=== PATIENT | female | born 1975 | race Caucasian/White ===

== ENCOUNTER → 2017-03-30 | Emergency (ER) | payer OTHER, SELFPAY | PROVIDERS: Emergency Provider Emergency Medicine; Visit Provider Emergency Medicine | DX: R51 Headache (principal); F17.210 Nicotine dependence, cigarettes, uncomplicated; I10 Essential (primary) hypertension; Z88.2 Allergy status to sulfonamides; Z88.8 Allergy status to other drugs, medicaments and biological substances; Z88.5 Allergy status to narcotic agent; Z79.84 Long term (current) use of oral hypoglycemic drugs; Z79.899 Other long term (current) drug therapy | CPT/HCPCS: 96365; 96367; 96375; 96376; 99284; J2405 ==

== ENCOUNTER 2017-05-30 21:03 | Emergency (ER) | payer OTHER, SELFPAY ==
[2017-05-30 21:07] VITALS: BP 163/116; PULSE 106; RESP 16; O2SAT 100; BMI 27.4
--- NOTE | 2017-05-30 21:54 | PC.NURSE ---
PT SITTING ON BED HOLDING HER HEAD, STATES THE PAIN MEDS WORKED FOR ABOUT 3 MINS AND IS NOW BACK AT A 9/10 ON A PAIN SCALE. NOTIFIED
--- NOTE | 2017-05-30 22:20 | HMH.EDGENADL ---
ED Disposition Clinical Impression: Hypertensive urgency Headache Qualifiers: Headache type: unspecified Headache chronicity pattern: acute headache Intractability: intractable Qualified Code(s): R51 - Headache Disposition: Home, Self-Care Condition on Discharge: Good Instructions: DI for Headache Additional Instructions: recheck if needed Referrals: Dipak Del Rosario MD [Primary Care Provider] - - Critical Care Critical Care Time: No Attestation: On 05/30/17, the high probability of a clinically significant, sudden or life threatening deterioration of the following system(s) required my full and direct attention, intervention and personal management. The time I documented below is in addition to time spent performing reported procedures but includes the following listed in this critical care notation. Medical Decision Making - Medical Records Medical records reviewed: Yes: I reviewed the patient's medical records. Vital Signs: 05/30/17 21:07 Pulse Rate [Right] 106 H Respiratory Rate 16 Blood Pressure [Right Arm] 163/116 Blood Pressure Mean [Right Arm] 131 02 Sat by Pulse Oximetry 100 Oxygen Delivery Method Room Air - Lab Data Lab results reviewed: Yes: I reviewed the patient's lab results. Orders (Tests/Meds): ED MEDICATIONS Discontinued Medications Generic Name Dose Route Start Last Admin Trade Name Freq PRN Reason Stop Dose Admin Butorphanol Tartrate 1 mg 05/30/17 21:56 05/30/17 22:04 Stadol 1mg/1ml Vial IV 05/30/17 21:57 1 mg ONCE ONE Administration Butorphanol Tartrate 1 mg 05/30/17 22:17 Stadol 1mg/1ml Vial IV 05/30/17 22:18 ONCE ONE Fentanyl Citrate 50 mcg 05/30/17 21:26 05/30/17 21:28 Fentanyl 250mcg/5ml Vial IV 05/30/17 21:27 50 mcg ONCE ONE Administration Promethazine HCl 25 mg 05/30/17 21:26 05/30/17 21:28 Phenergan 25mg/Ml 1ml Vial IV 05/30/17 21:27 25 mg ONCE ONE Administration Sodium Chloride 25 ml 05/30/17 21:26 05/30/17 21:28 Sod Chlor 0.9% 25ml Bag IV 05/30/17 21:27 25 ml ONCE ONE Administration - Javon Inquiry Pt receiving controlled substance: No General Adult HPI - General Chief complaint: PAIN Stated complaint: mcmahon, with vomiting Time Seen by Provider: 05/30/17 22:20 Mode of Arrival: Ambulatory Source of Information: Patient, Medical Record Limitations: No Limitations Description of Symptoms (Recalled from ER Triage Doc. by RN): MIGRAINE, PTS STATES HER CHILDREN HAS BEEN + FOR FLU, SHE WAS TESTED TODAY WELL BUT WAS - - History of Present Illness HPI narrative: pt with acute mcmahon with hx of mcmahon but no rash or fever and no trauma Onset (ago): hour(s) Location: head Severity: moderate, similar to prior episodes Associated symptoms: nausea/vomiting - Related Data Home Medications Medication Instructions Recorded Confirmed Amlodipine Besylate [Norvasc 5mg 5 mg PO DAILY 05/30/17 05/30/17 tablet] hydroCHLOROthiazide 12.5 mg PO DAILY 05/30/17 05/30/17 [Hydrochlorothiazide 12.5mg Tab] Allergies Allergy/AdvReac Type Severity Reaction Status Date / Time meperidine [From DEMEROL] Allergy Unknown Verified 05/30/17 21:18 metoclopramide [From REGLAN] Allergy Unknown Verified 05/30/17 21:18 morphine [MORPHINE] Allergy Unknown Verified 05/30/17 21:18 Sulfa (Sulfonamide Allergy Unknown Verified 05/30/17 21:18 Antibiotics) [SULFA (SULFONAMIDE ANTIBIOTICS)] [facility] History I have reviewed the patient's past medical history: Yes - *Social History Alcohol Intake: never - Psychiatric History Expresses thoughts of harming self/others: None Suicide Plan Description: No Plan ROS Obtained: Yes All systems reviewed & no additional complaints - Constitutional Constitutional: Denies fever(s) - Eyes Eyes: Denies change in vision - ENT Ears, Nose, Mouth, and Throat: Denies sore throat - Cardiovascular Cardiovascular: Denies chest pain, Denies chest
--- NOTE | 2017-05-30 22:23 | ED_ITS ---
ED Disposition Clinical Impression: Hypertensive urgency Headache Qualifiers: Headache type: unspecified Headache chronicity pattern: acute headache Intractability: intractable Qualified Code(s): R51 - Headache Disposition: Home, Self-Care Condition on Discharge: Good Instructions: DI for Headache Additional Instructions: recheck if needed Referrals: Dipak Del Rosario MD [Primary Care Provider] - - Critical Care Critical Care Time: No Attestation: On 05/30/17, the high probability of a clinically significant, sudden or life threatening deterioration of the following system(s) required my full and direct attention, intervention and personal management. The time I documented below is in addition to time spent performing reported procedures but includes the following listed in this critical care notation. Medical Decision Making - Medical Records Medical records reviewed: Yes: I reviewed the patient's medical records. Vital Signs: 05/30/17 21:07 Pulse Rate [Right] 106 H Respiratory Rate 16 Blood Pressure [Right Arm] 163/116 Blood Pressure Mean [Right Arm] 131 02 Sat by Pulse Oximetry 100 Oxygen Delivery Method Room Air - Lab Data Lab results reviewed: Yes: I reviewed the patient's lab results. Orders (Tests/Meds): ED MEDICATIONS Discontinued Medications Generic Name Dose Route Start Last Admin Trade Name Freq PRN Reason Stop Dose Admin Butorphanol Tartrate 1 mg 05/30/17 21:56 05/30/17 22:04 Stadol 1mg/1ml Vial IV 05/30/17 21:57 1 mg ONCE ONE Administration Butorphanol Tartrate 1 mg 05/30/17 22:17 Stadol 1mg/1ml Vial IV 05/30/17 22:18 ONCE ONE Fentanyl Citrate 50 mcg 05/30/17 21:26 05/30/17 21:28 Fentanyl 250mcg/5ml Vial IV 05/30/17 21:27 50 mcg ONCE ONE Administration Promethazine HCl 25 mg 05/30/17 21:26 05/30/17 21:28 Phenergan 25mg/Ml 1ml Vial IV 05/30/17 21:27 25 mg ONCE ONE Administration Sodium Chloride 25 ml 05/30/17 21:26 05/30/17 21:28 Sod Chlor 0.9% 25ml Bag IV 05/30/17 21:27 25 ml ONCE ONE Administration - Javon Inquiry Pt receiving controlled substance: No General Adult HPI - General Chief complaint: PAIN Stated complaint: mcmahon, with vomiting Time Seen by Provider: 05/30/17 22:20 Mode of Arrival: Ambulatory Source of Information: Patient, Medical Record Limitations: No Limitations Description of Symptoms (Recalled from ER Triage Doc. by RN): MIGRAINE, PTS STATES HER CHILDREN HAS BEEN + FOR FLU, SHE WAS TESTED TODAY WELL BUT WAS - - History of Present Illness HPI narrative: pt with acute mcmahon with hx of mcmahon but no rash or fever and no trauma Onset (ago): hour(s) Location: head Severity: moderate, similar to prior episodes Associated symptoms: nausea/vomiting - Related Data Home Medications Medication Instructions Recorded Confirmed Amlodipine Besylate [Norvasc 5mg 5 mg PO DAILY 05/30/17 05/30/17 tablet] hydroCHLOROthiazide 12.5 mg PO DAILY 05/30/17 05/30/17 [Hydrochlorothiazide 12.5mg Tab] Allergies Allergy/AdvReac Type Severity Reaction Status Date / Time meperidine [From DEMEROL] Allergy Unknown Verified 05/30/17 21:18 metoclopramide [From REGLAN] Allergy Unknown
[2017-05-30 22:30] VITALS: BP 170/101; PULSE 77; RESP 16; TEMP 36.8; O2SAT 98
== END 2017-05-30 22:32 | disposition home or self-care (01) ==
PROVIDERS: Emergency Provider Emergency Medicine; Family Provider Emergency Medicine; PCP Emergency Medicine
DX: R51 Headache (principal); I10 Essential (primary) hypertension; Z88.6 Allergy status to analgesic agent; Z88.2 Allergy status to sulfonamides
CPT/HCPCS: 96374; 96375; 99281; J0595

== ENCOUNTER → 2017-08-15 09:21 | Outpatient (CLI) | payer OTHER, SELFPAY ==
[2017-08-15 13:29] LABS: HCG,Quantitative 0 mIU/mL
== END ==
PROVIDERS: Visit Provider Emergency Medicine
DX: N91.2 Amenorrhea, unspecified (principal)
CPT/HCPCS: 36415; 84702

== ENCOUNTER → 2017-11-18 16:16 | Outpatient (CLI) | payer OTHER, SELFPAY ==
--- NOTE | 2017-11-18 16:18 | MR_ITS ---
MR cervical spine wo con, MR 3-d myelogram/MRCP HISTORY: Neck pain and numbness. When flexing neck numbness down neck to tail bone. Symptoms [id number]. Neck pain. No trauma ITS.REASON: numbness ORDERING PHYSICIAN: Stephenie Khoury PATIENT AGE: 42 years Comparison: X-RAY 02-20-2007 TECHNIQUE: Standard multiplanar multiecho sequences are performed without contrast. 3-D MIP and myelographic images are also rendered and reviewed FINDINGS: There is normal alignment. There is slight reversal of the cervical lordosis which may be due to patient positioning or muscle spasm. The craniocervical junction has an unremarkable appearance. C2-C3, C3-C4, and C4-C5 have an unremarkable appearance. C5-C6: Mild degenerative disc disease with minimal asymmetric bulging disc centrally and toward the left resulting in mild left foraminal narrowing. There is mild uncovertebral hypertrophy bilaterally. C6-C7: Small asymmetric bulging disc slightly eccentric towards the left. C7-T1: Unremarkable. No extruded herniated disc or canal stenosis. IMPRESSION: 1. C5-C6: Mild degenerative disc disease with minimal asymmetric bulging disc centrally and toward the left resulting in mild left foraminal narrowing. There is mild uncovertebral hypertrophy bilaterally. 2. C6-C7: Small asymmetric bulging disc slightly eccentric towards the left 3. No disc herniation or canal stenosis
== END ==
PROVIDERS: Family Provider Emergency Medicine; PCP Emergency Medicine; Visit Provider Nurse Practitioner Family
DX: R20.0 Anesthesia of skin (principal); R20.2 Paresthesia of skin
CPT/HCPCS: 72141; 76376

== ENCOUNTER 2017-11-23 12:56 | Outpatient (CLI) | payer OTHER, SELFPAY ==
--- NOTE | 2017-11-23 13:06 | MR_ITS ---
MR lumbar spine wo con, MR 3-d myelogram/MRCP HISTORY: Low back pain with left-sided leg numbness ITS.REASON: LOW BACK PAIN, LT LEG NUMBNESS TINGLING, HEADACHES ORDERING PHYSICIAN: Dipak Del Rosario MD PATIENT AGE: 42 years Comparison: 07/10/2015 TECHNIQUE: Standard multiplanar multiecho sequences are performed without contrast. 3-D MIP and myelographic images are also rendered and reviewed FINDINGS: There is normal alignment. The spinal cord ends at the T12-L1 level. T11-T12, T12-L1, L1-L2, L2-L3, and L3-L4 have an unremarkable appearance. There is minimal bulging disc at L4-L5 with mild facet and ligamentum flavum hypertrophy with minimal bilateral foraminal narrowing. L5-S1: Mild facet and ligamentum hypertrophy. Unremarkable disc space.. IMPRESSION: 1. Overall no change from 07/10/2015. No disc herniation or canal stenosis. 2. Minimal bulging disc at L4-L5 with mild facet and ligamentum hypertrophy and mild bilateral foraminal narrowing
--- NOTE | 2017-11-23 13:08 | MR_ITS ---
MR head/brain wo con HISTORY: Headaches with numbness and tingling of the left side, ITS.REASON: LOW BACK PAIN, LEFT LEG NUMBNESS AND TINGLING, HEADACHES ORDERING PHYSICIAN: Dipak Del Rosario MD PATIENT AGE: 42 years Comparison: None TECHNIQUE: Standard multiplanar multiecho sequences are performed without contrast. FINDINGS: There is no evidence of acute infarction. No midline shift or mass effect. No intracranial hemorrhage or hydrocephalus. There are multiple periventricular and subcortical T2 white matter hyperintensities. These are more pronounced of what one would expect for microangiopathic changes in patient of this age. Multiple sclerosis is a consideration. None of these lesions show restricted diffusion. No corpus callosal lesions. A small T2 white matter hyperintensity is present in the deep white matter adjacent to the occipital horn of the left lateral ventricle in the proximal occipital tract. Fredo G I right are unremarkable and the temporal horns are somewhat neck region. The cerebellopontine angles, and cerebellum are unremarkable. There is some increased T2 signal in the central aspect of the george. No mastoid effusion or sinus air-fluid level there is mild leftward nasal septal deviation There is a cystic lesion involving the central aspect of the pituitary gland measuring 6 x 5 mm. This does not extend out of the pituitary fossa. The corpus callosum has an unremarkable appearance. No cerebellar ectopia. IMPRESSION: IMPRESSION: 1. Multiple periventricular and subcortical T2 white matter hyperintensities. These are more extensive than what one would expect for patient of this age. Multiple sclerosis is considered. Migraine headaches could also cause these findings. Ischemic gliotic change from small vessel disease is also a consideration which may be seen in younger patients that have chronic hypertension, positive smoking history, or diabetic? 2. 6 x 5 mm cystic lesion of the pituitary. Dedicated MRI of the pituitary with thin sections without and with contrast may be of further value to better characterize this lesion.
[2017-11-23 14:42] LABS: Basophils # 0.1 K/mm3 (0-0.2); Basophils % 0.4 % (0.1-2.0); Eosinophils # 0.3 K/mm3 (0.0-0.4); Eosinophils % 3.2 % (0.1-12.0); Hematocrit 42.8 % (37.0-47.0); Hemoglobin 14.7 g/dL (12.2-16.2); Lymphocytes # 2.9 K/mm3 (0.7-4.5); Lymphocytes % 27.1 K/mm3 (10-50); Mean Corpuscular HGB Conc 34.2 g/dL (31.8-35.4); Mean Corpuscular Hemoglobin 31.6 pg (27.0-31.2); Mean Corpuscular Volume 92.3 fl (81-99); Mean Platelet Volume 6.8 fl (7.4-10.4); Monocytes # 0.6 K/mm3 (0.1-1.0); Monocytes % 5.3 % (1.7-9.3); Neutrophils # 6.9 K/mm3 (1.8-7.8); Platelet Count 298 K/mm3 (142-424); Red Blood Count 4.64 M/mm3 (4.20-5.40); Red Cell Distribution Width 12.7 % (11.5-17.5); White Blood Count 10.7 K/mm3 (4.8-10.8)
[2017-11-23 15:53] LABS: Alanine Aminotransferase 23 U/L (12-78); Albumin Level 3.8 gm/dL (3.4-5.0); Albumin/Globulin Ratio 1.1 (1.1-1.8); Alkaline Phosphatase 82 U/L (46-116); Anion Gap 9.7 mEq/L (5-15); Aspartate Amino Transferase 11 U/L (15-37); Bilirubin,Total 0.5 mg/dL (0.2-1.0); Blood Urea Nitrogen 9 mg/dL (7-18); Calcium 8.8 mg/dL (8.5-10.1); Carbon Dioxide 30 mmol/L (21.0-32.0); Chloride 101 mmol/L (98-107); Creatinine,Serum 0.81 mg/dL (0.55-1.02); Estimated Glomerular Filt Rate 78 ml/min (>60); Free T4 (Free Thyroxine) 1.15 ng/dl (0.76-1.46); GFR (African American) 95 ML/MIN (>60); Globulin 3.4 gm/dl (1.3-3.2); Glucose 95 mg/dL (74-106); HCG,Quantitative 0 mIU/mL; Magnesium 1.8 mg/dL (1.4-2.2); Potassium 3.7 mmoL/L (3.5-5.1); Sodium 137 mmol/L (136-145); Thyroid Stimulating Hormone 3.47 uIU/ml (0.358-3.740); Total Protein,Serum 7.2 gm/dL (6.4-8.2)
[2017-11-23 15:59] LABS: C-Reactive Protein < 0.2 mg/L (0.0-0.9)
[2017-11-23 16:15] VITALS: BP 156/100; PULSE 100; RESP 20; TEMP 36.6; O2SAT 98
[2017-11-23 16:20] VITALS: RESP 20
[2017-11-23 16:50] VITALS: BP 157/87; PULSE 100; RESP 18; TEMP 36.6; O2SAT 100
[2017-11-23 17:37] LABS: Erythrocyte Sedimentation Rate 31 mm/hr (0-20)
[2017-11-26 18:15] LABS: Arsenic, Blood 5 ug/L (2-23); Lead, Blood None Detected ug/dL (0-4); Mercury, Blood None Detected ug/L (0.0-14.9)
[2017-11-28 05:31] LABS: Triiodothyronine (T3) Free 3.8 pg/mL (2.0-4.4)
== END 2017-11-23 17:15 | disposition home or self-care (01) ==
LOC: RAD 13:04 → INF 16:11
PROVIDERS: Family Provider Emergency Medicine; PCP Emergency Medicine; Visit Provider Emergency Medicine
DX: R20.0 Anesthesia of skin (principal); R20.2 Paresthesia of skin; R51 Headache; M54.5 Low back pain
CPT/HCPCS: 36415; 70551; 72148; 76376; 80053; 82175; 83655; 83735; 83825; 84439; 84443; 84481; 84702; 85025; 85651; 86140; 96360; 96375

== ENCOUNTER → 2017-11-24 16:04 | Outpatient (CLI) | payer OTHER, SELFPAY ==
--- NOTE | 2017-11-24 16:09 | MR_ITS ---
MR head/brain wo/w con HISTORY: Headaches with numbness and tingling of the left side of the face, left leg numbness and tingling. Follow-up abnormal MRI of 11/23/2017, possible pituitary lesion ITS.REASON: ABNORMAL MRI ORDERING PHYSICIAN: Dipak Del Rosario MD PATIENT AGE: 42 years Comparison: None TECHNIQUE: Thin section pre and post enhanced and dynamic imaging performed of the pituitary without and with gadolinium enhancement. FINDINGS: There is an oval area of CSF signal intensity along the superior aspect of the pituitary gland measuring 6 mm in width. This is anterior to the pituitary stalk. This does not demonstrate any contrast enhancement and may actually represent a concave contour deformity of the pituitary gland as opposed to a real pituitary lesion. A pituitary cyst with very thin wall could have a similar appearance. There is no evidence of deviation of the patella traced all. No enhancing or nonenhancing lesions evident of the gland. Post enhanced images are obtained of the entire brain showing no abnormal enhancement. Specifically, the multiple small T2 hyperintensities do not demonstrate contrast enhancement. IMPRESSION: 1. 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 Consider 6-12 month follow up for confirmation 2. No enhancing intracranial lesions.
== END ==
PROVIDERS: Family Provider Emergency Medicine; PCP Emergency Medicine; Visit Provider Emergency Medicine
DX: R93.8 Abnormal findings on diagnostic imaging of other specified body structures (principal); R20.0 Anesthesia of skin; R20.2 Paresthesia of skin; R51 Headache; M54.9 Dorsalgia, unspecified
CPT/HCPCS: 36415; 70553; 82533; A9576

== ENCOUNTER → 2017-12-09 13:57 | Outpatient (CLI) | payer OTHER, SELFPAY ==
--- NOTE | 2017-12-09 13:58 | US_ITS ---
US transvaginal HISTORY: Dysfunctional uterine bleeding, amenorrhea ITS.REASON: dub ORDERING PHYSICIAN: Carlos Sesay MD PATIENT AGE: 42 years Comparison: None FINDINGS: The uterus is 8 x 4 x 5.3 cm with a combined endometrial thickness of 9 mm. The uterus is somewhat bulky appearance but no obvious masses or fibroids. The left ovary measures 5 x 3.4 cm and contains either a septated cyst at 4.5 x 2.5 cm. The right ovary is 4 x 3.5 cm containing a 3.6 x 2.6 cm cyst. There is blood flow within both ovaries. No cul-de-sac fluid evident. IMPRESSION: 1. 4.5 cm septated left ovarian cyst. 2. 3.6 cm simple appearing cyst of the right ovary 3. Slightly bulky uterus with unremarkable appearing endometrium
== END ==
PROVIDERS: Family Provider Emergency Medicine; PCP Emergency Medicine; Visit Provider Obstetrics & Gynecology
DX: N93.8 Other specified abnormal uterine and vaginal bleeding (principal)
CPT/HCPCS: 76830

== ENCOUNTER → 2017-12-16 15:42 | Outpatient (CLI) | payer OTHER, SELFPAY ==
[2017-12-16 17:37] LABS: Free Thyroxine Index 3.2 ug/dL (5.93-13.13); T4 (Thyroxine) 9.3 ug/dl (4.7-13.3); Thyroid Stimulating Hormone 2.92 uIU/ml (0.358-3.740); Triiodothryronine (T3) Uptake 34 % (31-39)
[2017-12-18 19:09] LABS: Thyroid Peroxidase Antibodies 335 IU/mL (0-34)
[2017-12-21 10:20] LABS: Thyroid Stimulating Immunoglob <0.10 IU/L (0.00-0.55)
== END ==
PROVIDERS: PCP Otolaryngology; Visit Provider Otolaryngology
DX: E06.9 Thyroiditis, unspecified (principal)
CPT/HCPCS: 36415; 84436; 84443; 84445; 84479; 86376

== ENCOUNTER → 2017-12-20 13:53 | Outpatient (CLI) | payer OTHER, SELFPAY ==
[2017-12-22 20:02] LABS: Cancer Antigen (CA) 125 24.3 U/mL (0.0-38.1)
== END ==
PROVIDERS: Family Provider Emergency Medicine; PCP Otolaryngology; Visit Provider Obstetrics & Gynecology
DX: N94.9 Unspecified condition associated with female genital organs and menstrual cycle (principal)
CPT/HCPCS: 36415; 86316

== ENCOUNTER → 2018-01-10 14:46 | Outpatient (CLI) | payer OTHER, SELFPAY ==
--- NOTE | 2018-01-10 14:49 | US_ITS ---
US transvaginal HISTORY: ITS.REASON: pelvic pain ORDERING PHYSICIAN: Carlos Sesay MD PATIENT AGE: 42 years Comparison: None FINDINGS: The uterus is 8 x 4 x 6 cm with a combined endometrial thickness of 9 mm. The uterus maintains a bulky appearance with a scar anteriorly. The left ovary is 4.3 x 3 x 3.7 cm and contains a 3.4 x 2.8 cm cyst. Adjacent/infiltrate to the left ovary is a dilated tubular structure which may represent a hydrosalpinx. The right ovary is 2 x 1.9 cm and contains a small 7 mm cyst. No cul-de-sac fluid. IMPRESSION: 3.4 cm left ovarian cyst with suspected hydrosalpinx on the left MRI may confirm if clinically warranted
== END ==
PROVIDERS: PCP Emergency Medicine; Visit Provider Obstetrics & Gynecology
DX: R10.2 Pelvic and perineal pain (principal)
CPT/HCPCS: 76830

== ENCOUNTER → 2018-01-31 10:16 | Outpatient (CLI) | payer OTHER, SELFPAY ==
--- NOTE | 2018-01-31 10:19 | MM_ITS ---
MM Dig screening mamm BI w/CAD ORDERING PHYSICIAN : Carlos Sesay MD PATIENT AGE: 42 years GENDER: Female COMPARISON: January 2015, 2016, January 2014 INDICATION: ITS.REASON: screening. No hormones. No new complaints. Noncontributory family history. TECHNIQUE: Standard CC and MLO images were obtained. R2 CAD reviewed. FINDINGS: Fairly dense inhomogeneous breast pattern bilaterally. Mammography of decreased sensitivity in breast of this character but we see no suspicious dominant mass nor suspicious calcifications. CAD computer review highlights no focal areas of concern either Breast . Bilateral follow-up in one year adequate ---------IMPRESSION:. Stable bilateral mammogram. No new areas of significant concern Fairly dense heterogeneous breast pattern bilaterally, does somewhat decrease sensitivity mammography but no new areas of concern Bilateral follow-up one year recommended. BI-RADS Category: 2 Benign Finding(s) RECOMMENDED FOLLOW-UP: 1YR 1 YEAR FOLLOW-UP (A letter has been sent to the patient regarding results of the study.)
== END ==
PROVIDERS: Family Provider Emergency Medicine; PCP Emergency Medicine; Visit Provider Obstetrics & Gynecology
DX: Z12.31 Encounter for screening mammogram for malignant neoplasm of breast (principal)
CPT/HCPCS: 77067

== ENCOUNTER → 2018-03-28 15:38 | Outpatient (CLI) | payer OTHER, SELFPAY ==
--- NOTE | 2018-03-28 15:39 | US_ITS ---
US transvaginal HISTORY: Irregular bleeding, left adnexal mass ITS.REASON: LEFT ADNEXAL MASS ORDERING PHYSICIAN: Carlos Sesay MD PATIENT AGE: 42 years Comparison: 01/10/2018 FINDINGS: The uterus measures 7.8 3.8 x 4.7 cm. Combined endometrial thickness is 5 mm. There is an area of heterogeneous echogenicity in the fundus of the uterus anteriorly measuring 2 x 2 cm consistent with fibroid. The right ovary measures 3.8 x 2.6 x 4 cm and contains a 2.8 by 2 x 2 x 2.9 cm cyst. The left ovary is 2.6 x 1.9 cm containing small follicles. Tubular area of fluid echogenicity noted in the left adnexa as before consistent with hydrosalpinx. No cul-de-sac fluid apparent. IMPRESSION: 1. Previously described left ovarian cyst is no longer apparent. There is a left-sided hydrosalpinx as before. 2. There is a new right ovarian cyst at 2.8 x 2.9 cm. 3. Small uterine fibroid
== END ==
PROVIDERS: PCP Emergency Medicine; Visit Provider Obstetrics & Gynecology
DX: R10.2 Pelvic and perineal pain (principal)
CPT/HCPCS: 76830

== ENCOUNTER 2018-03-31 21:46 | Inpatient (IN) ==
[2018-03-31 22:13] LABS: Microscopic, Urine URINE MICROSCOPIC (MICROSCOPIC)
[2018-03-31 22:16] LABS: Appearance,Urine CLEAR (Clear); Bilirubin,Urine Negative (Negative); Blood, Urine 3+ (Negative); Color,Urine YELLOW (Yellow); Glucose,Urine (UA) TRACE (Negative); Ketones,Urine TRACE (Negative); Leukocyte Esterase,Urine Negative (Negative); Protein,Urine Negative (Negative); Specific Gravity, Urine 1.025 (1.005-1.030); Urobilinogen,Urine 0.2 EU/dl (0.2)
[2018-03-31 22:20] LABS: Eosinophils % 0.2 % (0.1-12.0); Hematocrit 38.1 % (37.0-47.0); Lymphocytes # 0.9 K/mm3 (0.7-4.5); Mean Corpuscular HGB Conc 32.2 g/dL (31.8-35.4); Mean Corpuscular Hemoglobin 30.9 pg (27.0-31.2); Mean Corpuscular Volume 96.2 fl (81-99); Mean Platelet Volume 7.5 fl (7.4-10.4); Monocytes # 0.4 K/mm3 (0.1-1.0); Monocytes % 2.6 % (1.7-9.3); Neutrophils # 14.5 K/mm3 (1.8-7.8); Neutrophils % 91.3 % (37.0-80.0); Platelet Count 299 K/mm3 (142-424); Red Blood Count 3.96 M/mm3 (4.20-5.40); Red Cell Distribution Width 12.7 % (11.5-17.5); White Blood Count 15.8 K/mm3 (4.8-10.8)
[2018-03-31 22:22] LABS: Bacteria,Urine Trace /lpf
[2018-03-31 22:25] LABS: Albumin Level 3.3 gm/dL (3.4-5.0); Anion Gap 16.2 mEq/L (5-15); Bilirubin,Total 0.4 mg/dL (0.2-1.0); Calcium 8.1 mg/dL (8.5-10.1); Globulin 3.3 gm/dl (1.3-3.2); Potassium 4.2 mmoL/L (3.5-5.1); Total Protein,Serum 6.6 gm/dL (6.4-8.2)
[2018-03-31 22:29] LABS: Hemoglobin 12.3 g/dL (12.2-16.2)
[2018-03-31 22:38] LABS: Lymphocytes % 4 % (10-50); Monocytes % 1 % (2-9); Neutrophils % 88 % (42-76); RBC Morphology Normal; Total Cells Counted 100
--- NOTE | 2018-03-31 22:59 | Emergency Department Note ---
ED Disposition Clinical Impression: Post-operative haemorrhage Qualifiers: Surgical complication system/body Area: genitourinary Procedure type: genitourinary Qualified Code(s): N99.820 - Postprocedural hemorrhage of a genitourinary system organ or structure following a genitourinary system procedure Disposition: Admitted as Observation Condition on Discharge: Serious Instructions: DI for Acute Abdomen Referrals: Dipak Del Rosario MD [Primary Care Provider] - - Critical Care Critical Care Time: No Attestation: On 03/31/18, the high probability of a clinically significant, sudden or life threatening deterioration of the following system(s) required my full and direct attention, intervention and personal management. The time I documented below is in addition to time spent performing reported procedures but includes the following listed in this critical care notation. Medical Decision Making - Medical Records Medical records reviewed: Yes: I reviewed the patient's medical records. - Javon Inquiry Pt receiving controlled substance: No Vital Signs: 03/31/18 21:51 04/01/18 00:46 Temperature 98.8 F 98.2 F Temperature Source Oral Temporal Artery Scan Pulse Rate [Right Brachial] 118 H 88 Respiratory Rate 20 16 Blood Pressure [Right Arm] 147/88 H Blood Pressure Mean [Right Arm] 107 Blood Pressure Source [Right Arm] Automatic Cuff Blood Pressure Position [Right Arm] Sitting 02 Sat by Pulse Oximetry 98 99 Oxygen Delivery Method Room Air Room Air - Lab Data Lab results reviewed: Yes: I reviewed the patient's lab results. Lab Results 03/31/18 22:00: Urine Color Yellow, Urine Appearance Clear, Urine pH 6.0, Ur Specific [place] 1.025, Urine Protein Negative, Urine Glucose (UA) Trace, Urine Ketones Trace, Urine Blood 3+, Urine Nitrate Negative, Urine Bilirubin Negative, Urine Urobilinogen 0.2, Ur Leukocyte Esterase Negative, Urine RBC 3-5, Urine WBC 3-5, Ur Squamous Epith Cells 5-10, Urine Bacteria Trace 03/31/18 22:00: Sodium 140, Potassium 4.2, Chloride 103, Carbon Dioxide 25, Anion Gap 16.2 H, BUN 9, Creatinine 0.94, Estimated Creat Clear 74, Estimated GFR 66, Est GFR ( Amer) 80, Glucose 156 H D, Calcium 8.1 L, Total Bilirubin 0.4, AST 104 H D, ALT 142 H D, Alkaline Phosphatase 88, Total Protein 6.6, Albumin 3.3 L, Globulin 3.3 H, Albumin/Globulin Ratio 1.0 L 03/31/18 22:16: WBC 15.8 H D, RBC 3.96 L, Hgb 12.3 D, Hct 38.1, MCV 96.2, MCH 30.9, MCHC 32.2, RDW 12.7, Plt Count 299, MPV 7.5, Neut % (Auto) 91.3 H, Lymph % (Auto) 6.0 L, [place] % (Auto) 2.6, Eos % (Auto) 0.2, Baso % (Auto) 0.0 L, Neut # (Auto) 14.5 H, Lymph # (Auto) 0.9, [place] # (Auto) 0.4, Eos # (Auto) 0.0, Baso # (Auto) 0.0, Total Counted 100, Neutrophils % (Manual) 88 H, Band Neutrophils % 7.0, Lymphocytes % (Manual) 4 L, Monocytes % (Manual) 1 L, Platelet Estimate Normal, RBC Morphology Normal Result diagrams: 03/31/18 22:16 03/31/18 22:00 Orders (Tests/Meds): ED MEDICATIONS Generic Name Dose Route Start Last Admin Trade Name Freq PRN Reason Stop Dose Admin Sodium Chloride 1,000 mls @ 999 mls/hr 03/31/18 22:00 03/31/18 22:20 Sod Chlor 0.9% 1000ml Bag IV 03/31/18 23:00 999 mls/hr .Q1H1M JEANNE Administration Sodium Chloride 250 mls @ 25 mls/hr 04/01/18 01:00 Sod Chlor 0.9% 250ml Bag IV 04/02/18 00:59 .Q10H JEANNE Discontinued Medications Generic Name Dose Route Start Last Admin Trade Name Freq PRN Reason Stop Dose Admin Hydromorphone HCl 1 mg 03/31/18 22:18 03/31/18 22:20 Dilaudid 2mg/Ml Syringe IV 03/31/18 22:19 1 mg ONCE ONE Administration Hydromorphone HCl 1 mg 03/31/18 23:21 03/31/18 23:23 Dilaudid 2mg/Ml Syringe IV 03/31/18 23:22 1 mg ONCE ONE Administration Iopamidol 75 ml 03/31/18 23:16 03/31/18 23:18 [id number]; 75ml Vial IV 03/31/18 23:17 75 ml ONCE ONE Administration Protocol Promethazine HCl 12.5 mg 03/31/18 22:19 03/31/18 22:20 Phenergan 25mg/Ml 1ml Vial IV 03/31/18 22:20 12.5 mg ONCE ONE Administration Sodium Chloride 25 ml 03/31/18 22:19 03/31/18 22:20 Sod Chlor 0.9% 25ml Bag IV 03/31/18 22:20 25 ml ONCE ONE Administration Sodium Chloride 10 ml 03/31/18 23:16 03/31/18 23:18 Rad-Saline Flush 10ml Syringe IV 03/31/18 23:17 10 ml ONCE ONE Administration ORDERS Category Date Time Status PRBC [Red Blood Cells] Stat BBK 04/01/18 00:56 Ordered Type and Screen Stat BBK 04/01/18 00:56 Ordered Urinalysis and Microscopic Stat Lab 03/31/18 22:00 Ordered - CT Data CT Scan: Abdomen, Pelvis Time Received: 01:[address] Reviewed: Yes: I have viewed the radiologist's interpretation Preliminary Findings: Abnormal (see report) - Physician Consults Physician Consulted: omayra Reason -: Admission Nausea/Vomiting/Diarrhea HPI - General Chief complaint: Abdominal Pain Stated complaint: Surg Time Seen by Provider: 03/31/18 22:00 Mode of Arrival: Ambulatory Source of Information: Patient, Parent(s), Medical Record Limitations: No Limitations Description of Symptoms (Recalled from ER Triage Doc. by RN): Pt advises she surgery today and had her left tube and ovary removed. Right tube flushed, D&C, and endometrosis removed. Around 1999 she started having sharp, stabbing pains in the middle of her abd and into her back. 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 and has dev increasing pelvic pain over the last few hrs - nausea - no syncope MD complaint: nausea, abdominal pain Onset (ago): hour(s) Associated Abdominal Pain: Yes Location of pain: diffuse Severity: severe Quality: sharp Associated symptoms: denies other symptoms - Related Data Home Medications Medication Instructions Recorded Confirmed metoprolol tartrate 25 mg tablet 25 mg PO BID 11/28/17 03/31/18 Previous Rx's Medication Instructions Recorded amlodipine 5 mg tablet 5 mg PO DAILY #30 tab 02/22/18 hydrochlorothiazide 12.5 mg tablet 12.5 mg PO DAILY 90 Days #90 tab 02/22/18 promethazine 25 mg tablet 25 mg PO Q6H PRN 14 Days #20 tab 03/31/18 Allergies Allergy/AdvReac Type Severity Reaction Status Date / Time meperidine [From Demerol] Allergy Unknown Verified 03/31/18 09:18 metoclopramide [From REGLAN] Allergy Unknown Verified 03/31/18 09:18 Sulfa (Sulfonamide Allergy Unknown Verified 03/31/18 09:18 Antibiotics) [SULFA (SULFONAMIDE ANTIBIOTICS)] [facility] History - Hepatitis A Screen Drug use history?: No High risk sexual behaviors?: No History of sexually transmitted infection?: No Currently employed?: No Childcare worker?: No Do you have indoor plumbing?: Yes Do you have electricity?: Yes Attestation statement:: This patient has been screened for Hepatitis A risk factors. I have reviewed the patient's past medical history: Yes Medical History: Reports:: Hypertension, Kidney Stones, Migraine Denies:: Cancer, Diabetes Mellitus Type 1, Diabetes Mellitus Type 2, Internal Pacemaker, MRSA, Seizures Other Medical History: Denies: Blood Transfusion Reaction Comment: ENDOMETRIOSIS. MIGRAINE. HYPERTENSION. HYPOTHYROIDISM. KIDNEY STONES. NEXPLANON--LEFT ARM Other Surgeries: Yes: , Diagnostic Lap, Other. No: Pacemaker Amputation: No Fractures: No Comment: DX. LSC--1996. C/S--1998. Exploratory Laparotomy--1999. Lap Choly--2004. D&E--2006. Hemorrhoidectomy--2006. D&E--2007. HSG--2008. Repeat C/Section--2009. Repeat , JOCELYN, extensive Lysis of adhesions--2010. Hemorrhoidectomy--2010. Fx D&C, Dx. LSC, JOCELYN, Extensive adhesiolysis--2012 - Social History Smoking Status: Current every day smoker Tobacco Type: cigarettes # Packs/Day (cigarettes): 1 Alcohol Intake: never Alcohol Intake Frequency:: holidays/special occasions only Substance Use Type: denies use Occupational Status: employed Housing: house Household Members: family - Psychiatric History Expresses thoughts of harming self/others: None Suicide Plan Description: No Plan Family Hx:: Cancer, Heart Attack, Hypertension, Coronary Artery Disease, Stroke Comment: 1998, male, Primary C/S, No complications--34 weeks. 2006, spontaneous , D&E. 2007 , Spontaneous , D&E. 2009, Repeat C/S, TWINS, Female, Male, Breast, premature delivery--32 weeks. 10/16/10 Repeat C/S, male, No complications,Breast ROS Obtained: Yes All systems reviewed & no additional complaints - Constitutional Constitutional: Denies fever(s) - Eyes Eyes: Denies change in vision - ENT Ears, Nose, Mouth, and Throat: Denies sore throat - Cardiovascular Cardiovascular: Denies chest pain - Respiratory Respiratory: No cough - Gastrointestinal Gastrointestingal: Reports: as per HPI, abdominal pain, nausea, vomiting - Genitourinary Female Genitourinary: Denies abnormal vaginal bleeding - Musculoskeletal Musculoskeletal: Denies joint pain - Integumentary/Breasts Skin/Breast: Denies rash - Neurologic Neurologic: Denies seizure-like activity Physical Exam - General General appearance: alert - Head Head exam: normocephalic - Eye Eye exam: Present: PERRL, EOMI - ENT ENT exam: Present: mucous membranes dry - Neck Neck exam: Present: trachea midline - Respiratory Respiratory exam: Absent: respiratory distress - Cardiovascular Cardiovascular exam: Present: regular rate - Abdominal Exam Abdominal exam: Present: soft, tenderness Abdominal tenderness: Present: suprapubic, moderate - Extremities Exam Extremities exam: Present: full ROM - Neurological Exam Neurological exam: Present: alert, oriented X3, CN II-XII intact - Psychiatric Psychiatric exam: Present: normal affect - Skin Skin exam: Absent: rash
[2018-04-01 02:35] LABS: Hemoglobin 9.8 g/dL (12.2-16.2)
[2018-04-01 02:36] LABS: Hematocrit 29.4 % (37.0-47.0)
--- NOTE | 2018-04-01 03:09 | Operative Note ---
Date of procedure: 04/01/18 Pre-op Diagnosis:: Postop hemorrhage Post-op Diagnosis:: Postop hemorrhage with hemoperitoneum and left broad ligament tear Procedure performed:: Exploratory laparotomy, evacuation of hemoperitoneum, oversewing of left broad ligament tear Surgeon:: Carlos Sesay MD Project Estimator(s):: Dr. Bethany Loomis HAND CANDY CUTTER:: Gonsalo Mejia Anesthesia: GETA Estimated blood loss (mL): 700 Operative findings:: Hemoperitoneum with clots. Left broad ligament tear. Operative note:: After the patient was prepped and draped in usual fashion and general anesthesia was the 3 laparoscopic incisions were inspected and felt to be intact. A lower abdominal midline incision was made and taken down through fat and fascia in the usual fashion. The peritoneum was entered bluntly, and a large amount of blood and clots was evacuated both manually and by suction. A self-retaining Isabela retractor with bladder blade was placed. The bowel was packed away, and the pelvis was inspected. The uterus was of normal size and configuration. The right adnexa appeared normal, without bleeding. On the left side, the staple line from the pelviscopic left salpingo-oophorectomy that had been performed yesterday morning was intact. However, there was a rent in the left broad ligament, which was oozing. No distinct pumping vessels were identified, but the rent was oversewn with a running unlocked suture of 2-0 Vicryl. Extensive irrigation was carried out, and there was no evidence of other bleeding. (Since the patient's arrival emergency room at approximately 2200 on 03/31/18, her hemoglobin had dropped from 12.3 g to 9.8 g, and the decision was made to begin transfusion of 2 units of packed cells, which was begun toward the end of surgery.) The peritoneum was grasped using Sangeeta clamps, and closed with a running semi-locked suture of 0 Vicryl. The muscle and fascia were closed with a running semi-locked suture of #1 Vicryl. The subcutaneous fat and Kilo's fascia were closed with a running unlocked suture of 2-0 Vicryl. The skin was closed with a subcuticular suture of 3-0 Vicryl, and appropriately dressed. The sponge and needle count was correct. The estimated blood loss without irrigation was 700 cc. The urine was clear in the Esposito catheter. The patient tolerated the procedure well, and was taken to PACU in excellent condition. She will be admitted postoperatively. Condition: stable Disposition: PACU Specimens:: None Complications:: None--transfusion started in OR.
--- NOTE | 2018-04-01 03:14 | Progress Note ---
[facility] Anesthesia Record Part I Intake, IV Amount: 1,700 Estimated blood loss (mL): 700 Urine output (mL): 200 Blood Pressure: 161/93 SaO2: 96 Pulse Rate: 73 Respiratory Rate: 12 Temperature: 97.7 F Patient is:: Awake, Stable Stable to PACU at:: 03:10
--- NOTE | 2018-04-01 03:14 | Progress Note ---
[facility] Anesthesia Record Part II Discharge Time: 15:40 Destination: floor PACU nurse assessment reviewed?: Yes Patient Condition:: Good Anesthesia Complications:: None
[2018-04-01 04:21] LABS: Hematocrit 36.6 % (37.0-47.0)
[2018-04-01 04:23] LABS: Hemoglobin 12.1 g/dL (12.2-16.2)
[2018-04-01 09:19] LABS: Anion Gap 10.2 mEq/L (5-15); Calcium 7.5 mg/dL (8.5-10.1); Potassium 4.2 mmoL/L (3.5-5.1)
[2018-04-01 09:27] LABS: Basophils % 0.2 % (0.1-2.0); Eosinophils % 0.1 % (0.1-12.0); Hematocrit 36.9 % (37.0-47.0); Hemoglobin 11.7 g/dL (12.2-16.2); Lymphocytes # 2.9 K/mm3 (0.7-4.5); Lymphocytes % 13.3 % (10-50); Mean Corpuscular HGB Conc 31.7 g/dL (31.8-35.4); Mean Corpuscular Hemoglobin 30.1 pg (27.0-31.2); Mean Corpuscular Volume 94.9 fl (81-99); Mean Platelet Volume 7.5 fl (7.4-10.4); Monocytes # 1.1 K/mm3 (0.1-1.0); Neutrophils # 17.4 K/mm3 (1.8-7.8); Neutrophils % 81.3 % (37.0-80.0); Platelet Count 260 K/mm3 (142-424); Red Blood Count 3.89 M/mm3 (4.20-5.40); Red Cell Distribution Width 14.3 % (11.5-17.5); White Blood Count 21.4 K/mm3 (4.8-10.8)
[2018-04-01 09:43] LABS: Lymphocytes % 10 % (10-50); Monocytes % 2 % (2-9); Neutrophils % 85 % (42-76); RBC Morphology Normal; Total Cells Counted 100
--- NOTE | 2018-04-01 11:57 | Progress Note ---
Internal Medicine - PN: Subj *Date: 04/01/18 *Time: 11:53 Interval history: This is day of surgery (approximately 9 hours postop). After transfusion, the patient's hemoglobin is 11.7 grams. Her abdomen is soft, albeit somewhat distended. Bowel sounds are minimal. The patient is afebrile. Vital signs are stable (blood pressure in the 120s over 70s). Urine output after a single dose of Lasix is good. PO2 is 95+. Lungs are clear, but with a few rales at both bases. A portable chest x-ray has been done (results pending). I have explained surgery to the patient, and specifically to expect some diaphragmatic irritation from irrigation fluid. We will continue to follow her H/H. Imp ression: Improving. Exam Vital signs and Labs for Last 24 Hours: Temp Pulse Resp BP Pulse Ox 98.0 F 74 18 124/80 95 04/01/18 10:00 04/01/18 11:26 04/01/18 11:26 04/01/18 11:26 04/01/18 11:26 Laboratory Results - last 24 hr 03/31/18 22:00: Urine Color Yellow, Urine Appearance Clear, Urine pH 6.0, Ur Specific [place] 1.025, Urine Protein Negative, Urine Glucose (UA) Trace, Urine Ketones Trace, Urine Blood 3+, Urine Nitrate Negative, Urine Bilirubin Negative, Urine Urobilinogen 0.2, Ur Leukocyte Esterase Negative, Urine RBC 3-5, Urine WBC 3-5, Ur Squamous Epith Cells 5-10, Urine Bacteria Trace 03/31/18 22:00: Sodium 140, Potassium 4.2, Chloride 103, Carbon Dioxide 25, Anion Gap 16.2 H, BUN 9, Creatinine 0.94, Estimated Creat Clear 74, Estimated GFR 66, Est GFR ( Amer) 80, Glucose 156 H D, Calcium 8.1 L, Total Bilirubin 0.4, AST 104 H D, ALT 142 H D, Alkaline Phosphatase 88, Total Protein 6.6, Albumin 3.3 L, Globulin 3.3 H, Albumin/Globulin Ratio 1.0 L 03/31/18 22:16: WBC 15.8 H D, RBC 3.96 L, Hgb 12.3 D, Hct 38.1, MCV 96.2, MCH 30.9, MCHC 32.2, RDW 12.7, Plt Count 299, MPV 7.5, Neut % (Auto) 91.3 H, Lymph % (Auto) 6.0 L, [place] % (Auto) 2.6, Eos % (Auto) 0.2, Baso % (Auto) 0.0 L, Neut # (Auto) 14.5 H, Lymph # (Auto) 0.9, [place] # (Auto) 0.4, Eos # (Auto) 0.0, Baso # (Auto) 0.0, Total Counted 100, Neutrophils % (Manual) 88 H, Band Neutrophils % 7.0, Lymphocytes % (Manual) 4 L, Monocytes % (Manual) 1 L, Platelet Estimate Normal, RBC Morphology Normal 04/01/18 01:10: Blood Type A Positive, Antibody Screen Negative, Crossmatch (AHG) See Detail 04/01/18 01:54: Urine Color Yellow, Urine Appearance Clear, Urine pH 6.0, Ur Specific [place] 1.020, Urine Protein Negative, Urine Glucose (UA) Negative, Urine Ketones Trace, Urine Blood Trace-i, Urine Nitrate Negative, Urine Bilirubin Negative, Urine Urobilinogen 0.2, Ur Leukocyte Esterase Negative, Urine RBC 3-5, Ur Transition Epith Cell 10-20, Ur Renal Epithelial Cell Occasional 04/01/18 02:30: Hgb 9.8 L D, Hct 29.4 L 04/01/18 04:05: Hgb 12.1 L D, Hct 36.6 L 04/01/18 09:05: WBC 21.4 H* D, RBC 3.89 L, Hgb 11.7 L, Hct 36.9 L, MCV 94.9, MCH 30.1, MCHC 31.7 L, RDW 14.3, Plt Count 260, MPV 7.5, Neut % (Auto) 81.3 H, Lymph % (Auto) 13.3, [place] % (Auto) 5.0, Eos % (Auto) 0.1, Baso % (Auto) 0.2, Neut # (Auto) 17.4 H, Lymph # (Auto) 2.9, [place] # (Auto) 1.1 H, Eos # (Auto) 0.0, Baso # (Auto) 0.0, Total Counted 100, Neutrophils % (Manual) 85 H, Lymphocytes % (Manual) 10, Atypical Lymphs % 3.0, Monocytes % (Manual) 2, Platelet Estimate Normal, RBC Morphology Normal 04/01/18 09:05: Sodium 139, Potassium 4.2, Chloride 107, Carbon Dioxide 26, Anion Gap 10.2, BUN 10, Creatinine 0.90, Estimated Creat Clear 107, Estimated GFR 69, Est GFR ( Amer) 84, Glucose 112 H D, Calcium 7.5 L I & O for Last 24 hours: Intake & Output 03/29/18 03/30/18 03/31/18 04/01/18 11:59 11:59 11:59 11:59 Intake Total 3085 / 3085 Output Total 425 / 425 Balance 2660 / 2660 Weight 180 lb
--- NOTE | 2018-04-01 11:57 | Pharmacy Consult Notes ---
[facility] Pharmacy VTE Monitoring - Patient Demographics Admission date: 03/31/18 Report Date: 04/01/18 Time: 11:57 Allergies/Adverse Reactions: Patient Allergies meperidine [From Demerol] Allergy (Unknown, Verified 03/31/18 09:18) metoclopramide [From REGLAN] Allergy (Unknown, Verified 03/31/18 09:18) Sulfa (Sulfonamide Antibiotics) [SULFA (SULFONAMIDE ANTIBIOTICS)] Allergy (Unknown, Verified 03/31/18 09:18) Height: 1.68 m Weight: 81.647 kg Patient Problems: Current Active Problems Post-operative haemorrhage (Acute) - VTE Risk Labs: VTE Related Lab Results Hgb 11.7 g/dL (12.2-16.2) L 04/01/18 09:05 Hct 36.9 % (37.0-47.0) L 04/01/18 09:05 Plt Count 260 K/mm3 (142-424) 04/01/18 09:05 BUN 10 mg/dL (7-18) 04/01/18 09:05 Creatinine 0.90 mg/dL (0.55-1.02) 04/01/18 09:05 Estimated Creat Clear 107 mL/min (50-200) 04/01/18 09:05 Was VTE Risk Assessment Performed: Yes VTE Score: 2 - Prophylaxis VTE Prophylaxis Ordered?: Yes Types of VTE Prophylaxis: IPCS Thigh High Location of Applied Device: Bilateral Lower Extremeties
[2018-04-01 16:21] LABS: Hemoglobin 10.8 g/dL (12.2-16.2)
--- NOTE | 2018-04-01 21:18 | Consult Report ---
*Admission Date: 03/31/18 *Chief complaint: sob *History of present illness: this wf had recent fisher terrapin surg and went home and dev lower abd pain and was seen in the ed and noted to have prob post- op bleeding -t advises she surgery today and had her left tube and ovary removed. Right tube flushed, D&C, and endometrosis removed. Around 1999 she started having sharp, stabbing pains in the middle of her abd and into her back. pt was taken to surg - Postop hemorrhage Post-op Diagnosis:: Postop hemorrhage with hemoperitoneum and left broad ligament tear Procedure performed:: Exploratory laparotomy, evacuation of hemoperitoneum, oversewing of left broad ligament tear Surgeon:: Carlos Sesay MD Extrusion Bender(s):: Dr. Bethany Loomis COLD STORAGE SUPERVISOR:: Gonsalo Mejia Anesthesia: GETA Estimated blood loss (mL): 700 Operative findings:: Hemoperitoneum with clots. Left broad ligament tear. pt has been doing ok but this pm about 1500 - had an episode of sob and no chest pain but epigastric pain and now has no sob and no leg pain and no hx of pe or dvt -pt has elevated wells score 4.5 [facility] History I have reviewed the patient's past medical history: Yes Medical History: Reports:: Hypertension, Kidney Stones, Migraine Denies:: Cancer, Diabetes Mellitus Type 1, Diabetes Mellitus Type 2, Internal Pacemaker, MRSA, Seizures Other Medical History: Denies: Blood Transfusion Reaction Other Surgeries: Yes: , Diagnostic Lap, Other. No: Pacemaker Amputation: No Fractures: No - *Social History Smoking Status: Current every day smoker Tobacco Type: cigarettes # Packs/Day (cigarettes): 1 Alcohol Intake: never Alcohol Intake Frequency:: holidays/special occasions only Substance Use Type: denies use Occupational Status: employed Housing: house Household Members: family - Psychiatric History Expresses thoughts of harming self/others: None Suicide Plan Description: No Plan *Family Hx:: Cancer, Heart Attack, Hypertension, Coronary Artery Disease, Stroke Review of Systems - Review of Systems Review of systems:: pertinent systems reviewed and negative unless documented below - Constitutional Denies fever(s) - Eyes Denies change in vision - ENT Denies sore throat - *Cardiovascular Denies chest pain, Reports shortness of breath - *Respiratory Reports cough, Reports shortness of breath, Denies coughing up blood - *Gastrointestinal Reports abdominal pain, Reports nausea - *Genitourinary Denies blood in urine - *Musculoskeletal Denies joint pain - Integumentary/Breasts Denies rash - *Neurologic Denies seizure-like activity - Psychiatric Reports anxiety Meds Home Medications Medication Instructions Recorded Confirmed Type metoprolol tartrate 25 mg tablet 25 mg PO BID 11/28/17 04/01/18 History Allergies Allergy/AdvReac Type Severity Reaction Status Date / Time meperidine [From Demerol] Allergy Unknown Verified 03/31/18 09:18 metoclopramide [From REGLAN] Allergy Unknown Verified 03/31/18 09:18 Sulfa (Sulfonamide Allergy Unknown Verified 03/31/18 09:18 Antibiotics) [SULFA (SULFONAMIDE ANTIBIOTICS)] Exam Vital signs and Labs for Last 24 Hours: Temp Pulse Resp BP Pulse Ox 98.3 F 78 16 142/68 H 93 L 04/01/18 16:30 04/01/18 18:20 04/01/18 18:20 04/01/18 16:30 04/01/18 18:20 Laboratory Results - last 24 hr 03/31/18 22:00: Urine Color Yellow, Urine Appearance Clear, Urine pH 6.0, Ur Specific Dow 1.025, Urine Protein Negative, Urine Glucose (UA) Trace, Urine Ketones Trace, Urine Blood 3+, Urine Nitrate Negative, Urine Bilirubin Negative, Urine Urobilinogen 0.2, Ur Leukocyte Esterase Negative, Urine RBC 3-5, Urine WBC 3-5, Ur Squamous Epith Cells 5-10, Urine Bacteria Trace 03/31/18 22:00: Sodium 140, Potassium 4.2, Chloride 103, Carbon Dioxide 25, Anion Gap 16.2 H, BUN 9, Creatinine 0.94, Estimated Creat Clear 74, Estimated GFR 66, Est GFR ( Amer) 80, Glucose 156 H D, Calcium 8.1 L, Total Bilirubin 0.4, AST 104 H D, ALT 142 H D, Alkaline Phosphatase 88, Total Protein 6.6, Albumin 3.3 L, Globulin 3.3 H, Albumin/Globulin Ratio 1.0 L 03/31/18 22:16: WBC 15.8 H D, RBC 3.96 L, Hgb 12.3 D, Hct 38.1, MCV 96.2, MCH 30.9, MCHC 32.2, RDW 12.7, Plt Count 299, MPV 7.5, Neut % (Auto) 91.3 H, Lymph % (Auto) 6.0 L, [place] % (Auto) 2.6, Eos % (Auto) 0.2, Baso % (Auto) 0.0 L, Neut # (Auto) 14.5 H, Lymph # (Auto) 0.9, [place] # (Auto) 0.4, Eos # (Auto) 0.0, Baso # (Auto) 0.0, Total Counted 100, Neutrophils % (Manual) 88 H, Band Neutrophils % 7.0, Lymphocytes % (Manual) 4 L, Monocytes % (Manual) 1 L, Platelet Estimate Normal, RBC Morphology Normal 04/01/18 01:10: Blood Type A Positive, Antibody Screen Negative, Crossmatch (AHG) See Detail 04/01/18 01:54: Urine Color Yellow, Urine Appearance Clear, Urine pH 6.0, Ur Specific Dow 1.020, Urine Protein Negative, Urine Glucose (UA) Negative, Urine Ketones Trace, Urine Blood Trace-i, Urine Nitrate Negative, Urine Bilirubin Negative, Urine Urobilinogen 0.2, Ur Leukocyte Esterase Negative, U rine RBC 3-5, Ur Transition Epith Cell 10-20, Ur Renal Epithelial Cell Occasional 04/01/18 02:30: Hgb 9.8 L D, Hct 29.4 L 04/01/18 04:05: Hgb 12.1 L D, Hct 36.6 L 04/01/18 09:05: WBC 21.4 H* D, RBC 3.89 L, Hgb 11.7 L, Hct 36.9 L, MCV 94.9, MCH 30.1, MCHC 31.7 L, RDW 14.3, Plt Count 260, MPV 7.5, Neut % (Auto) 81.3 H, Lymph % (Auto) 13.3, [place] % (Auto) 5.0, Eos % (Auto) 0.1, Baso % (Auto) 0.2, Neut # (Auto) 17.4 H, Lymph # (Auto) 2.9, [place] # (Auto) 1.1 H, Eos # (Auto) 0.0, Baso # (Auto) 0.0, Total Counted 100, Neutrophils % (Manual) 85 H, Lymphocytes % (Manual) 10, Atypical Lymphs % 3.0, Monocytes % (Manual) 2, Platelet Estimate Normal, RBC Morphology Normal 04/01/18 09:05: Sodium 139, Potassium 4.2, Chloride 107, Carbon Dioxide 26, Anion Gap 10.2, BUN 10, Creatinine 0.90, Estimated Creat Clear 107, Estimated GFR 69, Est GFR ( Amer) 84, Glucose 112 H D, Calcium 7.5 L 04/01/18 15:58: Hgb 10.8 L, Hct 34.0 L I & O for Last 24 hours: Intake & Output 03/30/18 03/31/18 04/01/18 04/02/18 11:59 11:59 11:59 11:59 Intake Total 3685 / 3685 600 / 600 Output Total 425 / 425 400 / 400 Balance 3260 / 3260 200 / 200 Weight 180 lb - Constitutional no acute distress, cooperative - *Routine HEENT Exam Head: Present: normocephalic Eye: Present: EOMI, PERRL ENT: Present: mucous membranes dry - *Routine Neck Exam Absent: JVD - *Routine Respiratory Exam Present: rhonchi, diminished air movement. Absent: respiratory distress - *Routine Cardiovascular Exam Present: RRR, murmur. Absent: gallop, rubs - *Routine Abdominal Exam Present: soft Comments: post surg - *Routine Extremities Exam Absent: calf tenderness, Laure's sign - *Routine Skin Exam Present: intact - *Routine Neurological Exam Present: alert, oriented X3, CN II-XII intact - Routine Psychiatric Exam Present: normal affect Internal Medicine - CN: Reslt - Labs CBC & Chem 7: 04/01/18 15:58 04/01/18 09:05 Labs: Short CBC 03/31/18 04/01/18 04/01/18 Range/Units 22:16 02:30 04:05 WBC 15.8 H D (4.8-10.8) K/mm3 Hgb 12.3 D 9.8 L D 12.1 L D (12.2-16.2) g/dL Hct 38.1 29.4 L 36.6 L (37.0-47.0) % Plt Count 299 (142-424) K/mm3 04/01/18 04/01/18 Range/Units 09:05 15:58 WBC 21.4 H* D (4.8-10.8) K/mm3 Hgb 11.7 L 10.8 L (12.2-16.2) g/dL Hct 36.9 L 34.0 L (37.0-47.0) % Plt Count 260 (142-424) K/mm3 BMP 03/31/18 04/01/18 22:00 09:05 Sodium 140 139 Potassium 4.2 4.2 Chloride 103 107 Carbon Dioxide 25 26 BUN 9 10 Creatinine 0.94 0.90 Glucose 156 H D 112 H D Calcium 8.1 L 7.5 L Liver Function 03/31/18 Range/Units 22:00 Total Bilirubin 0.4 (0.2-1.0) mg/dL AST 104 H D (15-37) U/L ALT 142 H D (12-78) U/L Alkaline Phosphatase 88 (46-116) U/L Albumin 3.3 L (3.4-5.0) gm/dL Urine 03/31/18 04/01/18 Range/Units 22:00 01:54 Urine Color Yellow Yellow (Yellow) Urine Appearance Clear Clear (Clear) Urine pH 6.0 6.0 (5.0-8.5) Ur Specific Dow 1.025 1.020 (1.005-1.030) Urine Protein Negative Negative (Negative) Urine Glucose (UA) Trace Negative (Negative) - Impressions pt with episode of dypsnea and has recent surg with elevated wells score will obtain chest ct for pe - and will use inc pul treatment - ht murmur is old Assessment and Plan (1) Acute dyspnea Current visit: Yes Status: Acute Category: Medical Code(s): R06.00 - Dyspnea, unspecified (2) Post-operative haemorrhage Current visit: Yes Status: Acute Qualifiers: Surgical complication system/body Area: genitourinary Procedure type: genitourinary Qualified Code(s): N99.820 - Postprocedural hemorrhage of a genitourinary system organ or structure following a genitourinary system procedure Category: Medical (3) Anemia Current visit: Yes Status: Acute Qualifiers: Other causes of anemia: acute posthemorrhagic Category: Medical Code(s): D64.9 - Anemia, unspecified
[2018-04-02 06:13] LABS: Basophils % 0.3 % (0.1-2.0); Eosinophils # 0.2 K/mm3 (0.0-0.4); Eosinophils % 2.1 % (0.1-12.0); Hematocrit 32.1 % (37.0-47.0); Hemoglobin 10.5 g/dL (12.2-16.2); Lymphocytes # 2.3 K/mm3 (0.7-4.5); Lymphocytes % 21.7 % (10-50); Mean Corpuscular HGB Conc 32.6 g/dL (31.8-35.4); Mean Corpuscular Hemoglobin 30.6 pg (27.0-31.2); Mean Corpuscular Volume 93.9 fl (81-99); Mean Platelet Volume 7.7 fl (7.4-10.4); Monocytes # 0.5 K/mm3 (0.1-1.0); Monocytes % 4.5 % (1.7-9.3); Neutrophils # 7.7 K/mm3 (1.8-7.8); Neutrophils % 71.4 % (37.0-80.0); Platelet Count 186 K/mm3 (142-424); Red Blood Count 3.42 M/mm3 (4.20-5.40); Red Cell Distribution Width 14.2 % (11.5-17.5); White Blood Count 10.7 K/mm3 (4.8-10.8)
[2018-04-02 06:27] LABS: Albumin Level 2.6 gm/dL (3.4-5.0); Albumin/Globulin Ratio 0.9 (1.1-1.8); Anion Gap 8.6 mEq/L (5-15); Bilirubin,Total 0.6 mg/dL (0.2-1.0); Calcium 7.4 mg/dL (8.5-10.1); Globulin 2.8 gm/dl (1.3-3.2); Potassium 3.6 mmoL/L (3.5-5.1); Total Protein,Serum 5.4 gm/dL (6.4-8.2)
--- NOTE | 2018-04-02 09:33 | Progress Note ---
Internal Medicine - PN: Subj *Date: 04/02/18 *Time: 09:25 Interval history: This is postop days #1 and 2. Patient ran a slight low-grade temp during the night but is now afebrile. Vital signs are stable, although her blood pressure is elevated (she has a history of hypertension and is on medications at home). CT of her chest last night revealed bilateral pneumonic infiltrates (possibly aspiration-related), but no evidence of pulmonary embolus. CT of the abdomen showed essential resolution of her abdominal bleeding. Her hemoglobin is stable at 11 g. Her abdomen is still somewhat distended (likely postop ileus) but she has better bowel sounds now. I am starting her on a diet and having her ambulate. IM also giving her simethicone orally. Her wounds are clean. Her abdomen is soft. Dr. Del Rosario is seeing her this morning and will assess her blood pressure/pulmonary issues. Exam Vital signs and Labs for Last 24 Hours: Temp Pulse Resp BP Pulse Ox 98.0 F 92 H 20 165/87 H 92 L 04/02/18 08:00 04/02/18 08:00 04/02/18 08:00 04/02/18 08:00 04/02/18 08:00 Laboratory Results - last 24 hr 04/01/18 09:05: WBC 21.4 H* D, RBC 3.89 L, Hgb 11.7 L, Hct 36.9 L, MCV 94.9, MCH 30.1, MCHC 31.7 L, RDW 14.3, Plt Count 260, MPV 7.5, Neut % (Auto) 81.3 H, Lymph % (Auto) 13.3, [place] % (Auto) 5.0, Eos % (Auto) 0.1, Baso % (Auto) 0.2, Neut # (Auto) 17.4 H, Lymph # (Auto) 2.9, [place] # (Auto) 1.1 H, Eos # (Auto) 0.0, Baso # (Auto) 0.0, Total Counted 100, Neutrophils % (Manual) 85 H, Lymphocytes % (Manual) 10, Atypical Lymphs % 3.0, Monocytes % (Manual) 2, Platelet Estimate Normal, RBC Morphology Normal 04/01/18 15:58: Hgb 10.8 L, Hct 34.0 L 04/02/18 05:40: Sodium 138, Potassium 3.6, Chloride 105, Carbon Dioxide 28, Anion Gap 8.6, BUN 6 L D, Creatinine 0.67 D, Estimated Creat Clear 144, Estimated GFR 97, Est GFR ( Amer) 118 D, Glucose 95, Calcium 7.4 L, Total Bilirubin 0.6, AST 43 H D, ALT 103 H D, Alkaline Phosphatase 76, Total Protein 5.4 L, Albumin 2.6 L D, Globulin 2.8, Albumin/Globulin Ratio 0.9 L 04/02/18 05:40: WBC 10.7 D, RBC 3.42 L, Hgb 10.5 L, Hct 32.1 L, MCV 93.9, MCH 30.6, MCHC 32.6, RDW 14.2, Plt Count 186 D, MPV 7.7, Neut % (Auto) 71.4, Lymph % (Auto) 21.7, [place] % (Auto) 4.5, Eos % (Auto) 2.1, Baso % (Auto) 0.3, Neut # (Auto) 7.7, Lymph # (Auto) 2.3, [place] # (Auto) 0.5, Eos # (Auto) 0.2, Baso # (Auto) 0.0 I & O for Last 24 hours: Intake & Output 03/30/18 03/31/18 04/01/18 04/02/18 11:59 11:59 11:59 11:59 Intake Total 3685 / 3685 600 / 600 Output Total 425 / 425 850 / 850 Balance 3260 / 3260 -250 / -250 Weight 180 lb Assessment and Plan (1) Acute dyspnea Current visit: Yes Status: Acute Category: Medical Code(s): R06.00 - Dyspnea, unspecified (2) Post-operative haemorrhage Current visit: Yes Status: Acute Qualifiers: Surgical complication system/body Area: genitourinary Procedure type: genitourinary Qualified Code(s): N99.820 - Postprocedural hemorrhage of a genitourinary system organ or structure following a genitourinary system procedure Category: Medical (3) Anemia Current visit: Yes Status: Acute Qualifiers: Other causes of anemia: acute posthemorrhagic Category: Medical Code(s): D64.9 - Anemia, unspecified
--- NOTE | 2018-04-02 09:53 | Progress Note ---
Internal Medicine - PN: Subj *Date: 04/02/18 *Time: 09:50 Interval history: doing better but has resp sx and elevated bp Exam Vital signs and Labs for Last 24 Hours: Temp Pulse Resp BP Pulse Ox 98.0 F 92 H 20 165/87 H 92 L 04/02/18 08:00 04/02/18 08:00 04/02/18 08:00 04/02/18 08:00 04/02/18 08:00 Laboratory Results - last 24 hr 04/01/18 15:58: Hgb 10.8 L, Hct 34.0 L 04/02/18 05:40: Sodium 138, Potassium 3.6, Chloride 105, Carbon Dioxide 28, Anion Gap 8.6, BUN 6 L D, Creatinine 0.67 D, Estimated Creat Clear 144, Estimated GFR 97, Est GFR ( Amer) 118 D, Glucose 95, Calcium 7.4 L, Total Bilirubin 0.6, AST 43 H D, ALT 103 H D, Alkaline Phosphatase 76, Total Protein 5.4 L, Albumin 2.6 L D, Globulin 2.8, Albumin/Globulin Ratio 0.9 L 04/02/18 05:40: WBC 10.7 D, RBC 3.42 L, Hgb 10.5 L, Hct 32.1 L, MCV 93.9, MCH 30.6, MCHC 32.6, RDW 14.2, Plt Count 186 D, MPV 7.7, Neut % (Auto) 71.4, Lymph % (Auto) 21.7, [place] % (Auto) 4.5, Eos % (Auto) 2.1, Baso % (Auto) 0.3, Neut # (Auto) 7.7, Lymph # (Auto) 2.3, [place] # (Auto) 0.5, Eos # (Auto) 0.2, Baso # (Auto) 0.0 I & O for Last 24 hours: Intake & Output 03/30/18 03/31/18 04/01/18 04/02/18 11:59 11:59 11:59 11:59 Intake Total 3685 / 3685 600 / 600 Output Total 425 / 425 850 / 850 Balance 3260 / 3260 -250 / -250 Weight 180 lb - Constitutional no acute distress - *Routine HEENT Exam Head: Present: normocephalic Eye: Present: EOMI, PERRL ENT: Present: mucous membranes dry - *Routine Neck Exam Present: supple - *Routine Respiratory Exam Present: rhonchi Comments: rales on rt - *Routine Cardiovascular Exam Present: RRR, murmur - *Routine Abdominal Exam Present: soft - *Routine Extremities Exam Absent: calf tenderness - *Routine Skin Exam Present: intact - *Routine Neurological Exam Present: alert, oriented X3, CN II-XII intact - Routine Psychiatric Exam Present: normal affect Assessment and Plan (1) Acute dyspnea Current visit: Yes Status: Acute Category: Medical Code(s): R06.00 - Dyspnea, unspecified (2) Post-operative haemorrhage Current visit: Yes Status: Acute Qualifiers: Surgical complication system/body Area: genitourinary Procedure type: genitourinary Qualified Code(s): N99.820 - Postprocedural hemorrhage of a genitourinary system organ or structure following a genitourinary system procedure Category: Medical (3) Anemia Current visit: Yes Status: Acute Qualifiers: Other causes of anemia: acute posthemorrhagic Category: Medical Code(s): D64.9 - Anemia, unspecified (4) HTN (hypertension) Current visit: Yes Status: Acute Qualifiers: Hypertension type: essential hypertension Qualified Code(s): I10 - Essential (primary) hypertension Category: Medical Code(s): I10 - Essential (primary) hypertension (5) Pneumonia Current visit: Yes Status: Acute Qualifiers: Pneumonia type: aspiration pneumonia Aspiration pneumonia type: unspecified Laterality: right Lung location: lower lobe of lung Qualified Code(s): J69.0 - Pneumonitis due to inhalation of food and vomit Category: Medical Code(s): J18.9 - Pneumonia, unspecified organism
--- NOTE | 2018-04-03 06:12 | Progress Note ---
Internal Medicine - PN: Subj *Date: 04/03/18 *Time: 06:09 Interval history: This is postop day #3 and postop day #2. The patient is afebrile. Her vital signs are stable. Her wounds are clean. Abdomen is somewhat tense, but bowel sounds are present. No flatus yet (postop ileus). She continues on IV antibiotics because of pneumonia. Her lungs still reveal crackles at both bases. She is receiving breathing treatments, but is not using her incentive spirometer well. She is ambulating, and has received simethicone, but refuses a Dulcolax suppository. Impression: Improving. Continues on simethicone and pulmonary treatment. Exam Vital signs and Labs for Last 24 Hours: Temp Pulse Resp BP Pulse Ox 98.1 F 70 18 147/80 H 91 L 04/03/18 03:25 04/03/18 03:25 04/03/18 03:25 04/03/18 03:25 04/03/18 03:25 Laboratory Results - last 24 hr 04/02/18 05:40: Sodium 138, Potassium 3.6, Chloride 105, Carbon Dioxide 28, Anion Gap 8.6, BUN 6 L D, Creatinine 0.67 D, Estimated Creat Clear 144, Estimated GFR 97, Est GFR ( Amer) 118 D, Glucose 95, Calcium 7.4 L, Total Bilirubin 0.6, AST 43 H D, ALT 103 H D, Alkaline Phosphatase 76, Total Protein 5.4 L, Albumin 2.6 L D, Globulin 2.8, Albumin/Globulin Ratio 0.9 L 04/02/18 05:40: WBC 10.7 D, RBC 3.42 L, Hgb 10.5 L, Hct 32.1 L, MCV 93.9, MCH 30.6, MCHC 32.6, RDW 14.2, Plt Count 186 D, MPV 7.7, Neut % (Auto) 71.4, Lymph % (Auto) 21.7, [place] % (Auto) 4.5, Eos % (Auto) 2.1, Baso % (Auto) 0.3, Neut # (Auto) 7.7, Lymph # (Auto) 2.3, [place] # (Auto) 0.5, Eos # (Auto) 0.2, Baso # (Auto) 0.0 I & O for Last 24 hours: Intake & Output 03/31/18 04/01/18 04/02/18 04/03/18 11:59 11:59 11:59 11:59 Intake Total 3685 / 3685 600 / 600 2834 / 2834 Output Total 425 / 425 1325 / 1325 1300 / 1300 Balance 3260 / 3260 -725 / -725 1534 / 1534 Weight 180 lb Assessment and Plan (1) Acute dyspnea Current visit: Yes Status: Acute Category: Medical Code(s): R06.00 - Dyspnea, unspecified (2) Post-operative haemorrhage Current visit: Yes Status: Acute Qualifiers: Surgical complication system/body Area: genitourinary Procedure type: genitourinary Qualified Code(s): N99.820 - Postprocedural hemorrhage of a genitourinary system organ or structure following a genitourinary system procedure Category: Medical (3) Anemia Current visit: Yes Status: Acute Qualifiers: Other causes of anemia: acute posthemorrhagic Category: Medical Code(s): D64.9 - Anemia, unspecified (4) HTN (hypertension) Current visit: Yes Status: Acute Qualifiers: Hypertension type: essential hypertension Qualified Code(s): I10 - Essential (primary) hypertension Category: Medical Code(s): I10 - Essential (primary) hypertension (5) Pneumonia Current visit: Yes Status: Acute Qualifiers: Pneumonia type: aspiration pneumonia Aspiration pneumonia type: unspecified Laterality: right Lung location: lower lobe of lung Qualified Code(s): J69.0 - Pneumonitis due to inhalation of food and vomit Category: Medical Code(s): J18.9 - Pneumonia, unspecified organism
--- NOTE | 2018-04-03 12:09 | Progress Note ---
Internal Medicine - PN: Subj Interval history: doing better overall and from resp status - no fever - on room air - no flatus Exam Vital signs and Labs for Last 24 Hours: Temp Pulse Resp BP Pulse Ox 98.1 F 86 18 158/94 H 94 L 04/03/18 11:25 04/03/18 11:25 04/03/18 11:25 04/03/18 11:25 04/03/18 11:25 I & O for Last 24 hours: Intake & Output 04/01/18 04/02/18 04/03/18 04/04/18 11:59 11:59 11:59 11:59 Intake Total 3685 / 3685 600 / 600 3314 / 3314 Output Total 425 / 425 1325 / 1325 1800 / 1800 Balance 3260 / 3260 -725 / -725 1514 / 1514 Weight 180 lb - Constitutional no acute distress - *Routine HEENT Exam Head: Present: normocephalic Eye: Present: EOMI, PERRL ENT: Present: mucous membranes dry - *Routine Neck Exam Absent: JVD - *Routine Respiratory Exam Present: CTA bilaterally - *Routine Cardiovascular Exam Present: RRR, murmur - *Routine Abdominal Exam Present: distended - *Routine Extremities Exam Absent: calf tenderness - *Routine Skin Exam Present: intact - *Routine Neurological Exam Present: alert, CN II-XII intact - Routine Psychiatric Exam Present: normal affect Assessment and Plan (1) Acute dyspnea Current visit: Yes Status: Acute Category: Medical Code(s): R06.00 - Dyspnea, unspecified (2) Post-operative haemorrhage Current visit: Yes Status: Acute Qualifiers: Surgical complication system/body Area: genitourinary Procedure type: genitourinary Qualified Code(s): N99.820 - Postprocedural hemorrhage of a genitourinary system organ or structure following a genitourinary system procedure Category: Medical (3) Anemia Current visit: Yes Status: Acute Qualifiers: Other causes of anemia: acute posthemorrhagic Category: Medical Code(s): D64.9 - Anemia, unspecified (4) HTN (hypertension) Current visit: Yes Status: Acute Qualifiers: Hypertension type: essential hypertension Qualified Code(s): I10 - Essential (primary) hypertension Category: Medical Code(s): I10 - Essential (primary) hypertension (5) Pneumonia Current visit: Yes Status: Acute Qualifiers: Pneumonia type: aspiration pneumonia Aspiration pneumonia type: unspecified Laterality: right Lung location: lower lobe of lung Qualified Code(s): J69.0 - Pneumonitis due to inhalation of food and vomit Category: Medical Code(s): J18.9 - Pneumonia, unspecified organism
--- NOTE | 2018-04-03 16:35 | Progress Note ---
Internal Medicine - PN: Subj *Date: 04/03/18 *Time: 16:33 Interval history: The patient is doing better--Now passing flatus--afebrile--will consider discharge tomorrow, pending pulmonary evaluation.. Exam Vital signs and Labs for Last 24 Hours: Temp Pulse Resp BP Pulse Ox 98.1 F 86 16 158/94 H 94 L 04/03/18 11:25 04/03/18 11:25 04/03/18 12:08 04/03/18 11:25 04/03/18 11:25 I & O for Last 24 hours: Intake & Output 04/01/18 04/02/18 04/03/18 04/04/18 11:59 11:59 11:59 11:59 Intake Total 3685 / 3685 600 / 600 4114 / 4114 Output Total 425 / 425 1325 / 1325 1800 / 1800 1600 / 1600 Balance 3260 / 3260 -725 / -725 2314 / 2314 -1600 / -1600 Weight 180 lb Assessment and Plan (1) Acute dyspnea Current visit: Yes Status: Acute Category: Medical Code(s): R06.00 - Dyspnea, unspecified (2) Post-operative haemorrhage Current visit: Yes Status: Acute Qualifiers: Surgical complication system/body Area: genitourinary Procedure type: genitourinary Qualified Code(s): N99.820 - Postprocedural hemorrhage of a genitourinary system organ or structure following a genitourinary system procedure Category: Medical (3) Anemia Current visit: Yes Status: Acute Qualifiers: Other causes of anemia: acute posthemorrhagic Category: Medical Code(s): D64.9 - Anemia, unspecified (4) HTN (hypertension) Current visit: Yes Status: Acute Qualifiers: Hypertension type: essential hypertension Qualified Code(s): I10 - Essential (primary) hypertension Category: Medical Code(s): I10 - Essential (primary) hypertension (5) Pneumonia Current visit: Yes Status: Acute Qualifiers: Pneumonia type: aspiration pneumonia Aspiration pneumonia type: unspecified Laterality: right Lung location: lower lobe of lung Qualified Code(s): J69.0 - Pneumonitis due to inhalation of food and vomit Category: Medical Code(s): J18.9 - Pneumonia, unspecified organism
--- NOTE | 2018-04-04 06:23 | Progress Note ---
Internal Medicine - PN: Subj *Date: 04/04/18 *Time: 06:20 Interval history: Pt has had a bowel movement this AM--Bowel sounds present--will advance diet--Lung bases still not clear>>will order follow-up CXR--getting breathing treatments, but not deep-breathing well--wound clean/some ecchymosis--will discuss with Dr. Del Rosario today.. Exam Vital signs and Labs for Last 24 Hours: Temp Pulse Resp BP Pulse Ox 98.4 F 77 18 141/80 H 92 L 04/04/18 03:47 04/04/18 00:36 04/04/18 00:36 04/04/18 00:36 04/04/18 00:36 Laboratory Results - last 24 hr 04/01/18 01:10: Crossmatch ([facility]G) See Detail I & O for Last 24 hours: Intake & Output 04/01/18 04/02/18 04/03/18 04/04/18 11:59 11:59 11:59 11:59 Intake Total 3685 / 3685 600 / 600 4114 / 4114 1094 / 1094 Output Total 425 / 425 1325 / 1325 1800 / 1800 3600 / 3600 Balance 3260 / 3260 -725 / -725 2314 / 2314 -2506 / -2506 Weight 180 lb Assessment and Plan (1) Acute dyspnea Current visit: Yes Status: Acute Category: Medical Code(s): R06.00 - Dyspnea, unspecified (2) Post-operative haemorrhage Current visit: Yes Status: Acute Qualifiers: Surgical complication system/body Area: genitourinary Procedure type: genitourinary Qualified Code(s): N99.820 - Postprocedural hemorrhage of a genitourinary system organ or structure following a genitourinary system procedure Category: Medical (3) Anemia Current visit: Yes Status: Acute Qualifiers: Other causes of anemia: acute posthemorrhagic Category: Medical Code(s): D64.9 - Anemia, unspecified (4) HTN (hypertension) Current visit: Yes Status: Acute Qualifiers: Hypertension type: essential hypertension Qualified Code(s): I10 - Essential (primary) hypertension Category: Medical Code(s): I10 - Essential (primary) hypertension (5) Pneumonia Current visit: Yes Status: Acute Qualifiers: Pneumonia type: aspiration pneumonia Aspiration pneumonia type: unspecified Laterality: right Lung location: lower lobe of lung Qualified Code(s): J69.0 - Pneumonitis due to inhalation of food and vomit Category: Medical Code(s): J18.9 - Pneumonia, unspecified organism
--- NOTE | 2018-04-04 09:11 | Progress Note ---
Internal Medicine - PN: Subj *Date: 04/04/18 *Time: 09:08 Interval history: Patient sitting up alert and oriented x3. Patient states she has been up walking around but was told that when she falls asleep her pulse ox drops in the 80s. Patient does report a history of snoring and waking herself up. Patient is a smoker. Possible sleep apnea will evaluate as an outpatient. Today we will get patient out of bed have her up moving around and watch pulse ox. Exam Vital signs and Labs for Last 24 Hours: Temp Pulse Resp BP Pulse Ox 98.3 F 89 18 158/88 H 90 L 04/04/18 05:25 04/04/18 07:06 04/04/18 08:35 04/04/18 05:25 04/04/18 07:06 Laboratory Results - last 24 hr 04/01/18 01:10: Crossmatch (AHG) See Detail I & O for Last 24 hours: Intake & Output 04/01/18 04/02/18 04/03/18 04/04/18 11:59 11:59 11:59 11:59 Intake Total 3685 / 3685 600 / 600 4114 / 4114 1094 / 1094 Output Total 425 / 425 1325 / 1325 1800 / 1800 4100 / 4100 Balance 3260 / 3260 -725 / -725 2314 / 2314 -3006 / -3006 Weight 180 lb - Constitutional no acute distress - *Routine HEENT Exam Head: Present: normocephalic Eye: Present: PERRL ENT: Present: mucous membranes moist - *Routine Neck Exam Present: supple. Absent: lymphadenopathy - *Routine Respiratory Exam Present: wheezes, diminished air movement - *Routine Cardiovascular Exam Present: RRR - *Routine Abdominal Exam Present: soft, normoactive bowel sounds, tenderness Comments: Dressings to lower abdomen clean dry and intact. Bruising noted to the lower abdomen - *Routine Extremities Exam Present: full ROM. Absent: cyanosis, clubbing, edema - *Routine Skin Exam Present: warm. Absent: rash Comments: Dressings to lower abdomen bruising to lower abdomen. Bruising to right forearm. - *Routine Neurological Exam Present: alert, oriented X3 - Routine Psychiatric Exam Present: normal affect Assessment and Plan (1) Acute dyspnea Current visit: Yes Status: Acute Category: Medical Code(s): R06.00 - Dyspnea, unspecified (2) Post-operative haemorrhage Current visit: Yes Status: Acute Qualifiers: Surgical complication system/body Area: genitourinary Procedure type: genitourinary Qualified Code(s): N99.820 - Postprocedural hemorrhage of a genitourinary system organ or structure following a genitourinary system procedure Category: Medical (3) Anemia Current visit: Yes Status: Acute Qualifiers: Other causes of anemia: acute posthemorrhagic Category: Medical Code(s): D64.9 - Anemia, unspecified (4) HTN (hypertension) Current visit: Yes Status: Acute Qualifiers: Hypertension type: essential hypertension Qualified Code(s): I10 - Essential (primary) hypertension Category: Medical Code(s): I10 - Essential (primary) hypertension (5) Pneumonia Current visit: Yes Status: Acute Qualifiers: Pneumonia type: aspiration pneumonia Aspiration pneumonia type: unspecified Laterality: right Lung location: lower lobe of lung Qualified Code(s): J69.0 - Pneumonitis due to inhalation of food and vomit Category: Medical Code(s): J18.9 - Pneumonia, unspecified organism - Assessment and plan all Dx Assessment and Plan for all problems:: Rounded with Dr. Del Rosario all orders per Carin Will bring samples of anoro-for possible COPD will evaluate PFTs and sleep study when patient is well.
--- NOTE | 2018-04-04 12:54 | Progress Note ---
Internal Medicine - PN: Subj *Date: 04/04/18 *Time: 12:51 Interval history: At this point, patient is surgically stable, but pulmonary status still not adequate for discharge..Dr. Del Rosario to assume care until then in my absence. Instructions given to patient for post-op carte at home. Exam Vital signs and Labs for Last 24 Hours: Temp Pulse Resp BP Pulse Ox 97.9 F 83 16 160/87 H 95 04/04/18 12:00 04/04/18 12:00 04/04/18 12:00 04/04/18 12:00 04/04/18 12:00 Laboratory Results - last 24 hr 04/01/18 01:10: Crossmatch ([facility]G) See Detail I & O for Last 24 hours: Intake & Output 04/02/18 04/03/18 04/04/18 04/05/18 11:59 11:59 11:59 11:59 Intake Total 600 / 600 4114 / 4114 1359 / 1359 Output Total 1325 / 1325 1800 / 1800 4100 / 4100 Balance -725 / -725 2314 / 2314 -2741 / -2741 Assessment and Plan (1) Acute dyspnea Current visit: Yes Status: Acute Category: Medical Code(s): R06.00 - Dyspnea, unspecified (2) Post-operative haemorrhage Current visit: Yes Status: Acute Qualifiers: Surgical complication system/body Area: genitourinary Procedure type: genitourinary Qualified Code(s): N99.820 - Postprocedural hemorrhage of a genitourinary system organ or structure following a genitourinary system procedure Category: Medical (3) Anemia Current visit: Yes Status: Acute Qualifiers: Other causes of anemia: acute posthemorrhagic Category: Medical Code(s): D64.9 - Anemia, unspecified (4) HTN (hypertension) Current visit: Yes Status: Acute Qualifiers: Hypertension type: essential hypertension Qualified Code(s): I10 - Essential (primary) hypertension Category: Medical Code(s): I10 - Essential (primary) hypertension (5) Pneumonia Current visit: Yes Status: Acute Qualifiers: Pneumonia type: aspiration pneumonia Aspiration pneumonia type: unspecified Laterality: right Lung location: lower lobe of lung Qualified Code(s): J69.0 - Pneumonitis due to inhalation of food and vomit Category: Medical Code(s): J18.9 - Pneumonia, unspecified organism
[2018-04-05 06:35] LABS: Anion Gap 10.1 mEq/L (5-15); Potassium 3.1 mmoL/L (3.5-5.1)
[2018-04-05 06:48] LABS: Basophils # 0.1 K/mm3 (0-0.2); Basophils % 0.8 % (0.1-2.0); Eosinophils # 0.6 K/mm3 (0.0-0.4); Eosinophils % 8.2 % (0.1-12.0); Hematocrit 32.2 % (37.0-47.0); Hemoglobin 10.4 g/dL (12.2-16.2); Lymphocytes # 1.7 K/mm3 (0.7-4.5); Mean Corpuscular HGB Conc 32.4 g/dL (31.8-35.4); Mean Corpuscular Hemoglobin 30.4 pg (27.0-31.2); Mean Corpuscular Volume 93.7 fl (81-99); Mean Platelet Volume 7.4 fl (7.4-10.4); Monocytes # 0.5 K/mm3 (0.1-1.0); Monocytes % 7.9 % (1.7-9.3); Neutrophils # 3.9 K/mm3 (1.8-7.8); Neutrophils % 58.1 % (37.0-80.0); Platelet Count 312 K/mm3 (142-424); Red Blood Count 3.44 M/mm3 (4.20-5.40); Red Cell Distribution Width 13.7 % (11.5-17.5); White Blood Count 6.8 K/mm3 (4.8-10.8)
[2018-04-05 07:32] LABS: Calcium 8.3 mg/dL (8.5-10.1)
--- NOTE | 2018-04-05 09:22 | Progress Note ---
Internal Medicine - PN: Subj *Date: 04/05/18 *Time: 09:19 Interval history: She is doing a little better this morning. She did have some pain overnight as well as increase in her blood pressure. We have noticed that she has quite labile hypertension especially with pain. I have ordered Dilaudid 1 mg IV every 2 hours for breakthrough. She is also take oral pain medicine. She continues on her antibiotics for her right lower lobe pneumonia. She denies any shortness of breath or chest pain. She did have some chest pain overnight likely related to some gas as well as heartburn. Exam Vital signs and Labs for Last 24 Hours: Temp Pulse Resp BP Pulse Ox 98.0 F 90 16 127/78 93 L 04/05/18 08:12 04/05/18 08:12 04/05/18 08:31 04/05/18 08:12 04/05/18 08:31 Laboratory Results - last 24 hr 04/05/18 05:30: WBC 6.8 D, RBC 3.44 L, Hgb 10.4 L, Hct 32.2 L, MCV 93.7, MCH 30.4, MCHC 32.4, RDW 13.7, Plt Count 312 D, MPV 7.4, Neut % (Auto) 58.1, Lymph % (Auto) 25.0, [place] % (Auto) 7.9, Eos % (Auto) 8.2, Baso % (Auto) 0.8, Neut # (Auto) 3.9, Lymph # (Auto) 1.7, [place] # (Auto) 0.5, Eos # (Auto) 0.6 H, Baso # (Auto) 0.1 04/05/18 05:30: Sodium 141, Potassium 3.1 L, Chloride 103, Carbon Dioxide 31, Anion Gap 10.1, BUN 2 L D, Creatinine 0.66, Estimated Creat Clear 146, Estimated GFR 99, Est GFR ( Amer) 120, Glucose 93, Calcium 8.3 L D I & O for Last 24 hours: Intake & Output 04/02/18 04/03/18 04/04/18 04/05/18 11:59 11:59 11:59 11:59 Intake Total 600 / 600 4114 / 4114 1359 / 1359 4700 / 4700 Output Total 1325 / 1325 1800 / 1800 4100 / 4100 Balance -725 / -725 2314 / 2314 -2741 / -2741 4700 / 4700 - Constitutional no acute distress - *Routine HEENT Exam Head: Present: normocephalic Eye: Present: EOMI, PERRL ENT: Present: mucous membranes moist - *Routine Neck Exam Present: supple, full ROM - *Routine Respiratory Exam Absent: accessory muscle use (good air entry bilaterally), wheezes, crackles Comments: She still has some decreased air entry in the right lower quadrant as well as some crackles. Assessment and Plan (1) Acute dyspnea Current visit: Yes Status: Acute Category: Medical Code(s): R06.00 - Dyspnea, unspecified (2) Post-operative haemorrhage Current visit: Yes Status: Acute Qualifiers: Surgical complication system/body Area: genitourinary Procedure type: genitourinary Qualified Code(s): N99.820 - Postprocedural hemorrhage of a genitourinary system organ or structure following a genitourinary system procedure Category: Medical (3) Anemia Current visit: Yes Status: Acute Qualifiers: Other causes of anemia: acute posthemorrhagic Category: Medical Code(s): D64.9 - Anemia, unspecified (4) HTN (hypertension) Current visit: Yes Status: Acute Qualifiers: Hypertension type: essential hypertension Qualified Code(s): I10 - Essential (primary) hypertension Category: Medical Code(s): I10 - Essential (primary) hypertension (5) Pneumonia Current visit: Yes Status: Acute Qualifiers: Pneumonia type: aspiration pneumonia Aspiration pneumonia type: unspecified Laterality: right Lung location: lower lobe of lung Qualified Code(s): J69.0 - Pneumonitis due to inhalation of food and vomit Category: Medical Code(s): J18.9 - Pneumonia, unspecified organism - Assessment and plan all Dx Assessment and Plan for all problems:: We will continue with her pain medicine as well as her IV antibiotics. We will plan to continue with admission for another day since her pain has not really been well controlled and her blood pressure has been elevated. He was seen by Dr. Del Rosario this morning as well.
--- NOTE | 2018-04-05 10:06 | Progress Note ---
Internal Medicine - PN: Subj *Date: 04/05/18 *Time: 10:06 Exam Vital signs and Labs for Last 24 Hours: Temp Pulse Resp BP Pulse Ox 98.0 F 90 16 127/78 93 L 04/05/18 08:12 04/05/18 08:12 04/05/18 08:31 04/05/18 08:12 04/05/18 08:31 Laboratory Results - last 24 hr 04/05/18 05:30: WBC 6.8 D, RBC 3.44 L, Hgb 10.4 L, Hct 32.2 L, MCV 93.7, MCH 30.4, MCHC 32.4, RDW 13.7, Plt Count 312 D, MPV 7.4, Neut % (Auto) 58.1, Lymph % (Auto) 25.0, [place] % (Auto) 7.9, Eos % (Auto) 8.2, Baso % (Auto) 0.8, Neut # (Auto) 3.9, Lymph # (Auto) 1.7, [place] # (Auto) 0.5, Eos # (Auto) 0.6 H, Baso # (Auto) 0.1 04/05/18 05:30: Sodium 141, Potassium 3.1 L, Chloride 103, Carbon Dioxide 31, Anion Gap 10.1, BUN 2 L D, Creatinine 0.66, Estimated Creat Clear 146, Estimated GFR 99, Est GFR ( Amer) 120, Glucose 93, Calcium 8.3 L D I & O for Last 24 hours: Intake & Output 04/02/18 04/03/18 04/04/18 04/05/18 23:59 23:59 23:59 23:59 Intake Total 2834 / 2834 2374 / 2374 4965 / 4965 Output Total 1425 / 1425 4500 / 4500 900 / 900 Balance 1409 / 1409 -2126 / -2126 4065 / 4065 Assessment and Plan (1) Acute dyspnea Current visit: Yes Status: Acute Category: Medical Code(s): R06.00 - Dyspnea, unspecified (2) Post-operative haemorrhage Current visit: Yes Status: Acute Qualifiers: Surgical complication system/body Area: genitourinary Procedure type: genitourinary Qualified Code(s): N99.820 - Postprocedural hemorrhage of a genitourinary system organ or structure following a genitourinary system procedure Category: Medical (3) Anemia Current visit: Yes Status: Acute Qualifiers: Other causes of anemia: acute posthemorrhagic Category: Medical Code(s): D64.9 - Anemia, unspecified (4) HTN (hypertension) Current visit: Yes Status: Acute Qualifiers: Hypertension type: essential hypertension Qualified Code(s): I10 - Essential (primary) hypertension Category: Medical Code(s): I10 - Essential (primary) hypertension (5) Pneumonia Current visit: Yes Status: Acute Qualifiers: Pneumonia type: aspiration pneumonia Aspiration pneumonia type: unspecified Laterality: right Lung location: lower lobe of lung Qualified Code(s): J69.0 - Pneumonitis due to inhalation of food and vomit Category: Medical Code(s): J18.9 - Pneumonia, unspecified organism The patient's infection will respond to the chosen ABx?: Yes Is the patient receiving the right drug, dose, and route?: Yes Could a more targeted ABx be ordered?: No (WBC DECREASED SIGNIFICANTLY ON ABX)
--- NOTE | 2018-04-05 13:30 | Progress Note ---
Internal Medicine - PN: Subj *Date: 04/05/18 *Time: 08:30 Interval history: doing better this am - reviewed her labs and bp and pain with pt Exam Vital signs and Labs for Last 24 Hours: Temp Pulse Resp BP Pulse Ox 98.0 F 90 16 127/78 93 L 04/05/18 08:12 04/05/18 08:12 04/05/18 10:41 04/05/18 08:12 04/05/18 08:31 Laboratory Results - last 24 hr 04/05/18 05:30: WBC 6.8 D, RBC 3.44 L, Hgb 10.4 L, Hct 32.2 L, MCV 93.7, MCH 30.4, MCHC 32.4, RDW 13.7, Plt Count 312 D, MPV 7.4, Neut % (Auto) 58.1, Lymph % (Auto) 25.0, [place] % (Auto) 7.9, Eos % (Auto) 8.2, Baso % (Auto) 0.8, Neut # (Auto) 3.9, Lymph # (Auto) 1.7, [place] # (Auto) 0.5, Eos # (Auto) 0.6 H, Baso # (Auto) 0.1 04/05/18 05:30: Sodium 141, Potassium 3.1 L, Chloride 103, Carbon Dioxide 31, Anion Gap 10.1, BUN 2 L D, Creatinine 0.66, Estimated Creat Clear 146, Estimated GFR 99, Est GFR ( Amer) 120, Glucose 93, Calcium 8.3 L D I & O for Last 24 hours: Intake & Output 04/03/18 04/04/18 04/05/18 04/06/18 11:59 11:59 11:59 11:59 Intake Total 4114 / 4114 1859 / 1859 4700 / 4700 200 / 200 Output Total 1800 / 1800 5100 / 5100 800 / 800 Balance 2314 / 2314 -3241 / -3241 4700 / 4700 -600 / -600 - Constitutional no acute distress - *Routine HEENT Exam Head: Present: normocephalic Eye: Present: EOMI, PERRL ENT: Present: mucous membranes dry - *Routine Neck Exam Present: supple. Absent: JVD - *Routine Respiratory Exam Present: accessory muscle use, CTA bilaterally, rales, rhonchi Comments: rales rt base - *Routine Cardiovascular Exam Present: RRR, murmur. Absent: rubs - *Routine Abdominal Exam Present: soft - *Routine Extremities Exam Absent: calf tenderness - *Routine Skin Exam Present: intact - *Routine Neurological Exam Present: alert, oriented X3, CN II-XII intact - Routine Psychiatric Exam Present: normal affect Assessment and Plan (1) Acute dyspnea Current visit: Yes Status: Acute Category: Medical Code(s): R06.00 - Dyspnea, unspecified (2) Post-operative haemorrhage Current visit: Yes Status: Acute Qualifiers: Surgical complication system/body Area: genitourinary Procedure type: genitourinary Qualified Code(s): N99.820 - Postprocedural hemorrhage of a genitourinary system organ or structure following a genitourinary system procedure Category: Medical (3) Anemia Current visit: Yes Status: Acute Qualifiers: Other causes of anemia: acute posthemorrhagic Category: Medical Code(s): D64.9 - Anemia, unspecified (4) HTN (hypertension) Current visit: Yes Status: Acute Qualifiers: Hypertension type: essential hypertension Qualified Code(s): I10 - Essential (primary) hypertension Category: Medical Code(s): I10 - Essential (primary) hypertension (5) Pneumonia Current visit: Yes Status: Acute Qualifiers: Pneumonia type: aspiration pneumonia Aspiration pneumonia type: unspecified Laterality: right Lung location: lower lobe of lung Qualified Code(s): J69.0 - Pneumonitis due to inhalation of food and vomit Category: Medical Code(s): J18.9 - Pneumonia, unspecified organism (6) HTN (hypertension) Current visit: Yes Status: Acute Qualifiers: Hypertension type: essential hypertension Qualified Code(s): I10 - Essential (primary) hypertension Category: Medical Code(s): I10 - Essential (primary) hypertension
--- NOTE | 2018-04-06 09:43 | Discharge Summary ---
General - General Admission date:: 04/01/18 Discharge date: 04/06/18 HPI HPI: She is a 42-year-old lady who had a laparoscopic left salpingo-oophorectomy and later that evening started having pain as well as swelling in her abdomen. She came into the ER. Hospital Course Hospital Course: She had a CT scan that showed a likely hemorrhage within the abdominal cavity and as a result of that she was taken for emergency surgery. She underwent a midline laparotomy and it was found that she was having some ooze from the left side of the uterus. This was oversewn and the bleeding controlled. She had about 700 cc of blood within the pelvis upon opening the abdominal cavity. She and will reasonably well postoperatively and has remained afebrile. She did have crackles in her right lower lobe and an x-ray confirmed that she had a right lower lobe pneumonia. She was started on IV antibiotics. She is doing well now. She denies any chest pain, shortness of breath or calf tenderness. She has required significant doses of narcotics for pain relief. She has been taking 4 mg of hydromorphone every 3 hours. She has also been taking Toradol and Tylenol. She did have an elevation in her blood pressure and she was seen by Dr. Del Rosario who has also been following her pneumonia. We suspected that her blood pressure issues were likely related to her pain and as soon as her pain was controlled her blood pressure was normalized. On examination her incision is clean and dry. Her belly is slightly swollen. There is some bruising on her abdominal wall but otherwise the incision looks clean. She is discharged home to follow-up with Dr. Sesay in approximately a week's time. She she will continue with oral antibiotics that have been prescribed by Dr. Del Rosario. She will be given a prescription for Dilaudid 4 mg number 30 tablets to take every 4-6 hours as needed for pain. She will also be given a prescription for Toradol. She was given the usual instructions with respect to limiting her activity, driving and sexual activity. Her condition on discharge is stable and improved Objective Vital signs: Temp Pulse Resp BP Pulse Ox 98.3 F 82 18 170/94 H 94 L 04/06/18 04:30 04/06/18 04:30 04/06/18 04:30 04/06/18 04:30 04/06/18 04:30 no acute distress, obese - *Routine HEENT Exam Head: Present: normocephalic ENT: Present: mucous membranes moist - *Routine Neck Exam Present: supple, full ROM - *Routine Abdominal Exam Present: soft, normoactive bowel sounds DS: Diagnosis - Discharge Diagnosis (1) Acute dyspnea Status: Acute (2) Post-operative haemorrhage Status: Acute (3) Anemia Status: Acute (4) HTN (hypertension) Status: Acute (5) Pneumonia Status: Acute (6) HTN (hypertension) Status: Acute Discharge Plan - Patient Discharge Instructions ACTIVITY: Limited activity DIET: continue same diet Patient Instructions: How to Care for a Surgical Wound, Exploratory Laparotomy - Follow up Plan Follow up with: Carlos Sesay MD [Staff Physician] - 04/14/18 9:30 am Disposition: Home, Self-Nursing Home Medications: Home Medications Medication Instructions Recorded Confirmed Type metoprolol tartrate 25 mg tablet 25 mg PO BID 11/28/17 04/01/18 History amlodipine 5 mg tablet 5 mg PO DAILY #30 tab 02/22/18 04/01/18 Rx hydrochlorothiazide 12.5 mg tablet 12.5 mg PO DAILY 90 Days #90 tab 02/22/18 04/01/18 Rx promethazine 25 mg tablet 25 mg PO Q6H PRN 14 Days #20 tab 03/31/18 04/01/18 Rx Hydromorphone HCl [Hydromorphone 4 mg PO Q4-6H PRN #30 tab 04/06/18 Rx 4mg Tab] Ketorolac Tromethamine [Toradol 10 mg PO Q6H 5 Days #20 tablet 04/06/18 Rx 10mg tablet] Prescriptions/Medication Reconciliation: New Hydromorphone HCl [Hydromorphone 4mg Tab] 4 mg PO Q4-6H PRN #30 tab PRN Reason: Moderate To Severe Pain Ketorolac Tromethamine [Toradol 10mg tablet] 10 mg PO Q6H 5 Days #20 tablet Continue metoprolol tartrate 25 mg tablet 25 mg PO BID hydrochlorothiazide 12.5 mg tablet 12.5 mg PO DAILY 90 Days #90 tab amlodipine 5 mg tablet 5 mg PO DAILY #30 tab promethazine 25 mg tablet 25 mg PO Q6H PRN 14 Days #20 tab PRN Reason: nausea
--- NOTE | 2018-04-06 09:53 | Progress Note ---
Internal Medicine - PN: Subj *Date: 04/06/18 *Time: 08:00 Interval history: Patient states she is feeling better today okay to discharge Exam Vital signs and Labs for Last 24 Hours: Temp Pulse Resp BP Pulse Ox 98.3 F 82 18 170/94 H 94 L 04/06/18 04:30 04/06/18 04:30 04/06/18 04:30 04/06/18 04:30 04/06/18 04:30 I & O for Last 24 hours: Intake & Output 04/03/18 04/04/18 04/05/18 04/06/18 11:59 11:59 11:59 11:59 Intake Total 4114 / 4114 1859 / 1859 4700 / 4700 400 / 400 Output Total 1800 / 1800 5100 / 5100 2300 / 2300 Balance 2314 / 2314 -3241 / -3241 4700 / 4700 -1900 / -1900 - *Routine HEENT Exam Head: Present: normocephalic Eye: Present: PERRL ENT: Present: mucous membranes moist - *Routine Neck Exam Present: supple. Absent: lymphadenopathy - *Routine Respiratory Exam Present: diminished air movement - *Routine Cardiovascular Exam Present: RRR - *Routine Abdominal Exam Present: soft, normoactive bowel sounds, tenderness Comments: Incisions to mid abdomen lower abdomen - *Routine Extremities Exam Absent: cyanosis, clubbing, edema - *Routine Skin Exam Present: warm. Absent: rash Comments: Incisions to mid abdomen lower abdomen bruising noted - *Routine Neurological Exam Present: alert, oriented X3 - Routine Psychiatric Exam Present: normal affect Assessment and Plan (1) Acute dyspnea Current visit: Yes Status: Acute Category: Medical Code(s): R06.00 - Dyspnea, unspecified (2) Post-operative haemorrhage Current visit: Yes Status: Acute Qualifiers: Surgical complication system/body Area: genitourinary Procedure type: genit ourinary Qualified Code(s): N99.820 - Postprocedural hemorrhage of a genitourinary system organ or structure following a genitourinary system procedure Category: Medical (3) Anemia Current visit: Yes Status: Acute Qualifiers: Other causes of anemia: acute posthemorrhagic Category: Medical Code(s): D64.9 - Anemia, unspecified (4) HTN (hypertension) Current visit: Yes Status: Acute Qualifiers: Hypertension type: essential hypertension Qualified Code(s): I10 - E ssential (primary) hypertension Category: Medical Code(s): I10 - Essential (primary) hypertension (5) Pneumonia Current visit: Yes Status: Acute Qualifiers: Pneumonia type: aspiration pneumonia Aspiration pneumonia type: unspecified Laterality: right Lung location: lower lobe of lung Qualified Code(s): J69.0 - Pneumonitis due to inhalation of food and vomit Category: Medical Code(s): J18.9 - Pneumonia, unspecified organism (6) HTN (hypertension) Current visit: Yes Status: Acute Qualifiers: Hypertension type: essential hypertension Qualified Code(s): I10 - Essential (primary) hypertension Category: Medical Code(s): I10 - Essential (primary) hypertension - Assessment and plan all Dx Assessment and Plan for all problems:: Rounded with Dr. Del Rosario all orders per Carin Will discharge home on Omnicef and clindamycin and nicotine patches called to [facility]
== END 2018-04-06 11:45 | disposition home or self-care (01) | DRG 908 ==
LOC: ER 21:46 → OB 21:46 → OBSVTOIN 04-01 01:45 → OB 04-01 01:49
PROVIDERS: ADMIT Obstetrics & Gynecology; ATTEND Obstetrics & Gynecology
CPT/HCPCS: 36415; 71010; 71020; 71045; 71046; 71275; 74177; 80048; 80053; 81001; 85007; 85014; 85018; 85025; 86850; 93005; 93306; 94640; 94761; 96365; 96366; 96375; 96376; 99284; J0456; J2405; J2710; P9016; Q9967

== ENCOUNTER 2018-04-28 10:23 | Outpatient (CLI) | payer OTHER, SELFPAY ==
[2018-04-28 10:50] VITALS: BP 188/106; PULSE 68; RESP 20; TEMP 36.9; O2SAT 95
[2018-04-28 11:50] VITALS: BP 178/104; PULSE 84; RESP 20; TEMP 36.9; O2SAT 95
[2018-04-28 13:00] VITALS: BP 185/98; PULSE 84; RESP 20; TEMP 36.9; O2SAT 95
== END 2018-04-28 13:00 | disposition home or self-care (01) ==
LOC: INF 10:24
PROVIDERS: Visit Provider Emergency Medicine
DX: R51 Headache (principal)
CPT/HCPCS: 96360; 96374; 96375

== ENCOUNTER → 2018-06-13 16:28 | Outpatient (CLI) | payer OTHER, SELFPAY ==
[2018-06-13 14:31] VITALS: BP 185/111; PULSE 94; RESP 18; TEMP 36.7; O2SAT 95
[2018-06-13 15:08] VITALS: BP 172/92
[2018-06-13 17:00] VITALS: BP 138/78; PULSE 76; RESP 18; O2SAT 96
== END ==
PROVIDERS: Visit Provider Physician Assistant
DX: G43.909 Migraine, unspecified, not intractable, without status migrainosus (principal)
CPT/HCPCS: 96365; 96375

== ENCOUNTER → 2018-06-20 17:22 | Outpatient (CLI) | payer OTHER, SELFPAY ==
[2018-06-20 17:49] LABS: Basophils % 0.4 % (0.1-2.0); Eosinophils # 0.2 K/mm3 (0.0-0.4); Eosinophils % 2.6 % (0.1-12.0); Hematocrit 41.2 % (37.0-47.0); Lymphocytes # 2.7 K/mm3 (0.7-4.5); Lymphocytes % 30.5 % (10-50); Mean Corpuscular HGB Conc 33.9 g/dL (31.8-35.4); Mean Corpuscular Hemoglobin 30.5 pg (27.0-31.2); Mean Corpuscular Volume 90.2 fl (81-99); Mean Platelet Volume 6.9 fl (7.4-10.4); Monocytes # 0.4 K/mm3 (0.1-1.0); Monocytes % 4.2 % (1.7-9.3); Neutrophils # 5.5 K/mm3 (1.8-7.8); Neutrophils % 62.4 % (37.0-80.0); Platelet Count 319 K/mm3 (142-424); Red Blood Count 4.57 M/mm3 (4.20-5.40); Red Cell Distribution Width 12.9 % (11.5-17.5); White Blood Count 8.9 K/mm3 (4.8-10.8)
[2018-06-20 18:45] LABS: Anion Gap 11.9 mEq/L (5-15); Blood Urea Nitrogen 16 mg/dL (7-18); Calcium 9.3 mg/dL (8.5-10.1); Carbon Dioxide 29 mmol/L (21.0-32.0); Chloride 104 mmol/L (98-107); Creatinine,Serum 0.85 mg/dL (0.55-1.02); Estimated Glomerular Filt Rate 74 ml/min (>60); GFR (African American) 89 ML/MIN (>60); Glucose 91 mg/dL (74-106); Potassium 3.9 mmoL/L (3.5-5.1); Sodium 141 mmol/L (136-145)
[2018-06-21 12:57] LABS: HCG,Quantitative 0 mIU/mL
== END ==
PROVIDERS: Visit Provider Otolaryngology
DX: R10.9 Unspecified abdominal pain (principal)
CPT/HCPCS: 36415; 80048; 84702; 84703; 85025

== ENCOUNTER → 2018-06-26 17:14 | Outpatient (CLI) | payer OTHER, SELFPAY ==
[2018-06-26 18:36] LABS: Free T4 (Free Thyroxine) 0.94 ng/dl (0.76-1.46); HCG,Quantitative 0 mIU/mL; Thyroid Stimulating Hormone 1.85 uIU/ml (0.358-3.740)
[2018-06-28 15:03] LABS: Thyroid Peroxidase Antibodies 572 IU/mL (0-34)
[2018-06-29 09:22] LABS: Thyroid Stimulating Immunoglob <0.10 IU/L (0.00-0.55)
== END ==
PROVIDERS: Visit Provider Otolaryngology
DX: E03.9 Hypothyroidism, unspecified (principal); I10 Essential (primary) hypertension; R10.9 Unspecified abdominal pain
CPT/HCPCS: 36415; 84439; 84443; 84445; 84702; 86376

== ENCOUNTER → 2018-06-27 09:34 | Outpatient (CLI) | payer OTHER, SELFPAY | PROVIDERS: PCP Emergency Medicine; Visit Provider Physician Assistant | DX: R51 Headache (principal); I10 Essential (primary) hypertension; R10.9 Unspecified abdominal pain ==

== ENCOUNTER → 2018-07-04 08:33 | Outpatient (CLI) | payer OTHER, SELFPAY ==
--- NOTE | 2018-07-04 08:35 | MR_ITS ---
MR angio abdomen wo/w con CLINICAL INDICATION: Hypertension with severely elevated blood pressure and difficulties with vision ITS.REASON: mra abdomen to check renals ORDERING PHYSICIAN: DARON Walker PATIENT AGE: 43 years Comparison: None TECHNIQUE: Routine multiplanar multiecho sequences are performed without and with contrast. 18 mLs ProHance utilized FINDINGS: The abdominal aorta has an unremarkable appearance. There is a single renal artery to each kidney. No evidence of renal artery stenosis. The right renal artery is larger than the left renal artery. The segmental renal arteries are not well delineated. The celiac and superior mesenteric arteries are unremarkable. Inferior mesenteric artery is patent. The iliac arteries have an unremarkable appearance. No renal mass evident. There is some mild scarring along the lower pole the left kidney. The adrenal glands have an unremarkable appearance. The liver, spleen, pancreas: Unremarkable appearance. Prior cholecystectomy with minimal ectasia of the biliary tree which may be seen with postcholecystectomy changes. IMPRESSION: 1. No evidence of renal artery stenosis. 2. Left renal artery is somewhat smaller than the right but uniform in nature with no stenotic lesion apparent. 3. Mild cortical scarring along the lower pole the left kidney. 4. Unremarkable adrenal glands.
== END ==
PROVIDERS: PCP Emergency Medicine; Visit Provider Physician Assistant
DX: I10 Essential (primary) hypertension (principal); R10.9 Unspecified abdominal pain; R51 Headache
CPT/HCPCS: 74182; A9576

== ENCOUNTER → 2018-10-30 12:12 | Outpatient (CLI) | payer OTHER, SELFPAY ==
[2018-10-30 13:06] LABS: Basophils % 0.2 % (0.1-2.0); Hematocrit 43.5 % (37.0-47.0); Hemoglobin 14.3 g/dL (12.2-16.2); Lymphocytes # 1.1 K/mm3 (0.7-4.5); Mean Corpuscular HGB Conc 32.9 g/dL (31.8-35.4); Mean Corpuscular Hemoglobin 29.7 pg (27.0-31.2); Mean Corpuscular Volume 90.1 fl (81-99); Mean Platelet Volume 7.1 fl (7.4-10.4); Monocytes # 0.3 K/mm3 (0.1-1.0); Monocytes % 2.4 % (1.7-9.3); Neutrophils % 88.4 % (37.0-80.0); Platelet Count 373 K/mm3 (142-424); Red Blood Count 4.82 M/mm3 (4.20-5.40); Red Cell Distribution Width 12.9 % (11.5-17.5); White Blood Count 12.4 K/mm3 (4.8-10.8)
[2018-10-30 13:09] LABS: MANUAL DIFFERENTIAL MANUAL DIFFERENTIAL (MANUAL DIFF)
[2018-10-30 13:33] LABS: HCG Qualitative, Serum Negative (Negative)
[2018-10-30 13:52] LABS: Anion Gap 13.3 mEq/L (5-15); Blood Urea Nitrogen 10 mg/dL (7-18); Calcium 9.4 mg/dL (8.5-10.1); Carbon Dioxide 26 mmol/L (21.0-32.0); Chloride 100 mmol/L (98-107); Cholesterol 275 mg/dL (140-200); Creatinine,Serum 0.71 mg/dL (0.55-1.02); Estimated Glomerular Filt Rate 91 ml/min (>60); Free T4 (Free Thyroxine) 1.39 ng/dl (0.76-1.46); GFR (African American) 110 ML/MIN (>60); Glucose 104 mg/dL (74-106); Potassium 4.3 mmoL/L (3.5-5.1); Sodium 135 mmol/L (136-145); Thyroid Stimulating Hormone 0.49 uIU/ml (0.358-3.740)
[2018-10-30 16:51] LABS: Lymphocytes % 7 % (10-50); Monocytes % 2 % (2-9); Neutrophils % 91 % (42-76); Platelet Estimate Normal; RBC Morphology Normal; Total Cells Counted 100
[2018-10-31 12:59] LABS: FSH 6.3 mIU/mL (.); LH 12.8 mIU/mL (.); Thyroid Peroxidase Antibodies >600 IU/mL (0-34)
[2018-11-02 20:00] LABS: Thyroid Stimulating Immunoglob <0.10 IU/L (0.00-0.55)
== END ==
PROVIDERS: Visit Provider Otolaryngology
DX: E03.9 Hypothyroidism, unspecified (principal); R11.0 Nausea
CPT/HCPCS: 36415; 80048; 82465; 83001; 83002; 84439; 84443; 84445; 84703; 85007; 85025; 86376

== ENCOUNTER → 2018-11-28 16:16 | Outpatient (CLI) | payer OTHER, SELFPAY ==
[2018-11-28 18:17] LABS: Free Thyroxine Index 2.5 ug/dL (5.93-13.13); Thyroid Stimulating Hormone 3.42 uIU/ml (0.358-3.740); Triiodothryronine (T3) Uptake 31 % (31-39)
[2018-12-01 18:00] LABS: FSH 5.5 mIU/mL (.); LH 9.1 mIU/mL (.)
== END ==
PROVIDERS: Visit Provider Nurse Practitioner Obstetrics & Gynecology
DX: N92.6 Irregular menstruation, unspecified (principal); R53.82 Chronic fatigue, unspecified
CPT/HCPCS: 36415; 83001; 83002; 84436; 84443; 84479

== ENCOUNTER 2018-12-01 14:35 | Outpatient (CLI) | payer OTHER, SELFPAY ==
[2018-12-01 14:25] VITALS: BP 150/87; PULSE 78; RESP 18; O2SAT 96
[2018-12-01 16:50] VITALS: BP 146/77; PULSE 81; RESP 18; O2SAT 96
== END 2018-12-01 16:50 | disposition home or self-care (01) ==
LOC: INF 14:35
PROVIDERS: Visit Provider Emergency Medicine
DX: G43.909 Migraine, unspecified, not intractable, without status migrainosus (principal)
CPT/HCPCS: 96374; 96375

== ENCOUNTER → 2018-12-04 08:39 | Outpatient (CLI) | payer OTHER, SELFPAY ==
--- NOTE | 2018-12-04 08:42 | MR_ITS ---
PROCEDURE: MR ANGIO HEAD WO CON CLINICAL INDICATION: Migraine Severe headache with stroke-like symptoms, speech difficulty, jumbled speech COMPARISON: CT HEAD/BRAIN WO CON from 12/01/2018 TECHNIQUE: 3D [id number] images performed without contrast FINDINGS: No aneurysm, arteriovenous malformation, or major intracranial occlusive changes evident. Single-shot MRV shows no evidence of sagittal sinus thrombosis. IMPRESSION: Negative MRA of the head Dictated by: Pool Wolf MD 12/05/2018 07:14 Signed by: <Electronically signed by Pool Wolf MD in [place]> 12/05/2018 07:14
== END ==
PROVIDERS: PCP Emergency Medicine; Visit Provider Emergency Medicine
DX: R51 Headache (principal)
CPT/HCPCS: 70544

== ENCOUNTER → 2019-02-06 12:24 | Outpatient (CLI) | payer OTHER, SELFPAY ==
[2019-02-06 13:21] LABS: Basophils % 0.4 % (0.1-2.0); Eosinophils # 0.2 K/mm3 (0.0-0.4); Eosinophils % 1.8 % (0.1-12.0); Hematocrit 41.4 % (37.0-47.0); Hemoglobin 13.4 g/dL (12.2-16.2); Lymphocytes # 2.9 K/mm3 (0.7-4.5); Lymphocytes % 31.5 % (10-50); Mean Corpuscular HGB Conc 32.5 g/dL (31.8-35.4); Mean Corpuscular Hemoglobin 31.7 pg (27.0-31.2); Mean Corpuscular Volume 97.8 fl (81-99); Mean Platelet Volume 8.4 fl (7.4-10.4); Monocytes # 0.4 K/mm3 (0.1-1.0); Monocytes % 3.9 % (1.7-9.3); Neutrophils # 5.7 K/mm3 (1.8-7.8); Neutrophils % 62.4 % (37.0-80.0); Platelet Count 301 K/mm3 (142-424); Red Blood Count 4.24 M/mm3 (4.20-5.40); Red Cell Distribution Width 12.7 % (11.5-17.5); White Blood Count 9.1 K/mm3 (4.8-10.8)
[2019-02-06 14:25] LABS: Alanine Aminotransferase 16 U/L (12-78); Albumin Level 3.9 gm/dL (3.4-5.0); Albumin/Globulin Ratio 1.2 (1.1-1.8); Alkaline Phosphatase 64 U/L (46-116); Aspartate Amino Transferase 10 U/L (15-37); Bilirubin,Total 0.6 mg/dL (0.2-1.0); Blood Urea Nitrogen 9 mg/dL (7-18); Calcium 8.8 mg/dL (8.5-10.1); Carbon Dioxide 25 mmol/L (21.0-32.0); Chloride 104 mmol/L (98-107); Creatinine,Serum 0.73 mg/dL (0.55-1.02); Estimated Glomerular Filt Rate 88 ml/min (>60); Free T4 (Free Thyroxine) 1.03 ng/dl (0.76-1.46); GFR (African American) 106 ML/MIN (>60); Globulin 3.2 gm/dl (1.3-3.2); Glucose 81 mg/dL (74-106); Sodium 139 mmol/L (136-145); Thyroid Stimulating Hormone 4.62 uIU/ml (0.358-3.740); Total Protein,Serum 7.1 gm/dL (6.4-8.2)
[2019-02-08 07:13] LABS: Iron 96 ug/dL (27-159); Iron Saturation 30 % (15-55); Thyroid Peroxidase Antibodies 370 IU/mL (0-34); UIBC 229 ug/dL (131-425)
[2019-02-08 10:59] LABS: FSH 5.4 mIU/mL (.); Triiodothyronine (T3) Free 2.6 pg/mL (2.0-4.4)
[2019-02-08 21:07] LABS: LH 8.5 mIU/mL (.); Thyroid Stimulating Immunoglob <0.10 IU/L (0.00-0.55)
== END ==
PROVIDERS: Visit Provider Otolaryngology
DX: E06.9 Thyroiditis, unspecified (principal); L65.9 Nonscarring hair loss, unspecified
CPT/HCPCS: 36415; 80053; 83001; 83002; 83540; 83550; 84439; 84443; 84445; 84481; 85025; 86376

== ENCOUNTER 2019-02-21 12:40 | Outpatient (CLI) | payer OTHER, SELFPAY ==
[2019-02-21 12:46] VITALS: BP 150/86; PULSE 85; RESP 18
[2019-02-21 15:10] VITALS: BP 145/75; PULSE 79; RESP 18; O2SAT 98
== END 2019-02-21 15:10 | disposition home or self-care (01) ==
LOC: INF 12:40
PROVIDERS: PCP Emergency Medicine; Visit Provider Emergency Medicine
DX: R51 Headache (principal); J32.9 Chronic sinusitis, unspecified
CPT/HCPCS: 96360; 96361; 96375

== ENCOUNTER 2019-05-23 15:26 | Outpatient (CLI) | payer OTHER, SELFPAY ==
--- NOTE | 2019-05-23 15:30 | XR_ITS ---
PROCEDURE: XR CHEST 2V CLINICAL HISTORY: PHILLIP,ACUTE RESP ILLNESS Congestion, chest pressure COMPARISON: CXR CHEST(2 VIEWS-NOT PORTABLE) from 09/07/[address] angio chest from 04/01/2018 CXR1VP XR chest portable from 04/01/2018 CXR2V XR chest 2V from 04/04/2018 FINDINGS: The cardiomediastinal silhouette and pulmonary vascularity are within normal limits. The lungs are clear without infiltrates, suspicious nodules, or pleural effusions. No acute bony abnormalities. IMPRESSION: No acute findings. Dictated by: Pool Wolf MD 05/23/2019 15:48 Electronically signed by Pool Wolf MD in [place] 05/23/2019 15:48
[2019-05-23 15:36] VITALS: BMI 31.3
[2019-05-23 15:57] VITALS: BP 162/89; PULSE 91; RESP 20; TEMP 36.7; O2SAT 99
[2019-05-23 16:11] LABS: Basophils # 0.1 K/mm3 (0-0.2); Basophils % 0.6 % (0.1-2.0); Eosinophils # 0.5 K/mm3 (0.0-0.4); Eosinophils % 4.8 % (0.1-12.0); Hematocrit 41.6 % (37.0-47.0); Hemoglobin 14.3 g/dL (12.2-16.2); Lymphocytes # 2.4 K/mm3 (0.7-4.5); Lymphocytes % 21.6 % (10-50); Mean Corpuscular HGB Conc 34.4 g/dL (31.8-35.4); Mean Corpuscular Hemoglobin 31.9 pg (27.0-31.2); Mean Corpuscular Volume 92.6 fl (81-99); Mean Platelet Volume 8.2 fl (7.4-10.4); Monocytes # 0.4 K/mm3 (0.1-1.0); Monocytes % 3.6 % (1.7-9.3); Neutrophils # 7.6 K/mm3 (1.8-7.8); Neutrophils % 69.4 % (37.0-80.0); Platelet Count 270 K/mm3 (142-424); Red Blood Count 4.49 M/mm3 (4.20-5.40); Red Cell Distribution Width 13.1 % (11.5-17.5); White Blood Count 10.9 K/mm3 (4.8-10.8)
[2019-05-23 16:26] VITALS: BP 177/84; PULSE 76; RESP 20
[2019-05-23 16:55] VITALS: BP 177/89; PULSE 82; RESP 20
[2019-05-23 17:10] VITALS: BP 182/80; PULSE 76; RESP 20
--- NOTE | 2019-05-23 17:23 | PC.NURSE ---
1715 - PT REQUESTED THAT FLUIDS BE STOPPED BEFORE COMPLETE AND STATED THAT SHE HAD TO GO AHEAD AND LEAVE. STATES PAIN HAS DECREASED TO 4/10 AND SHE IS SATISFIED WITH RESULTS OF MEDS GIVEN. MOTHER HERE TO TRANSPORT HOME.
== END 2019-05-23 17:20 | disposition home or self-care (01) ==
LOC: RAD 15:27
PROVIDERS: PCP Emergency Medicine; Visit Provider Emergency Medicine
DX: R51 Headache (principal); J06.9 Acute upper respiratory infection, unspecified
CPT/HCPCS: 71046; 85025; 96360; 96367; 96374; 96375

== ENCOUNTER 2019-05-28 11:25 | Outpatient (CLI) | payer OTHER, SELFPAY ==
[2019-05-28] VITALS (10 sets, daily range): BP systolic 148–208; BP diastolic 87–116; PULSE 58–98; RESP 16–18; TEMP 36.7; O2SAT 97–99
--- NOTE | 2019-05-28 13:34 | MR_ITS ---
PROCEDURE: MR HEAD/BRAIN WO CON CLINICAL INDICATION: headache Severe headache with dizziness COMPARISON: BRAINWO MR head/brain wo con from 11/23/2017 BRAINWW MR head/brain wo/w con from 11/24/2017 CT HEAD/BRAIN WO CON from 12/01/2018 TECHNIQUE: Routine multiplanar multi echo sequences are performed without gadolinium enhancement. FINDINGS: No midline shift, mass effect, intracranial hemorrhage, or hydrocephalus is evident. The cerebellopontine angles, cerebellum, and brainstem have an unremarkable appearance. Increased T2 signals present in the central aspect of the george. There are numerous scattered periventricular and subcortical T2 white matter hyperintensities which is nonspecific and could be related to ischemic gliotic change, migraine headache, or demyelinating process. No evidence of acute infarction. These are not significantly changed from 11/23/2017. The pituitary, optic chiasm, corpus callosum, and craniocervical junction have an unremarkable appearance there is mild mucosal thickening of the left maxillary sinus and there is a small amount fluid in the right mastoid sinus. Previously there was a question of a cystic lesion within the pituitary but on further examination was felt to be due to concave appearance of the superior margin of the pituitary gland. This is once again noted and is not significantly changed. IMPRESSION: 1. Diffuse periventricular and subcortical T2 white matter hyperintensities as well as central T2 hyperintensity in the george. Differential diagnosis includes ischemic gliotic change from microvascular disease, migraine headache, or demyelinating process. Patient is somewhat younger than expected for this degree of diffuse abnormality. Is there history of hypertension, smoking, diabetes? No significant change from 11/23/2017 2. Otherwise negative. No acute infarction Dictated by: Pool Wolf MD 05/28/2019 16:12 Electronically signed by Pool Wolf MD in [place] 05/28/2019 16:12
--- NOTE | 2019-05-28 13:34 | MR_ITS ---
PROCEDURE: MR CERVICAL SPINE WO CON CLINICAL INDICATION: neck pain Left-sided neck pain with headache COMPARISON: SPCERVWO MR cervical spine wo con from 11/18/2017 TECHNIQUE: Standard multiplanar multiecho sequences are performed without contrast. 3-D MIP and myelographic images are also rendered and reviewed FINDINGS: Cranial cervical junction has an unremarkable appearance. There is straightening of the cervical lordosis which may be due to patient positioning or muscle spasm. C2-C3, C3-C4, and C4-C5 have an unremarkable appearance. C5-C6: Degenerate disc disease with bulging disc with narrowing of the canal at 9 mm with mild flattening of the cord anteriorly. There is mild left-sided foraminal narrowing and mild left lateral recess narrowing. C6-C7: Degenerate disc disease with a small broad based central and left paracentral and foraminal disc protrusion causing left lateral recess and foraminal narrowing. This is slightly worse than when compared to previous exam C7-T1: Unremarkable. IMPRESSION: 1. C5-C6: Degenerate disc disease with bulging disc with narrowing of the canal at 9 mm with mild flattening of the cord anteriorly. There is mild left-sided foraminal narrowing and mild left lateral recess narrowing. 2. C6-C7: Degenerate disc disease with a small broad based central and left paracentral and foraminal disc protrusion causing left lateral recess and foraminal narrowing. This is slightly worse than when compared to previous exam 3. No extruded herniated disc. Dictated by: Pool Wolf MD 05/28/2019 16:22 Electronically signed by Pool Wolf MD in [place] 05/28/2019 16:22
== END 2019-05-28 17:30 | disposition home or self-care (01) ==
LOC: INF 11:31
PROVIDERS: PCP Emergency Medicine; Visit Provider Emergency Medicine
DX: M54.2 Cervicalgia (principal); R51 Headache
CPT/HCPCS: 70551; 72141; 76376; 96360; 96374; 96375

== ENCOUNTER → 2019-06-07 13:40 | Outpatient (POV) | payer OTHER, SELFPAY | PROVIDERS: PCP Emergency Medicine; Visit Provider Neurological Surgery | DX: Z00.00 Encounter for general adult medical examination without abnormal findings (principal) ==

== ENCOUNTER → 2019-06-08 11:04 | Outpatient (CLI) | payer OTHER, SELFPAY ==
--- NOTE | 2019-06-08 11:04 | FL_ITS ---
CLINICAL INDICATION: HSG- Abnormal menstruation COMPARISON: No exams were available for comparison TECHNIQUE: Cannulation of the cervix was performed and retrograde injection of contrast was performed under fluoroscopic observation with static images obtained. Fluoro time 24 seconds. 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 History is given of left salpingectomy. There is opacification of the intrauterine cavity without evidence of filling defect. There is opacification of the right fallopian tube with free spillage of contrast. There is contrast opacification of a faint curvilinear structure in the region of the left fallopian tube with apparent intraperitoneal spillage of contrast. Correlation with exact surgical history is recommended. IMPRESSION: No defects are seen within the endometrial canal of the uterus. Intraperitoneal spillage of contrast from right fallopian tube Faint opacification of curvilinear structure in region of left fallopian tube with apparent intraperitoneal spillage. Dictated by: Christian Enriquez 06/08/2019 12:53 Electronically signed by Christian Enriquez in [place] 06/08/2019 12:53
--- NOTE | 2019-06-08 12:11 | HMH.OPNOTE ---
Date of procedure: 06/08/19 Pre-op Diagnosis:: Possible blocked tubes Post-op Diagnosis:: Open right fallopian tube Procedure performed:: Hysterosalpingogram Surgeon:: Nicolás Pino MD Anesthesia: none Estimated blood loss (mL): 0 Clinical Note:: She is a 44-year-old lady who is been trying to get . She has had a previous LSO. As a result of that we elected to perform a hysterosalpingogram. Operative findings:: She had what appeared to be leakage of fluid from the blunt end of the left tubal stump. The right tube filled and spilled into the pelvis. The uterine cavity appeared normal. Operative note:: Procedure was done in the radiology department. She was placed on the table in the lithotomy position and a speculum was placed in the vagina. The cervix was then washed with Hibiclens. The anterior lip of the cervix was grasped with a tenaculum and a small catheter was placed in the cervix. I then injected Isovue dye. The findings were as previously dictated. Photographs were taken. She tolerated procedure well. There was no blood loss. Condition: stable Disposition: same day Specimens:: None Complications:: None
== END ==
PROVIDERS: PCP Emergency Medicine; Visit Provider Nurse Practitioner Obstetrics & Gynecology
DX: N92.6 Irregular menstruation, unspecified (principal)
CPT/HCPCS: 58340; 74740; Q9967

== ENCOUNTER → 2019-09-18 10:37 | Outpatient (CLI) | payer OTHER, SELFPAY ==
[2019-09-18 11:04] LABS: Basophils # 0.1 K/mm3 (0-0.2); Basophils % 0.8 % (0.1-2.0); Eosinophils # 0.2 K/mm3 (0.0-0.4); Eosinophils % 2.4 % (0.1-12.0); Hematocrit 44.2 % (37.0-47.0); Hemoglobin 14.8 g/dL (12.2-16.2); Lymphocytes # 2.7 K/mm3 (0.7-4.5); Lymphocytes % 27.7 % (10-50); Mean Corpuscular HGB Conc 33.4 g/dL (31.8-35.4); Mean Corpuscular Hemoglobin 32.1 pg (27.0-31.2); Mean Platelet Volume 8.4 fl (7.4-10.4); Monocytes # 0.6 K/mm3 (0.1-1.0); Monocytes % 6.1 % (1.7-9.3); Neutrophils # 6.1 K/mm3 (1.8-7.8); Platelet Count 309 K/mm3 (142-424); Red Cell Distribution Width 13.4 % (11.5-17.5); White Blood Count 9.6 K/mm3 (4.8-10.8)
[2019-09-18 12:32] LABS: Free T4 (Free Thyroxine) 0.98 ng/dl (0.78-2.19)
[2019-09-18 12:34] LABS: Free Thyroxine Index 2.8 ug/dL (5.93-13.13); T4 (Thyroxine) 9.1 ug/dl (5.53-11.0); Triiodothryronine (T3) Uptake 31 % (23.5-40.5)
[2019-09-18 12:48] LABS: Thyroid Stimulating Hormone 4.96 uIU/mL (0.465-4.68)
[2019-09-18 13:02] LABS: Coronavirus 19 IgG Antibody Negative (Negative); Coronavirus 19 IgM Antibody Negative (Negative)
[2019-09-18 21:05] LABS: Anion Gap 12.9 mEq/L (5-15); Blood Urea Nitrogen 14 mg/dl (7-17); Calcium 9.5 mg/dl (8.4-10.2); Carbon Dioxide 22 mmol/L (22.0-30.0); Chloride 103 mmol/L (98-107); Chol/HDL Ratio 3.7 (1-3.5); Cholesterol 261 mg/dl (140-200); Estimated Glomerular Filt Rate 79 ml/min (>60); GFR (African American) 95 ML/MIN (>60); Glucose 88 mg/dl (74-100); HDL Cholesterol 70 mg/dl (40-60); Potassium 3.9 mmoL/L (3.5-5.1); Sodium 134 mmol/L (136-145); Triglycerides 106 mg/dl (30-150); VLDL Cholesterol 21 mg/dL (0-40)
[2019-09-18 21:23] LABS: HCG,Quantitative < 2 mIU/ml (0-5.42)
[2019-09-18 21:37] LABS: Thyroid Stimulating Hormone 5.01 uIU/mL (0.465-4.68)
[2019-09-19 14:16] LABS: Thyroid Peroxidase Antibodies 558 IU/mL (0-34)
[2019-09-21 08:42] LABS: Thyroid Stimulating Immunoglob <0.10 IU/L (0.00-0.55)
== END ==
PROVIDERS: Visit Provider Otolaryngology
DX: Z86.39 Personal history of other endocrine, nutritional and metabolic disease (principal); Z01.84 Encounter for antibody response examination; R05 Cough; R09.81 Nasal congestion
CPT/HCPCS: 80048; 80061; 84436; 84439; 84443; 84445; 84479; 84702; 85025; 86328; 86376

== ENCOUNTER 2019-09-25 20:57 | Emergency (ER) | payer OTHER, SELFPAY ==
[2019-09-25 21:08] VITALS: BP 192/104; PULSE 100; RESP 14; TEMP 36.7; O2SAT 98; BMI 30.7
--- NOTE | 2019-09-25 21:35 | HMH.EDHA ---
ED Disposition Clinical Impression: Hypertensive urgency Headache Qualifiers: Headache type: unspecified Headache chronicity pattern: acute headache Intractability: not intractable Qualified Code(s): R51 - Headache Disposition: Home, Self-Care Condition on Discharge: Good Instructions: DI for Headache Additional Instructions: see pcp for yoon marin Referrals: Dipak Del Rosario MD [Primary Care Provider] - - Critical Care Critical Care Time: No Attestation: On 09/25/19, the high probability of a clinically significant, sudden or life threatening deterioration of the following system(s) required my full and direct attention, intervention and personal management. The time I documented below is in addition to time spent performing reported procedures but includes the following listed in this critical care notation. Medical Decision Making - Medical Records Medical records reviewed: Yes: I reviewed the patient's medical records. - Javon Inquiry Pt receiving controlled substance: No Vital Signs: 09/25/19 21:08 09/25/19 22:46 Temperature 98.1 F Temperature Source Oral Pulse Rate [Right Brachial] 100 H 65 Respiratory Rate 14 18 Blood Pressure [Right Arm] 192/104 H 196/104 H Blood Pressure Mean [Right Arm] 133 134 Blood Pressure Source [Right Arm] Automatic Cuff Blood Pressure Position [Right Arm] Sitting 02 Sat by Pulse Oximetry 98 98 Oxygen Delivery Method Room Air Room Air Orders (Tests/Meds): ED MEDICATIONS Generic Name Dose Route Start Last Admin Trade Name Freq PRN Reason Stop Dose Admin Sodium Chloride 1,000 mls @ 999 mls/hr 09/25/19 21:30 09/25/19 21:49 Sod Chlor 0.9% 1000ml Bag IV 09/25/19 22:30 999 mls/hr .Q1H1M JEANNE Administration Discontinued Medications Generic Name Dose Route Start Last Admin Trade Name Freq PRN Reason Stop Dose Admin Hydromorphone HCl 1 mg 09/25/19 21:25 09/25/19 21:32 Dilaudid 2mg/Ml Syringe IV 09/25/19 21:26 1 mg ONCE ONE Administration Hydromorphone HCl 2 mg 09/25/19 22:24 09/25/19 22:25 Dilaudid 2mg/Ml Syringe IV 09/25/19 22:25 2 mg ONCE ONE Administration Promethazine HCl 25 mg 09/25/19 21:25 09/25/19 21:32 Phenergan 25mg/Ml 1ml Vial IV 09/25/19 21:26 25 mg ONCE ONE Administration Promethazine HCl 25 mg 09/25/19 22:24 09/25/19 22:25 Phenergan 25mg/Ml 1ml Vial IV 09/25/19 22:25 25 mg ONCE ONE Administration Sodium Chloride 25 ml 09/25/19 21:25 09/25/19 21:32 Sod Chlor 0.9% 25ml Bag IV 09/25/19 21:26 25 ml ONCE ONE Administration Sodium Chloride 25 ml 09/25/19 22:24 09/25/19 22:25 Sod Chlor 0.9% 25ml Bag IV 09/25/19 22:25 25 ml ONCE ONE Administration - Reevaluation(s) Time: 22:50 Reevaluation #1: improved Headache HPI - General Chief Complaint: Headache Stated Complaint: Migraine Time Seen by Provider: 09/25/19 21:35 Mode of Arrival: Ambulatory Source of Information: Patient, Medical Record Limitations: No Limitations Description of Symptoms (Recalled from ER Triage Doc. by RN): Patient reports severe headache that started a couple hours ago. - History of Present Illness HPI Narrative: acute excerbation of mcmahon - has no fever/rash or trauma - has had mcmahon in past - did not respond to home meds Complaint: headache Onset (ago): hour(s) Onset description: gradual Location: diffuse Severity: similar to previous episodes Quality: similar to previous headaches Context: occurred at rest Associated symptoms: none Treatments prior to arrival: none - Related Data Home Medications Medication Instructions Recorded Confirmed hydroCHLOROthiazide 12.5 mg PO DAILY 11/08/18 09/25/19 [Hydrochlorothiazide 12.5mg Tab] Amlodipine Besylate [Norvasc 5mg 10 mg PO DAILY 05/28/19 09/25/19 tablet] bisoprolol 5 1 tab PO DAILY 05/28/19 09/25/19 mg-hydrochlorothiazide 6.25 mg tablet Ciprofloxacin HCl [Ciprofloxacin 500 mg PO BID 09/25/19 09/25/19 500mg
[2019-09-25 22:46] VITALS: BP 196/104; PULSE 65; RESP 18; O2SAT 98
[2019-09-25 23:16] VITALS: BP 190/102; PULSE 72; RESP 14; TEMP 36.7; O2SAT 98
== END 2019-09-25 23:22 | disposition home or self-care (01) ==
PROVIDERS: Emergency Provider Emergency Medicine; PCP Emergency Medicine
DX: I16.0 Hypertensive urgency (principal); G43.909 Migraine, unspecified, not intractable, without status migrainosus; E03.9 Hypothyroidism, unspecified; F17.210 Nicotine dependence, cigarettes, uncomplicated; Z87.442 Personal history of urinary calculi; Z79.899 Other long term (current) drug therapy; Z88.2 Allergy status to sulfonamides; Z88.5 Allergy status to narcotic agent
CPT/HCPCS: 96365; 96375; 96376; 99282

== ENCOUNTER 2019-10-22 17:36 | Emergency (ER) | payer OTHER, SELFPAY ==
--- NOTE | 2019-10-22 17:51 | XR_ITS ---
PROCEDURE: XR KUB CLINICAL INDICATION: cramping COMPARISON: ABDPELW CT abdomen pelvis w con from 11/08/2018 FINDINGS: Nonspecific nonobstructive bowel gas pattern. Surgical clips right upper quadrant. Rounded calcific density left upper quadrant at 12 mm and may be due to splenic artery aneurysm. Surgical clips are present in the pelvic region. No renal or ureteral calculi. No acute bony anomalies IMPRESSION: Nonspecific nonacute findings Dictated by: Pool Wolf MD 10/23/2019 07:01 Electronically signed by Pool Wolf MD in [place] 10/23/2019 07:01
[2019-10-22 17:52] LABS: UTC Pregnancy Test, Urine Negative (Negative)
[2019-10-22 17:52] LABS: Apearance,Urine Clear (Clear); Bilirubin,Urine 2+ (Negative); Blood, Urine 3+ (Negative); Color,Urine Orange (Yellow); Glucose,Urine (UA) 100 (Negative); Ketones,Urine TRACE (Negative); Protein,Urine 1+ (Negative)
[2019-10-22 17:53] LABS: UTC Leukocyte Esterase,Urine 3+ (Negative); UTC Nitrate,Urine Positive (Negative); Urobilinogen,Urine 4 EU/dl (0.2)
[2019-10-22 18:04] VITALS: BP 161/92; PULSE 97; RESP 19; TEMP 36.9; O2SAT 100; BMI 30.7
--- NOTE | 2019-10-22 18:28 | HMH.EDUTC ---
[facility] [place] Disposition Clinical Impression: UTI (urinary tract infection) Qualifiers: Urinary tract infection type: site unspecified Hematuria presence: with hematuria Qualified Code(s): N39.0 - Urinary tract infection, site not specified; R31.9 - Hematuria, unspecified Disposition: Home, Self-Care Condition on Discharge: Good Instructions: DI for Hematuria, Blood in Urine, Urinary Tract Infection, DI for Urinary Tract Infection (UTI) Additional Instructions: *Increase fluids. Water not Soda or Tea *Continue antibiotic and be sure to take as ordered for the FULL length of time although you should start to see improvement over the next 48 hours *Straight to ER if any worsening of symptoms or difficulty urinating *Be SURE to follow up anytime for new or worsening symptoms with your family doctor. AND in 48 hours for urine culture results with your family doctor, if you do not have a doctor then you may call back to the [facility] for urine culture results and further treatment. We do recommend that you choose and establish care with a Primary Care Physician. AND follow up with them in 10-14 days to repeat UA to ensure infection is resolved and blood no longer present *Be sure to let your PCP know that we sent urine cultures from the [facility] so they can follow up to ensure that you area the on the correct antibiotic Call your doctor office and make appointment for 48 hours (2 days from today) to follow up and get the results of your urine culture and further treatment Referrals: Dipak Del Rosario MD [Primary Care Provider] - As needed Time of Disposition: 18:34 Medical Decision Making - Javon Inquiry Pt receiving controlled substance: No Javon was queried for this patient: No Vital Signs: 10/22/19 18:04 Temperature 98.4 F Temperature Source Oral Pulse Rate [Left Brachial] 97 H Respiratory Rate 19 Blood Pressure [Left Arm] 161/92 H Blood Pressure Mean [Left Arm] 115 Blood Pressure Source [Left Arm] Automatic Cuff Blood Pressure Position [Left Arm] Sitting 02 Sat by Pulse Oximetry 100 Oxygen Delivery Method Room Air - Lab Data Lab results reviewed: Yes: I reviewed the patient's lab results. Lab Results 10/22/19 17:42: Urine Color Garza, Urine Appearance Clear, Urine pH 5.0, Ur Specific [place] 1.030, Urine Protein 1+, Urine Glucose (UA) 100, Urine Ketones Trace, Urine Blood 3+, Urine Nitrate Positive A, Urine Bilirubin 2+ A, Urine Urobilinogen 4, Ur Leukocyte Esterase 3+ A 10/22/19 17:50: Tst Clinic Negative Orders (Tests/Meds): ORDERS Category Date Time Status XR KUB Stat Exams 10/22/19 17:51 Taken Urine Culture Stat Micro 10/22/19 17:53 Ordered - Radiology Data #1 Image(s): KUB Image Reviewed: Yes I reviewed the patient's radiology image w/the ED provider Preliminary Findings: Normal/NAD [facility] [place] HPI - General Stated complaint: KIDNEYS Time Seen by Provider: 10/22/19 18:28 Mode of Arrival: Ambulatory Source of Information: Patient Limitations: No Limitations Description of Symptoms (Recalled from Triage Doc. by RN): PATIENT C/O PAIN IN LOWER LEFT BACK AND HEMATURIA HEENT Symptoms (Recalled from RN notes): No Resp Symptoms (Recalled from RN notes): No Skin Symptoms (Recalled from RN notes): No MS Symptoms (Recalled from RN notes): No Functional Status (Recalled from RN notes): WNL - History of Present Illness Provider Complaint: Patient states that she has been having achy like feeling in her lower back area and having some blood in her urine States that she started taking Cipro today for UTI and has been taking azo but no improvement States that she has a history of Kidney stones but doesnt feel like it did last time she had one but came in to get checked - Related Data Home Medications Medication Instructions Recorded Confirmed Ciprofloxacin HCl [Ciprofloxacin 500 mg PO BID 10/22/19 10/22/19 500mg Tab] Allergies Allergy/AdvReac Type Severity Reaction Status Date / Time joe
[2019-10-22 18:33] VITALS: BP 161/92; PULSE 97; RESP 19; TEMP 36.9; O2SAT 100
== END 2019-10-22 18:36 | disposition home or self-care (01) ==
PROVIDERS: Emergency Provider Nurse Practitioner; PCP Emergency Medicine
DX: N30.01 Acute cystitis with hematuria (principal); I10 Essential (primary) hypertension; Z87.442 Personal history of urinary calculi; E03.9 Hypothyroidism, unspecified; Z88.2 Allergy status to sulfonamides
CPT/HCPCS: 74018; 81003; 81025; 87086; 99201; 99202

== ENCOUNTER → 2019-11-03 09:24 | Outpatient (CLI) | payer OTHER, SELFPAY ==
[2019-11-04 08:31] LABS: Covid-19 Nasal PCR Sendout UK Not Detected
== END ==
PROVIDERS: Visit Provider Otolaryngology
DX: Z03.818 Encounter for observation for suspected exposure to other biological agents ruled out (principal)
CPT/HCPCS: U0003

== ENCOUNTER 2019-12-03 21:10 | Emergency (ER) | payer OTHER, SELFPAY ==
[2019-12-03 21:25] VITALS: BP 218/128; PULSE 110; RESP 16; O2SAT 100; BMI 32.3
[2019-12-03 22:01] LABS: Microscopic, Urine URINE MICROSCOPIC (MICROSCOPIC)
[2019-12-03 22:03] LABS: Basophils # 0.1 K/mm3 (0-0.2); Basophils % 0.6 % (0.1-2.0); Eosinophils # 0.4 K/mm3 (0.0-0.4); Eosinophils % 2.7 % (0.1-12.0); Hematocrit 40.5 % (37.0-47.0); Hemoglobin 14.1 g/dL (12.2-16.2); Lymphocytes # 3.7 K/mm3 (0.7-4.5); Lymphocytes % 27.4 % (10-50); Mean Corpuscular HGB Conc 34.8 g/dL (31.8-35.4); Mean Corpuscular Hemoglobin 32.8 pg (27.0-31.2); Mean Corpuscular Volume 94.5 fl (81-99); Mean Platelet Volume 8.3 fl (7.4-10.4); Monocytes # 0.6 K/mm3 (0.1-1.0); Monocytes % 4.2 % (1.7-9.3); Neutrophils # 8.9 K/mm3 (1.8-7.8); Neutrophils % 65.1 % (37.0-80.0); Platelet Count 283 K/mm3 (142-424); Red Blood Count 4.29 M/mm3 (4.20-5.40); Red Cell Distribution Width 13.1 % (11.5-17.5); White Blood Count 13.6 K/mm3 (4.8-10.8)
[2019-12-03 22:04] LABS: Appearance,Urine CLEAR (Clear); Bilirubin,Urine Negative (Negative); Blood, Urine 1+ (Negative); Color,Urine YELLOW (Yellow); Glucose,Urine (UA) Negative (Negative); Ketones,Urine Negative (Negative); Leukocyte Esterase,Urine Negative (Negative); Nitrate,Urine Negative (Negative); PH,Urine 7.5 (5.0-8.5); Protein,Urine Negative (Negative); Urobilinogen,Urine 0.2 EU/dl (0.2)
[2019-12-03 22:08] LABS: Urine Pregnancy, HCG Qual. Negative (Negative)
[2019-12-03 22:12] LABS: Chloride 105 mmol/L (98-107)
[2019-12-03 22:13] LABS: Potassium 3.4 mmoL/L (3.5-5.1); Sodium 138 mmol/L (136-145)
[2019-12-03 22:15] LABS: Alanine Aminotransferase 19 U/L (12-78); Alkaline Phosphatase 99 U/L (38-126); Aspartate Amino Transferase 25 U/L (14-36); Blood Urea Nitrogen 7 mg/dl (7-17); Creatinine Clearance Estimated 150 mL/min (50-200); Estimated Glomerular Filt Rate 92 ml/min (>60); GFR (African American) 111 ML/MIN (>60)
[2019-12-03 22:16] LABS: Albumin Level 4.3 g/dl (3.5-5.0); Albumin/Globulin Ratio 1.4 (1.1-1.8); Anion Gap 12.4 mEq/L (5-15); Calcium 9.3 mg/dl (8.4-10.2); Carbon Dioxide 24 mmol/L (22.0-30.0); Glucose 98 mg/dl (74-100); Total Protein,Serum 7.3 g/dl (6.3-8.2)
[2019-12-03 22:19] VITALS: BP 169/96; PULSE 102; RESP 16; O2SAT 100
[2019-12-03 22:28] LABS: Bacteria,Urine Trace /lpf; WBC,Urine Occasional #/hpf (0-3)
[2019-12-03 22:35] VITALS: BP 173/87; PULSE 98; RESP 17; O2SAT 99
--- NOTE | 2019-12-03 23:02 | HMH.EDHA ---
ED Disposition Clinical Impression: Hypertensive urgency Headache Qualifiers: Headache type: unspecified Headache chronicity pattern: acute headache Intractability: not intractable Qualified Code(s): R51 - Headache Disposition: Home, Self-Care Condition on Discharge: Good Instructions: DI for Headache Additional Instructions: talk with gris marcelo about bp and recheck as needed Referrals: Dipak Del Rosario MD [Primary Care Provider] - - Critical Care Critical Care Time: No Attestation: On 12/03/19, the high probability of a clinically significant, sudden or life threatening deterioration of the following system(s) required my full and direct attention, intervention and personal management. The time I documented below is in addition to time spent performing reported procedures but includes the following listed in this critical care notation. Medical Decision Making - Medical Records Medical records reviewed: Yes: I reviewed the patient's medical records. - Javon Inquiry Pt receiving controlled substance: No Vital Signs: 12/03/19 21:25 12/03/19 22:19 12/03/19 22:35 Pulse Rate [Right Brachial] 110 H 102 H 98 H Respiratory Rate 16 16 17 Blood Pressure [Right Arm] 218/128 H 169/96 H 173/87 H Blood Pressure Mean [Right Arm] 158 120 115 Blood Pressure Source [Right Arm] Automatic Cuff Automatic Cuff Automatic Cuff Blood Pressure Position [Right Arm] Sitting Sitting Sitting 02 Sat by Pulse Oximetry 100 100 99 Oxygen Delivery Method Room Air Room Air Room Air 12/03/19 23:31 Pulse Rate [Right Brachial] 100 H Respiratory Rate 16 Blood Pressure [Right Arm] 213/122 H Blood Pressure Mean [Right Arm] 152 Blood Pressure Source [Right Arm] Automatic Cuff Blood Pressure Position [Right Arm] Sitting 02 Sat by Pulse Oximetry 99 Oxygen Delivery Method Room Air - Lab Data Lab results reviewed: Yes: I reviewed the patient's lab results. Lab Results 12/03/19 21:53: Urine Color Yellow, Urine Appearance Clear, Urine pH 7.5, Ur Specific [place] 1.020, Urine Protein Negative, Urine Glucose (UA) Negative, Urine Ketones Negative, Urine Blood 1+, Urine Nitrate Negative, Urine Bilirubin Negative, Urine Urobilinogen 0.2, Ur Leukocyte Esterase Negative, Urine WBC Occasional, Ur Squamous Epith Cells 5-10, Urine Bacteria Trace 12/03/19 21:53: WBC 13.6 H, RBC 4.29, Hgb 14.1, Hct 40.5, MCV 94.5, MCH 32.8 H, MCHC 34.8, RDW 13.1, Plt Count 283, MPV 8.3, Neut % (Auto) 65.1, Lymph % (Auto) 27.4, [place] % (Auto) 4.2, Eos % (Auto) 2.7, Baso % (Auto) 0.6, Neut # (Auto) 8.9 H, Lymph # (Auto) 3.7, [place] # (Auto) 0.6, Eos # (Auto) 0.4, Baso # (Auto) 0.1 12/03/19 21:53: Urine HCG, Qual Negative 12/03/19 21:53: Sodium 138, Potassium 3.4 L, Chloride 105, Carbon Dioxide 24, Anion Gap 12.4, BUN 7, Creatinine 0.70, Estimated Creat Clear 150, Estimated GFR 92, Est GFR ( Amer) 111, Glucose 98, Calcium 9.3, Total Bilirubin 1.0, AST 25, ALT 19, Alkaline Phosphatase 99, Total Protein 7.3, Albumin 4.3, Globulin 3.0, Albumin/Globulin Ratio 1.4 Result diagrams: 12/03/19 21:53 12/03/19 21:53 Orders (Tests/Meds): ED MEDICATIONS Generic Name Dose Route Start Last Admin Trade Name Freq PRN Reason Stop Dose Admin Sodium Chloride 1,000 mls @ 999 mls/hr 12/03/19 21:45 12/03/19 22:01 Sod Chlor 0.9% 1000ml Bag IV 12/03/19 22:45 999 mls/hr .Q1H1M JEANNE Administration Discontinued Medications Generic Name Dose Route Start Last Admin Trade Name Freq PRN Reason Stop Dose Admin Hydromorphone HCl 1 mg 12/03/19 22:11 12/03/19 22:16 Dilaudid 2mg/Ml Syringe IV 12/03/19 22:12 1 mg ONCE ONE Administration Hydromorphone HCl 1 mg 12/03/19 22:59 12/03/19 23:05 Dilaudid 2mg/Ml Syringe IV 12/03/19 23:00 1 mg ONCE ONE Administration Promethazine HCl 25 mg 12/03/19 22:11 12/03/19 22:16 Phenergan 25mg/Ml 1ml Vial IV 12/03/19 22:12 25 mg ONCE ONE Administration Promethazine HCl 12.5 mg 12/03/19 22:59 12/03/19 23:05
[2019-12-03 23:31] VITALS: BP 213/122; PULSE 100; RESP 16; O2SAT 99
[2019-12-03 23:53] VITALS: BP 199/128; PULSE 93; RESP 16; TEMP 36.7; O2SAT 99
== END 2019-12-04 00:05 | disposition home or self-care (01) ==
PROVIDERS: Emergency Provider Emergency Medicine; PCP Emergency Medicine
DX: I16.0 Hypertensive urgency (principal); G43.909 Migraine, unspecified, not intractable, without status migrainosus; Z87.442 Personal history of urinary calculi; E03.9 Hypothyroidism, unspecified; F17.210 Nicotine dependence, cigarettes, uncomplicated; Z79.899 Other long term (current) drug therapy; Z88.2 Allergy status to sulfonamides; Z88.5 Allergy status to narcotic agent
CPT/HCPCS: 80053; 81001; 81025; 85025; 96365; 96375; 96376; 99283

== ENCOUNTER → 2019-12-06 10:14 | Outpatient (CLI) | payer OTHER, SELFPAY ==
[2019-12-07 13:51] LABS: Covid-19 Nasal PCR Sendout Lex Not Detected
== END ==
PROVIDERS: PCP Emergency Medicine; Visit Provider Internal Medicine Adolescent Medicine
DX: Z03.818 Encounter for observation for suspected exposure to other biological agents ruled out (principal)
CPT/HCPCS: U0004

== ENCOUNTER → 2019-12-12 08:59 | Outpatient (CLI) | payer OTHER, SELFPAY ==
--- NOTE | 2019-12-12 09:00 | MM_ITS ---
PROCEDURE: MM DIG SCREENING MAMM BI W/CAD Digital Breast Tomosynthesis Included CLINICAL INDICATION: screening xmg There is a history of breast cancer patient's paternal aunt diagnosed before menopause and the patient's paternal grandmother . COMPARISON: MG [facility]MSB DIG MAMM-SCREEN KELLY from 02/10/2015 MG [facility]B DIG MAMM-SCREEN KELLY W/CAD from 01/21/2017 MG SCBI MM Dig screening mamm BI w/CAD from 01/31/2018 TECHNIQUE: Standard CC and MLO images and 3D Tomosynthesis was obtained. R2 CAD reviewed. FINDINGS: There prominent diffuse somewhat heterogenic fibroglandular densities in both breasts and the findings of bilateral and symmetrical. There is no suspicious lesion in either breast and no suspicious microcalcifications. There are small fatty replaced nodes in both axilla. IMPRESSION: Moderate heterogenic breast density with no suspicious lesions seen BI-RAD Category: 1 Negative FOLLOW-UP: 1YR 1 Year Follow-up (A letter has been sent to the patient regarding results of the study.) Dictated by: Dr. Berry Johnson MD 12/14/2019 21:11 Dr. Berry Johnson MD in [place] 12/14/2019 21:11
--- NOTE | 2019-12-12 09:00 | US_ITS ---
PROCEDURE: US THYROID CLINICAL INDICATION: hx hashimotos COMPARISON: No exams were available for comparison FINDINGS: Right lobe: 4.2 x 1.3 x 1.8 cm. There is a spongiform appearance of the right lobe with no discrete nodule or mass evident Left lobe: 4.1 x 1.4 x 1.4 cm. There is a spongiform appearance of the left lobe with no discrete nodule or mass evident. Isthmus: Mildly thickened at 4 mm Additional findings: IMPRESSION: Thyroid gland upper limits of normal with a spongiform appearance with no discrete mass or nodule. Dictated by: Pool Wolf MD 12/12/2019 14:19 Pool Wolf MD in [place] 12/12/2019 14:19
== END ==
PROVIDERS: PCP Emergency Medicine; Visit Provider Nurse Practitioner Obstetrics & Gynecology
DX: Z12.31 Encounter for screening mammogram for malignant neoplasm of breast (principal); Z86.39 Personal history of other endocrine, nutritional and metabolic disease
CPT/HCPCS: 76536; 77063; 77067

== ENCOUNTER 2020-04-01 12:12 | Outpatient (CLI) | payer OTHER, SELFPAY ==
[2020-04-01] VITALS (10 sets, daily range): BP systolic 142–211; BP diastolic 68–97; PULSE 67–85; RESP 16–18; TEMP 36.6; O2SAT 98–99; BMI 28.4
[2020-04-01 12:39] LABS: Basophils # 0.1 K/mm3 (0-0.2); Basophils % 0.8 % (0.1-2.0); Eosinophils # 0.2 K/mm3 (0.0-0.4); Hematocrit 45.3 % (37.0-47.0); Hemoglobin 15.5 g/dL (12.2-16.2); Lymphocytes # 3.5 K/mm3 (0.7-4.5); Lymphocytes % 31.4 % (10-50); Mean Corpuscular HGB Conc 34.3 g/dL (31.8-35.4); Mean Corpuscular Hemoglobin 32.5 pg (27.0-31.2); Mean Corpuscular Volume 94.9 fl (81-99); Mean Platelet Volume 8.4 fl (7.4-10.4); Monocytes # 0.5 K/mm3 (0.1-1.0); Monocytes % 4.9 % (1.7-9.3); Neutrophils # 6.8 K/mm3 (1.8-7.8); Neutrophils % 60.8 % (37.0-80.0); Platelet Count 349 K/mm3 (142-424); Red Blood Count 4.77 M/mm3 (4.20-5.40); Red Cell Distribution Width 13.4 % (11.5-17.5); White Blood Count 11.1 K/mm3 (4.8-10.8)
[2020-04-01 12:41] LABS: Chloride 105 mmol/L (98-107); Potassium 4.6 mmoL/L (3.5-5.1); Sodium 138 mmol/L (136-145)
[2020-04-01 12:44] LABS: Alanine Aminotransferase 19 U/L (12-78); Albumin Level 4.8 g/dl (3.5-5.0); Albumin/Globulin Ratio 1.2 (1.1-1.8); Alkaline Phosphatase 76 U/L (38-126); Anion Gap 11.6 mEq/L (5-15); Aspartate Amino Transferase 47 U/L (14-36); Bilirubin,Total 0.9 mg/dl (0.2-1.3); Blood Urea Nitrogen 9 mg/dl (7-17); Calcium 9.3 mg/dl (8.4-10.2); Carbon Dioxide 26 mmol/L (22.0-30.0); Creatinine Clearance Estimated 132 mL/min (50-200); Estimated Glomerular Filt Rate 92 ml/min (>60); GFR (African American) 111 ML/MIN (>60); Globulin 4.1 g/dL (1.3-3.2); Glucose 90 mg/dl (74-100); Total Protein,Serum 8.9 g/dl (6.3-8.2)
[2020-04-01 15:09] LABS: Microscopic, Urine URINE MICROSCOPIC (MICROSCOPIC)
[2020-04-01 15:11] LABS: Appearance,Urine CLEAR (Clear); Bilirubin,Urine Negative (Negative); Blood, Urine 2+ (Negative); Color,Urine YELLOW (Yellow); Glucose,Urine (UA) Negative (Negative); Ketones,Urine Negative (Negative); Leukocyte Esterase,Urine Negative (Negative); Nitrate,Urine Negative (Negative); Protein,Urine Negative (Negative); Specific Gravity, Urine >= 1.030 (1.005-1.030); Urobilinogen,Urine 0.2 EU/dl (0.2)
== END 2020-04-01 16:15 | disposition home or self-care (01) ==
LOC: INF 12:13
PROVIDERS: PCP Emergency Medicine; Visit Provider Emergency Medicine
DX: N39.0 Urinary tract infection, site not specified (principal)
CPT/HCPCS: 80053; 81001; 85025; 96360; 96361; 96375

== ENCOUNTER 2020-04-14 13:33 | Emergency (ER) | payer OTHER, SELFPAY ==
[2020-04-14] VITALS (7 sets, daily range): BP systolic 148–232; BP diastolic 92–140; PULSE 70–130; RESP 16–20; TEMP 36.6–36.9; O2SAT 98–99; BMI 29.5
--- NOTE | 2020-04-14 13:19 | ECG_ITS ---
APPROVED REPORT Exam: Resting ECG HR:127 bpm ECG Measurements Heart Rate 127 AXES MA 138 P 74 QRSd 72 QRS 62 QT 312 T 18 QTc 453 Conclusion Sinus tachycardia Otherwise normal ECG Electronically signed by : Jose De Jesus Penaloza, 04/15/2020 19:56:55
--- NOTE | 2020-04-14 13:40 | XR_ITS ---
PROCEDURE: XR CHEST 2V CLINICAL HISTORY: heart racing COMPARISON: CT AGCHEST CT angio chest from 04/01/2018 CR CXR1VP XR chest portable from 04/01/2018 DX CXR2V XR chest 2V from 04/04/2018 CR XR CHEST 2V from 05/23/2019 FINDINGS: The cardiomediastinal silhouette and pulmonary vascularity are within normal limits. The lungs are clear without infiltrates, suspicious nodules, or pleural effusions. No acute bony abnormalities. IMPRESSION: No acute findings. Dictated by: Dr. Berry Johnson MD 04/14/2020 14:03 Dr. Berry Johnson MD in [place] 04/14/2020 14:03
--- NOTE | 2020-04-14 13:41 | PC.NURSE ---
at bedside, notified rad of chest x-ray
--- NOTE | 2020-04-14 13:58 | PC.NURSE ---
rad advised pt had near syncopal episode when she went for her chest x-ray
--- NOTE | 2020-04-14 14:18 | PC.NURSE ---
Dr. Owens at bedside
[2020-04-14 14:33] LABS: Chloride 105 mmol/L (98-107); Potassium 3.7 mmoL/L (3.5-5.1); Sodium 138 mmol/L (136-145)
[2020-04-14 14:36] LABS: Anion Gap 11.7 mEq/L (5-15); Blood Urea Nitrogen 14 mg/dl (7-17); Calcium 10.1 mg/dl (8.4-10.2); Carbon Dioxide 25 mmol/L (22.0-30.0); Creatinine Clearance Estimated 107 mL/min (50-200); Estimated Glomerular Filt Rate 69 ml/min (>60); GFR (African American) 83 ML/MIN (>60); Glucose 110 mg/dl (74-100)
[2020-04-14 14:41] LABS: D-Dimer 0.87 ug/mL (0.15-8.0)
[2020-04-14 14:47] LABS: Basophils # 0.1 K/mm3 (0-0.2); Basophils % 0.8 % (0.1-2.0); Eosinophils # 0.1 K/mm3 (0.0-0.4); Eosinophils % 0.8 % (0.1-12.0); Hematocrit 48.2 % (37.0-47.0); Hemoglobin 16.7 g/dL (12.2-16.2); Lymphocytes # 3.2 K/mm3 (0.7-4.5); Lymphocytes % 22.7 % (10-50); Mean Corpuscular HGB Conc 34.6 g/dL (31.8-35.4); Mean Corpuscular Hemoglobin 33.1 pg (27.0-31.2); Mean Corpuscular Volume 95.7 fl (81-99); Mean Platelet Volume 8.9 fl (7.4-10.4); Monocytes # 0.6 K/mm3 (0.1-1.0); Monocytes % 4.3 % (1.7-9.3); Neutrophils # 10.2 K/mm3 (1.8-7.8); Neutrophils % 71.4 % (37.0-80.0); Platelet Count 346 K/mm3 (142-424); Red Blood Count 5.04 M/mm3 (4.20-5.40); Red Cell Distribution Width 13.8 % (11.5-17.5); White Blood Count 14.2 K/mm3 (4.8-10.8)
--- NOTE | 2020-04-14 14:52 | CT_ITS ---
Procedure: CT ANGIO NECK CT ANGIO HEAD Referring Doctor: Jaden Bhakta Patient Age:44Y CLINICAL HISTORY: head/neck pressure headache the Sudden on set superior pain base of skull and posterior neck with pain between ears; near syncopal episode. Hypertension COMPARISON: CT HDWO CT HEAD W/O CONTRAST from 05/11/2016 MR BRAINWO MR head/brain wo con from 11/23/2017 MR BRAINWW MR head/brain wo/w con from 11/24/[address] HEAD/BRAIN WO CON from 12/01/2018 MR MR ANGIO HEAD WO CON from 12/04/2018 MR MR CERVICAL SPINE WO CON from 05/28/2019 MR MR HEAD/BRAIN WO CON from 05/28/[address] ANGIO HEAD from 04/14/[address] HEAD/BRAIN WO CON from 04/14/2020 TECHNIQUE: ICT angiogram the neck followed by CT angiogram head-helical CT performed following bolus administration of contrast. Imaging begins below the level of the efra at the upper chest and continuing upper through the neck and subsequently through the entire head. V Contrast: Rapid bolus administration 100ml Isovue 370 followed by 40 mL normal saline Axial images obtained with sagittal and coronal reformats. All CT scans at the facility use one or more dose reduction, viz: automated exposure control, ma/kV adjustment per patient size (including targeted exams where dose is matched to indication, i.e. head), or iterative reconstruction technique. FINDINGS: -----CT ANGIOGRAM NECK: --- The scan demonstrates a satisfactory appearance the aortic arch and great vessels. The innominate artery is tortuous and slightly ectatic but appears overall satisfactory. The right carotid bifurcation appears normal a no remarkable plaque at the right carotid system. Mildly tortuous right internal carotid artery at the upper neck but The left carotid of was widely patent. There is only scant calcified plaque at the carotid bifurcation. Nonstenotic. The vertebral arteries are patent bilaterally but the left is slightly larger than the right. I would only question there may be 25 percent narrowing at origin right vertebral artery-however the significant motion artifact of like degrades images here making detailed evaluation difficult.., axial image 40. . No evidence of dissection in any of the above arteries. No high-grade stenosis I would note there is a the very subtle hazy appearance at at the the posterior left upper lobe which most likely reflects some atelectasis along with some mild chronic junk changes. Previous MRI from May 2019 demonstrated developing degenerative disc changes with bulging disc at C5/6 and-C6/7.. A broad-based disc protrusion to the left at C6/7 of most evident on prior CT and only vaguely, questionably seen on today's MR. . [id number] reversal of normal cervical curvature on today's study most likely positional with some early anterior marginal osteophytes C5/6-C6/7.. Normal C1-C2 relationships, Cranial cervical junction appears normal of base of skull appears satisfactory. Mastoid air cells are well developed well aerated bilaterally with no mastoid effusion, no mastoiditis. Middle ear clear bilaterally. Well aerated no fluid at mastoids Mild inflammatory changes most evident left maxillary sinus Mild mucosal thickening along inferior and lateral wall left maxillary sinus. No air-fluid level Only scant mucosal thickening inferior right maxillary sinus Ostiomeatal complex and pathways patent at maxillary sinuses bilateral .. The ethmoid air cells well developed and clear. Sphenoid sinus clear. Frontal sinus clear. Orbits unremarkable Increased number of the small lymph nodes most likely reactive nodes, are seen throughout the neck bilaterally a a mainly involving the posterior cervical chain tiburcio
--- NOTE | 2020-04-14 14:52 | CT_ITS ---
PROCEDURE: CT HEAD/BRAIN WO CON CLINICAL INDICATION: head/neck pressure COMPARISON: CT CT HEAD/BRAIN WO CON from 12/01/2018 TECHNIQUE: Axial images obtained. All CT scans at the facility use one or more dose reduction, viz: automated exposure control, ma/kV adjustment per patient size (including targeted exams where dose is matched to indication, i.e. head), or iterative reconstruction technique. FINDINGS: No midline shift, mass effect, intracranial hemorrhage, hydrocephalus, or extra-axial fluid collection is evident. The calvarium has an unremarkable appearance. No mastoid effusion. No sinus air-fluid level. IMPRESSION: No acute intracranial finding Dictated by: Dr. Berry Johnson MD 04/14/2020 15:52 Dr. Berry Johnson MD in [place] 04/14/2020 15:52
--- NOTE | 2020-04-14 14:52 | CT_ITS ---
Procedure: CT ANGIO NECK CT ANGIO HEAD Referring Doctor: Jaden Bhakta Patient Age:44Y CLINICAL HISTORY: head/neck pressure Sudden on set superior pain base of skull and posterior neck with pain between ears; near syncopal episode. Hypertension COMPARISON: MR BRAINWO MR head/brain wo con from 11/23/2017 MR BRAINWW MR head/brain wo/w con from 11/24/2017 MR MR ANGIO HEAD WO CON from 12/04/2018 MR MR CERVICAL SPINE WO CON from 05/28/2019 MR MR HEAD/BRAIN WO CON from 05/28/[address] ANGIO HEAD from 04/14/[address] HEAD/BRAIN WO CON from 04/14/2020 TECHNIQUE: ICT angiogram the neck followed by CT angiogram head-helical CT performed following bolus administration of contrast. Imaging begins below the level of the efra at the upper chest and continuing upper through the neck and subsequently through the entire head. V Contrast: Rapid bolus administration 100ml Isovue 370 followed by 40 mL normal saline Axial images obtained with sagittal and coronal reformats. All CT scans at the facility use one or more dose reduction, viz: automated exposure control, ma/kV adjustment per patient size (including targeted exams where dose is matched to indication, i.e. head), or iterative reconstruction technique. FINDINGS: -----CT ANGIOGRAM NECK: --- The scan demonstrates a satisfactory appearance the aortic arch and great vessels. The innominate artery is tortuous and slightly ectatic but appears overall satisfactory. The right carotid bifurcation appears normal a no remarkable plaque at the right carotid system. Mildly tortuous right internal carotid artery at the upper neck but The left carotid of was widely patent. There is only scant calcified plaque at the carotid bifurcation. Nonstenotic. The vertebral arteries are patent bilaterally but the left is slightly larger than the right. I would only question there may be 25 percent narrowing at origin right vertebral artery-however the significant motion artifact of like degrades images here making detailed evaluation difficult.., axial image 40. . No evidence of dissection in any of the above arteries. No high-grade stenosis I would note there is a the very subtle hazy appearance at at the the posterior left upper lobe which most likely reflects some atelectasis along with some mild chronic junk changes. Previous MRI from May 2019 demonstrated developing degenerative disc changes with bulging disc at C5/6 and-C6/7.. A broad-based disc protrusion to the left at C6/7 of most evident on prior CT and only vaguely, questionably seen on today's MR. The of there is slight reversal of normal cervical curvature on today's study most likely positional with some early anterior marginal osteophytes C5/6-C6/7. But normal C1-C2 relationships, Cranial cervical junction appears normal of base of skull appears satisfactory. Specifically mastoid air cells are well developed well aerated bilaterally with no mastoid effusion but no mastoiditis. Middle ear clear bilaterally. Well aerated no fluid at mastoids Mild inflammatory changes most evident left maxillary sinus Mild mucosal thickening along inferior and lateral wall left maxillary sinus. No air-fluid level Only scant mucosal thickening inferior right maxillary sinus Ostiomeatal complex and pathways patent at maxillary sinuses bilateral .. The ethmoid air cells well developed and clear. Sphenoid sinus clear. Frontal sinus clear. Orbits unremarkable Increased number of the small lymph nodes most likely reactive nodes, are seen throughout the neck bilaterally a a mainly involving the posterior cervical chain bilaterally-Similar 2 the features are seen on the May 2019 exam A leftward deviati
[2020-04-14 14:53] LABS: Troponin I < 0.01 ng/ml (0.00-0.034)
--- NOTE | 2020-04-14 14:54 | PC.NURSE ---
PT c/o pressure in her neck/head. Notified MD, CT's ordered at this time
--- NOTE | 2020-04-14 15:10 | PC.NURSE ---
Rad called and advised there were going to use US machine to attempt new IV in the AC due to pt needing CTA
--- NOTE | 2020-04-14 15:24 | CT_ITS ---
PROCEDURE: CT ANGIO CHEST CLINCIAL INDICATION: elevated d-dimer Sudden onset of pressure at the base of the skull and posterior neck with pain between the years, near syncope COMPARISON: No exams were available for comparison TECHNIQUE: IV Contrast: 70ML Isovue 370 Axial images obtained with sagittal and coronal reformats. All CT scans at the facility use one or more dose reduction, viz: automated exposure control, ma/kV adjustment per patient size (including targeted exams where dose is matched to indication, i.e. head), or iterative reconstruction technique. FINDINGS: HEART AND MEDIASTINAL STRUCTURES: There is borderline cardiomegaly with mild aortic tortuosity. There is excellent vascular opacification and there is no evidence of pulmonary emboli. There is no evidence of aortic dissection. LUNGS AND PLEURAL SPACES: The lung noguera are well-expanded and appear clear of infiltrate. There is no pleural fluid. BONY STRUCTURES: There are mild multilevel degenerate changes lower thoracic spine. UPPER ABDOMEN: Unremarkable. ADDITIONAL FINDINGS: No other significant abnormalities. IMPRESSION: No CT evidence of pulmonary emboli or aortic dissection, no other significant abnormality noted Dictated by: Dr. Berry Johnson MD 04/14/2020 15:51 Dr. Berry Johnson MD in [facility] 04/14/2020 15:51
--- NOTE | 2020-04-14 15:39 | PC.NURSE ---
Pt returned from CT
[2020-04-14 17:18] LABS: Troponin I < 0.01 ng/ml (0.00-0.034)
--- NOTE | 2020-04-14 17:59 | HMH.EDGENADL ---
ED Disposition Clinical Impression: Hypertensive urgency, Dehydration, Viral URI Disposition: Home, Self-Care Condition on Discharge: Good Instructions: Recommendations to Help Prevent High Blood Pressure, DI for Dehydration -- Adult Additional Instructions: Return to the ED for any new or worsening symptoms. These would include chest pain, syncope which is passing out, severe shortness of breath, or severe dizziness. Recommend treating your sinusitis with saline and if it does not improve or you develop fever following up with primary care for antibiotics. Your evaluation today demonstrated no evidence of intracerebral abnormality and no clot in your lungs. Recommend being compliant with your hypertensive medications and increasing your oral hydration. Referrals: Dipak Del Rosario MD [Primary Care Provider] - Time of Disposition: 18:02 - Critical Care Critical Care Time: No Attestation: On 04/14/20, the high probability of a clinically significant, sudden or life threatening deterioration of the following system(s) required my full and direct attention, intervention and personal management. The time I documented below is in addition to time spent performing reported procedures but includes the following listed in this critical care notation. Medical Decision Making - Medical Records Medical records reviewed: Yes: I reviewed the patient's medical records. - Javon Inquiry Pt receiving controlled substance: No Vital Signs: 04/14/20 13:34 04/14/20 14:31 04/14/20 14:54 Temperature 98.5 F Temperature Source Oral Pulse Rate Pulse Rate [Right] 130 H 105 H 87 Respiratory Rate 20 16 16 Blood Pressure Blood Pressure [Right Arm] 232/140 H 179/108 H 205/107 H Blood Pressure Mean [Right Arm] 170 131 139 Blood Pressure Source Blood Pressure Source [Right Arm] Automatic Cuff Automatic Cuff Automatic Cuff Blood Pressure Position Blood Pressure Position [Right Arm] Sitting Sitting Sitting 02 Sat by Pulse Oximetry 99 98 98 Oxygen Delivery Method Room Air Room Air Room Air 04/14/20 16:47 04/14/20 17:32 04/14/20 18:00 Temperature 98.2 F Temperature Source Oral Pulse Rate Pulse Rate [Right] 80 70 85 Respiratory Rate 16 16 Blood Pressure Blood Pressure [Right Arm] 173/115 H 182/100 H 148/92 H Blood Pressure Mean [Right Arm] 134 127 110 Blood Pressure Source Blood Pressure Source [Right Arm] Automatic Cuff Automatic Cuff Automatic Cuff Blood Pressure Position Blood Pressure Position [Right Arm] Standing Sitting Sitting 02 Sat by Pulse Oximetry 98 98 Oxygen Delivery Method Room Air Room Air 04/14/20 18:12 Temperature 98 F Temperature Source Oral Pulse Rate 82 Pulse Rate [Right] Respiratory Rate 16 Blood Pressure 148/92 H Blood Pressure [Right Arm] Blood Pressure Mean [Right Arm] Blood Pressure Source Automatic Cuff Blood Pressure Source [Right Arm] Blood Pressure Position Sitting Blood Pressure Position [Right Arm] 02 Sat by Pulse Oximetry Oxygen Delivery Method Room Air - Lab Data Lab Results 04/14/20 13:50: WBC 14.2 H, RBC 5.04, Hgb 16.7 H, Hct 48.2 H, MCV 95.7, MCH 33.1 H, MCHC 34.6, RDW 13.8, Plt Count 346, MPV 8.9, Neut % (Auto) 71.4, Lymph % (Auto) 22.7, Person % (Auto) 4.3, Eos % (Auto) 0.8, Baso % (Auto) 0.8, Neut # (Auto) 10.2 H, Lymph # (Auto) 3.2, Person # (Auto) 0.6, Eos # (Auto) 0.1, Baso # (Auto) 0.1 04/14/20 13:50: SARS-CoV-2 IgG Ab (Rapid) Negative, SARS-CoV-2 IgM Ab (Rapid) Negative 04/14/20 14:13: D-Dimer 0.87 04/14/20 14:13: Sodium 138, Potassium 3.7, Chloride 105, Carbon Dioxide 25, Anion Gap 11.7, BUN 14, Creatinine 0.90, Estimated Creat Clear 107, Estimated GFR 69, Est GFR ( Amer) 83, Glucose 110 H, Calcium 10.1, Troponin I < 0.01 04/14/20 16:26: Troponin I < 0.01 Result diagrams: 04/14/20 13:50 04/14/20 14:13 Orders (Tests/Meds): ED MEDICATIONS Discontinued Medications Generic Name Dose Route Start Last Admin Trade Name Roni
[2020-04-14 19:09] LABS: Coronavirus 19 IgG Antibody Negative (Negative); Coronavirus 19 IgM Antibody Negative (Negative)
== END 2020-04-14 18:17 | disposition home or self-care (01) ==
PROVIDERS: Emergency Provider Student in an Organized Health Care Education/Training Program; PCP Emergency Medicine
DX: I16.0 Hypertensive urgency (principal); E86.0 Dehydration; J06.9 Acute upper respiratory infection, unspecified; Z01.84 Encounter for antibody response examination; E03.9 Hypothyroidism, unspecified; F17.210 Nicotine dependence, cigarettes, uncomplicated; G43.909 Migraine, unspecified, not intractable, without status migrainosus; Z88.2 Allergy status to sulfonamides; Z88.5 Allergy status to narcotic agent
CPT/HCPCS: 36415; 70450; 70496; 70498; 71046; 71275; 80048; 84484; 85025; 85378; 86328; 93005; 96365; 99284; Q9967

== ENCOUNTER → 2020-04-15 15:51 | Outpatient (CLI) | payer OTHER, SELFPAY ==
--- NOTE | 2020-04-15 15:52 | CA_ITS ---
APPROVED REPORT EXAM: Comprehensive 2D, Doppler, and color-flow Echocardiogram Sushi Chef: Lois Stiles RT(R) Ht: 5 ft 6 in Wt: 192lbs BSA: 1.97 BP: 164/111 mmHg Indications: HTN, Smoker, palpitations, SOB, CRAWLEY, hyperlipidemia, near syncope 2D Dimensions LVOT 1.97 cm (M/F) 1.5-2.5 M-Mode Dimensions RVDd 1.61 cm (0.9-2.6) LA Diam 2.62 cm (1.9-4.0) LVDd 4.30 cm (3.5-5.7) Ao Diam 2.76 cm (2.0-3.7) LVDs 2.94 cm (3.5-5.7) IVSd 1.33 cm (0.6-1.1) PWd 0.75 cm (0.6-1.1) EF (Teich) 59.90% FS 31.60% EDV (Teich) 83.10 mL ESV (Teich) 33.30 mL LV Diastology E Decel Time 183.00 (160-240 msec) E/A Ratio 0.8 MED E' 6.80 (< 7 cm/sec) E'/MED E' Ratio 7.18 (>14) LAT E' 12.60 (<10 cm/sec) E/LAT E' Ratio 3.87 (>14) Mitral Valve MV E Max Ramesh. 49.00 (40-130 cm/s) MV A Velocity 64.00 (40-130 cm/s) E/A Ratio 0.76 MV Decel. Time 183.00 (160-240 ms) MV PHT 54.00 ms Left Ventricle Left atrium is normal size, left ventricle is normal size, there is no concentric left ventricular hypertrophy, visually estimated ejection fraction 55% with no regional wall motion abnormality. Diastolic parameters are within normal range. Right Ventricle Right atrium and right ventricle are normal size and contractility. Aortic Valve Aortic valve is grossly normal, there is no aortic stenosis or aortic insufficiency. Mitral Valve Mitral valve is grossly normal, there is trace mitral regurgitation. Tricuspid Valve Tricuspid valve is grossly normal, there is trace tricuspid regurgitation. Pulmonic Valve Pulmonic valve is poorly visualized. Great Vessels Aortic root is normal size. Pericardium No significant pericardial effusion noted. Conclusion 1. Normal left ventricular size, preserved left ventricular systolic function, visually estimated ejection fraction 55% with no regional wall motion abnormality, diastolic parameters are within normal range. 2. Trace mitral and tricuspid regurgitation. 3. No significant pericardial effusion noted. Electronically signed by : Isacc Martell, 04/15/2020 19:28:50
== END ==
PROVIDERS: PCP Emergency Medicine; Visit Provider Nurse Practitioner Family
DX: R06.00 Dyspnea, unspecified (principal); R55 Syncope and collapse; R00.2 Palpitations; I10 Essential (primary) hypertension
CPT/HCPCS: 93306

== ENCOUNTER → 2020-04-22 13:43 | Outpatient (CLI) | payer OTHER, SELFPAY ==
[2020-04-22 14:06] LABS: Monoscreen (Rapid) Negative (Negative)
== END ==
PROVIDERS: Visit Provider Otolaryngology
DX: R59.9 Enlarged lymph nodes, unspecified (principal)
CPT/HCPCS: 86318

== ENCOUNTER → 2020-04-29 08:16 | Outpatient (CLI) | payer OTHER, SELFPAY ==
--- NOTE | 2020-04-29 | CA_ITS ---
APPROVED REPORT Exam: Exercise Treadmill Technologist: Monae Schmitt Ht: 5 ft 5 in Wt: 199 lbs BSA: 1.97 m2 HR: 79 bpm BP: 159/110 mmHg Indications: HTN, Palpitations, Shortness of Air Medical History Medications: Levothyroxine,,,,, BisOPROLOL HCTZ,,,,, Stress Test Details Test: Alexander HR Resting HR: 109 bpm Max Heart Rate (APMHR): 177 bpm Max HR Achieved: 174 bpm Target HR (85% APMHR): 150 bpm % of APMHR: 98 Recovery HR: 104 bpm BP Resting BP: 159.0/110.0 mmHg Max BP: 236.0/110.0 mmHg Recovery BP: 141.0/88.0 mmHg ECG Clinical Exercise duration: 07:45 min Highest Stage Achieved: Exercise capacity: 10.1 METs Stress ECG Conclusion Resting EKG: Normal sinus rhythm, LVH, ST-T abnormalities inferiorly and laterally consistant with strain pattern. Patient exercised 7:45 on Alexander Protocol. Test stopped due to shortness of air and leg fatigue. Symptoms: No chest pain. Arrhythmias/Ectopy: Occasional PVC ST-T Changes: Exaggeration of baseline ST-T abnormalities. Conclusion: Non-diagnostic GXT due to baseline EKG abnormalities. Rest and stress echo images reported separately. Test Summary REST . . . . . . . Sitting REST . . . . . . . Standing REST 04:39 0.0 0.0 109 . 159/110 . . Stage 1 01:00 10.0 1.7 127 . . . . Stage 1 02:00 10.0 1.7 135 . . . . Stage 1 03:00 10.0 1.7 142 . 218/110 . . Stage 2 01:00 12.0 2.5 150 . . . . Stage 2 02:00 12.0 2.5 156 . . . . Stage 2 03:00 12.0 2.5 160 . 236/110 . . Stage 3 01:00 14.0 3.4 169 . . . . Stage 3 01:45 14.0 0.0 174 . . . Stop exercise at 07:45 RECOVERY 01:00 0.0 0.0 140 . . . . RECOVERY 02:00 0.0 0.0 116 . . . . RECOVERY 03:00 0.0 0.0 113 . . . . RECOVERY 04:00 0.0 0.0 111 . . . . RECOVERY 05:00 0.0 0.0 106 . 147/ 81 . . RECOVERY 06:00 0.0 0.0 106 . 147/ 81 . . RECOVERY 07:00 0.0 0.0 107 . 141/ 88 . . RECOVERY 08:00 0.0 0.0 103 . 141/ 88 . . RECOVERY 09:00 0.0 0.0 102 . 141/ 88 . . RECOVERY 09:31 0.0 0.0 100 . 141/ 79 . . Electronically signed by : Isacc Martell, 04/30/2020 06:19:16
--- NOTE | 2020-04-29 08:16 | CA_ITS ---
APPROVED REPORT EXAM: Stress Echo Theater Manager: Rachel Petty RVT Ht: 5 ft 5 in Wt: 199lbs BSA: 1.97 BP: 164/110 mmHg Indications: HTN,PALPS,CRAWLEY,NEAR SYNCOPE,HLD,SMOKER Conclusion 1. The EKG portion of the exercise stress echo is nondiagnostic due to baseline abnormal EKG, patient has good exercise capacity achieved 10.1 mets of workload on treadmill, the blood pressure response to exercise was hypertensive. Test was stopped due to shortness of breath. 2. The resting echocardiogram showed normal left ventricular size and function no regional wall motion abnormality, with exercise there is increase in contractility of all the segments of the myocardium, with hyperdynamic left ventricular systolic response, no obvious segmental wall motion abnormality to suggest underlying ischemic heart disease. 3. Normal exercise stress echo except for hypertensive blood pressure response during the exercise. Electronically signed by : Isacc Martell, 04/30/2020 06:35:15
--- NOTE | 2020-04-29 08:16 | CA_ITS ---
APPROVED REPORT Feller Seam Operator: Rachel Petty RVT Study Quality: Good Indications: Uncontrolled HTN Risk Factors Hypertension Smoking Renal Artery Doppler Origin (R) 171.6/ cm/sec Proximal (R) 165.2/ cm/sec Mid (R) 138.7/ cm/sec Distal (R) 94.6/ cm/sec Renal Aorta Ratio (R) 1.68 Segmental A. (R) 47.9/13.9 cm/sec RI: 0.70 Segmental A. Sup (R) 47.9/13.9 cm/sec Segmental A. Mid (R) 33.5/12.0 cm/sec Segmental A. Inf (R) 26.6/10.3 cm/sec Origin (L) 362.4/ cm/sec Proximal (L) 405.3/ cm/sec Mid (L) 394.0/ cm/sec Distal (L) 253.7/ cm/sec Renal Aorta Ratio (L) 3.97 Segmental A. (L) 31.3/15.3 cm/sec RI: 0.51 Segmental A. Sup (L) 25.4/11.8 cm/sec Segmental A. Mid (L) 31.3/15.3 cm/sec Segmental A. Inf (L) 22.4/11.8 cm/sec Renal Measurements Kidney Size (R) 12.5x6.5 cm Cortical Thickness (R) 1.9 cm Kidney Size (L) 11.3x8.6 cm Cortical Thickness (L) 1.9 cm Findings Study suggests no evidence of stenosis in the right renal artery. Study suggests greater than 60% stenosis of the left renal artery. Conclusion Study suggests no evidence of stenosis in the right renal artery. Study suggests greater than 60% stenosis of the left renal artery. Critical Notification Physician Notified Date: 04/29/2020 Time: 10:09 Physician Name: Nicki Reaves Electronically signed by : Pool Wolf MD 04/29/2020 16:01:35
--- NOTE | 2020-04-29 09:53 | US_ITS ---
PROCEDURE: US KIDNEY CLINICAL INDICATION: E78.5 - Hyperlipidemia, unspecified Hypertension COMPARISON: US CA RENAL ARTERY DUPLEX from 04/29/2020 FINDINGS: The right kidney is [id number]. No hydronephrosis, cortical thinning, or renal mass or perinephric fluid collection is evident. The left kidney is [id number]. No hydronephrosis, cortical thinning, or renal mass or perinephric fluid collection is evident. IMPRESSION: Unremarkable bilateral renal ultrasound Dictated by: Pool Wolf MD 04/29/2020 20:13 Pool Wolf MD in [facility] 04/29/2020 20:13
== END ==
LOC: RT 08:16
PROVIDERS: PCP Emergency Medicine; Visit Provider Nurse Practitioner Family
DX: R06.00 Dyspnea, unspecified (principal); R00.2 Palpitations; R55 Syncope and collapse; I10 Essential (primary) hypertension; E78.5 Hyperlipidemia, unspecified
CPT/HCPCS: 76770; 93017; 93350; 93976

== ENCOUNTER 2020-04-30 13:19 | Day surgery (SDC) | payer OTHER, SELFPAY ==
[2020-04-30] VITALS (11 sets, daily range): BP systolic 144–168; BP diastolic 86–110; PULSE 68–89; RESP 16–20; O2SAT 90–99; BMI 31.8
--- NOTE | 2020-04-30 | IR_ITS ---
APPROVED REPORT Patient Location: Outpatient Balance Truing Inspector: MARGARITA Montes RT (R) PROCEDURES Bilateral selective renal angiogram Bare-metal stent deployment to the ostial proximal left renal artery INDICATION Renal artery stenosis, Abnormal renal duplex, Malignant hypertension Informed consent was obtained prior to the procedure. COMPLICATIONS none Estimated Blood Loss: less than 10 mls TECHNIQUE 1% lidocaine used anesthetize right groin the right femoral artery was accessed via the Salinger technique and a 4 Venezuelan sheath was placed in the right femoral artery. A JR4 catheter was used to selectively intubate each renal artery and perform angiography. At the end of the diagnostic procedure therapeutic heparin was administered giving a therapeutic ACT. The 4 [place]an sheath was exchanged for a 7 [place] sheath and a short REDMAN catheter was used to intubate the left renal artery. A BMW wire was placed distally and a 6 mm x 15 mm Herculink stent was deployed at 14 kylee reducing the severe 80% eccentric stenosis to 0%. After achieving excellent angiographic results repeat angiography was performed on subtraction due to some visual defects identified in the left kidney. At the end of the procedure the apparatus was removed the groin was reprepped closure changed sheath was removed good hemostasis was achieved using Perclose device patient was transferred to the postop holding her stable condition ANGIOGRAPHIC RESULTS The left renal artery singular and has an ostial proximal eccentric 80% stenosis. There is a 1.5 cm calcified lesion identified in the upper lateral pole of the left kidney. A vascularized left medial inferior oblong lesion is also identified. The right renal artery singular normal with no identifiable parenchymal abnormalities IMPRESSION Severe left renal artery stenosis Successful stenting of left renal artery severe disease reduced to 0% with 1 bare-metal stent Abnormal defects in the left renal parenchyma as described above PLAN 1. Aspirin Plavix for 30 days 2. CAT scan of the kidney will be obtained today with special attention paid to the left renal parenchyma looking specifically for renal cell carcinoma which is clinically suspected 3. Patient had garden-variety atherosclerotic disease in the left renal artery therefore she is at significantly increased risk for cardiac atherosclerotic disease. Patient requires a coronary ischemic work-up. 4. LDL less than 55 5. Avoidance of tobacco products immediately 6. Risk factor modification Electronically signed by : [place], 04/30/2020 14:14:17
[2020-04-30 13:40] LABS: Basophils # 0.1 K/mm3 (0-0.2); Basophils % 0.9 % (0.1-2.0); Eosinophils # 0.3 K/mm3 (0.0-0.4); Eosinophils % 1.9 % (0.1-12.0); Hematocrit 46.2 % (37.0-47.0); Hemoglobin 14.9 g/dL (12.2-16.2); Lymphocytes % 28.9 % (10-50); Mean Corpuscular HGB Conc 32.2 g/dL (31.8-35.4); Mean Corpuscular Hemoglobin 32.4 pg (27.0-31.2); Mean Corpuscular Volume 100.5 fl (81-99); Mean Platelet Volume 7.3 fl (7.4-10.4); Monocytes # 0.7 K/mm3 (0.1-1.0); Monocytes % 5.4 % (1.7-9.3); Neutrophils # 8.6 K/mm3 (1.8-7.8); Neutrophils % 62.8 % (37.0-80.0); Platelet Count 351 K/mm3 (142-424); White Blood Count 13.8 K/mm3 (4.8-10.8)
[2020-04-30 13:42] LABS: Chloride 104 mmol/L (98-107); Potassium 3.8 mmoL/L (3.5-5.1); Sodium 139 mmol/L (136-145)
[2020-04-30 13:45] LABS: Anion Gap 10.8 mEq/L (5-15); Blood Urea Nitrogen 12 mg/dl (7-17); Calcium 9.5 mg/dl (8.4-10.2); Carbon Dioxide 28 mmol/L (22.0-30.0); Creatinine Clearance Estimated 114 mL/min (50-200); Estimated Glomerular Filt Rate 68 ml/min (>60); GFR (African American) 83 ML/MIN (>60); Glucose 126 mg/dl (74-100)
[2020-04-30 13:48] LABS: HCG Qualitative, Serum Negative (Negative)
[2020-04-30 14:05] LABS: Coronavirus 19 IgG Antibody Negative (Negative); Coronavirus 19 IgM Antibody Negative (Negative)
--- NOTE | 2020-04-30 14:13 | CT_ITS ---
PROCEDURE: CT ABDOMEN PELVIS W CON CLINICAL INDICATION: r/o renal cell carcinoma Hypertension, enhancing left renal lesion noted on recent renal arteriogram COMPARISON: CT ABDPELW CT abdomen pelvis w con from 11/08/2018 TECHNIQUE: IV Contrast: 75ML Isovue 370 Oral Contrast None Axial images obtained with sagittal and coronal reformats. All CT scans at the facility use one or more dose reduction, viz: automated exposure control, ma/kV adjustment per patient size (including targeted exams where dose is matched to indication, i.e. head), or iterative reconstruction technique. FINDINGS: The exam is performed without and with contrast enhancement. Patient has had recent renal arteriogram with some intravenous contrast enhancement on the unenhanced images. Atelectatic changes are present in the lower lobes on both sides and in the right middle lobe. There has been a prior cholecystectomy. The liver, spleen, and adrenal glands have an unremarkable appearance. There is a partially calcified and partially thrombosed left splenic artery aneurysm measuring approximately 1.3 cm. This overlies the upper pole of the left kidney and likely accounts for the abnormality noted along the upper pole of the left kidney on the angiogram. There is scarring in the lower pole of the left kidney. This appears similar compared to previous exam. No renal mass is evident. There is scarring also in the mid polar region of the left kidney. The abnormality noted on the renal angiogram along the lower pole on the left is likely related to normal renal parenchyma enhancement with scarring along both upper and lower aspect of the area of normal parenchyma. No intestinal obstruction or free air. There is a small umbilical hernia which contains fat. Unremarkable appendix postsurgical changes are present involving the lower abdominal wall in the infraumbilical region. No acute bony findings. Surgical clips are present in the left pelvic region. IMPRESSION: 1. No evidence of renal mass. 2. Splenic artery aneurysm 3. Cortical scarring in the mid lower pole left kidney. 4. Bilateral lower lobe and right middle lobe atelectatic change Dictated by: Pool Wolf MD 04/30/2020 16:32 Pool Wolf MD in [facility] 04/30/2020 16:32
[2020-04-30 14:29] LABS: CATHL Activated Clotting Time 278 SEC (74-125)
--- NOTE | 2020-04-30 15:36 | HMH.PHACLD ---
Katherine Godwin has received discharge medication counseling on the following medications: PATIENT STARTED ON PLAVIX 75 MG DAILY, ASPIRIN 81 MG DAILY, AND ATORVASTATIN 40 MG HS. PATIENT RECEIVED PERIPHERAL STENT.
== END 2020-04-30 17:40 | disposition home or self-care (01) ==
PROVIDERS: Visit Provider Internal Medicine
DX: I70.1 Atherosclerosis of renal artery (principal); I10 Essential (primary) hypertension; Z72.0 Tobacco use; Z88.2 Allergy status to sulfonamides; Z88.8 Allergy status to other drugs, medicaments and biological substances; Z79.899 Other long term (current) drug therapy; E03.9 Hypothyroidism, unspecified; Z79.02 Long term (current) use of antithrombotics/antiplatelets; Z79.82 Long term (current) use of aspirin
CPT/HCPCS: 37236; 74177; 80048; 84703; 85025; 85347; 86328; 99152; 99153; C1725; C1760; C1769; C1876; J1644; J2405; Q9967

== ENCOUNTER → 2020-05-14 07:05 | Outpatient (CLI) | payer OTHER, SELFPAY ==
[2020-05-14 07:30] VITALS: BMI 31.6
[2020-05-14 07:46] LABS: Urine Pregnancy, HCG Qual. Negative (Negative)
[2020-05-14 09:12] LABS: Coronavirus 19 IgG Antibody Negative (Negative); Coronavirus 19 IgM Antibody Negative (Negative)
--- NOTE | 2020-05-14 09:58 | XR_ITS ---
PROCEDURE: XR CHEST PORTABLE PICC PLAC CLINICAL HISTORY: PICC line placement COMPARISON: DX CXR2V XR chest 2V from 04/04/2018 CR XR CHEST 2V from 05/23/2019 CR XR CHEST 2V from 04/14/[address] ANGIO CHEST from 04/14/2020 FINDINGS: The cardiomediastinal silhouette and pulmonary vascularity are within normal limits. The lungs are clear without infiltrates, suspicious nodules, or pleural effusions. Left upper extremity PICC line has been placed. The tip is in good position in the region the superior vena cava. IMPRESSION: PICC line tip in good position Dictated by: Pool Wolf MD 05/14/2020 10:17 Pool Wolf MD in [facility] 05/14/2020 10:17
--- NOTE | 2020-05-14 10:34 | CT_ITS ---
PROCEDURE: CT ANGIO CORONARY ARTERY CLINCAL INDICATION: ADALI, JANEL, HTN, Tobacco use Weakness, chest pain COMPARISON: No exams were available for comparison TECHNIQUE: IV Contrast: 150 mL Isovue 370 Axial images obtained with sagittal and coronal reformats. All CT scans at the facility use one or more dose reduction, viz: automated exposure control, ma/kV adjustment per patient size (including targeted exams where dose is matched to indication, i.e. head), or iterative reconstruction technique. Bradycardia was obtained with 50 mg metoprolol p.o.. Gated images were performed following bolus administration of contrast x2. Images were felt to be adequate. FINDINGS: The aortic root has an unremarkable appearance. There is a tricuspid aortic valve. No anatomic variations are evident regarding the origin of the coronary arteries. Left main coronary artery: Unremarkable Lad: A high-grade stenosis is present at the proximal LAD. There is a fibrocalcific plaque at this region and a tight short-segment stenosis which is felt to be at least 70 percent or greater. Soft plaque is present within the LAD distal to the area of stenosis long segment in nature with approximately 50 percent stenosis in the mid to distal aspect of this area of plaque involvement. The 1st and 2nd diagonal branches are somewhat small. The distal LAD is a small vessel. Stenoses are difficult to evaluate with this small caliber. Circumflex: The circumflex branches from the left main posteriorly and is angled posteriorly and medially. The circumflex is fairly prominent with a larger distal caliber than the LAD. Obvious marginals are unremarkable. Mild stenosis involves the circumflex distally just proximal to the 1st marginal branch. RCA: RCA is somewhat less than optimally imaged due to motion artifact despite repeating the exam. No significant stenotic lesions are identified. The PDA is somewhat small with cold dominant supply to the inferior aspect of the heart. Nonvascular posterior lateral branch to the left ventricle is small. Old granulomatous disease. Minimal atelectatic or fibrotic change in the left lung base. IMPRESSION: 1. High-grade ostial stenosis of the LAD of 70 percent or greater to secondary to fibrocalcific plaque with soft plaque involving the LAD distal to this region measuring up to 50 percent stenosis. 2. Mild stenosis of the distal circumflex proximal to the 1st marginal. 3. Co dominant supply to the inferior wall of the left ventricle Dictated by: Pool Wolf MD 05/15/2020 10:03 Pool Wolf MD in [facility] 05/15/2020 10:03
== END ==
PROVIDERS: Otolaryngology; PCP Emergency Medicine; Visit Provider Internal Medicine
DX: I65.23 Occlusion and stenosis of bilateral carotid arteries (principal); I70.1 Atherosclerosis of renal artery; I10 Essential (primary) hypertension; Z72.0 Tobacco use
CPT/HCPCS: 36569; 71045; 75574; 81025; 86328; C1751; Q9967

== ENCOUNTER 2020-05-15 08:25 | Day surgery (SDC) | payer OTHER, SELFPAY ==
[2020-05-15] VITALS (14 sets, daily range): BP systolic 81–126; BP diastolic 32–78; PULSE 54–79; RESP 16–20; TEMP 36.6–36.8; O2SAT 92–98; BMI 32.8
--- NOTE | 2020-05-15 07:09 | IR_ITS ---
APPROVED REPORT Patient Location: [facility] Operator: MARGARITA Tobias RT (R) PROCEDURES Left heart catheterization Left ventriculogram Selective coronary angiogram Drug-eluting stent deployment to the ostial proximal LAD Intravascular ultrasound of the LAD INDICATION Coronary artery disease, Abnormal CTA, Informed consent was obtained prior to the procedure. COMPLICATIONS None Estimated Blood Loss: less than 10ml TECHNIQUE One percent lidocaine used to anesthetize the right anterior aspect of the wrist. The right radial artery was accessed via the Seldinger technique. A 6 Tristanian sheath was placed in the right radial artery. 2.5 mg of verapamil, 800 mcg of nitroglycerin, 1mg Lidocaine and 5000 U Heparin were given through the arterial sheath. A [place] catheter was used to perform selective coronary angiogram. At the end of the diagnostic angiogram therapeutic heparin was administered giving an Allis range ACT. A Choice PT extra-support wire was placed in the mid to distal LAD and a 3.5 x 8 mm resolute Tripp stent was deployed at 18 kylee reducing the critical stenosis. Following this intravascular ultrasound probe was advanced which demonstrated excellent placement with no angiographic encroachment upon the circumflex artery. IVUS demonstrated the stent was slightly under deployed therefore a 3.75 x 8 mm balloon was then deployed back in the stent at 20 kylee. Intravascular ultrasound probe was advanced. There was a plaque at the edge of the stent which I felt required treatment therefore 3.5 x 12 mm resolute Tripp stent was then deployed at 18 kylee reducing the stenosis further. The balloon was brought back and deployed at 24 kylee in between the 2 stents to post dilate. Excellent angiographic results were obtained with DONNA-3 flow down the vessel before and after the procedure. At the end of the procedure the apparatus was removed the sheath was removed good hemostasis was achieved using TR banding patient was transferred to the postop holding area in stable condition ANGIOGRAPHIC RESULTS The left main artery Normal The left anterior descending artery Has an ostial eccentric 90% stenosis followed by additional 30 to 40% stenosis. The mid LAD then has a 60 to 70% concentric stenosis The circumflex artery Is a nondominant yet still large vessel giving rise to a large solitary obtuse marginal artery. The vessel has mild 10% luminal irregularities The right coronary artery Is a dominant vessel with proximal and mid vessel 30 to 40% stenoses. The posterior descending artery is a 2.25 mm vessel with a long ostial to proximal 60 to 70% stenosis The MENA ventriculogram reveals Not performed The left ventricular end-diastolic pressure Not measured IMPRESSION Severe to critical ostial LAD disease as described above Successful stenting of the ostial proximal LAD severe disease reduced to 0% with 2 drug-eluting stents in a contiguous manner Persistent moderate disease in the mid LAD with moderate to severe disease in the posterior descending artery PLAN 1. Continue Plavix and aspirin 2. LDL less than 55 3. Continue treatment of hypertension 4. Avoidance of all tobacco products 5. Aggressive risk factor modification 6. Cardiac rehabilitation Electronically signed by : [place], 05/15/2020 10:26:47
[2020-05-15 09:12] LABS: Basophils # 0.1 K/mm3 (0-0.2); Eosinophils # 0.1 K/mm3 (0.0-0.4); Eosinophils % 1.5 % (0.1-12.0); Hemoglobin 14.7 g/dL (12.2-16.2); Lymphocytes # 1.1 K/mm3 (0.7-4.5); Lymphocytes % 16.4 % (10-50); Mean Corpuscular Volume 100.2 fl (81-99); Mean Platelet Volume 9.7 fl (7.4-10.4); Monocytes # 0.6 K/mm3 (0.1-1.0); Monocytes % 8.8 % (1.7-9.3); Neutrophils # 4.9 K/mm3 (1.8-7.8); Neutrophils % 72.3 % (37.0-80.0); Platelet Count 284 K/mm3 (142-424); Red Blood Count 4.59 M/mm3 (4.20-5.40); Red Cell Distribution Width 13.7 % (11.5-17.5); White Blood Count 6.8 K/mm3 (4.8-10.8)
[2020-05-15 09:14] LABS: Anion Gap 10.5 mEq/L (5-15); Blood Urea Nitrogen 8 mg/dl (7-17); Calcium 9.2 mg/dl (8.4-10.2); Carbon Dioxide 28 mmol/L (22.0-30.0); Chloride 100 mmol/L (98-107); Creatinine Clearance Estimated 151 mL/min (50-200); Estimated Glomerular Filt Rate 91 ml/min (>60); GFR (African American) 111 ML/MIN (>60); Glucose 83 mg/dl (74-100); Potassium 3.5 mmoL/L (3.5-5.1); Sodium 135 mmol/L (136-145)
--- NOTE | 2020-05-15 13:50 | HMH.PHACLD ---
Katherine Godwin has received discharge medication counseling on the following medications: PATIENT IS CURRENTLY TAKING ASPIRIN [address] DAILY, BISOPROLOL/HCTZ 5/6.25 MG-2 TABLETS DAILY, ATORVASTATIN 40 MG DAILY, AND PLAVIX 75 MG DAILY. MD STOPPED AMLODIPINE 10 MG DAILY AND LISINOPRIL 10 MG DAILY DUE TO LOW BP POST CATH TODAY.
[2020-05-15 14:43] LABS: CATHL Activated Clotting Time > 400 SEC (74-125)
== END 2020-05-15 15:37 ==
LOC: CATHLAB 08:25
PROVIDERS: PCP Emergency Medicine; Visit Provider Internal Medicine
DX: I70.1 Atherosclerosis of renal artery (principal); I10 Essential (primary) hypertension; E78.5 Hyperlipidemia, unspecified; I25.10 Atherosclerotic heart disease of native coronary artery without angina pectoris; I65.29 Occlusion and stenosis of unspecified carotid artery; Z72.0 Tobacco use; I65.22 Occlusion and stenosis of left carotid artery; Z88.1 Allergy status to other antibiotic agents; Z88.2 Allergy status to sulfonamides; Z88.8 Allergy status to other drugs, medicaments and biological substances; Z79.899 Other long term (current) drug therapy; E03.9 Hypothyroidism, unspecified
CPT/HCPCS: 80048; 85025; 85347; 92928; 92978; 93458; 99152; 99153; C1725; C1769; C1876; C9600; J1644; J2405; Q9967

== ENCOUNTER 2020-05-20 22:09 | Emergency (ER) | payer OTHER, SELFPAY ==
[2020-05-20 22:10] VITALS: BP 159/105; PULSE 85; RESP 18; TEMP 36.8; O2SAT 95; BMI 30.7
--- NOTE | 2020-05-20 22:35 | ECG_ITS ---
APPROVED REPORT Exam: Resting ECG HR:76 bpm ECG Measurements Heart Rate 76 AXES CA 154 P 60 QRSd 82 QRS 75 QT 370 T 22 QTc 416 Conclusion Normal sinus rhythm Old poor r wave progression Abnormal ECG Electronically signed by : Jose De Jesus Penaloza, 05/21/2020 13:49:44
[2020-05-20 22:51] LABS: Basophils # 0.1 K/mm3 (0-0.2); Basophils % 0.7 % (0.1-2.0); Eosinophils # 0.3 K/mm3 (0.0-0.4); Eosinophils % 3.3 % (0.1-12.0); Hematocrit 42.1 % (37.0-47.0); Hemoglobin 14.7 g/dL (12.2-16.2); Lymphocytes # 2.8 K/mm3 (0.7-4.5); Mean Corpuscular HGB Conc 34.9 g/dL (31.8-35.4); Mean Corpuscular Hemoglobin 32.6 pg (27.0-31.2); Mean Corpuscular Volume 93.5 fl (81-99); Mean Platelet Volume 7.2 fl (7.4-10.4); Monocytes # 0.6 K/mm3 (0.1-1.0); Monocytes % 5.8 % (1.7-9.3); Neutrophils # 5.6 K/mm3 (1.8-7.8); Neutrophils % 60.2 % (37.0-80.0); Platelet Count 304 K/mm3 (142-424); White Blood Count 9.4 K/mm3 (4.8-10.8)
[2020-05-20 22:52] LABS: Chloride 103 mmol/L (98-107); Potassium 3.5 mmoL/L (3.5-5.1); Sodium 136 mmol/L (136-145)
[2020-05-20 22:54] LABS: Bilirubin,Unconjugated 0.2 mg/dL (0.0-1.1); Blood Urea Nitrogen 16 mg/dl (7-17); Creatinine Clearance Estimated 110 mL/min (50-200); Estimated Glomerular Filt Rate 68 ml/min (>60); GFR (African American) 83 ML/MIN (>60)
[2020-05-20 22:55] LABS: Alanine Aminotransferase 44 U/L (12-78); Albumin Level 4.3 g/dl (3.5-5.0); Alkaline Phosphatase 100 U/L (38-126); Anion Gap 8.5 mEq/L (5-15); Aspartate Amino Transferase 35 U/L (14-36); Bilirubin,Direct 0.2 mg/dl (0.0-0.4); Bilirubin,Indirect 0.2 mg/dL (0.0-0.9); Bilirubin,Total 0.4 mg/dl (0.2-1.3); Calcium 9.3 mg/dl (8.4-10.2); Carbon Dioxide 28 mmol/L (22.0-30.0); Glucose 127 mg/dl (74-100); Total Protein,Serum 7.7 g/dl (6.3-8.2)
[2020-05-20 23:00] LABS: C-Reactive Protein 4.2 mg/L (0-4)
[2020-05-20 23:04] LABS: Adenovirus,PCR Not Detected (NotDetected); Bordetella Pertussis Not Detected (NotDetected); Chlamydophila Pneumoniae, PCR Not Detected (NotDetected); Coronavirus 229E Not Detected (NotDetected); Coronavirus NL63 Not Detected (NotDetected); Coronavirus OC43 Not Detected (NotDetected); Coronovirus HKU1,PCR Not Detected (NotDetected); Human Metapneumovirus Not Detected (NotDetected); Influenza A, PCR Not Detected (NotDetected); Influenza AH1, 2009 Not Detected (NotDetected); Influenza AH1, PCR Not Detected (NotDetected); Influenza AH3,PCR Not Detected (NotDetected); Influenza B, PCR Not Detected (NotDetected); Mycoplasma Pneumoniae, PCR Not Detected (NotDetected); Parainfluenza 1, PCR Not Detected (NotDetected); Parainfluenza 2, PCR Not Detected (NotDetected); Parainfluenza 3, PCR Not Detected (NotDetected); Parainfluenza 4, PCR Not Detected (NotDetected); Respiratory Syncytial Virus Not Detected (NotDetected); Rhinovirus/Enterovirus Not Detected (NotDetected)
--- NOTE | 2020-05-20 23:06 | HMH.EDWEAK ---
ED Disposition Clinical Impression: COVID-19 virus detected Disposition: Home, Self-Care Condition on Discharge: Good Instructions: DI for COVID-19 (Suspected or Confirmed ) Additional Instructions: fluids and quarantine as directed Referrals: Dipak Del Rosario MD [Primary Care Provider] - - Critical Care Critical Care Time: No Attestation: On 05/20/20, the high probability of a clinically significant, sudden or life threatening deterioration of the following system(s) required my full and direct attention, intervention and personal management. The time I documented below is in addition to time spent performing reported procedures but includes the following listed in this critical care notation. Medical Decision Making - Medical Records Medical records reviewed: Yes: I reviewed the patient's medical records. - Javon Inquiry Pt receiving controlled substance: No Vital Signs: 05/20/20 22:10 05/20/20 23:40 05/21/20 01:00 Temperature 98.3 F Temperature Source Oral Pulse Rate [Left Radial] 85 82 79 Respiratory Rate 18 16 16 Blood Pressure [Right Arm] 159/105 H 130/94 H 147/91 H Blood Pressure Mean [Right Arm] 123 106 109 Blood Pressure Source [Right Arm] Automatic Cuff Automatic Cuff Automatic Cuff Blood Pressure Position [Right Arm] Sitting Supine Supine 02 Sat by Pulse Oximetry 95 98 97 Oxygen Delivery Method Room Air Room Air Room Air - Lab Data Lab results reviewed: Yes: I reviewed the patient's lab results. Lab Results 05/20/20 22:35: WBC 9.4, RBC 4.50, Hgb 14.7, Hct 42.1, MCV 93.5, MCH 32.6 H, MCHC 34.9, RDW 14.0, Plt Count 304, MPV 7.2 L, Neut % (Auto) 60.2, Lymph % (Auto) 30.0, [place] % (Auto) 5.8, Eos % (Auto) 3.3, Baso % (Auto) 0.7, Neut # (Auto) 5.6, Lymph # (Auto) 2.8, [place] # (Auto) 0.6, Eos # (Auto) 0.3, Baso # (Auto) 0.1 05/20/20 22:35: Sodium 136, Potassium 3.5, Chloride 103, Carbon Dioxide 28, Anion Gap 8.5, BUN 16, Creatinine 0.90, Estimated Creat Clear 110, Estimated GFR 68, Est GFR ( Amer) 83, Glucose 127 H, Calcium 9.3, Total Bilirubin 0.4, Direct Bilirubin 0.2, Conjugated Bilirubin 0.0, Indirect Bilirubin 0.2, Unconjugated Bilirubin 0.2, AST 35, ALT 44, Alkaline Phosphatase 100, Troponin I < 0.01, C-Reactive Protein 4.2 H, Total Protein 7.7, Albumin 4.3 05/20/20 22:35: ESR 53 H 05/20/20 22:35: Procalcitonin < 0.030 05/20/20 22:46: Chlamy pneumoniae PCR Not detected, Adenovirus (PCR) Not detected, B. pertussis DNA (PCR) Not detected, Coronavirus OC43 (PCR) Not detected, Coronavirus HKU1 (PCR) Not detected, Coronavirus 229E (PCR) Not detected, SARS-CoV-2 (PCR) Detected A, Coronavirus NL63 (PCR) Not detected, Human Metapneumovir PCR Not detected, Influenza A (H1) PCR Not detected, Influ A (H1N1/09) PCR Not detected, Influenza A (H3) PCR Not detected, Influenza Type A (PCR) Not detected, Influenza Type B (PCR) Not detected, M. pneumoniae (PCR) Not detected, Parainfluenza 1 (PCR) Not detected, Parainfluenza 2 (PCR) Not detected, Parainfluenza 3 (PCR) Not detected, Parainfluenza 4 (PCR) Not detected, RSV (PCR) Not detected, Entero/Rhino (PCR) Not detected Result diagrams: 05/20/20 22:35 05/20/20 22:35 Orders (Tests/Meds): ED MEDICATIONS Generic Name Dose Route Start Last Admin Trade Name Freq PRN Reason Stop Dose Admin Sodium Chloride 1,000 mls @ 999 mls/hr 05/20/20 22:45 05/20/20 22:46 Sod Chlor 0.9% 1000ml Bag IV 05/20/20 23:45 999 mls/hr .Q1H1M JEANNE Administration Discontinued Medications Generic Name Dose Route Start Last Admin Trade Name Freq PRN Reason Stop Dose Admin Dexamethasone Sodium Phosphate 10 mg 05/21/20 01:47 05/21/20 01:48 Dexamethasone 4mg/Ml 1ml Vial IV 05/21/20 01:48 Not Given ONCE ONE Dexamethasone Sodium Phosphate 10 mg 05/21/20 01:48 05/21/20 01:48 Dexamethasone 4mg/Ml 5ml Mdv IV 05/21/20 01:49 10 mg ONCE ONE Administration Ondansetron HCl 4 mg 05/20/20 22:45 05/20/20 22:46 Ondansetron 4mg/2ml Vial IV
[2020-05-20 23:10] LABS: Troponin I < 0.01 ng/ml (0.00-0.034)
[2020-05-20 23:24] LABS: Procalcitonin < 0.030 ng/mL (0.0-2.0)
[2020-05-20 23:40] VITALS: BP 130/94; PULSE 82; RESP 16; O2SAT 98
[2020-05-21 00:47] LABS: Erythrocyte Sedimentation Rate 53 mm/hr (0-20)
[2020-05-21 01:00] VITALS: BP 147/91; PULSE 79; RESP 16; O2SAT 97
[2020-05-21 01:48] LABS: Coronavirus 19, PCR Detected (NotDetected)
[2020-05-21 02:01] VITALS: BP 145/74; PULSE 82; RESP 18; TEMP 36.8; O2SAT 99
== END 2020-05-21 02:07 | disposition home or self-care (01) ==
PROVIDERS: Emergency Provider Emergency Medicine; PCP Emergency Medicine
DX: U07.1 COVID-19 (principal); E78.5 Hyperlipidemia, unspecified; E03.9 Hypothyroidism, unspecified; I10 Essential (primary) hypertension; G43.709 Chronic migraine without aura, not intractable, without status migrainosus; Z95.5 Presence of coronary angioplasty implant and graft; R00.2 Palpitations; Z88.2 Allergy status to sulfonamides; Z88.5 Allergy status to narcotic agent; Z79.899 Other long term (current) drug therapy
CPT/HCPCS: 80048; 80076; 84145; 84484; 85025; 85651; 86140; 87581; 87633; 87798; 93005; 96365; 96375; 99283; J2405

== ENCOUNTER → 2020-05-21 16:28 | Outpatient (CLI) | payer OTHER, SELFPAY ==
[2020-05-21] VITALS (9 sets, daily range): BP systolic 110–161; BP diastolic 73–95; PULSE 81–96; RESP 18; TEMP 36.9–37; O2SAT 96–98; BMI 30.7
--- NOTE | 2020-05-21 17:58 | PC.NURSE ---
Spoke with Dr. Lynn for a VO of IV phenergran. 12.5mg of phenergran ordered
--- NOTE | 2020-05-21 19:20 | PC.NURSE ---
pt removed pulse ox
--- NOTE | 2020-05-21 19:21 | PC.NURSE ---
pt removed pulse ox
--- NOTE | 2020-05-21 19:21 | PC.NURSE ---
pt removed pulse ox
--- NOTE | 2020-05-22 09:31 | HMH.PHAINT ---
PATIENT RECEIVED DEXAMETHASONE IN ER OVERNIGHT PRIOR TO THE BAM INFUSION. DR. STOVER STARTED PATIENT ON MEDROL DOSE LANA ON 05/21/20 WELL. MD WANTS PATIENT TO HAVE BAM INFUSION DUE TO MULTIPLE COMORBITIES INCLUDING STENTING OF LAD ON 05/15/20 AND STENTING OF LEFT RENAL ARTERY ON 04/30/20. BASED ON STEROID USE, PATIENT WOULD QUALIFY FOR BAM THERAPY.
== END ==
PROVIDERS: PCP Emergency Medicine; Visit Provider Internal Medicine
DX: U07.1 COVID-19 (principal)
CPT/HCPCS: 96365

== ENCOUNTER 2020-05-26 22:28 | Emergency (ER) | payer OTHER, SELFPAY ==
[2020-05-26 22:29] VITALS: BP 165/105; PULSE 84; RESP 18; TEMP 37.1; O2SAT 97; BMI 31.3
[2020-05-26 22:56] LABS: Basophils # 0.1 K/mm3 (0-0.2); Basophils % 0.5 % (0.1-2.0); Chloride 104 mmol/L (98-107); Eosinophils # 0.4 K/mm3 (0.0-0.4); Eosinophils % 2.5 % (0.1-12.0); Hematocrit 39.2 % (37.0-47.0); Hemoglobin 13.4 g/dL (12.2-16.2); Lymphocytes # 3.7 K/mm3 (0.7-4.5); Lymphocytes % 26.4 % (10-50); Mean Corpuscular HGB Conc 34.3 g/dL (31.8-35.4); Mean Corpuscular Hemoglobin 31.7 pg (27.0-31.2); Mean Corpuscular Volume 92.6 fl (81-99); Mean Platelet Volume 7.3 fl (7.4-10.4); Monocytes # 0.7 K/mm3 (0.1-1.0); Monocytes % 5.2 % (1.7-9.3); Neutrophils # 9.3 K/mm3 (1.8-7.8); Neutrophils % 65.3 % (37.0-80.0); Platelet Count 348 K/mm3 (142-424); Potassium 3.8 mmoL/L (3.5-5.1); Red Blood Count 4.23 M/mm3 (4.20-5.40); Red Cell Distribution Width 13.1 % (11.5-17.5); Sodium 136 mmol/L (136-145); White Blood Count 14.2 K/mm3 (4.8-10.8)
[2020-05-26 22:58] LABS: Blood Urea Nitrogen 10 mg/dl (7-17); Creatinine Clearance Estimated 144 mL/min (50-200); Estimated Glomerular Filt Rate 91 ml/min (>60); GFR (African American) 111 ML/MIN (>60)
[2020-05-26 22:59] LABS: Alanine Aminotransferase 40 U/L (12-78); Albumin Level 4.1 g/dl (3.5-5.0); Albumin/Globulin Ratio 1.2 (1.1-1.8); Alkaline Phosphatase 107 U/L (38-126); Anion Gap 7.8 mEq/L (5-15); Aspartate Amino Transferase 39 U/L (14-36); Bilirubin,Total 0.5 mg/dl (0.2-1.3); Calcium 9.1 mg/dl (8.4-10.2); Carbon Dioxide 28 mmol/L (22.0-30.0); Globulin 3.3 g/dL (1.3-3.2); Glucose 112 mg/dl (74-100); Total Protein,Serum 7.4 g/dl (6.3-8.2)
[2020-05-26 23:23] LABS: Troponin I < 0.01 ng/ml (0.00-0.034)
[2020-05-26 23:24] LABS: Procalcitonin < 0.030 ng/mL (0.0-2.0)
[2020-05-26 23:46] LABS: Erythrocyte Sedimentation Rate 40 mm/hr (0-20)
[2020-05-26 23:54] VITALS: BP 146/86; PULSE 80; RESP 16; O2SAT 96
[2020-05-27] VITALS: BP 137/84; PULSE 83; O2SAT 94
--- NOTE | 2020-05-27 00:05 | HMH.EDNVD ---
ED Disposition Clinical Impression: COVID-19 virus detected Disposition: Home, Self-Care Condition on Discharge: Good Instructions: DI for Nausea -- Adult Additional Instructions: fluids and see pcp for follow up Referrals: Dipak Del Rosario MD [Primary Care Provider] - - Critical Care Critical Care Time: No Attestation: On 05/26/20, the high probability of a clinically significant, sudden or life threatening deterioration of the following system(s) required my full and direct attention, intervention and personal management. The time I documented below is in addition to time spent performing reported procedures but includes the following listed in this critical care notation. Medical Decision Making - Medical Records Medical records reviewed: Yes: I reviewed the patient's medical records. - Javon Inquiry Pt receiving controlled substance: No Vital Signs: 05/26/20 22:29 05/26/20 23:54 05/27/20 00:00 Temperature 98.7 F Temperature Source Oral Pulse Rate [Left Radial] 84 80 83 Respiratory Rate 18 16 Blood Pressure [Right Arm] 165/105 H 146/86 H 137/84 Blood Pressure Mean [Right Arm] 125 106 101 Blood Pressure Source [Right Arm] Automatic Cuff Automatic Cuff Blood Pressure Position [Right Arm] Supine Supine 02 Sat by Pulse Oximetry 97 96 94 L Oxygen Delivery Method Room Air Room Air - Lab Data Lab results reviewed: Yes: I reviewed the patient's lab results. Lab Results 05/26/20 22:40: WBC 14.2 H, RBC 4.23, Hgb 13.4, Hct 39.2, MCV 92.6, MCH 31.7 H, MCHC 34.3, RDW 13.1, Plt Count 348, MPV 7.3 L, Neut % (Auto) 65.3, Lymph % (Auto) 26.4, [place] % (Auto) 5.2, Eos % (Auto) 2.5, Baso % (Auto) 0.5, Neut # (Auto) 9.3 H, Lymph # (Auto) 3.7, [place] # (Auto) 0.7, Eos # (Auto) 0.4, Baso # (Auto) 0.1 05/26/20 22:40: Sodium 136, Potassium 3.8, Chloride 104, Carbon Dioxide 28, Anion Gap 7.8, BUN 10, Creatinine 0.70, Estimated Creat Clear 144, Estimated GFR 91, Est GFR ( Amer) 111, Glucose 112 H, Calcium 9.1, Total Bilirubin 0.5, AST 39 H, ALT 40, Alkaline Phosphatase 107, Total Protein 7.4, Albumin 4.1, Globulin 3.3 H, Albumin/Globulin Ratio 1.2 05/26/20 22:40: ESR 40 H 05/26/20 22:40: Troponin I < 0.01, C-Reactive Protein 5.0 H, Procalcitonin < 0.030 Result diagrams: 05/26/20 22:40 05/26/20 22:40 Orders (Tests/Meds): ED MEDICATIONS Generic Name Dose Route Start Last Admin Trade Name Freq PRN Reason Stop Dose Admin Sodium Chloride 1,000 mls @ 999 mls/hr 05/26/20 23:00 05/26/20 22:53 Sod Chlor 0.9% 1000ml Bag IV 05/27/20 00:00 999 mls/hr .Q1H1M JEANNE Administration Sodium Chloride 1,000 mls @ 999 mls/hr 05/26/20 23:45 05/26/20 23:50 Sod Chlor 0.9% 1000ml Bag IV 05/27/20 00:45 999 mls/hr .Q1H1M JEANNE Administration Sodium Chloride 10 ml 05/26/20 23:14 Sodium Chloride 0.9% 10ml Vial IV 06/25/20 23:13 NEEDED PRN to Dilute Lorazepam inj Sodium Chloride 8 ml 05/26/20 23:23 Sodium Chloride 0.9% 10ml Vial IV 06/25/20 23:22 NEEDED PRN dilute pepcid Discontinued Medications Generic Name Dose Route Start Last Admin Trade Name Roniq PRN Reason Stop Dose Admin Dexamethasone Sodium Phosphate 10 mg 05/26/20 22:48 05/26/20 22:52 Dexamethasone 4mg/Ml 1ml Vial IV 05/26/20 22:49 10 mg ONCE ONE Administration Diphenhydramine HCl 50 mg 05/26/20 23:46 05/26/20 23:50 Diphenhydramine 50mg/Ml Vial IV 05/26/20 23:47 50 mg ONCE ONE Administration Famotidine 20 mg 05/26/20 23:23 05/26/20 23:23 Famotidine 20mg/2ml Vial IV 05/26/20 23:24 20 mg ONCE ONE Administration Hydromorphone HCl 1 mg 05/26/20 22:48 05/26/20 22:52 Hydromorphone 2mg/Ml Syringe IV 05/26/20 22:49 1 mg ONCE ONE Administration Hydromorphone HCl 1 mg 05/26/20 23:44 05/26/20 23:45 Hydromorphone 2mg/Ml Syringe IV 05/26/20 23:45 1 mg ONCE ONE Administration Lorazepam 1 mg 05/26/20 23:14 05/26/20 23:16 Lorazepam 2mg/Ml Vial IV
[2020-05-27 01:53] VITALS: BP 135/83; PULSE 84; RESP 16; TEMP 37.1; O2SAT 96
== END 2020-05-27 02:19 | disposition home or self-care (01) ==
PROVIDERS: Emergency Provider Emergency Medicine; PCP Emergency Medicine
DX: U07.1 COVID-19 (principal); E78.5 Hyperlipidemia, unspecified; I10 Essential (primary) hypertension; E03.9 Hypothyroidism, unspecified; Z87.442 Personal history of urinary calculi; F17.210 Nicotine dependence, cigarettes, uncomplicated; Z88.2 Allergy status to sulfonamides; Z88.5 Allergy status to narcotic agent; Z79.899 Other long term (current) drug therapy
CPT/HCPCS: 80053; 84145; 84484; 85025; 85651; 86140; 96365; 96366; 96375; 96376; 99282

== ENCOUNTER 2020-05-30 09:45 | Outpatient (CLI) | payer OTHER, SELFPAY ==
[2020-05-30] VITALS (7 sets, daily range): BP systolic 130–185; BP diastolic 70–105; PULSE 67–84; RESP 18–20; TEMP 36.6; BMI 31.3
[2020-05-30 10:17] LABS: Basophils # 0.1 K/mm3 (0-0.2); Basophils % 0.5 % (0.1-2.0); Eosinophils # 0.3 K/mm3 (0.0-0.4); Eosinophils % 2.1 % (0.1-12.0); Hematocrit 38.4 % (37.0-47.0); Hemoglobin 13.1 g/dL (12.2-16.2); Lymphocytes # 3.3 K/mm3 (0.7-4.5); Lymphocytes % 26.4 % (10-50); Mean Corpuscular HGB Conc 34.2 g/dL (31.8-35.4); Mean Corpuscular Hemoglobin 31.8 pg (27.0-31.2); Mean Corpuscular Volume 93.1 fl (81-99); Mean Platelet Volume 7.2 fl (7.4-10.4); Monocytes # 0.9 K/mm3 (0.1-1.0); Monocytes % 6.8 % (1.7-9.3); Neutrophils # 8.1 K/mm3 (1.8-7.8); Neutrophils % 64.2 % (37.0-80.0); Platelet Count 316 K/mm3 (142-424); Red Blood Count 4.13 M/mm3 (4.20-5.40); Red Cell Distribution Width 13.5 % (11.5-17.5); White Blood Count 12.6 K/mm3 (4.8-10.8)
[2020-05-30 10:24] LABS: Chloride 103 mmol/L (98-107); Sodium 137 mmol/L (136-145)
[2020-05-30 10:25] LABS: Potassium 3.7 mmoL/L (3.5-5.1)
[2020-05-30 10:27] LABS: Alanine Aminotransferase 72 U/L (12-78); Albumin Level 3.8 g/dl (3.5-5.0); Albumin/Globulin Ratio 1.1 (1.1-1.8); Alkaline Phosphatase 108 U/L (38-126); Anion Gap 7.7 mEq/L (5-15); Aspartate Amino Transferase 31 U/L (14-36); Bilirubin,Total 0.4 mg/dl (0.2-1.3); Blood Urea Nitrogen 13 mg/dl (7-17); Carbon Dioxide 30 mmol/L (22.0-30.0); Creatinine Clearance Estimated 126 mL/min (50-200); Estimated Glomerular Filt Rate 78 ml/min (>60); GFR (African American) 95 ML/MIN (>60); Globulin 3.4 g/dL (1.3-3.2); Total Protein,Serum 7.2 g/dl (6.3-8.2)
[2020-05-30 10:28] LABS: Calcium 9.1 mg/dl (8.4-10.2); Glucose 92 mg/dl (74-100)
== END 2020-05-30 13:45 | disposition home or self-care (01) ==
LOC: INF 09:45
PROVIDERS: PCP Emergency Medicine; Visit Provider Nurse Practitioner Family
DX: U07.1 COVID-19 (principal); R11.2 Nausea with vomiting, unspecified; R51.9 Headache, unspecified
CPT/HCPCS: 80053; 85025; 96360; 96375; J2405

== ENCOUNTER 2020-06-04 02:31 | Emergency (ER) | payer OTHER, SELFPAY ==
[2020-06-04] VITALS (9 sets, daily range): BP systolic 114–167; BP diastolic 60–96; PULSE 71–95; RESP 15–18; TEMP 36.6–36.9; O2SAT 96–98; BMI 31.3
--- NOTE | 2020-06-04 02:53 | XR_ITS ---
PROCEDURE: XR CHEST PORTABLE CLINICAL HISTORY: COVID Chest pain COMPARISON: CR XR CHEST 2V from 05/23/[address] ANGIO CHEST from 04/14/2020 CR XR CHEST 2V from 04/14/2020 CR XR CHEST PORTABLE PICC PLAC from 05/14/2020 FINDINGS: The cardiomediastinal silhouette and pulmonary vascularity are within normal limits. The lungs are clear without infiltrates, suspicious nodules, or pleural effusions. No acute bony abnormalities. IMPRESSION: No acute findings. Dictated by: Dr. Berry Johnson MD 06/04/2020 09:15 Dr. Berry Johnson MD in [facility] 06/04/2020 09:15
[2020-06-04 03:11] LABS: Microscopic, Urine URINE MICROSCOPIC (MICROSCOPIC)
[2020-06-04 03:23] LABS: Appearance,Urine CLEAR (Clear); Bilirubin,Urine Negative (Negative); Blood, Urine 1+ (Negative); Color,Urine YELLOW (Yellow); Glucose,Urine (UA) Negative (Negative); Ketones,Urine Negative (Negative); Leukocyte Esterase,Urine Negative (Negative); Nitrate,Urine Negative (Negative); Protein,Urine Negative (Negative); Urobilinogen,Urine 0.2 EU/dl (0.2)
[2020-06-04 03:25] LABS: Urine Pregnancy, HCG Qual. Negative (Negative)
[2020-06-04 03:31] LABS: Alanine Aminotransferase 80 U/L (12-78); Albumin Level 4.1 g/dl (3.5-5.0); Albumin/Globulin Ratio 1.2 (1.1-1.8); Alkaline Phosphatase 105 U/L (38-126); Anion Gap 11.9 mEq/L (5-15); Aspartate Amino Transferase 43 U/L (14-36); Bilirubin,Total 0.3 mg/dl (0.2-1.3); Blood Urea Nitrogen 13 mg/dl (7-17); Calcium 9.7 mg/dl (8.4-10.2); Carbon Dioxide 24 mmol/L (22.0-30.0); Chloride 105 mmol/L (98-107); Creatinine Clearance Estimated 126 mL/min (50-200); Estimated Glomerular Filt Rate 78 ml/min (>60); GFR (African American) 95 ML/MIN (>60); Globulin 3.4 g/dL (1.3-3.2); Glucose 100 mg/dl (74-100); Potassium 3.9 mmoL/L (3.5-5.1); Sodium 137 mmol/L (136-145); Total Protein,Serum 7.5 g/dl (6.3-8.2)
[2020-06-04 03:35] LABS: Basophils # 0.1 K/mm3 (0-0.2); Basophils % 0.6 % (0.1-2.0); Eosinophils # 0.3 K/mm3 (0.0-0.4); Eosinophils % 2.7 % (0.1-12.0); Hematocrit 40.8 % (37.0-47.0); Hemoglobin 13.3 g/dL (12.2-16.2); Lymphocytes % 24.4 % (10-50); Mean Corpuscular HGB Conc 32.6 g/dL (31.8-35.4); Mean Corpuscular Hemoglobin 31.5 pg (27.0-31.2); Mean Corpuscular Volume 96.6 fl (81-99); Mean Platelet Volume 6.9 fl (7.4-10.4); Monocytes # 0.8 K/mm3 (0.1-1.0); Monocytes % 6.6 % (1.7-9.3); Neutrophils # 8.1 K/mm3 (1.8-7.8); Neutrophils % 65.7 % (37.0-80.0); Platelet Count 291 K/mm3 (142-424); Red Blood Count 4.23 M/mm3 (4.20-5.40); Red Cell Distribution Width 13.5 % (11.5-17.5); White Blood Count 12.4 K/mm3 (4.8-10.8)
[2020-06-04 03:37] LABS: C-Reactive Protein 3.3 mg/L (0-4)
[2020-06-04 03:50] LABS: Bacteria,Urine Trace /lpf; RBC,Urine Occasional #/hpf (0-3)
[2020-06-04 06:20] LABS: Erythrocyte Sedimentation Rate 49 mm/hr (0-20)
--- NOTE | 2020-06-04 06:22 | HMH.EDNVD ---
ED Disposition Clinical Impression: COVID-19 virus detected Headache Qualifiers: Headache type: unspecified Headache chronicity pattern: acute headache Intractability: not intractable Qualified Code(s): R51.9 - Headache, unspecified Disposition: Home, Self-Care Condition on Discharge: Good Instructions: DI for Headache Additional Instructions: fluids and use meds as needed Referrals: Dipak Del Rosario MD [Primary Care Provider] - - Critical Care Critical Care Time: No Attestation: On 06/04/20, the high probability of a clinically significant, sudden or life threatening deterioration of the following system(s) required my full and direct attention, intervention and personal management. The time I documented below is in addition to time spent performing reported procedures but includes the following listed in this critical care notation. Medical Decision Making - Medical Records Medical records reviewed: Yes: I reviewed the patient's medical records. - Javon Inquiry Pt receiving controlled substance: No Vital Signs: 06/04/20 02:32 06/04/20 03:00 06/04/20 03:30 Temperature 98.4 F Temperature Source Oral Pulse Rate [Right Radial] 95 H 89 84 Respiratory Rate 18 15 15 Blood Pressure [Right Arm] 166/90 H 158/87 H 154/81 H Blood Pressure Mean [Right Arm] 115 110 105 Blood Pressure Source [Right Arm] Automatic Cuff Automatic Cuff Automatic Cuff Blood Pressure Position [Right Arm] Supine Supine Supine 02 Sat by Pulse Oximetry 97 98 98 Oxygen Delivery Method Room Air Room Air Room Air 06/04/20 04:00 06/04/20 04:30 06/04/20 05:00 Temperature Temperature Source Pulse Rate [Right Radial] 76 76 71 Respiratory Rate 17 16 16 Blood Pressure [Right Arm] 123/64 114/60 124/70 Blood Pressure Mean [Right Arm] 83 78 88 Blood Pressure Source [Right Arm] Automatic Cuff Automatic Cuff Automatic Cuff Blood Pressure Position [Right Arm] Supine Supine Supine 02 Sat by Pulse Oximetry 97 96 96 Oxygen Delivery Method Room Air Room Air Room Air 06/04/20 05:30 06/04/20 07:24 Temperature Temperature Source Pulse Rate [Right Radial] 72 87 Respiratory Rate 15 Blood Pressure [Right Arm] 118/63 167/96 H Blood Pressure Mean [Right Arm] 81 119 Blood Pressure Source [Right Arm] Automatic Cuff Blood Pressure Position [Right Arm] Supine Sitting 02 Sat by Pulse Oximetry 97 Oxygen Delivery Method Room Air - Lab Data Lab results reviewed: Yes: I reviewed the patient's lab results. Lab Results 06/04/20 03:02: Urine Color Yellow, Urine Appearance Clear, Urine pH 6.0, Ur Specific [place] 1.020, Urine Protein Negative, Urine Glucose (UA) Negative, Urine Ketones Negative, Urine Blood 1+, Urine Nitrate Negative, Urine Bilirubin Negative, Urine Urobilinogen 0.2, Ur Leukocyte Esterase Negative, Urine RBC Occasional, Urine WBC 3-5, Ur Squamous Epith Cells 5-10, Urine Bacteria Trace 06/04/20 03:02: Urine HCG, Qual Negative 06/04/20 03:12: WBC 12.4 H, RBC 4.23, Hgb 13.3, Hct 40.8, MCV 96.6, MCH 31.5 H, MCHC 32.6, RDW 13.5, Plt Count 291, MPV 6.9 L, Neut % (Auto) 65.7, Lymph % (Auto) 24.4, [place] % (Auto) 6.6, Eos % (Auto) 2.7, Baso % (Auto) 0.6, Neut # (Auto) 8.1 H, Lymph # (Auto) 3.0, [place] # (Auto) 0.8, Eos # (Auto) 0.3, Baso # (Auto) 0.1, ESR 49 H 06/04/20 03:12: Sodium 137, Potassium 3.9, Chloride 105, Carbon Dioxide 24, Anion Gap 11.9, BUN 13, Creatinine 0.80, Estimated Creat Clear 126, Estimated GFR 78, Est GFR ( Amer) 95, Glucose 100, Calcium 9.7, Total Bilirubin 0.3, AST 43 H, ALT 80 H, Alkaline Phosphatase 105, C-Reactive Protein 3.3, Total Protein 7.5, Albumin 4.1, Globulin 3.4 H, Albumin/Globulin Ratio 1.2 Result diagrams: 06/04/20 03:12 06/04/20 03:12 Orders (Tests/Meds): ED MEDICATIONS Generic Name Dose Route Start Last Admin Trade Name Freq PRN Reason Stop Dose Admin Sodium Chloride 1,000 mls @ 999 mls/hr 06/04/20 07:30 06/04/20 07:18 Sod Chlor 0.9% 1000ml Bag IV 06/04/20 08:30 999 mls/hr
--- NOTE | 2020-06-04 07:40 | PC.NURSE ---
Took results of VBG from Michaela in respiratory
--- NOTE | 2020-06-04 07:58 | PC.NURSE ---
pt states feeling improved with meds given. pt waiting for spouse for d/c
== END 2020-06-04 08:05 | disposition home or self-care (01) ==
PROVIDERS: Emergency Provider Emergency Medicine; PCP Emergency Medicine
DX: U07.1 COVID-19 (principal); I10 Essential (primary) hypertension; E03.9 Hypothyroidism, unspecified; E78.5 Hyperlipidemia, unspecified; F17.210 Nicotine dependence, cigarettes, uncomplicated; Z87.442 Personal history of urinary calculi; Z79.899 Other long term (current) drug therapy
CPT/HCPCS: 71045; 80053; 81001; 81025; 85025; 85651; 86140; 96365; 96367; 96375; 96376; 99284

== ENCOUNTER 2020-06-06 14:00 | Outpatient (CLI) | payer OTHER, SELFPAY ==
[2020-06-06 14:35] VITALS: BP 137/95; PULSE 81; RESP 18; TEMP 36.6; O2SAT 97
[2020-06-06 15:15] VITALS: BP 142/91; PULSE 79; RESP 18; O2SAT 98
[2020-06-06 15:35] VITALS: BP 175/90; PULSE 70; RESP 18; O2SAT 96
[2020-06-06 16:05] VITALS: BP 155/95; PULSE 80; RESP 18; O2SAT 96
[2020-06-06 16:35] VITALS: BP 140/80; PULSE 73; RESP 18; O2SAT 97
[2020-06-06 17:19] VITALS: BP 143/82; PULSE 78; RESP 18; O2SAT 97
== END 2020-06-06 17:22 | disposition home or self-care (01) ==
LOC: INF 14:20
PROVIDERS: PCP Emergency Medicine; Visit Provider Emergency Medicine
DX: Z86.16 Personal history of COVID-19 (principal); R11.2 Nausea with vomiting, unspecified; R51.9 Headache, unspecified
CPT/HCPCS: 96360; 96361; 96374; 96375

== ENCOUNTER 2020-06-10 21:58 | Emergency (ER) | payer OTHER, SELFPAY ==
[2020-06-10 22:18] VITALS: BP 158/93; PULSE 85; RESP 20; TEMP 36.8; O2SAT 100; BMI 31.4
[2020-06-10 22:54] LABS: Chloride 102 mmol/L (98-107)
[2020-06-10 22:55] LABS: Potassium 4.2 mmoL/L (3.5-5.1); Sodium 133 mmol/L (136-145)
[2020-06-10 22:57] LABS: Alanine Aminotransferase 76 U/L (12-78); Alkaline Phosphatase 103 U/L (38-126); Anion Gap 9.2 mEq/L (5-15); Aspartate Amino Transferase 47 U/L (14-36); Bilirubin,Total 0.5 mg/dl (0.2-1.3); Blood Urea Nitrogen 15 mg/dl (7-17); Carbon Dioxide 26 mmol/L (22.0-30.0); Creatinine Clearance Estimated 113 mL/min (50-200); Estimated Glomerular Filt Rate 68 ml/min (>60); GFR (African American) 83 ML/MIN (>60); Lactic Acid 0.9 mmol/L (0.7-2.1)
[2020-06-10 22:58] LABS: Albumin/Globulin Ratio 1.2 (1.1-1.8); Calcium 9.4 mg/dl (8.4-10.2); Globulin 3.3 g/dL (1.3-3.2); Glucose 110 mg/dl (74-100); Total Protein,Serum 7.3 g/dl (6.3-8.2)
[2020-06-10 23:03] LABS: C-Reactive Protein 3.1 mg/L (0-4)
[2020-06-10 23:04] LABS: Basophils # 0.1 K/mm3 (0-0.2); Basophils % 0.6 % (0.1-2.0); Eosinophils # 0.3 K/mm3 (0.0-0.4); Eosinophils % 2.6 % (0.1-12.0); Hematocrit 41.4 % (37.0-47.0); Hemoglobin 13.5 g/dL (12.2-16.2); Lymphocytes # 2.7 K/mm3 (0.7-4.5); Lymphocytes % 24.2 % (10-50); Mean Corpuscular HGB Conc 32.7 g/dL (31.8-35.4); Mean Corpuscular Hemoglobin 31.7 pg (27.0-31.2); Mean Corpuscular Volume 96.9 fl (81-99); Mean Platelet Volume 6.9 fl (7.4-10.4); Monocytes # 0.7 K/mm3 (0.1-1.0); Monocytes % 5.8 % (1.7-9.3); Neutrophils # 7.5 K/mm3 (1.8-7.8); Neutrophils % 66.7 % (37.0-80.0); Platelet Count 353 K/mm3 (142-424); Red Blood Count 4.27 M/mm3 (4.20-5.40); Red Cell Distribution Width 13.5 % (11.5-17.5); White Blood Count 11.3 K/mm3 (4.8-10.8)
[2020-06-10 23:19] LABS: Procalcitonin < 0.030 ng/mL (0.0-2.0)
[2020-06-10 23:47] LABS: Erythrocyte Sedimentation Rate 64 mm/hr (0-20)
[2020-06-11] VITALS (10 sets, daily range): BP systolic 104–165; BP diastolic 71–95; PULSE 67–103; RESP 12–18; TEMP 36.8; O2SAT 93–100
--- NOTE | 2020-06-11 00:31 | HMH.EDHA ---
ED Disposition Clinical Impression: COVID-19 Headache Qualifiers: Headache type: unspecified Headache chronicity pattern: acute headache Intractability: intractable Qualified Code(s): R51.9 - Headache, unspecified Disposition: Admitted as Observation Condition on Discharge: Good Referrals: Dipak Del Rosario MD [Primary Care Provider] - - Critical Care Critical Care Time: No Attestation: On 06/10/20, the high probability of a clinically significant, sudden or life threatening deterioration of the following system(s) required my full and direct attention, intervention and personal management. The time I documented below is in addition to time spent performing reported procedures but includes the following listed in this critical care notation. Medical Decision Making - Medical Records Medical records reviewed: Yes: I reviewed the patient's medical records. - Javon Inquiry Pt receiving controlled substance: No Vital Signs: 06/10/20 22:18 Temperature 98.3 F Temperature Source Oral Pulse Rate [Right] 85 Respiratory Rate 20 Blood Pressure [Right Arm] 158/93 H Blood Pressure Mean [Right Arm] 114 Blood Pressure Source [Right Arm] Automatic Cuff Blood Pressure Position [Right Arm] Supine 02 Sat by Pulse Oximetry 100 Oxygen Delivery Method Room Air - Lab Data Lab results reviewed: Yes: I reviewed the patient's lab results. Lab Results 06/10/20 22:40: WBC 11.3 H, RBC 4.27, Hgb 13.5, Hct 41.4, MCV 96.9, MCH 31.7 H, MCHC 32.7, RDW 13.5, Plt Count 353, MPV 6.9 L, Neut % (Auto) 66.7, Lymph % (Auto) 24.2, [place] % (Auto) 5.8, Eos % (Auto) 2.6, Baso % (Auto) 0.6, Neut # (Auto) 7.5, Lymph # (Auto) 2.7, [place] # (Auto) 0.7, Eos # (Auto) 0.3, Baso # (Auto) 0.1, ESR 64 H 06/10/20 22:40: Sodium 133 L, Potassium 4.2, Chloride 102, Carbon Dioxide 26, Anion Gap 9.2, BUN 15, Creatinine 0.90, Estimated Creat Clear 113, Estimated GFR 68, Est GFR ( Amer) 83, Glucose 110 H, Calcium 9.4, Total Bilirubin 0.5, AST 47 H, ALT 76, Alkaline Phosphatase 103, C-Reactive Protein 3.1, Total Protein 7.3, Albumin 4.0, Globulin 3.3 H, Albumin/Globulin Ratio 1.2, Procalcitonin < 0.030 06/10/20 22:40: Lactate 0.9 Result diagrams: 06/10/20 22:40 06/10/20 22:40 Orders (Tests/Meds): ED MEDICATIONS Generic Name Dose Route Start Last Admin Trade Name Freq PRN Reason Stop Dose Admin Sodium Chloride 1,000 mls @ 999 mls/hr 06/10/20 22:45 06/10/20 22:47 Sod Chlor 0.9% 1000ml Bag IV 06/10/20 23:45 999 mls/hr .[id number] JEANNE Administration Discontinued Medications Generic Name Dose Route Start Last Admin Trade Name Roniq PRN Reason Stop Dose Admin Dexamethasone Sodium Phosphate 10 mg 06/10/20 22:50 06/10/20 22:52 Dexamethasone 4mg/Ml 1ml Vial IV 06/10/20 22:51 10 mg ONCE ONE Administration Diphenhydramine HCl 50 mg 06/10/20 22:32 06/10/20 22:47 Diphenhydramine 50mg/Ml Vial IV 06/10/20 22:33 50 mg ONCE ONE Administration Hydromorphone HCl 2 mg 06/10/20 22:32 06/10/20 22:47 Hydromorphone 2mg/Ml Syringe IV 06/10/20 22:33 2 mg ONCE ONE Administration Hydromorphone HCl 2 mg 06/10/20 23:24 06/10/20 23:29 Hydromorphone 2mg/Ml Syringe IV 06/10/20 23:25 2 mg ONCE ONE Administration Lorazepam 1 mg 06/10/20 23:24 06/10/20 23:29 Lorazepam 2mg/Ml Vial IV 06/10/20 23:25 1 mg ONCE ONE Administration Prochlorperazine Edisylate 10 mg 06/10/20 22:32 06/10/20 22:47 Prochlorperazine 10mg/2ml Vial IV 06/10/20 22:33 10 mg ONCE ONE Administration Promethazine HCl 25 mg 06/10/20 23:24 06/10/20 23:29 Promethazine Hcl 25mg/Ml 1ml Vial IV 06/10/20 23:25 25 mg ONCE ONE Administration Sodium Chloride 25 ml 06/10/20 23:24 06/10/20 23:29 Sodium Chloride 0.9% 25ml Bag IV 06/10/20 23:25 25 ml ONCE ONE Administration ORDERS Category Date Time Status Full Resp Panel w/COVID ([facility]) Routine Lab 06/11/20 01:05 Received - Reevaluation(s) Time: 01:39 Reevaluat
[2020-06-11 01:14] LABS: Adenovirus,PCR Not Detected (NotDetected); Bordetella Pertussis Not Detected (NotDetected); Chlamydophila Pneumoniae, PCR Not Detected (NotDetected); Coronavirus 19, PCR Not Detected (NotDetected); Coronavirus 229E Not Detected (NotDetected); Coronavirus NL63 Not Detected (NotDetected); Coronavirus OC43 Not Detected (NotDetected); Coronovirus HKU1,PCR Not Detected (NotDetected); Human Metapneumovirus Not Detected (NotDetected); Influenza A, PCR Not Detected (NotDetected); Influenza AH1, 2009 Not Detected (NotDetected); Influenza AH1, PCR Not Detected (NotDetected); Influenza AH3,PCR Not Detected (NotDetected); Influenza B, PCR Not Detected (NotDetected); Mycoplasma Pneumoniae, PCR Not Detected (NotDetected); Parainfluenza 1, PCR Not Detected (NotDetected); Parainfluenza 2, PCR Not Detected (NotDetected); Parainfluenza 3, PCR Not Detected (NotDetected); Parainfluenza 4, PCR Not Detected (NotDetected); Respiratory Syncytial Virus Not Detected (NotDetected); Rhinovirus/Enterovirus Not Detected (NotDetected)
--- NOTE | 2020-06-11 02:08 | PC.NURSE ---
Pt has been admitted with no available beds in the Hospital, pt will be a boarder in the ER.
[2020-06-11 02:57] LABS: Microscopic, Urine URINE MICROSCOPIC (MICROSCOPIC)
--- NOTE | 2020-06-11 03:01 | PC.NURSE ---
pt ambulate to BR. pt voice no complaints at this time
[2020-06-11 03:07] LABS: Appearance,Urine CLOUDY (Clear); Bilirubin,Urine Negative (Negative); Blood, Urine 3+ (Negative); Color,Urine BROWN (Yellow); Glucose,Urine (UA) Negative (Negative); Ketones,Urine Negative (Negative); Leukocyte Esterase,Urine Negative (Negative); Nitrate,Urine Negative (Negative); PH,Urine 5.5 (5.0-8.5); Protein,Urine TRACE (Negative); Specific Gravity, Urine 1.025 (1.005-1.030); Urobilinogen,Urine 0.2 EU/dl (0.2)
[2020-06-11 03:08] LABS: Urine Pregnancy, HCG Qual. Negative (Negative)
[2020-06-11 03:23] LABS: Bacteria,Urine 1+ /lpf; Mucus,Urine 1+ /lpf; RBC,Urine TNTC #/hpf (0-3)
--- NOTE | 2020-06-11 03:51 | PC.NURSE ---
Pt resting quietly at this time, VS WNL
--- NOTE | 2020-06-11 05:34 | PC.NURSE ---
pt resting quietly @ this time
[2020-06-11 06:17] LABS: Chloride 105 mmol/L (98-107); Potassium 4.5 mmoL/L (3.5-5.1); Sodium 135 mmol/L (136-145)
[2020-06-11 06:20] LABS: Anion Gap 10.5 mEq/L (5-15); Blood Urea Nitrogen 15 mg/dl (7-17); Calcium 9.3 mg/dl (8.4-10.2); Carbon Dioxide 24 mmol/L (22.0-30.0); Creatinine Clearance Estimated 127 mL/min (50-200); Estimated Glomerular Filt Rate 78 ml/min (>60); GFR (African American) 95 ML/MIN (>60); Glucose 162 mg/dl (74-100)
[2020-06-11 06:57] LABS: Basophils % 0.2 % (0.1-2.0); Eosinophils # 0.1 K/mm3 (0.0-0.4); Eosinophils % 0.7 % (0.1-12.0); Hematocrit 42.5 % (37.0-47.0); Hemoglobin 14.1 g/dL (12.2-16.2); Lymphocytes # 0.8 K/mm3 (0.7-4.5); Lymphocytes % 7.6 % (10-50); Mean Corpuscular HGB Conc 33.3 g/dL (31.8-35.4); Mean Corpuscular Hemoglobin 32.6 pg (27.0-31.2); Mean Corpuscular Volume 98.1 fl (81-99); Mean Platelet Volume 7.2 fl (7.4-10.4); Monocytes # 0.1 K/mm3 (0.1-1.0); Neutrophils # 9.3 K/mm3 (1.8-7.8); Neutrophils % 90.5 % (37.0-80.0); Platelet Count 341 K/mm3 (142-424); Red Blood Count 4.33 M/mm3 (4.20-5.40); Red Cell Distribution Width 13.5 % (11.5-17.5); White Blood Count 10.3 K/mm3 (4.8-10.8)
[2020-06-11 07:01] LABS: MANUAL DIFFERENTIAL MANUAL DIFFERENTIAL (MANUAL DIFF)
--- NOTE | 2020-06-11 07:29 | PC.NURSE ---
Gonsalo Mejia at bedside to complete LP
--- NOTE | 2020-06-11 07:57 | PC.NURSE ---
Lumbar puncture performed at this time per JESSICA Bloom; samples obtained per JESSICA Bloom-taken to the lab by hand per myself. Pt tolerated procedure well, pt laying flat after procedure. will continue to monitor.
--- NOTE | 2020-06-11 08:06 | MR_ITS ---
PROCEDURE: MR HEAD/BRAIN WO/W CON CLINICAL INDICATION: PHILLIP Headache and weakness COMPARISON: MR MR HEAD/BRAIN WO CON from 05/28/2019 TECHNIQUE: Routine multiplanar multi echo sequences are performed without gadolinium enhancement. FINDINGS: No midline shift, mass effect, intracranial hemorrhage, or hydrocephalus is evident. The cerebellopontine angles, cerebellum, and brainstem have an unremarkable appearance. There is diffuse heterogeneous increased T2 signal within the george not significantly changed.. Numerous periventricular and subcortical T2 white matter hyperintensities are present similar to the previous exam. No evidence of corpus callosum ule involvement and no temporal lobe involvement. These findings are not significantly changed. These areas of increased T2 signal do not demonstrate contrast enhancement or restricted diffusion. No enhancing lesions are evident. The pituitary and optic chiasm and craniocervical junction have an unremarkable appearance. Small amount fluid is present in the right mastoid sinus. No paranasal sinus air-fluid level. IMPRESSION: 1. Overall no significant change in the diffuse periventricular and subcortical T2 white matter hyperintensity as well as T2 hyperintensity within the george. Differential diagnosis includes ischemic gliotic change from microvascular disease, migraine headache, or demyelinating process. 2. No acute infarction. No mass effect or enhancing lesions. 3. Minimal right mastoid effusion Dictated by: Pool Wolf MD 06/11/2020 13:59 Pool Wolf MD in [place] 06/11/2020 13:59
--- NOTE | 2020-06-11 08:10 | PC.NURSE ---
race steward from second floor called at this time, states pt has an MRI ordered. MRI has been approved through care management. [facility] MRI staff said they should be able to do pts study approx 12 pm. will update pt on POC.
[2020-06-11 08:40] LABS: Appearance,CSF Clear (Clear); Red Blood Cell,CSF 7 cells/uL (0); Volume,CSF 2.5 mL; White Blood Cell,CSF 3 cells/uL (0-5)
[2020-06-11 08:44] LABS: Eosinophils % 1 % (0-3); Lymphocytes % 9 % (10-50); Monocytes % 1 % (2-9); Neutrophils % 89 % (42-76); Total Cells Counted 100
[2020-06-11 08:45] LABS: Platelet Estimate Normal; RBC Morphology Normal
[2020-06-11 08:54] LABS: Glucose,CSF 76 mg/dl (40-70)
--- NOTE | 2020-06-11 09:21 | PC.NURSE ---
Spoke with Dr. Del Rosario and he advised he would probably be discharging patient after he sees the MRI results.
[2020-06-11 09:37] LABS: Mononuclear WBCs,CSF 3 %; Polynuclear WBCs,CSF 22 %
--- NOTE | 2020-06-11 11:25 | PC.NURSE ---
Pt leaving for MRI
--- NOTE | 2020-06-11 11:36 | PC.NURSE ---
pt to MRI
--- NOTE | 2020-06-11 13:11 | PC.NURSE ---
pt return from MRI lunch tray ordered from
--- NOTE | 2020-06-11 13:39 | PC.NURSE ---
pt sitting up eating
--- NOTE | 2020-06-11 14:31 | HMH.HPDC ---
General - General Admission date:: 06/11/20 Discharge date: 06/11/20 *Admission Date: 06/11/20 *Chief complaint: Headache *History of present illness: 45-year-old patient presents to the emergency department with complaints of intractable migraine headache and nausea. Patient reports late last year she received stents during a cardiac cath during that recovery she was in the hospital for renal artery stents. While recovering from both of these she reports she contacted COVID-19 since then she reports she has been having increased episodes of migraines that are increasing in pain and seem to be lasting longer. Last night she had a headache that began she is reports taking Tylenol, ibuprofen, prescription analgesics, and antiemetics with no relief she decided then to come to the emergency department. She denies any weakness, facial droop, blurred vision, slurred speech, vomiting or diarrhea, or fever/chills/body aches. She reports that she feels dehydrated and reports less than normal p.o. solid and fluid intake. Lab work in the emergency department white blood cell count 11.3, H&H 13.5/41.4 In the emergency department she did receive dexamethasone, Dilaudid x2, Phenergan, and normal saline IV Lumbar puncture was performed, samples obtained with no obvious abnormalities awaiting culture [facility] History I have reviewed the patient's past medical history: Yes Medical History: Reports:: Carotid Stenosis, Hyperlipidemia, Hypertension, Kidney Stones, Migraine, Palpitations Denies:: Cancer, Diabetes Mellitus Type 1, Diabetes Mellitus Type 2, Internal Pacemaker, MRSA, Seizures *Have you ever received a pneumonia vaccine?: No *Have you received a flu vaccine this season?: Yes Other Medical History: Reports: Anemia, Arthritis, Hypothyroidism, Sinus Problems, Thyroid Disease. Denies: Blood Transfusion Reaction Other Surgeries: Yes: Cardiac Catheterization, Cholecystectomy, Colonoscopy, Coronary Stent, , Dilation and Curettage, Diagnostic Lap (also exploratory lap), Other (hemorrhoidectomy). No: Pacemaker Amputation: No Fractures: No - *Social History Smoking Status: Current every day smoker Tobacco Type: cigarettes # Packs/Day (cigarettes): 1 Alcohol Intake: current Alcohol Intake Frequency:: a few times a week Substance Use Type: denies use *Occupational Status:: employed Housing: house Household Members: spouse, family *Travel in the last 8 weeks: None Family Hx:: Cancer, Coronary Artery Disease Review of Systems - Review of Systems Review of systems:: pertinent systems reviewed and negative unless documented below - Constitutional Reports headache(s), Denies body ache(s), Denies fatigue - Eyes Denies blind spots, Denies blurry vision - ENT Denies abnormal hearing, Denies dizziness - *Cardiovascular Denies chest pain, Denies shortness of breath - *Respiratory Denies chest congestion, Denies cough - *Gastrointestinal Denies abdominal pain, Denies change in stools - *Musculoskeletal Denies abnormal walking, Denies muscle weakness - Integumentary/Breasts Denies bleeding lesions, Denies yellowing of the skin - *Neurologic Reports headache(s), Reports weakness, Denies localized weakness, Denies loss of vision, Denies seizure-like activity - Psychiatric Denies confusion, Denies paranoia - Endocrine Denies heat intolerance, Denies increased thirst - Hematologic/Lymphatic Denies easy bruising, Denies enlarged lymph nodes - Allergic/Immunologic Reports tongue swelling, Denies lip swelling Exam Vital signs and Labs for Last 24 Hours: Temp Pulse Resp BP Pulse Ox 98.3 F 78 18 144/77 H 99 06/10/20 22:18 06/11/20 13:20 06/11/20 13:20 06/11/20 13:20 06/11/20 13:20 Laboratory Results - last 24 hr 06/10/20 22:40: WBC 11.3 H, RBC 4.27, Hgb 13.5, Hct 41.4, MCV 96.9, MCH 31.7 H, MCHC 32.7, RDW 13.5, Plt Count 353, MPV 6.9 L, Neut % (Auto) 66.7, Lymph % (Auto) 24.2, [place] % (
== END 2020-06-11 15:17 | disposition home or self-care (01) ==
LOC: ER 06-11 01:41 → 2ND 06-11 05:50
PROVIDERS: Emergency Provider Emergency Medicine; PCP Emergency Medicine
DX: E86.0 Dehydration (principal); U07.1 COVID-19; G40.909 Epilepsy, unspecified, not intractable, without status epilepticus; E78.5 Hyperlipidemia, unspecified; E03.9 Hypothyroidism, unspecified; Z87.442 Personal history of urinary calculi; F17.210 Nicotine dependence, cigarettes, uncomplicated; Z88.2 Allergy status to sulfonamides; Z88.5 Allergy status to narcotic agent
CPT/HCPCS: 62270; 70553; 80048; 80053; 81001; 81025; 82945; 83605; 84145; 84155; 85007; 85025; 85651; 86140; 87070; 87205; 87581; 87633; 87798; 89051; 96365; 96375; 96376; 99284; A9576; J2405

== ENCOUNTER 2020-06-27 12:19 | Outpatient (CLI) | payer OTHER, SELFPAY ==
[2020-06-27] VITALS (7 sets, daily range): BP systolic 150–182; BP diastolic 79–103; PULSE 74–85; RESP 16–18; TEMP 36.6–36.7; O2SAT 98–99; BMI 33.5
[2020-06-27 13:19] LABS: Basophils # 0.1 K/mm3 (0-0.2); Basophils % 0.6 % (0.1-2.0); Eosinophils # 0.2 K/mm3 (0.0-0.4); Eosinophils % 2.5 % (0.1-12.0); Hemoglobin 12.7 g/dL (12.2-16.2); Lymphocytes # 2.7 K/mm3 (0.7-4.5); Mean Corpuscular HGB Conc 33.5 g/dL (31.8-35.4); Mean Corpuscular Hemoglobin 31.6 pg (27.0-31.2); Mean Corpuscular Volume 94.4 fl (81-99); Mean Platelet Volume 7.4 fl (7.4-10.4); Monocytes # 0.5 K/mm3 (0.1-1.0); Monocytes % 5.8 % (1.7-9.3); Neutrophils # 5.7 K/mm3 (1.8-7.8); Neutrophils % 62.1 % (37.0-80.0); Platelet Count 344 K/mm3 (142-424); Red Blood Count 4.03 M/mm3 (4.20-5.40); Red Cell Distribution Width 13.3 % (11.5-17.5); White Blood Count 9.2 K/mm3 (4.8-10.8)
[2020-06-27 13:30] LABS: Chloride 109 mmol/L (98-107); Potassium 4.3 mmoL/L (3.5-5.1); Sodium 139 mmol/L (136-145)
[2020-06-27 13:32] LABS: Blood Urea Nitrogen 7 mg/dl (7-17); Creatinine Clearance Estimated 154 mL/min (50-200); Estimated Glomerular Filt Rate 91 ml/min (>60); GFR (African American) 111 ML/MIN (>60)
[2020-06-27 13:33] LABS: Alanine Aminotransferase 44 U/L (12-78); Albumin Level 3.8 g/dl (3.5-5.0); Albumin/Globulin Ratio 1.2 (1.1-1.8); Alkaline Phosphatase 89 U/L (38-126); Anion Gap 9.3 mEq/L (5-15); Aspartate Amino Transferase 35 U/L (14-36); Bilirubin,Total 0.4 mg/dl (0.2-1.3); Calcium 8.8 mg/dl (8.4-10.2); Carbon Dioxide 25 mmol/L (22.0-30.0); Globulin 3.1 g/dL (1.3-3.2); Glucose 98 mg/dl (74-100); Total Protein,Serum 6.9 g/dl (6.3-8.2)
--- NOTE | 2020-06-27 14:18 | CA_ITS ---
APPROVED REPORT Left Upper Extremity Venous Study for DVT. Facility Worker: Rachel Petty RVT Indications Upper Extremity Pain: Left History of Smoking Current Smoker PT HAS PICC LINE IN LT UPPER ARM, C/O PAIN AND REDNESS ABOVE PICC SITE Vein Imaging IJV (R): Normal phasic flow is seen. Normal flow, augmentation and compression is seen. No evidence of Deep Vein Thrombosis. No abnormalities are demonstrated. Axillary (R): Normal phasic flow is seen. Normal flow, augmentation and compression is seen. No evidence of Deep Vein Thrombosis. No abnormalities are demonstrated. Brachial (R): Normal phasic flow is seen. Normal flow, augmentation and compression is seen. No evidence of Deep Vein Thrombosis. No abnormalities are demonstrated. Basilic (R): Partially Compressible Cephalic (R): Normal phasic flow is seen. Normal flow, augmentation and compression is seen. No evidence of Deep Vein Thrombosis. No abnormalities are demonstrated. Radial (R): Normal phasic flow is seen. Normal flow, augmentation and compression is seen. No evidence of Deep Vein Thrombosis. No abnormalities are demonstrated. Ulnar (R): Normal phasic flow is seen. Normal flow, augmentation and compression is seen. No evidence of Deep Vein Thrombosis. No abnormalities are demonstrated. Findings Study suggests no evidence of DVT of the left upper extremity. Study suggests possible SVT of the basilic vein in area of patient complaint left upper arm. Conclusion Study suggests no evidence of DVT of the left upper extremity. Study suggests possible SVT of the basilic vein in area of patient complaint left upper arm. Electronically signed by : Pool Wolf MD 06/27/2020 15:26:54
== END 2020-06-27 16:40 | disposition home or self-care (01) ==
PROVIDERS: PCP Emergency Medicine; Visit Provider Emergency Medicine
DX: I82.622 Acute embolism and thrombosis of deep veins of left upper extremity (principal); M79.602 Pain in left arm
CPT/HCPCS: 80053; 85025; 87040; 87070; 87077; 87186; 87205; 93971; 96360; 96361; 96366; 96375; J3370

== ENCOUNTER 2020-07-08 14:33 | Outpatient (CLI) | payer OTHER, SELFPAY ==
[2020-07-08 14:37] VITALS: BMI 32.3
[2020-07-08 15:20] VITALS: BP 145/74; PULSE 78; RESP 20; TEMP 36.9; O2SAT 98
[2020-07-08 15:23] LABS: Basophils # 0.1 K/mm3 (0-0.2); Basophils % 0.5 % (0.1-2.0); Eosinophils # 0.1 K/mm3 (0.0-0.4); Eosinophils % 1.4 % (0.1-12.0); Hematocrit 38.2 % (37.0-47.0); Hemoglobin 12.9 g/dL (12.2-16.2); Lymphocytes # 2.7 K/mm3 (0.7-4.5); Lymphocytes % 26.1 % (10-50); Mean Corpuscular HGB Conc 33.7 g/dL (31.8-35.4); Mean Corpuscular Hemoglobin 32.1 pg (27.0-31.2); Mean Corpuscular Volume 95.3 fl (81-99); Mean Platelet Volume 7.1 fl (7.4-10.4); Monocytes # 0.5 K/mm3 (0.1-1.0); Monocytes % 5.1 % (1.7-9.3); Neutrophils # 6.9 K/mm3 (1.8-7.8); Platelet Count 358 K/mm3 (142-424); Red Blood Count 4.01 M/mm3 (4.20-5.40); Red Cell Distribution Width 13.1 % (11.5-17.5); White Blood Count 10.3 K/mm3 (4.8-10.8)
[2020-07-08 15:27] LABS: Chloride 103 mmol/L (98-107); Potassium 3.8 mmoL/L (3.5-5.1); Sodium 136 mmol/L (136-145)
[2020-07-08 15:30] LABS: Blood Urea Nitrogen 9 mg/dl (7-17); Creatinine Clearance Estimated 115 mL/min (50-200); Estimated Glomerular Filt Rate 68 ml/min (>60); GFR (African American) 83 ML/MIN (>60)
[2020-07-08 15:31] LABS: Anion Gap 9.8 mEq/L (5-15); Carbon Dioxide 27 mmol/L (22.0-30.0); Glucose 96 mg/dl (74-100)
[2020-07-08 15:42] LABS: C-Reactive Protein 2.3 mg/L (0-4)
[2020-07-08 15:45] LABS: Erythrocyte Sedimentation Rate 28 mm/hr (0-20)
[2020-07-08 17:00] VITALS: BP 120/74; PULSE 68; RESP 20; O2SAT 95
--- NOTE | 2020-07-08 17:32 | PC.NURSE ---
PT ARRIVED IN DEPT FOR FLUIDS AND IV NAUSEA AND PAIN MEDS FOR HEADACHE. PHENERGAN WAS GIVEN AT 1505; FLUIDS STARTED AT THAT TIME; DILAUDID 2 MG WAS GIVEN AT 1540; PT THEN WAS RESTING FOR 45 MIINS; PT AWOKE AND MD WAS CALLED TO GET ANOTHER ORDER OF PAIN MEDS; PAIN RATED AT 7 OF 10; ADDITIONAL 2 MG DILAUDID AT 1640; PT WAS DISCHARGED AT 1700
--- NOTE | 2020-07-09 13:35 | DIET.NUTRFU ---
Pt contacted for nutritional consult with first chemotherapy dose. She stated she is not currently having any nutritional side effects or concerns. Pt encouraged to reach out through telephone and/or at next infusion with any nutritional questions/concerns.
== END 2020-07-08 17:00 | disposition home or self-care (01) ==
LOC: INF 14:33
PROVIDERS: PCP Emergency Medicine; Visit Provider Emergency Medicine
DX: R51.9 Headache, unspecified (principal)
CPT/HCPCS: 36415; 80048; 85025; 85651; 86140; 96360; 96375

== ENCOUNTER → 2020-08-05 10:58 | Outpatient (CLI) | payer OTHER, SELFPAY ==
--- NOTE | 2020-08-05 10:58 | MR_ITS ---
PROCEDURE: MR CERVICAL SPINE WO CON CLINICAL INDICATION: neck pain Neck pain and bilateral lower extremity weakness COMPARISON: MR MR CERVICAL SPINE WO CON from 05/28/2019 MR MR HEAD/BRAIN WO/W CON from 06/11/2020 TECHNIQUE: Standard multiplanar multiecho sequences are performed without contrast. 3-D MIP and myelographic images are also rendered and reviewed FINDINGS: There is slight reversal of the cervical lordosis which may be due to patient positioning or muscle spasm. There is slight diffuse increased T2 signal within the george consistent with ischemic gliotic changes as seen on recent MRI of the brain. C2-C3: Unremarkable. C3-C4: Unremarkable. C4-C5: Unremarkable. C5-C6: Degenerative disc disease with bulging disc with minimal left paracentral and right paracentral disc protrusion which may be slightly more prominent compared to the previous exam. There is canal stenosis at this level with the canal measuring 8 mm. There is minimal flattening of the cord. There is mild left-sided foraminal narrowing. There is decreased T1 and increased T2 signal along the right lateral aspect of C5 and C6 suggesting type 1 endplate changes which was not present on the previous study C6-C7: Degenerative disc disease. There is a small broad-based left paracentral and foraminal disc protrusion. This is causing mild flattening of the left aspect of the cord. There is canal stenosis at 9 mm and mild left lateral recess and foraminal narrowing. These findings may be slightly more prominent compared to the previous study. C7-T1: Unremarkable. IMPRESSION: 1. Slight reversal cervical lordosis which may be due to patient positioning or muscle spasm. 2. C5-C6: Degenerative disc disease with bulging disc with minimal left paracentral and right paracentral disc protrusion which may be slightly more prominent compared to the previous exam. There is canal stenosis at this level with the canal measuring 8 mm. There is minimal flattening of the cord. There is mild left-sided foraminal narrowing. There is decreased T1 and increased T2 signal along the right lateral aspect of C5 and C6 suggesting type 1 endplate changes which was not present on the previous study 3. C6-C7: Degenerative disc disease. There is a small broad-based left paracentral and foraminal disc protrusion. This is causing mild flattening of the left aspect of the cord. There is canal stenosis at 9 mm and mild left lateral recess and foraminal narrowing. These findings may be slightly more prominent compared to the previous study. Dictated by: Pool Wolf MD 08/05/2020 16:17 Pool Wolf MD in [place] 08/05/2020 16:17
--- NOTE | 2020-08-05 10:58 | MR_ITS ---
PROCEDURE: MR LUMBAR SPINE WO CON CLINICAL INDICATION: back pain Chronic low back pain with bilateral lower extremity weakness COMPARISON: MR SPLUMBWO MR lumbar spine wo con from 11/23/2017 MR MR HEAD/BRAIN WO/W CON from 06/11/2020 TECHNIQUE: Standard multiplanar multiecho sequences are performed without contrast. 3-D MIP and myelographic images are also rendered and reviewed FINDINGS: There is normal alignment. Spinal cord ends at the L1 level. L1-L2 L2-L3 and L3-L4 show no evidence of significant disc bulge, disc herniation or canal stenosis. Minimal facet hypertrophy noted. L4-5: Minimal bulging disc. Mild to moderate facet hypertrophic change. L5-S1: Unremarkable. No canal stenosis or extruded herniated disc evident. No acute fracture or dislocation. IMPRESSION: Minimal bulging disc with mild to moderate facet hypertrophy at L4-5 overall not significantly changed. No canal stenosis or extruded herniated disc. Dictated by: Pool Wolf MD 08/05/2020 16:24 Pool Wolf MD in [place] 08/05/2020 16:24
== END ==
PROVIDERS: PCP Emergency Medicine; Visit Provider Emergency Medicine
DX: M54.2 Cervicalgia (principal); M54.9 Dorsalgia, unspecified; M54.5 Low back pain
CPT/HCPCS: 72141; 72148; 76376

== ENCOUNTER 2020-08-15 14:00 | Outpatient (CLI) | payer OTHER, SELFPAY ==
[2020-08-15 14:39] VITALS: BP 163/102; PULSE 88; RESP 18; TEMP 36.8; O2SAT 100
[2020-08-15 15:10] VITALS: BP 152/70; PULSE 72; RESP 18
[2020-08-15 15:59] VITALS: BP 148/99; PULSE 84; RESP 18
== END 2020-08-15 15:59 | disposition home or self-care (01) ==
PROVIDERS: PCP Emergency Medicine; Visit Provider Emergency Medicine
DX: R51.9 Headache, unspecified (principal)
CPT/HCPCS: 96360; 96375

== ENCOUNTER 2020-08-24 00:17 | Emergency (ER) | payer OTHER, SELFPAY ==
[2020-08-24 00:48] VITALS: BP 198/99; PULSE 75; RESP 16; TEMP 37.1; O2SAT 98; BMI 28.2
[2020-08-24 00:56] VITALS: BP 192/90; PULSE 61; O2SAT 99
[2020-08-24 01:25] VITALS: BP 190/99; PULSE 71; O2SAT 99
--- NOTE | 2020-08-24 01:27 | HMH.EDHA ---
ED Disposition Clinical Impression: Headache Qualifiers: Headache type: unspecified Headache chronicity pattern: acute headache Intractability: not intractable Qualified Code(s): R51.9 - Headache, unspecified Disposition: Home, Self-Care Condition on Discharge: Good Instructions: DI for Headache Additional Instructions: see pcp for follow up Referrals: Dipak Del Rosario MD [Primary Care Provider] - - Critical Care Critical Care Time: No Attestation: On 08/24/20, the high probability of a clinically significant, sudden or life threatening deterioration of the following system(s) required my full and direct attention, intervention and personal management. The time I documented below is in addition to time spent performing reported procedures but includes the following listed in this critical care notation. Medical Decision Making - Medical Records Medical records reviewed: Yes: I reviewed the patient's medical records. - Javon Inquiry Pt receiving controlled substance: No Vital Signs: 08/24/20 00:48 08/24/20 00:56 08/24/20 01:25 Temperature 98.7 F Temperature Source Oral Pulse Rate 61 71 Pulse Rate [Right Brachial] 75 Respiratory Rate 16 Blood Pressure 192/90 H 190/99 H Blood Pressure [Right Arm] 198/99 H Blood Pressure Mean [Right Arm] 132 Blood Pressure Source Manual Cuff/ Auscultation Blood Pressure Source [Right Arm] Automatic Cuff Blood Pressure Position [Right Arm] Sitting 02 Sat by Pulse Oximetry 98 99 99 Oxygen Delivery Method Room Air Room Air 08/24/20 01:30 Temperature Temperature Source Pulse Rate 64 Pulse Rate [Right Brachial] Respiratory Rate Blood Pressure 175/87 H Blood Pressure [Right Arm] Blood Pressure Mean [Right Arm] Blood Pressure Source Blood Pressure Source [Right Arm] Blood Pressure Position [Right Arm] 02 Sat by Pulse Oximetry 96 Oxygen Delivery Method - Lab Data Lab results reviewed: Yes: I reviewed the patient's lab results. Orders (Tests/Meds): ED MEDICATIONS Generic Name Dose Route Start Last Admin Trade Name Freq PRN Reason Stop Dose Admin Lactated Ringer's 500 mls @ 999 mls/hr 08/24/20 01:00 08/24/20 01:02 Lactated Ringer's 1000 Ml Bag IV 08/24/20 01:30 999 mls/hr .Q31M JEANNE Administration Discontinued Medications Generic Name Dose Route Start Last Admin Trade Name Freq PRN Reason Stop Dose Admin Hydromorphone HCl 1 mg 08/24/20 00:56 08/24/20 01:01 Hydromorphone 2mg/Ml Syringe IV 08/24/20 00:57 1 mg ONCE ONE Administration Promethazine HCl 25 mg 08/24/20 00:54 08/24/20 01:02 Promethazine Hcl 25mg/Ml 1ml Vial IV 08/24/20 00:55 25 mg ONCE ONE Administration Sodium Chloride 25 ml 08/24/20 00:54 08/24/20 01:01 Sodium Chloride 0.9% 25ml Bag IV 08/24/20 00:55 25 ml ONCE ONE Administration - Radiology Data #1 Image(s): Chest Image Reviewed: Yes I reviewed the patient's radiology image Preliminary Findings: Normal/NAD Medical Decision Narrative: has acute excerbation but no focal changes Headache HPI - General Chief Complaint: Headache Stated Complaint: Migraine Time Seen by Provider: 08/24/20 01:00 Mode of Arrival: Family Vehicle Source of Information: Patient, Parent(s), Medical Record Limitations: No Limitations Description of Symptoms (Recalled from ER Triage Doc. by RN): migraine - History of Present Illness HPI Narrative: acute excerbation of headache w/o fever or rash and no trauma - has had similiar mcmahon in the past MD Complaint: headache Onset (ago): hour(s) Onset description: gradual Location: diffuse Severity: similar to previous episodes Quality: similar to previous headaches Associated symptoms: none Treatments prior to arrival: none - Related Data Home Medications Medication Instructions Recorded Confirmed Aspirin [Aspirin 81mg EC Tab] 81 mg PO DAILY 04/30/20 08/15/20 Atorvastatin Calcium [Lipitor 40mg 40 mg PO DAILY
[2020-08-24 01:30] VITALS: BP 175/87; PULSE 64; O2SAT 96
[2020-08-24 02:25] VITALS: BP 150/74; PULSE 79; RESP 18; TEMP 36.6; O2SAT 98
== END 2020-08-24 03:01 | disposition home or self-care (01) ==
PROVIDERS: Emergency Provider Emergency Medicine; PCP Emergency Medicine
DX: G43.919 Migraine, unspecified, intractable, without status migrainosus (principal); E03.9 Hypothyroidism, unspecified; E78.5 Hyperlipidemia, unspecified; I16.0 Hypertensive urgency; F17.210 Nicotine dependence, cigarettes, uncomplicated; Z88.2 Allergy status to sulfonamides; Z88.5 Allergy status to narcotic agent
CPT/HCPCS: 96365; 96375; 96376; 99282

== ENCOUNTER 2020-10-13 21:14 | Emergency (ER) | payer OTHER, SELFPAY ==
[2020-10-13 21:23] VITALS: BP 152/75; PULSE 73; RESP 18; O2SAT 98; BMI 25.7
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
[2020-10-13 22:43] VITALS: BP 112/75; PULSE 73; RESP 18; TEMP 36.8; O2SAT 98
== END 2020-10-13 22:45 | disposition home or self-care (01) ==
PROVIDERS: Emergency Provider Emergency Medicine; PCP Emergency Medicine
DX: G43.511 Persistent migraine aura without cerebral infarction, intractable, with status migrainosus (principal); E03.9 Hypothyroidism, unspecified; I10 Essential (primary) hypertension; E78.5 Hyperlipidemia, unspecified; Z87.442 Personal history of urinary calculi; Z79.899 Other long term (current) drug therapy
CPT/HCPCS: 96365; 96375; 96376; 99282

== ENCOUNTER 2020-11-09 05:07 | Emergency (ER) | payer OTHER, SELFPAY ==
[2020-11-09 05:13] VITALS: BP 180/110; PULSE 105; RESP 26; TEMP 37.7; O2SAT 100; BMI 30.7
--- NOTE | 2020-11-09 05:33 | CT_ITS ---
PROCEDURE INFORMATION: Exam: CT Head Without Contrast Exam date and time: 11/09/2020 5:33 AM Age: 45 years old Clinical indication: Pain; Headache; Patient HX: H/a, light headed TECHNIQUE: Imaging protocol: Computed tomography of the head without contrast. Radiation optimization: All CT scans at this facility use at least one of these dose optimization techniques: automated exposure control; mA and/or kV adjustment per patient size (includes targeted exams where dose is matched to clinical indication); or iterative reconstruction. COMPARISON: MR HEAD/BRAIN WO/W CON 06/11/2020 12:08 PM FINDINGS: Brain: Normal. No evidence of acute intracranial hemorrhage or acute ischemia demonstrated on the examination. Normal potts white matter differentiation. No mass effect or midline shift. Cortical sulci and subarachnoid cisterns are unremarkable. Cerebral ventricles: No ventriculomegaly. Paranasal sinuses: Visualized sinuses are unremarkable. No fluid levels. Mastoid air cells: Visualized mastoid air cells are well aerated. Orbital cavity: Orbital cavity intact. No orbital fracture. Bones/joints: Unremarkable. No acute calvarial fracture. Soft tissues: Unremarkable. IMPRESSION: No acute intracranial abnormality.
[2020-11-09 05:35] LABS: Basophils # 0.1 K/mm3 (0-0.2); Eosinophils # 0.1 K/mm3 (0.0-0.4); Eosinophils % 0.9 % (0.1-12.0); Hematocrit 38.1 % (37.0-47.0); Hemoglobin 13.1 g/dL (12.2-16.2); Lymphocytes % 34.2 % (10-50); Mean Corpuscular HGB Conc 34.4 g/dL (31.8-35.4); Mean Corpuscular Hemoglobin 30.7 pg (27.0-31.2); Mean Corpuscular Volume 89.3 fl (81-99); Mean Platelet Volume 7.5 fl (7.4-10.4); Monocytes # 0.5 K/mm3 (0.1-1.0); Monocytes % 5.8 % (1.7-9.3); Neutrophils # 5.2 K/mm3 (1.8-7.8); Neutrophils % 58.1 % (37.0-80.0); Platelet Count 294 K/mm3 (142-424); Red Blood Count 4.26 M/mm3 (4.20-5.40); Red Cell Distribution Width 14.9 % (11.5-17.5); White Blood Count 8.9 K/mm3 (4.8-10.8)
[2020-11-09 05:41] LABS: Alanine Aminotransferase 24 U/L (12-78); Albumin Level 4.6 g/dl (3.5-5.0); Albumin/Globulin Ratio 1.4 (1.1-1.8); Alkaline Phosphatase 76 U/L (38-126); Anion Gap 11.9 mEq/L (5-15); Aspartate Amino Transferase 28 U/L (14-36); Bilirubin,Total 0.5 mg/dl (0.2-1.3); Blood Urea Nitrogen 7 mg/dl (7-17); Calcium 8.4 mg/dl (8.4-10.2); Carbon Dioxide 25 mmol/L (22.0-30.0); Chloride 104 mmol/L (98-107); Creatinine Clearance Estimated 141 mL/min (50-200); Estimated Glomerular Filt Rate 91 ml/min (>60); GFR (African American) 111 ML/MIN (>60); Globulin 3.2 g/dL (1.3-3.2); Glucose 115 mg/dl (74-100); Potassium 3.9 mmoL/L (3.5-5.1); Sodium 137 mmol/L (136-145); Total Protein,Serum 7.8 g/dl (6.3-8.2)
[2020-11-09 05:46] LABS: C-Reactive Protein 5.9 mg/L (0-4)
--- NOTE | 2020-11-09 05:46 | HMH.EDHA ---
ED Disposition Clinical Impression: Headache Qualifiers: Headache type: unspecified Headache chronicity pattern: acute headache Intractability: not intractable Qualified Code(s): R51.9 - Headache, unspecified Disposition: Home, Self-Care Condition on Discharge: Good Instructions: DI for Headache Additional Instructions: fluids and see pcp for follow up Referrals: Dipak Del Rosario MD [Primary Care Provider] - - Critical Care Critical Care Time: No Attestation: On 11/09/20, the high probability of a clinically significant, sudden or life threatening deterioration of the following system(s) required my full and direct attention, intervention and personal management. The time I documented below is in addition to time spent performing reported procedures but includes the following listed in this critical care notation. Medical Decision Making - Medical Records Medical records reviewed: Yes: I reviewed the patient's medical records. - Javon Inquiry Pt receiving controlled substance: No Vital Signs: 11/09/20 05:13 Temperature 100 F H Temperature Source Oral Pulse Rate [Right] 105 H Respiratory Rate 26 H Blood Pressure [Right Arm] 180/110 H Blood Pressure Mean [Right Arm] 133 Blood Pressure Source [Right Arm] Automatic Cuff Blood Pressure Position [Right Arm] Supine 02 Sat by Pulse Oximetry 100 Oxygen Delivery Method Room Air - Lab Data Lab results reviewed: Yes: I reviewed the patient's lab results. Lab Results 11/09/20 05:21: WBC 8.9, RBC 4.26, Hgb 13.1, Hct 38.1, MCV 89.3, MCH 30.7, MCHC 34.4, RDW 14.9, Plt Count 294, MPV 7.5, Neut % (Auto) 58.1, Lymph % (Auto) 34.2, [place] % (Auto) 5.8, Eos % (Auto) 0.9, Baso % (Auto) 1.0, Neut # (Auto) 5.2, Lymph # (Auto) 3.0, [place] # (Auto) 0.5, Eos # (Auto) 0.1, Baso # (Auto) 0.1, ESR 28 H 11/09/20 05:21: Sodium 137, Potassium 3.9, Chloride 104, Carbon Dioxide 25, Anion Gap 11.9, BUN 7, Creatinine 0.70, Estimated Creat Clear 141, Estimated GFR 91, Est GFR ( Amer) 111, Glucose 115 H, Calcium 8.4, Total Bilirubin 0.5, AST 28, ALT 24, Alkaline Phosphatase 76, C-Reactive Protein 5.9 H, Total Protein 7.8, Albumin 4.6, Globulin 3.2, Albumin/Globulin Ratio 1.4, Procalcitonin 0.037 Result diagrams: 11/09/20 05:21 11/09/20 05:21 Orders (Tests/Meds): ED MEDICATIONS Generic Name Dose Route Start Last Admin Trade Name Freq PRN Reason Stop Dose Admin Sodium Chloride 1,000 mls @ 999 mls/hr 11/09/20 05:30 11/09/20 05:36 Sod Chlor 0.9% 1000ml Bag IV 11/09/20 06:30 999 mls/hr .Q1H1M JEANNE Administration Discontinued Medications Generic Name Dose Route Start Last Admin Trade Name Freq PRN Reason Stop Dose Admin Albuterol/Ipratropium 3 ml 11/09/20 05:31 11/09/20 05:56 Ipratropium/Albuterol 3 Ml Neb IH 11/09/20 05:32 Not Given ONCE ONE Diphenhydramine HCl 50 mg 11/09/20 05:31 11/09/20 05:35 Diphenhydramine 50mg/Ml Vial IV 11/09/20 05:32 50 mg ONCE ONE Administration Hydromorphone HCl 1 mg 11/09/20 05:28 11/09/20 05:35 Hydromorphone 2mg/Ml Syringe IV 11/09/20 05:29 1 mg ONCE ONE Administration Ondansetron HCl 4 mg 11/09/20 05:28 11/09/20 05:35 Ondansetron 4mg/2ml Vial IV 11/09/20 05:29 4 mg ONCE ONE Administration Promethazine HCl 25 mg 11/09/20 05:31 11/09/20 05:35 Promethazine Hcl 25mg/Ml 1ml Vial IV 11/09/20 05:32 25 mg ONCE ONE Administration Sodium Chloride 25 ml 11/09/20 05:31 Sodium Chloride 0.9% 25ml Bag IV 11/09/20 05:32 ONCE ONE - CT Data CT Scan: Head Time Received: 07:[address] Reviewed: Yes: I have viewed the radiologist's interpretation Preliminary Findings: Normal/NAD Medical Decision Narrative: acute headache with no focal changes Headache HPI - General Chief Complaint: Headache Stated Complaint: Migraine;Heart Racing;Shaking Time Seen by Provider: 11/09/20 05:20 Mode of Arrival: Ambulatory Source of Information: Patient, Medical Record Limitations:
[2020-11-09 06:00] LABS: Procalcitonin 0.037 ng/mL (0.0-2.0)
[2020-11-09 06:01] LABS: Erythrocyte Sedimentation Rate 28 mm/hr (0-20)
[2020-11-09 06:19] VITALS: BP 195/116; PULSE 81; O2SAT 96
[2020-11-09 06:30] VITALS: BP 183/108; PULSE 81; O2SAT 96
[2020-11-09 07:00] VITALS: BP 183/109; PULSE 88; O2SAT 95
[2020-11-09 07:30] VITALS: BP 190/110; PULSE 86; O2SAT 95
[2020-11-09 08:11] VITALS: BP 190/110; PULSE 86; RESP 18; TEMP 37.2; O2SAT 95
== END 2020-11-09 08:14 | disposition home or self-care (01) ==
PROVIDERS: Emergency Provider Emergency Medicine; PCP Emergency Medicine
DX: G43.009 Migraine without aura, not intractable, without status migrainosus (principal); E78.5 Hyperlipidemia, unspecified; I10 Essential (primary) hypertension; E03.9 Hypothyroidism, unspecified; Z87.442 Personal history of urinary calculi; Z87.891 Personal history of nicotine dependence; Z79.899 Other long term (current) drug therapy
CPT/HCPCS: 70450; 80053; 84145; 85025; 85651; 86140; 96365; 96375; 96376; 99282; J2405

== ENCOUNTER → 2020-11-10 09:40 | Outpatient (CLI) | payer OTHER, SELFPAY ==
--- NOTE | 2020-11-10 09:41 | CT_ITS ---
Procedure: CT ANGIO ABDOMEN CLINICAL HISTORY: splenic artery aneurysm Follow up COMPARISON: CT CT ANGIO CHEST from 04/14/[address] ABDOMEN PELVIS W CON from 04/30/2020 XA CL RENAL ANGIOGRAM BI from 04/30/2020 TECHNIQUE: IV Contrast: 100ml Isovue 370 Axial images obtained with sagittal and coronal reformats. All CT scans at the facility use one or more dose reduction, viz: automated exposure control, ma/kV adjustment per patient size (including targeted exams where dose is matched to indication, i.e. head), or iterative reconstruction technique. FINDINGS: No evidence of aortic aneurysm or dissection. There is a left renal artery stent present. Mild atheromatous changes are noted within the aorta and proximal iliac vessels. A partially thrombosed splenic artery aneurysm is present within the hilum of the spleen measuring approximately 12 mm overall not significantly changed. There is an additional fusiform splenic artery aneurysm at the junction of the body and tail of the pancreas. 9 mm AP. The fusiform dilatation extends cephalad caudad 14 mm. This also is not significantly changed. SMA and celiac artery have an unremarkable appearance. The RANDI is patent. There has been a prior cholecystectomy. The liver, spleen, and pancreas have an unremarkable appearance. No adrenal mass evident. Left renal scarring is once again noted. There is a mild amount of retained colonic feces. There is a small umbilical hernia containing fat. There is and infraumbilical abdominal wall hernia also containing fat. 16 mm right ovarian cyst is noted. IMPRESSION: 1. There are 2 splenic artery aneurysms 1 in the mid aspect of the splenic artery at the region of the junction of the head and body of the pancreas at 9 mm AP unchanged. The other aneurysm is in the spine clinic hilum and is partially thrombosed measuring 12 mm not significantly changed. No evidence of acute intraperitoneal retroperitoneal hemorrhage. 2. Other nonacute findings as described above. Dictated by: Pool Wolf MD 11/11/2020 08:56 Pool Wolf MD in [facility] 11/11/2020 08:56
== END ==
PROVIDERS: PCP Emergency Medicine; Visit Provider Internal Medicine
DX: I25.118 Atherosclerotic heart disease of native coronary artery with other forms of angina pectoris (principal); R07.89 Other chest pain; I70.1 Atherosclerosis of renal artery; I72.8 Aneurysm of other specified arteries; I65.22 Occlusion and stenosis of left carotid artery; E78.2 Mixed hyperlipidemia; I10 Essential (primary) hypertension
CPT/HCPCS: 74175; Q9967

== ENCOUNTER 2020-11-26 12:51 | Outpatient (CLI) | payer OTHER, SELFPAY ==
[2020-11-26 13:30] VITALS: BP 161/78; PULSE 68; RESP 17; TEMP 36.6; O2SAT 98
[2020-11-26 16:02] VITALS: BP 168/87; PULSE 87; RESP 16; TEMP 36.6; O2SAT 97
== END 2020-11-26 16:04 | disposition home or self-care (01) ==
LOC: INF 12:52
PROVIDERS: PCP Emergency Medicine; Visit Provider Emergency Medicine
DX: R51.9 Headache, unspecified (principal)
CPT/HCPCS: 96360; 96375

== ENCOUNTER 2020-12-10 09:11 | Outpatient (CLI) | payer OTHER, SELFPAY ==
[2020-12-10 09:21] VITALS: BP 169/100; PULSE 97; RESP 18; O2SAT 96
[2020-12-10 11:39] VITALS: BP 173/89; PULSE 86; RESP 18
[2020-12-10 12:30] VITALS: BP 168/98; PULSE 78; RESP 18
== END 2020-12-10 12:30 | disposition home or self-care (01) ==
LOC: INF 09:12
PROVIDERS: PCP Emergency Medicine; Visit Provider Emergency Medicine
DX: R51.9 Headache, unspecified (principal)
CPT/HCPCS: 96360; 96361; 96375

== ENCOUNTER 2021-01-06 02:08 | Emergency (ER) | payer OTHER, SELFPAY ==
[2021-01-06 02:10] VITALS: BP 201/105; PULSE 74; RESP 20; TEMP 36.7; O2SAT 97; BMI 30.7
--- NOTE | 2021-01-06 03:10 | HMH.EDHA ---
ED Disposition Clinical Impression: Headache Qualifiers: Headache type: unspecified Headache chronicity pattern: acute headache Intractability: intractable Qualified Code(s): R51.9 - Headache, unspecified Disposition: Home, Self-Care Condition on Discharge: Good Instructions: DI for Headache Additional Instructions: see pcp for follow up Referrals: Dipak Del Rosario MD [Primary Care Provider] - - Critical Care Critical Care Time: No Attestation: On 01/06/21, the high probability of a clinically significant, sudden or life threatening deterioration of the following system(s) required my full and direct attention, intervention and personal management. The time I documented below is in addition to time spent performing reported procedures but includes the following listed in this critical care notation. Medical Decision Making - Medical Records Medical records reviewed: Yes: I reviewed the patient's medical records. - Javon Inquiry Pt receiving controlled substance: No Vital Signs: 01/06/21 02:10 Temperature 98.1 F Temperature Source Oral Pulse Rate [Right] 74 Respiratory Rate 20 Blood Pressure [Right Arm] 201/105 H Blood Pressure Mean [Right Arm] 137 02 Sat by Pulse Oximetry 97 - Lab Data Lab results reviewed: Yes: I reviewed the patient's lab results. Orders (Tests/Meds): ED MEDICATIONS Generic Name Dose Route Start Last Admin Trade Name Freq PRN Reason Stop Dose Admin Sodium Chloride 1,000 mls @ 999 mls/hr 01/06/21 02:45 01/06/21 02:46 Sod Chlor 0.9% 1000ml Bag IV 01/06/21 03:45 999 mls/hr .Q1H1M JEANNE Administration Discontinued Medications Generic Name Dose Route Start Last Admin Trade Name Freq PRN Reason Stop Dose Admin Hydromorphone HCl 2 mg 01/06/21 02:43 01/06/21 02:46 Hydromorphone 2mg/Ml Syringe IV 01/06/21 02:44 2 mg ONCE ONE Administration Hydromorphone HCl 2 mg 01/06/21 03:24 01/06/21 03:26 Hydromorphone 2mg/Ml Syringe IV 01/06/21 03:25 2 mg ONCE ONE Administration Promethazine HCl 12.5 mg 01/06/21 02:43 01/06/21 02:46 Promethazine Hcl 25mg/Ml 1ml Vial IV 01/06/21 02:44 12.5 mg ONCE ONE Administration Sodium Chloride 25 ml 01/06/21 02:43 01/06/21 02:46 Sodium Chloride 0.9% 25ml Bag IV 01/06/21 02:44 25 ml ONCE ONE Administration Medical Decision Narrative: improved with treatment Headache HPI - General Chief Complaint: Headache Stated Complaint: migraine Time Seen by Provider: 01/06/21 02:20 Mode of Arrival: Ambulatory Source of Information: Patient, Medical Record Limitations: No Limitations Description of Symptoms (Recalled from ER Triage Doc. by RN): pt c/o mirgiane that started @ 11 tonight - History of Present Illness HPI Narrative: acute headache with nausea - no fever /rash or trauma - similar to prev mcmahon MD Complaint: headache Onset (ago): hour(s) Onset description: gradual Location: diffuse Severity: similar to previous episodes Severity scale (1-10): 5 Quality: throbbing, similar to previous headaches Context: occurred at rest Associated symptoms: nausea, vomiting Treatments prior to arrival: none - Related Data Home Medications Medication Instructions Recorded Confirmed Bisoprolol/Hydrochlorothiazide 2 tab PO DAILY 04/30/20 09/09/20 [Bisoprolol-Hctz 5-6.25 mg Tab] Levothyroxine Sodium [Synthroid 137 mcg PO DAILY 04/30/20 09/09/20 137mcg (0.137mg) tablet] Esomeprazole Magnesium [Nexium] 20 mg PO DAILY 05/14/20 09/09/20 Ondansetron [Zofran 4mg ODT] 4 mg PO .Q4 08/15/20 09/09/20 levoFLOXacin [Levaquin 500mg 500 mg PO DAILY 08/15/20 09/09/20 tab] Previous Rx's Medication Instructions Recorded aspirin 81 mg tablet,delayed 81 mg PO DAILY #100 tab 09/05/20 release clopidogrel 75 mg tablet 75 mg PO DAILY #90 tab 09/05/20 rosuvastatin 5 mg tablet 5 mg PO HS #30 tab 09/08/20 levothyroxine 125 mcg tablet 125 mcg PO DAILY #90 tab 10/07/20 ciprofloxacin
[2021-01-06 03:33] VITALS: BP 170/80; PULSE 72; RESP 18; TEMP 36.7
== END 2021-01-06 03:38 | disposition home or self-care (01) ==
PROVIDERS: Emergency Provider Emergency Medicine; PCP Emergency Medicine
DX: G43.909 Migraine, unspecified, not intractable, without status migrainosus (principal); I10 Essential (primary) hypertension; E78.5 Hyperlipidemia, unspecified; E03.9 Hypothyroidism, unspecified
CPT/HCPCS: 99281

== ENCOUNTER → 2021-02-02 11:41 | Outpatient (CLI) | payer OTHER, SELFPAY ==
[2021-02-02 12:10] LABS: Basophils # 0.1 K/mm3 (0-0.2); Basophils % 0.7 % (0.1-2.0); Eosinophils # 0.1 K/mm3 (0.0-0.4); Eosinophils % 2.1 % (0.1-12.0); Hematocrit 39.6 % (37.0-47.0); Lymphocytes # 1.9 K/mm3 (0.7-4.5); Lymphocytes % 28.1 % (10-50); Mean Corpuscular HGB Conc 32.8 g/dL (31.8-35.4); Mean Corpuscular Hemoglobin 32.4 pg (27.0-31.2); Mean Corpuscular Volume 98.6 fl (81-99); Mean Platelet Volume 7.1 fl (7.4-10.4); Monocytes # 0.4 K/mm3 (0.1-1.0); Monocytes % 5.9 % (1.7-9.3); Neutrophils # 4.3 K/mm3 (1.8-7.8); Neutrophils % 63.1 % (37.0-80.0); Platelet Count 335 K/mm3 (142-424); Red Blood Count 4.02 M/mm3 (4.20-5.40); Red Cell Distribution Width 12.8 % (11.5-17.5); White Blood Count 6.8 K/mm3 (4.8-10.8)
[2021-02-02 12:51] LABS: Chloride 104 mmol/L (98-107); Potassium 4.5 mmoL/L (3.5-5.1); Sodium 137 mmol/L (136-145)
[2021-02-02 12:54] LABS: Alanine Aminotransferase 27 U/L (12-78); Albumin/Globulin Ratio 1.4 (1.1-1.8); Alkaline Phosphatase 74 U/L (38-126); Anion Gap 12.5 mEq/L (5-15); Aspartate Amino Transferase 42 U/L (14-36); Bilirubin,Total 0.6 mg/dl (0.2-1.3); Blood Urea Nitrogen 8 mg/dl (7-17); Calcium 8.7 mg/dl (8.4-10.2); Carbon Dioxide 25 mmol/L (22.0-30.0); Estimated Glomerular Filt Rate 91 ml/min (>60); GFR (African American) 111 ML/MIN (>60); Globulin 2.9 g/dL (1.3-3.2); Glucose 114 mg/dl (74-100); Total Protein,Serum 6.9 g/dl (6.3-8.2)
[2021-02-02 13:10] LABS: Free T4 (Free Thyroxine) 0.82 ng/dl (0.78-2.19)
[2021-02-02 13:25] LABS: Thyroid Stimulating Hormone 3.77 uIU/mL (0.465-4.68)
[2021-02-03 09:26] LABS: Thyroid Peroxidase Antibodies >600 IU/mL (0-34)
[2021-02-04 08:25] LABS: Apolipoprotein A 151 mg/dL (116-209)
== END ==
LOC: LAB.DROPOF 11:41
PROVIDERS: Visit Provider Otolaryngology
DX: E03.9 Hypothyroidism, unspecified (principal)
CPT/HCPCS: 80053; 82172; 84439; 84443; 85025; 86376

== ENCOUNTER 2021-02-03 12:08 | Outpatient (CLI) | payer OTHER, SELFPAY ==
[2021-02-03 12:35] VITALS: BP 166/100; PULSE 76; RESP 20; TEMP 36.7; O2SAT 98
[2021-02-03 13:10] VITALS: BP 177/98; PULSE 74; RESP 20; O2SAT 98
[2021-02-03 13:55] VITALS: BP 168/97; PULSE 78; RESP 20; O2SAT 98
[2021-02-03 14:25] VITALS: BP 170/94; PULSE 77; RESP 20; O2SAT 97
== END 2021-02-03 14:25 | disposition home or self-care (01) ==
LOC: INF 12:09
PROVIDERS: PCP Emergency Medicine; Visit Provider Emergency Medicine
DX: R51.9 Headache, unspecified (principal)
CPT/HCPCS: 96360; 96375

== ENCOUNTER 2021-02-03 22:13 | Emergency (ER) | payer OTHER, SELFPAY ==
[2021-02-03 22:14] VITALS: BP 167/98; PULSE 110; RESP 18; TEMP 36.7; O2SAT 97; BMI 30.7
[2021-02-03 22:28] VITALS: BMI 25.0
--- NOTE | 2021-02-03 22:49 | HMH.EDHA ---
ED Disposition Clinical Impression: Headache Qualifiers: Headache type: unspecified Headache chronicity pattern: acute headache Intractability: intractable Qualified Code(s): R51.9 - Headache, unspecified Disposition: Home, Self-Care Condition on Discharge: Good Instructions: DI for Headache Additional Instructions: seepcp for follow up Referrals: Dipak Del Rosario MD [Primary Care Provider] - - Critical Care Critical Care Time: No Attestation: On 02/03/21, the high probability of a clinically significant, sudden or life threatening deterioration of the following system(s) required my full and direct attention, intervention and personal management. The time I documented below is in addition to time spent performing reported procedures but includes the following listed in this critical care notation. Medical Decision Making - Medical Records Medical records reviewed: Yes: I reviewed the patient's medical records. - Javon Inquiry Pt receiving controlled substance: No Vital Signs: 02/03/21 22:14 Temperature 98.1 F Temperature Source Oral Pulse Rate [Left] 110 H Respiratory Rate 18 Blood Pressure [Right Arm] 167/98 H Blood Pressure Mean [Right Arm] 121 02 Sat by Pulse Oximetry 97 Orders (Tests/Meds): ED MEDICATIONS Generic Name Dose Route Start Last Admin Trade Name Freq PRN Reason Stop Dose Admin Sodium Chloride 1,000 mls @ 999 mls/hr 02/03/21 22:30 02/03/21 22:43 Sod Chlor 0.9% 1000ml Bag IV 02/03/21 23:30 999 mls/hr .Q1H1M JEANNE Administration Discontinued Medications Generic Name Dose Route Start Last Admin Trade Name Freq PRN Reason Stop Dose Admin Hydromorphone HCl 1 mg 02/03/21 22:29 02/03/21 22:43 Hydromorphone 2mg/Ml Syringe IV 02/03/21 22:30 1 mg ONCE ONE Administration Hydromorphone HCl 1 mg 02/03/21 22:44 02/03/21 22:44 Hydromorphone 2mg/Ml Syringe IV 02/03/21 22:45 1 mg ONCE ONE Administration Promethazine HCl 25 mg 02/03/21 22:29 02/03/21 22:43 Promethazine Hcl 25mg/Ml 1ml Vial IV 02/03/21 22:30 25 mg ONCE ONE Administration Sodium Chloride 25 ml 02/03/21 22:29 Sodium Chloride 0.9% 25ml Bag IV 02/03/21 22:30 ONCE ONE Headache HPI - General Chief Complaint: Headache Stated Complaint: migraines Time Seen by Provider: 02/03/21 22:49 Mode of Arrival: Ambulatory Source of Information: Patient, Medical Record Limitations: No Limitations Description of Symptoms (Recalled from ER Triage Doc. by RN): pt c/o migraine since noon - History of Present Illness HPI Narrative: acute headache after covid-19 vaccine - no fever/rash or trauma MD Complaint: headache Onset (ago): hour(s) Onset description: gradual Location: diffuse Severity: similar to previous episodes Context: occurred at rest Treatments prior to arrival: prescription analgesic, antiemetic - Related Data Home Medications Medication Instructions Recorded Confirmed Esomeprazole Magnesium [Nexium] 20 mg PO DAILY 05/14/20 02/03/21 Ondansetron [Zofran 4mg ODT] 4 mg PO .Q4 08/15/20 02/03/21 Aspirin [Low Dose Aspirin EC] 81 mg PO DAILY 02/03/21 02/03/21 Bisoprolol/Hydrochlorothiazide See Rx Instructions .ROUTE .COMPLEX 02/03/21 02/03/21 [Bisoprolol-Hctz 5-6.25 mg Tab] Clopidogrel Bisulfate [Plavix] 75 mg PO DAILY 02/03/21 02/03/21 Levothyroxine Sodium [Synthroid 125 mcg PO DAILY 02/03/21 02/03/21 125mcg (0.125mg) tablet] Rosuvastatin Calcium 5 mg PO HS 02/03/21 02/03/21 Previous Rx's Medication Instructions Recorded bupropion HCl 150 mg 24 hr tablet, 150 mg PO DAILY #90 tab 12/11/20 extended release alprazolam 1 mg tablet 1 mg PO BID PRN #60 tab 01/15/21 oxycodone-acetaminophen 10 mg-325 1 tab PO QID PRN #120 tab 01/26/21 mg tablet Allergies Allergy/AdvReac Type Severity Reaction Status Date / Time meperidine [From Demerol] Allergy Unknown Verified 09/09/20 11:39 metoclopramide [From REGLAN] Allergy Unknown Verified 0
[2021-02-03 23:10] VITALS: BP 200/100; PULSE 88; RESP 20; TEMP 36.8; O2SAT 99
== END 2021-02-03 23:12 | disposition home or self-care (01) ==
PROVIDERS: Emergency Provider Emergency Medicine; PCP Emergency Medicine
DX: G43.909 Migraine, unspecified, not intractable, without status migrainosus (principal); Z20.822 Contact with and (suspected) exposure to COVID-19; E03.9 Hypothyroidism, unspecified; E78.5 Hyperlipidemia, unspecified; I10 Essential (primary) hypertension; Z87.442 Personal history of urinary calculi
CPT/HCPCS: 96365; 96375; 96376; 99282

== ENCOUNTER → 2021-03-23 09:51 | Outpatient (CLI) | payer OTHER, SELFPAY ==
[2021-03-23 10:09] LABS: Coronavirus 19, PCR Not Detected (NotDetected); Influenza A, PCR Not Detected (NotDetected); Influenza B, PCR Not Detected (NotDetected)
== END ==
PROVIDERS: PCP Emergency Medicine; Visit Provider Nurse Practitioner
DX: Z20.822 Contact with and (suspected) exposure to COVID-19 (principal)
CPT/HCPCS: C9803; U0003; U0005

== ENCOUNTER 2021-03-24 12:13 | Outpatient (CLI) | payer OTHER, SELFPAY ==
[2021-03-24 12:30] VITALS: BP 204/103; PULSE 77; RESP 16; TEMP 36.7; O2SAT 98
[2021-03-24 13:00] VITALS: BP 156/88; PULSE 71; RESP 18; O2SAT 97
[2021-03-24 13:30] VITALS: BP 146/88; PULSE 84; RESP 16; O2SAT 96
[2021-03-24 14:00] VITALS: BP 144/76; PULSE 73; RESP 14; O2SAT 96
[2021-03-24 14:25] VITALS: BP 156/89; PULSE 77; RESP 14; O2SAT 96
== END 2021-03-24 14:30 | disposition home or self-care (01) ==
LOC: INF 12:13
PROVIDERS: PCP Emergency Medicine; Visit Provider Emergency Medicine
DX: R51.9 Headache, unspecified (principal)
CPT/HCPCS: 96365; 96374; 96375

== ENCOUNTER 2021-04-13 19:26 | Emergency (ER) | payer OTHER, SELFPAY ==
[2021-04-13 19:26] VITALS: BP 156/87; PULSE 121; RESP 20; TEMP 36.8; O2SAT 98; BMI 22.8
[2021-04-13 20:14] VITALS: BMI 22.8
[2021-04-13 20:24] LABS: Basophils # 0.1 K/mm3 (0-0.2); Basophils % 1.1 % (0.1-2.0); Eosinophils # 0.1 K/mm3 (0.0-0.4); Eosinophils % 0.8 % (0.1-12.0); Hematocrit 43.2 % (37.0-47.0); Hemoglobin 14.1 g/dL (12.2-16.2); Lymphocytes # 3.6 K/mm3 (0.7-4.5); Lymphocytes % 31.2 % (10-50); Mean Corpuscular HGB Conc 32.6 g/dL (31.8-35.4); Mean Corpuscular Hemoglobin 31.2 pg (27.0-31.2); Mean Corpuscular Volume 95.7 fl (81-99); Mean Platelet Volume 7.4 fl (7.4-10.4); Monocytes # 0.6 K/mm3 (0.1-1.0); Monocytes % 4.7 % (1.7-9.3); Neutrophils # 7.2 K/mm3 (1.8-7.8); Neutrophils % 62.2 % (37.0-80.0); Platelet Count 414 K/mm3 (142-424); Red Blood Count 4.52 M/mm3 (4.20-5.40); Red Cell Distribution Width 13.5 % (11.5-17.5); White Blood Count 11.6 K/mm3 (4.8-10.8)
[2021-04-13 20:36] LABS: Alanine Aminotransferase 29 U/L (12-78); Albumin Level 4.7 g/dl (3.5-5.0); Albumin/Globulin Ratio 1.5 (1.1-1.8); Alkaline Phosphatase 76 U/L (38-126); Anion Gap 13.7 mEq/L (5-15); Aspartate Amino Transferase 32 U/L (14-36); Bilirubin,Total 0.5 mg/dl (0.2-1.3); Blood Urea Nitrogen 9 mg/dl (7-17); Calcium 9.9 mg/dl (8.4-10.2); Carbon Dioxide 26 mmol/L (22.0-30.0); Chloride 103 mmol/L (98-107); Creatinine Clearance Estimated 111 mL/min (50-200); Estimated Glomerular Filt Rate 91 ml/min (>60); GFR (African American) 111 ML/MIN (>60); Globulin 3.2 g/dL (1.3-3.2); Glucose 104 mg/dl (74-100); Potassium 3.7 mmoL/L (3.5-5.1); Sodium 139 mmol/L (136-145); Total Protein,Serum 7.9 g/dl (6.3-8.2)
[2021-04-13 20:41] LABS: C-Reactive Protein 1.3 mg/L (0-4)
[2021-04-13 20:50] LABS: Erythrocyte Sedimentation Rate 24 mm/hr (0-20)
--- NOTE | 2021-04-13 20:53 | HMH.EDHA ---
ED Disposition Clinical Impression: Headache Qualifiers: Headache type: unspecified Headache chronicity pattern: acute headache Intractability: intractable Qualified Code(s): R51.9 - Headache, unspecified Disposition: Home, Self-Care Condition on Discharge: Good Instructions: DI for Headache Additional Instructions: fluids and see pcp for follow up Referrals: Dipak Del Rosario MD [Primary Care Provider] - - Critical Care Critical Care Time: No Attestation: On 04/13/21, the high probability of a clinically significant, sudden or life threatening deterioration of the following system(s) required my full and direct attention, intervention and personal management. The time I documented below is in addition to time spent performing reported procedures but includes the following listed in this critical care notation. Medical Decision Making - Medical Records Medical records reviewed: Yes: I reviewed the patient's medical records. - Javon Inquiry Pt receiving controlled substance: No Vital Signs: 04/13/21 19:26 Temperature 98.2 F Temperature Source Oral Pulse Rate [Right] 121 H Respiratory Rate 20 Blood Pressure [Right Arm] 156/87 H Blood Pressure Mean [Right Arm] 110 02 Sat by Pulse Oximetry 98 Oxygen Delivery Method Room Air - Lab Data Lab results reviewed: Yes: I reviewed the patient's lab results. Lab Results 04/13/21 20:10: WBC 11.6 H, RBC 4.52, Hgb 14.1, Hct 43.2, MCV 95.7, MCH 31.2, MCHC 32.6, RDW 13.5, Plt Count 414, MPV 7.4, Neut % (Auto) 62.2, Lymph % (Auto) 31.2, [place] % (Auto) 4.7, Eos % (Auto) 0.8, Baso % (Auto) 1.1, Neut # (Auto) 7.2, Lymph # (Auto) 3.6, [place] # (Auto) 0.6, Eos # (Auto) 0.1, Baso # (Auto) 0.1, ESR 24 H 04/13/21 20:10: Sodium 139, Potassium 3.7, Chloride 103, Carbon Dioxide 26, Anion Gap 13.7, BUN 9, Creatinine 0.70, Estimated Creat Clear 111, Estimated GFR 91, Est GFR ( Amer) 111, Glucose 104 H, Calcium 9.9, Total Bilirubin 0.5, AST 32, ALT 29, Alkaline Phosphatase 76, C-Reactive Protein 1.3, Total Protein 7.9, Albumin 4.7, Globulin 3.2, Albumin/Globulin Ratio 1.5, Procalcitonin 0.037 Result diagrams: 04/13/21 20:10 04/13/21 20:10 Orders (Tests/Meds): ED MEDICATIONS Generic Name Dose Route Start Last Admin Trade Name Freq PRN Reason Stop Dose Admin Sodium Chloride 1,000 mls @ 999 mls/hr 04/13/21 20:30 04/13/21 20:38 Sod Chlor 0.9% 1000ml Bag IV 04/13/21 21:30 999 mls/hr .Q1H1M JEANNE Administration Discontinued Medications Generic Name Dose Route Start Last Admin Trade Name Freq PRN Reason Stop Dose Admin Hydromorphone HCl 2 mg 04/13/21 20:16 04/13/21 20:38 Hydromorphone 2mg/Ml Syringe IV 04/13/21 20:17 2 mg ONCE ONE Administration Hydromorphone HCl 2 mg 04/13/21 20:58 04/13/21 21:05 Hydromorphone 2mg/Ml Syringe IV 04/13/21 20:59 2 mg ONCE ONE Administration Promethazine HCl 25 mg 04/13/21 20:16 04/13/21 20:38 Promethazine Hcl 25mg/Ml 1ml Vial IV 04/13/21 20:17 25 mg ONCE ONE Administration Sodium Chloride 25 ml 04/13/21 20:16 04/13/21 20:38 Sodium Chloride 0.9% 25ml Bag IV 04/13/21 20:17 25 ml ONCE ONE Administration Medical Decision Narrative: improved after meds and no focal neuro changes Headache HPI - General Chief Complaint: Headache Stated Complaint: migraine x 7 hrs, vomiting Time Seen by Provider: 04/13/21 20:00 Mode of Arrival: Family Vehicle Source of Information: Patient, Medical Record Limitations: No Limitations Description of Symptoms (Recalled from ER Triage Doc. by RN): Pt c/o migraine and n/v for seven hours. - History of Present Illness HPI Narrative: acute severe mcmahon with nausea w/o fever/rash or trauma - elevated bp but no focal changes MD Complaint: headache Onset (ago): hour(s) Onset description: gradual Location: diffuse Severity: similar to previous episodes Context: occurred at rest Associated symptoms: nausea, vomiting Treatments prior to arrival: p
[2021-04-13 20:54] LABS: Procalcitonin 0.037 ng/mL (0.0-2.0)
[2021-04-13 21:24] VITALS: BP 156/67; PULSE 98; RESP 16; TEMP 36.8; O2SAT 97
== END 2021-04-13 21:28 | disposition home or self-care (01) ==
PROVIDERS: Emergency Provider Emergency Medicine; PCP Emergency Medicine
DX: G43.A0 Cyclical vomiting, in migraine, not intractable (principal); I25.10 Atherosclerotic heart disease of native coronary artery without angina pectoris; E78.5 Hyperlipidemia, unspecified; I10 Essential (primary) hypertension; E03.9 Hypothyroidism, unspecified; Z87.891 Personal history of nicotine dependence
CPT/HCPCS: 80053; 84145; 85025; 85651; 86140; 99283

== ENCOUNTER → 2021-05-07 09:02 | Outpatient (CLI) | payer OTHER, SELFPAY ==
--- NOTE | 2021-05-07 09:05 | MM_ITS ---
PROCEDURE INFORMATION: Exam: MG Bilateral Screening 3D Mammography Exam date and time: 05/07/2021 9:05 AM Age: 46 years old Clinical indication: Screening mammogram TECHNIQUE: Imaging protocol: Bilateral Screening tomosynthesis and 2D mammography including computer-aided detection (CAD) when performed. COMPARISON: 1. MG MM DIG SCREENING MAMM BI W/CAD 12/12/2019 9:00 AM 2. MG SCBI MM Dig screening mamm BI w/CAD 01/31/2018 10:35 AM 3. MG DMSB DIG MAMM-SCREEN KELLY W/CAD 01/21/2017 4:46 PM 4. MG DMSB DIG MAMM-SCREEN KELLY 02/10/2015 10:52 AM FINDINGS: MAMMOGRAPHY: Breast composition: The breast tissue is heterogeneously dense, which may obscure small masses. Mass: 9 mm mass within the upper slightly inner middle-posterior 1/3 right breast about 8 cm from the nipple should be further assessed with spot views in CC/MLO projection. Ultrasound should also be performed. Architectural distortion: No new or suspicious architectural distortion. Calcifications: No new or suspicious calcifications are present Asymmetric density: No new or suspicious asymmetric density is present Skin thickening: None. Axillary adenopathy: None. IMPRESSION: 9 mm mass within the upper slightly inner middle-posterior 1/3 right breast about 8 cm from the nipple should be further assessed with spot views in CC/MLO projection. Ultrasound should also be performed. ASSESSMENT: BI-RADS category 0: Incomplete-need additional imaging evaluation
== END ==
PROVIDERS: PCP Emergency Medicine; Visit Provider Nurse Practitioner Obstetrics & Gynecology
DX: Z12.31 Encounter for screening mammogram for malignant neoplasm of breast (principal)
CPT/HCPCS: 77063; 77067

== ENCOUNTER 2021-05-11 21:38 | Emergency (ER) | payer OTHER, SELFPAY ==
[2021-05-11 21:39] VITALS: BP 169/93; PULSE 80; RESP 14; TEMP 36.7; O2SAT 97; BMI 31.4
--- NOTE | 2021-05-11 22:56 | HMH.EDHA ---
ED Disposition Clinical Impression: Headache Qualifiers: Headache type: unspecified Headache chronicity pattern: acute headache Intractability: intractable Qualified Code(s): R51.9 - Headache, unspecified Disposition: Home, Self-Care Condition on Discharge: Good Instructions: DI for Headache Additional Instructions: fluids and see pcp for follow up Referrals: Dipak Del Rosario MD [Primary Care Provider] - - Critical Care Critical Care Time: No Attestation: On 05/11/21, the high probability of a clinically significant, sudden or life threatening deterioration of the following system(s) required my full and direct attention, intervention and personal management. The time I documented below is in addition to time spent performing reported procedures but includes the following listed in this critical care notation. Medical Decision Making - Medical Records Medical records reviewed: Yes: I reviewed the patient's medical records. - Javon Inquiry Pt receiving controlled substance: No Vital Signs: 05/11/21 21:39 Temperature 98.1 F Temperature Source Oral Pulse Rate [Right Radial] 80 Respiratory Rate 14 Blood Pressure [Right Arm] 169/93 H Blood Pressure Mean [Right Arm] 118 Blood Pressure Source [Right Arm] Automatic Cuff Blood Pressure Position [Right Arm] Sitting 02 Sat by Pulse Oximetry 97 Oxygen Delivery Method Room Air - Lab Data Lab results reviewed: Yes: I reviewed the patient's lab results. Orders (Tests/Meds): ED MEDICATIONS Generic Name Dose Route Start Last Admin Trade Name Freq PRN Reason Stop Dose Admin Lactated Ringer's 1,000 mls @ 999 mls/hr 05/11/21 23:00 Lactated Ringer's 1000 Ml Bag IV 05/12/21 00:00 .Q1H1M JEANNE Discontinued Medications Generic Name Dose Route Start Last Admin Trade Name Freq PRN Reason Stop Dose Admin Hydromorphone HCl 1 mg 05/11/21 22:47 Hydromorphone 2mg/Ml Syringe IV 05/11/21 22:48 ONCE ONE Hydromorphone HCl 1 mg 05/11/21 22:51 Hydromorphone 2mg/Ml Syringe IV 05/11/21 22:52 ONCE ONE Promethazine HCl 25 mg 05/11/21 22:47 Promethazine Hcl 25mg/Ml 1ml Vial IV 05/11/21 22:48 ONCE ONE Sodium Chloride 25 ml 05/11/21 22:47 Sodium Chloride 0.9% 25ml Bag IV 05/11/21 22:48 ONCE ONE Medical Decision Narrative: pt with no focal neuro sx and responded to treatment Headache HPI - General Chief Complaint: Headache Stated Complaint: PHILLIP, vomiting Time Seen by Provider: 05/11/21 22:00 Mode of Arrival: Ambulatory Source of Information: Patient, Medical Record Limitations: No Limitations Description of Symptoms (Recalled from ER Triage Doc. by RN): Pt reports migraine since leaving work today. She denies any visual distrubances. She c/o nausea and head pressure. - History of Present Illness HPI Narrative: acute headache tonight with no fever /rash or trauma - phillip is similar to phillip in past MD Complaint: headache Onset (ago): hour(s) Onset description: sudden Location: frontal Severity: similar to previous episodes Quality: similar to previous headaches Context: occurred at rest Associated symptoms: nausea Treatments prior to arrival: prescription analgesic, antiemetic, migraine medication - Related Data Home Medications Medication Instructions Recorded Confirmed Ondansetron [Zofran 4mg ODT] 4 mg PO .Q4 08/15/20 03/24/21 Bisoprolol/Hydrochlorothiazide See Rx Instructions .ROUTE .COMPLEX 02/03/21 03/24/21 [Bisoprolol-Hctz 5-6.25 mg Tab] Clopidogrel Bisulfate [Plavix] 75 mg PO DAILY 02/03/21 03/24/21 Ciprofloxacin HCl 500 mg PO BID 03/24/21 03/24/21 Previous Rx's Medication Instructions Recorded bupropion HCl 150 mg 24 hr tablet, 150 mg PO DAILY #90 tab 03/23/21 extended release esomeprazole magnesium 20 mg 20 mg PO DAILY #90 cap 04/14/21 capsule,delayed release alprazolam 1 mg tablet 1 mg PO BID PRN #60 tab 04/21/21 aspirin 81 mg tablet,delayed 81 mg PO DAILY #90 ta
[2021-05-11 23:00] VITALS: BP 190/105; PULSE 80; RESP 16; O2SAT 97
[2021-05-12] VITALS: BP 182/92; PULSE 75; RESP 16; TEMP 36.7; O2SAT 98
== END 2021-05-12 00:03 | disposition home or self-care (01) ==
PROVIDERS: Emergency Provider Emergency Medicine; PCP Emergency Medicine
DX: G43.109 Migraine with aura, not intractable, without status migrainosus (principal); I10 Essential (primary) hypertension; E78.5 Hyperlipidemia, unspecified; E03.9 Hypothyroidism, unspecified; Z87.442 Personal history of urinary calculi; Z87.891 Personal history of nicotine dependence; Z79.899 Other long term (current) drug therapy
CPT/HCPCS: 96365; 96375; 96376; 99282

== ENCOUNTER → 2021-05-18 11:13 | Outpatient (CLI) | payer OTHER, SELFPAY ==
--- NOTE | 2021-05-18 11:14 | US_ITS ---
PROCEDURE INFORMATION: Exam: US Right Breast, Complete MG Right Diagnostic Breast Tomosynthesis Exam date and time: 05/18/2021 11:14 AM Age: 46 years old Clinical indication: Patient recalled for further evaluation of a right breast mass TECHNIQUE: Imaging protocol: Complete ultrasound of all four quadrants of the Right breast and the retroareolar regions, including ultrasound of the axilla when performed. Right Diagnostic tomosynthesis and 2D mammography including computer-aided detection (CAD) when performed. Unilateral or bilateral exam. COMPARISON: 1. MG MM DIG SCREENING MAMM BI W/CAD 05/07/2021 9:00 AM 2. MG MM DIG SCREENING MAMM BI W/CAD 12/12/2019 9:00 AM FINDINGS: MAMMOGRAPHY: Digital diagnostic spot compression views of the right breast demonstrate a persistent 0.8 cm ovoid mass without associated architectural distortion ULTRASOUND: Sonographic images of the right breast including the retroareolar region, all 4 quadrants and the axilla do not demonstrate any solid masses. 0.6 cm cyst in the 1 o'clock axis 4 cm from the nipple corresponds to the mass mammography. Few additional subcentimeter cysts are noted in the right upper outer quadrant. No architectural distortion or acoustical shadowing. No skin thickening or axillary adenopathy. IMPRESSION: Mass on screening mammography corresponds to underlying cystic change sonographically. There is no mammographic evidence of malignancy.Annual bilateral mammographic screening is recommended unless otherwise clinically indicated. ASSESSMENT: BI-RADS Category 2: Benign
== END ==
PROVIDERS: PCP Emergency Medicine; Visit Provider Nurse Practitioner Obstetrics & Gynecology
DX: R92.8 Other abnormal and inconclusive findings on diagnostic imaging of breast (principal)
CPT/HCPCS: 76641; 77061; 77065; G0279

== ENCOUNTER → 2021-05-26 08:39 | Outpatient (POV) | payer OTHER, SELFPAY | PROVIDERS: Visit Provider Dermatology | DX: Z00.00 Encounter for general adult medical examination without abnormal findings (principal) ==

== ENCOUNTER 2021-06-15 13:15 | Outpatient (CLI) | payer OTHER, SELFPAY ==
[2021-06-15 13:20] VITALS: BP 181/103; PULSE 98; RESP 18; TEMP 36.6; O2SAT 99
[2021-06-15 15:15] VITALS: BP 160/90; PULSE 89; RESP 16; TEMP 36.6; O2SAT 96
== END 2021-06-15 15:17 | disposition home or self-care (01) ==
LOC: INF 13:15
PROVIDERS: PCP Emergency Medicine; Visit Provider Emergency Medicine
DX: R51.9 Headache, unspecified (principal)
CPT/HCPCS: 96360; 96375

== ENCOUNTER → 2021-07-02 10:17 | Outpatient (CLI) | payer OTHER, SELFPAY ==
--- NOTE | 2021-07-02 10:18 | MR_ITS ---
FINAL REPORT CLINICAL HISTORY: low back pain COMPARISON: 08/05/2020 FINDINGS: Multiplanar MR imaging of the lumbar spine was performed without contrast. On the sagittal T2-weighted images, no significant disc degeneration is seen. The vertebral alignment is normal. There is no evidence of fracture. No bony mass is identified. The conus has an unremarkable appearance. No significant canal stenosis is identified. L1-2: No significant central canal stenosis or neuroforaminal narrowing. L2-3: No significant central canal stenosis or neuroforaminal narrowing. L3-4: No significant central canal stenosis or neuroforaminal narrowing. L4-5: An annular bulge and facet arthropathy are present with mild bilateral neural foraminal narrowing. Findings are stable since prior. L5-S1: No significant central canal stenosis or neuroforaminal narrowing. IMPRESSION: Degenerative disc disease, stable from prior. Reviewed, Interpreted and Dictated by Gavino Amor III, MD Transcribed by Mandie Enciso Authenticated by Gavino Amor III, MD on 07/02/2021 02:33:[address] [facility]
--- NOTE | 2021-07-02 10:18 | MR_ITS ---
FINAL REPORT CLINICAL HISTORY: neck pain COMPARISON: 08/05/2020 FINDINGS: Multiplanar MR imaging of the cervical spine was performed without contrast. On the sagittal T2-weighted images, disc degeneration is seen at multiple levels. There is mild kyphosis centered on C5-6. There is no evidence of fracture. The vertebral alignment is normal. The cervical spinal cord has an unremarkable appearance without evidence of mass, edema or syrinx. No significant canal stenosis is identified. The cervicomedullary junction is normal. C2-3: There is no significant canal stenosis or neural foraminal narrowing. C3-4: Small uncovertebral osteophytes are present with mild left neural foraminal narrowing. C4-5: There is no significant canal stenosis or neural foraminal narrowing. C5-6: Disc osteophyte complex is present. There is a small left paracentral disc protrusion, slightly larger than previous. There is mild right and severe left neural foraminal narrowing. C6-C7: Disc osteophyte complex is present. There is a left foraminal disc protrusion with severe left neural foraminal narrowing, slightly worse. There is probable left C7 nerve root impingement. C7-T1: There is no significant canal stenosis or neural foraminal narrowing. IMPRESSION: Left paracentral disc protrusion at C5-6, slightly larger with severe left neural foraminal narrowing. Left foraminal disc protrusion at C6-7, slightly worse with probable left C7 nerve root impingement. Multilevel degenerative disc disease and spondylosis. Reviewed, Interpreted and Dictated by Gavino Amor III, MD Transcribed by Mandie Enciso Authenticated by Gavino Amor III, MD on 07/02/2021 02:33:21 PM [facility]
== END ==
LOC: RAD 10:18
PROVIDERS: PCP Emergency Medicine; Visit Provider Emergency Medicine
DX: M54.9 Dorsalgia, unspecified (principal); M54.2 Cervicalgia; M54.50 Low back pain, unspecified
CPT/HCPCS: 72141; 72148; 76376

== ENCOUNTER 2021-07-07 05:25 | Emergency (ER) | payer OTHER, SELFPAY ==
[2021-07-07] VITALS (16 sets, daily range): BP systolic 105–191; BP diastolic 59–129; PULSE 71–131; RESP 16–18; TEMP 36.6; O2SAT 95–100; BMI 31.4
[2021-07-07 06:03] LABS: Strep Scrn Group A (Rapid) Negative (Negative)
--- NOTE | 2021-07-07 06:45 | HMH.EDHA ---
ED Disposition Clinical Impression: Headache Qualifiers: Headache type: unspecified Headache chronicity pattern: acute headache Intractability: not intractable Qualified Code(s): R51.9 - Headache, unspecified Disposition: Home, Self-Care Condition on Discharge: Good Instructions: DI for Headache Additional Instructions: resume meds at this time Referrals: Dipak Del Rosario MD [Primary Care Provider] - - Critical Care Critical Care Time: No Attestation: On 07/07/21, the high probability of a clinically significant, sudden or life threatening deterioration of the following system(s) required my full and direct attention, intervention and personal management. The time I documented below is in addition to time spent performing reported procedures but includes the following listed in this critical care notation. Medical Decision Making - Medical Records Medical records reviewed: Yes: I reviewed the patient's medical records. - Javon Inquiry Pt receiving controlled substance: No Vital Signs: 07/07/21 05:26 Temperature 97.8 F Temperature Source Oral Pulse Rate [Right] 127 H Respiratory Rate 18 Blood Pressure [Right Arm] 176/103 H Blood Pressure Mean [Right Arm] 127 02 Sat by Pulse Oximetry 99 - Lab Data Lab results reviewed: Yes: I reviewed the patient's lab results. Lab Results 07/07/21 05:40: Group A Strep Rapid Negative Orders (Tests/Meds): ED MEDICATIONS Generic Name Dose Route Start Last Admin Trade Name Freq PRN Reason Stop Dose Admin Sodium Chloride 1,000 mls @ 999 mls/hr 07/07/21 05:45 07/07/21 05:50 Sod Chlor 0.9% 1000ml Bag IV 07/07/21 06:45 999 mls/hr .Q1H1M JEANNE Administration Discontinued Medications Generic Name Dose Route Start Last Admin Trade Name Freq PRN Reason Stop Dose Admin Hydromorphone HCl 1 mg 07/07/21 05:44 07/07/21 05:50 Hydromorphone 2mg/Ml Syringe IV 07/07/21 05:45 1 mg ONCE ONE Administration Hydromorphone HCl 1 mg 07/07/21 07:03 07/07/21 07:06 Hydromorphone 2mg/Ml Syringe IV 07/07/21 07:04 1 mg ONCE ONE Administration Promethazine HCl 25 mg 07/07/21 05:44 07/07/21 05:49 Promethazine Hcl 25mg/Ml 1ml Vial IV 07/07/21 05:45 25 mg ONCE ONE Administration Promethazine HCl 25 mg 07/07/21 07:03 07/07/21 07:07 Promethazine Hcl 25mg/Ml 1ml Vial IV 07/07/21 07:04 25 mg ONCE ONE Administration Sodium Chloride 25 ml 07/07/21 05:44 07/07/21 07:07 Sodium Chloride 0.9% 25ml Bag IV 07/07/21 05:45 25 ml ONCE ONE Administration Sodium Chloride 25 ml 07/07/21 07:03 Sodium Chloride 0.9% 25ml Bag IV 07/07/21 07:04 ONCE ONE ORDERS Category Date Time Status Strep Screen Confirmation Stat Micro 07/07/21 05:40 Received Medical Decision Narrative: has acute exacerbation of headache with stable exam Headache HPI - General Chief Complaint: Headache Stated Complaint: Migraine,sore throat,sinus pressure,vomiting Time Seen by Provider: 07/07/21 06:45 Mode of Arrival: Ambulatory Source of Information: Patient, Medical Record Limitations: No Limitations Description of Symptoms (Recalled from ER Triage Doc. by RN): pt c/o Ivory, n/v/d - History of Present Illness HPI Narrative: acute headache with nausea MD Complaint: headache Onset (ago): hour(s) Onset description: gradual Severity: moderate Quality: similar to previous headaches Context: occurred at rest Associated symptoms: none Treatments prior to arrival: none - Related Data Home Medications Medication Instructions Recorded Confirmed Bisoprolol/Hydrochlorothiazide See Rx Instructions .ROUTE .COMPLEX 02/03/21 06/15/21 [Bisoprolol-Hctz 5-6.25 mg Tab] Clopidogrel Bisulfate [Plavix] 75 mg PO DAILY 02/03/21 06/15/21 Previous Rx's Medication Instructions Recorded aspirin 81 mg tablet,delayed 81 mg PO DAILY #90 tab 04/21/21 release rosuvastatin 5 mg tablet 5 mg PO HS #90 tab 04/21/21 esomeprazole magnesium
--- NOTE | 2021-07-07 09:02 | PC.NURSE ---
ER (Carin) gave verbal order for pt to have her regular dose of morning bp medication (bisoprolol/hctz) r/t elevated bp
--- NOTE | 2021-07-07 10:21 | PC.NURSE ---
pt reports feeling better at this time, states headache is slight at this time, pt is sitting up on the side of the bed at this time to see how she feels. will continue to monitor
--- NOTE | 2021-07-07 11:11 | PC.NURSE ---
contacted Dr. Del Rosario per pt request, pt states feeling better laying down but when she sits up she feels jittery, states headache is better but still present. Dr. Del Rosario gave verbal order for solumedrol 125 mg IV one time for sinuses. States pt is okay to go home after that as long as she is feeling okay to go home. Stated to remind pt to follow up with his office.
== END 2021-07-07 11:30 | disposition home or self-care (01) ==
PROVIDERS: Emergency Provider Emergency Medicine; PCP Emergency Medicine
DX: G43.909 Migraine, unspecified, not intractable, without status migrainosus (principal); I10 Essential (primary) hypertension; E78.5 Hyperlipidemia, unspecified; Z87.891 Personal history of nicotine dependence; Z88.2 Allergy status to sulfonamides; Z88.5 Allergy status to narcotic agent
CPT/HCPCS: 87430; 96365; 96375; 96376; 99284

== ENCOUNTER → 2021-07-27 12:58 | Outpatient (CLI) | payer OTHER, SELFPAY ==
[2021-07-28 08:19] LABS: HSV 1 IgG, Type Spec <0.91 index (0.00-0.90); HSV 2 IgG, Type Spec <0.91 index (0.00-0.90)
[2021-07-28 15:11] LABS: HSV, IgM I/II Combination <0.91 Ratio (0.00-0.90)
== END ==
PROVIDERS: Visit Provider Obstetrics & Gynecology
DX: N89.8 Other specified noninflammatory disorders of vagina (principal)
CPT/HCPCS: 36415; 86695; 86790

== ENCOUNTER 2021-08-19 09:25 | Outpatient (CLI) | payer OTHER, SELFPAY ==
[2021-08-19 10:10] VITALS: BP 188/99; PULSE 77; RESP 16; O2SAT 100
[2021-08-19 11:10] VITALS: BP 160/95; PULSE 66; RESP 16
[2021-08-19 11:50] VITALS: BP 137/92; PULSE 73; RESP 16
== END 2021-08-19 12:30 | disposition home or self-care (01) ==
LOC: INF 09:26
PROVIDERS: PCP Emergency Medicine; Visit Provider Emergency Medicine
DX: R51.9 Headache, unspecified (principal)
CPT/HCPCS: 96360; 96375

== ENCOUNTER 2021-08-28 10:33 | Outpatient (CLI) | payer OTHER, SELFPAY ==
[2021-08-28 10:38] VITALS: BMI 30.8
[2021-08-28 11:05] VITALS: BP 143/83; PULSE 103; RESP 18; O2SAT 97
[2021-08-28 11:30] VITALS: BP 150/80; PULSE 99; RESP 18
[2021-08-28 11:50] VITALS: BP 148/86; PULSE 98; RESP 18
[2021-08-28 12:30] VITALS: BP 155/87; PULSE 96; RESP 18
[2021-08-28 12:45] VITALS: BP 158/90; PULSE 95; RESP 18; TEMP 36.1; O2SAT 98
[2021-08-28 12:59] LABS: Basophils # 0.1 K/mm3 (0-0.2); Basophils % 0.6 % (0.1-2.0); Eosinophils % 0.3 % (0.1-12.0); Hematocrit 38.2 % (37.0-47.0); Lymphocytes # 1.9 K/mm3 (0.7-4.5); Lymphocytes % 12.1 % (10-50); Mean Corpuscular HGB Conc 34.1 g/dL (31.8-35.4); Mean Corpuscular Hemoglobin 32.5 pg (27.0-31.2); Mean Corpuscular Volume 95.2 fl (81-99); Monocytes # 0.6 K/mm3 (0.1-1.0); Monocytes % 3.9 % (1.7-9.3); Neutrophils # 13.1 K/mm3 (1.8-7.8); Neutrophils % 83.1 % (37.0-80.0); Platelet Count 297 K/mm3 (142-424); Red Blood Count 4.01 M/mm3 (4.20-5.40); Red Cell Distribution Width 13.9 % (11.5-17.5); White Blood Count 15.8 K/mm3 (4.8-10.8)
[2021-08-28 13:05] LABS: MANUAL DIFFERENTIAL MANUAL DIFFERENTIAL (MANUAL DIFF)
[2021-08-28 13:51] LABS: Lymphocytes % 19 % (10-50); Monocytes % 3 % (2-9); Neutrophils % 78 % (42-76); Total Cells Counted 100
[2021-08-28 13:52] LABS: Platelet Estimate Normal; RBC Morphology Normal
== END 2021-08-28 12:45 | disposition home or self-care (01) ==
LOC: INF 10:34
PROVIDERS: PCP Emergency Medicine; Visit Provider Emergency Medicine
DX: R51.9 Headache, unspecified (principal)
CPT/HCPCS: 85007; 85025; 96360; 96367; 96375; J0696

== ENCOUNTER 2021-09-28 23:09 | Emergency (ER) | payer OTHER, SELFPAY ==
[2021-09-28 23:09] VITALS: BP 146/75; PULSE 122; RESP 21; TEMP 36.9; O2SAT 100; BMI 25.8
--- NOTE | 2021-09-28 23:53 | HMH.EDHA ---
ED Disposition Clinical Impression: Headache Qualifiers: Headache type: unspecified Headache chronicity pattern: acute headache Intractability: not intractable Qualified Code(s): R51.9 - Headache, unspecified Disposition: Home, Self-Care Condition on Discharge: Good Instructions: DI for Headache Additional Instructions: see pcp for follow up Referrals: Dipak Del Rosario MD [Primary Care Provider] - - Critical Care Critical Care Time: No Attestation: On 09/28/21, the high probability of a clinically significant, sudden or life threatening deterioration of the following system(s) required my full and direct attention, intervention and personal management. The time I documented below is in addition to time spent performing reported procedures but includes the following listed in this critical care notation. Medical Decision Making - Medical Records Medical records reviewed: Yes: I reviewed the patient's medical records. - Javon Inquiry Pt receiving controlled substance: No Vital Signs: 09/28/21 23:09 Temperature 98.4 F Temperature Source Oral Pulse Rate [Right] 122 H Respiratory Rate 21 Blood Pressure [Right Arm] 146/75 H Blood Pressure Mean [Right Arm] 98 Blood Pressure Source [Right Arm] Automatic Cuff 02 Sat by Pulse Oximetry 100 Oxygen Delivery Method Room Air - Lab Data Lab results reviewed: Yes: I reviewed the patient's lab results. Orders (Tests/Meds): ED MEDICATIONS Generic Name Dose Route Start Last Admin Trade Name Freq PRN Reason Stop Dose Admin Sodium Chloride 1,000 mls @ 999 mls/hr 09/28/21 23:45 09/28/21 23:43 Sod Chlor 0.9% 1000ml Bag IV 09/29/21 00:45 999 mls/hr .Q1H1M JEANNE Administration Discontinued Medications Generic Name Dose Route Start Last Admin Trade Name Freq PRN Reason Stop Dose Admin Butorphanol Tartrate 1 mg 09/29/21 00:33 09/29/21 00:37 Butorphanol Tartrate 1 Mg/Ml Vial IV 09/29/21 00:34 1 mg ONCE ONE Administration Hydromorphone HCl 1 mg 09/28/21 23:31 09/28/21 23:42 Hydromorphone 2mg/Ml Syringe IV 09/28/21 23:32 1 mg ONCE ONE Administration Hydromorphone HCl 1 mg 09/29/21 00:18 09/29/21 00:19 Hydromorphone 2mg/Ml Syringe IV 09/29/21 00:19 1 mg ONCE ONE Administration Hydromorphone HCl 2 mg 09/29/21 01:00 09/29/21 01:10 Hydromorphone 2mg/Ml Syringe IV 09/29/21 01:01 2 mg ONCE ONE Administration Promethazine HCl 25 mg 09/28/21 23:31 09/28/21 23:42 Promethazine Hcl 25mg/Ml 1ml Vial IV 09/28/21 23:32 25 mg ONCE ONE Administration Promethazine HCl 50 mg 09/29/21 01:00 09/29/21 01:05 Promethazine Hcl 25mg/Ml 1ml Vial IV 09/29/21 01:01 Not Given ONCE ONE Promethazine HCl 25 mg 09/29/21 01:05 09/29/21 01:10 Promethazine Hcl 25mg/Ml 1ml Vial IV 09/29/21 01:06 25 mg ONCE ONE Administration Sodium Chloride 25 ml 09/28/21 23:31 Sodium Chloride 0.9% 25ml Bag IV 09/28/21 23:32 ONCE ONE Sodium Chloride 25 ml 09/29/21 01:00 Sodium Chloride 0.9% 25ml Bag IV 09/29/21 01:01 ONCE ONE Sodium Chloride 25 ml 09/29/21 01:05 09/29/21 01:15 Sodium Chloride 0.9% 25ml Bag IV 09/29/21 01:06 25 ml ONCE ONE Administration Medical Decision Narrative: improved after meds with no focal changes Headache HPI - General Chief Complaint: Headache Stated Complaint: vomiting, headache Time Seen by Provider: 09/28/21 23:30 Mode of Arrival: Family Vehicle Source of Information: Patient, Medical Record Limitations: No Limitations Description of Symptoms (Recalled from ER Triage Doc. by RN): Pt c/o severe headache since she left the [employer] [facility] (1999). @ 2100 she began having dry heaving. She does report head congestion. - History of Present Illness HPI Narrative: acute onset of mcmahon with nausea and elevated bp - no focal neuro sx MD Complaint: headache Onset (ago): hour(s) Onset description: gradual Location: diffuse Severity: moderate [facility]
[2021-09-29 01:22] VITALS: BP 179/97; PULSE 91; RESP 18; TEMP 36.9; O2SAT 100
== END 2021-09-29 01:32 | disposition home or self-care (01) ==
PROVIDERS: Emergency Provider Emergency Medicine; PCP Emergency Medicine
DX: R51.9 Headache, unspecified (principal); R11.0 Nausea
CPT/HCPCS: 96365; 96375; 96376; 99284; J0595

== ENCOUNTER → 2021-10-07 12:09 | Outpatient (CLI) | payer OTHER, SELFPAY ==
[2021-10-07 12:33] LABS: Influenza A, PCR Not Detected (NotDetected); Influenza B, PCR Not Detected (NotDetected)
[2021-10-07 12:55] LABS: Coronavirus 19, PCR Detected (NotDetected)
== END ==
PROVIDERS: PCP Internal Medicine Adolescent Medicine; Visit Provider Internal Medicine Adolescent Medicine
DX: U07.1 COVID-19 (principal)
CPT/HCPCS: C9803; U0003; U0005

== ENCOUNTER 2021-11-24 21:11 | Emergency (ER) | payer OTHER, SELFPAY ==
[2021-11-24 21:12] VITALS: BP 153/95; PULSE 94; RESP 16; TEMP 36.7; O2SAT 97; BMI 31.9
[2021-11-24 21:23] VITALS: BMI 31.9
--- NOTE | 2021-11-24 21:28 | ECG_ITS ---
APPROVED REPORT Exam: Resting ECG HR:84 bpm ECG Measurements Heart Rate 84 AXES TN 162 P 48 QRSd 82 QRS 30 QT 349 T 47 QTc 389 Conclusion SINUS RHYTHM NONSPECIFIC T-WAVE ABNORMALITY BORDERLINE ECG UNCONFIRMED REPORT Electronically signed by : Jose De Jesus Penaloza MD 11/25/2021 21:00:45
--- NOTE | 2021-11-24 21:32 | PC.NURSE ---
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 requested basic labs, troponin's and standard cardiac workup. Patient is currently resting in bed hemodynamically stable.
[2021-11-24 21:35] LABS: Basophils # 0.1 K/mm3 (0-0.2); Basophils % 0.8 % (0.1-2.0); Eosinophils # 0.2 K/mm3 (0.0-0.4); Eosinophils % 1.4 % (0.1-12.0); Hematocrit 41.1 % (37.0-47.0); Hemoglobin 13.1 g/dL (12.2-16.2); Lymphocytes # 4.3 K/mm3 (0.7-4.5); Lymphocytes % 26.3 % (10-50); Mean Corpuscular HGB Conc 31.9 g/dL (31.8-35.4); Mean Corpuscular Hemoglobin 30.6 pg (27.0-31.2); Mean Corpuscular Volume 95.9 fl (81-99); Mean Platelet Volume 7.5 fl (7.4-10.4); Monocytes # 0.8 K/mm3 (0.1-1.0); Monocytes % 5.1 % (1.7-9.3); Neutrophils # 10.8 K/mm3 (1.8-7.8); Neutrophils % 66.3 % (37.0-80.0); Platelet Count 403 K/mm3 (142-424); Red Blood Count 4.28 M/mm3 (4.20-5.40); Red Cell Distribution Width 13.3 % (11.5-17.5); White Blood Count 16.2 K/mm3 (4.8-10.8)
[2021-11-24 21:39] LABS: MANUAL DIFFERENTIAL MANUAL DIFFERENTIAL (MANUAL DIFF)
[2021-11-24 21:40] LABS: Anion Gap 11.5 mEq/L (5-15); Blood Urea Nitrogen 11 mg/dl (7-17); Calcium 9.3 mg/dl (8.4-10.2); Carbon Dioxide 24 mmol/L (22.0-30.0); Chloride 108 mmol/L (98-107); Creatinine Clearance Estimated 127 mL/min (50-200); Estimated Glomerular Filt Rate 78 ml/min (>60); GFR (African American) 94 ML/MIN (>60); Glucose 133 mg/dl (74-100); Magnesium 1.6 mg/dl (1.6-2.3); Potassium 3.5 mmoL/L (3.5-5.1); Sodium 140 mmol/L (136-145)
[2021-11-24 21:51] VITALS: PULSE 96; RESP 11; O2SAT 97
[2021-11-24 21:55] LABS: Troponin I < 0.01 ng/ml (0.00-0.034)
[2021-11-24 21:57] LABS: C-Reactive Protein 2.4 mg/L (0-4)
--- NOTE | 2021-11-24 21:57 | HMH.EDHA ---
ED Disposition Clinical Impression: Headache Qualifiers: Headache type: unspecified Headache chronicity pattern: acute headache Intractability: not intractable Qualified Code(s): R51.9 - Headache, unspecified Disposition: Home, Self-Care Condition on Discharge: Good Instructions: DI for Headache Additional Instructions: use meds and see pcp and card for follow up Referrals: Dipak Del Rosario MD [Primary Care Provider] - - Critical Care Critical Care Time: No Attestation: On 11/24/21, the high probability of a clinically significant, sudden or life threatening deterioration of the following system(s) required my full and direct attention, intervention and personal management. The time I documented below is in addition to time spent performing reported procedures but includes the following listed in this critical care notation. Medical Decision Making - Medical Records Medical records reviewed: Yes: I reviewed the patient's medical records. - Javon Inquiry Pt receiving controlled substance: No Vital Signs: 11/24/21 21:12 11/24/21 21:51 11/24/21 22:00 Temperature 98.1 F Temperature Source Oral Pulse Rate 96 H Pulse Rate [Left Radial] 94 H Respiratory Rate 16 11 L Blood Pressure 174/93 H Blood Pressure [Right Arm] 153/95 H Blood Pressure Mean 128 Blood Pressure Mean [Right Arm] 114 Blood Pressure Source [Right Arm] Automatic Cuff Blood Pressure Position [Right Arm] Sitting 02 Sat by Pulse Oximetry 97 97 Oxygen Delivery Method Room Air - Lab Data Lab results reviewed: Yes: I reviewed the patient's lab results. Lab Results 11/24/21 21:25: WBC 16.2 H, RBC 4.28, Hgb 13.1, Hct 41.1, MCV 95.9, MCH 30.6, MCHC 31.9, RDW 13.3, Plt Count 403, MPV 7.5, Neut % (Auto) 66.3, Lymph % (Auto) 26.3, Otero % (Auto) 5.1, Eos % (Auto) 1.4, Baso % (Auto) 0.8, Neut # (Auto) 10.8 H, Lymph # (Auto) 4.3, Otero # (Auto) 0.8, Eos # (Auto) 0.2, Baso # (Auto) 0.1, Total Counted 100, Neutrophils % (Manual) 65, Lymphocytes % (Manual) 32, Monocytes % (Manual) 2, Basophils % (Manual) 1.0, Platelet Estimate Normal, RBC Morphology Not Reportable, Stomatocytes 1+, ESR 37 H 11/24/21 21:25: Sodium 140, Potassium 3.5, Chloride 108 H, Carbon Dioxide 24, Anion Gap 11.5, BUN 11, Creatinine 0.80, Estimated Creat Clear 127, Estimated GFR 78, Est GFR ( Amer) 94, Glucose 133 H, Calcium 9.3, Magnesium 1.6, Troponin I < 0.01, C-Reactive Protein 2.4, Procalcitonin 0.037, TSH 6.66 H, Thyroxine (T4) 8.5 Result diagrams: 11/24/21 21:25 11/24/21 21:25 Orders (Tests/Meds): ED MEDICATIONS Generic Name Dose Route Start Last Admin Trade Name Freq PRN Reason Stop Dose Admin Sodium Chloride 1,000 mls @ 999 mls/hr 11/24/21 21:30 11/24/21 21:40 Sod Chlor 0.9% 1000ml Bag IV 11/24/21 22:30 999 mls/hr .Q1H1M JEANNE Administration Discontinued Medications Generic Name Dose Route Start Last Admin Trade Name Freq PRN Reason Stop Dose Admin Hydromorphone HCl 1 mg 11/24/21 21:29 11/24/21 21:43 Hydromorphone 2mg/Ml Syringe IV 11/24/21 21:30 1 mg ONCE ONE Administration Hydromorphone HCl 1 mg 11/24/21 22:03 11/24/21 22:04 Hydromorphone 2mg/Ml Syringe IV 11/24/21 22:04 1 mg ONCE ONE Administration Hydromorphone HCl 1 mg 11/24/21 22:23 11/24/21 22:37 Hydromorphone 2mg/Ml Syringe IV 11/24/21 22:24 1 mg ONCE ONE Administration Hydromorphone HCl 1 mg 11/24/21 22:44 11/24/21 22:46 Hydromorphone 2mg/Ml Syringe IV 11/24/21 22:45 1 mg ONCE ONE Administration Promethazine HCl 25 mg 11/24/21 21:31 11/24/21 21:42 Promethazine Hcl 25mg/Ml 1ml Vial IV 11/24/21 21:32 25 mg ONCE ONE Administration Sodium Chloride 25 ml 11/24/21 21:31 11/24/21 21:43 Sodium Chloride 0.9% 25ml Bag IV 11/24/21 21:32 25 ml ONCE ONE Administration ORDERS Category Date Time Status Troponin I Q3H Lab 11/25/21 00:30 Ordered Troponin I Q3H Lab 11/25/21 03:30 Ordered - ECG
[2021-11-24 22:00] VITALS: BP 174/93
[2021-11-24 22:00] LABS: Procalcitonin 0.037 ng/mL (0.0-2.0); T4 (Thyroxine) 8.5 ug/dl (5.53-11.0)
[2021-11-24 22:13] LABS: Thyroid Stimulating Hormone 6.66 uIU/mL (0.465-4.68)
[2021-11-24 22:23] LABS: Erythrocyte Sedimentation Rate 37 mm/hr (0-20)
[2021-11-24 22:39] LABS: Lymphocytes % 32 % (10-50); Monocytes % 2 % (2-9); Neutrophils % 65 % (42-76); Platelet Estimate Normal; Stomatocytes 1+; Total Cells Counted 100
[2021-11-24 23:11] VITALS: BP 168/88; PULSE 88; RESP 18; TEMP 36.8; O2SAT 99
== END 2021-11-24 23:31 | disposition home or self-care (01) ==
PROVIDERS: Emergency Provider Emergency Medicine; PCP Emergency Medicine
DX: R51.9 Headache, unspecified (principal); Z79.899 Other long term (current) drug therapy; Z88.2 Allergy status to sulfonamides; Z88.8 Allergy status to other drugs, medicaments and biological substances; E78.5 Hyperlipidemia, unspecified; I10 Essential (primary) hypertension; G43.909 Migraine, unspecified, not intractable, without status migrainosus; R00.2 Palpitations; E03.9 Hypothyroidism, unspecified; M19.90 Unspecified osteoarthritis, unspecified site; D64.9 Anemia, unspecified; I65.29 Occlusion and stenosis of unspecified carotid artery
CPT/HCPCS: 80048; 83735; 84145; 84436; 84443; 84484; 85007; 85025; 85651; 86140; 93005; 96365; 96375; 96376; 99284

== ENCOUNTER → 2021-11-26 11:55 | Outpatient (CLI) | payer OTHER, SELFPAY ==
[2021-11-26 12:47] LABS: Glucose,Fasting 106 mg/dl (74-100)
[2021-11-26 12:53] LABS: Hemoglobin A1C 5.6 % (4.0-6.0)
[2021-11-26 13:43] LABS: 25-OH Vitamin D, Total 34.1 ng/mL (30-100)
[2021-11-26 14:02] LABS: Alanine Aminotransferase 22 U/L (12-78); Alkaline Phosphatase 92 U/L (38-126); Aspartate Amino Transferase 22 U/L (14-36); Chol/HDL Ratio 3.5 (1-3.5); Cholesterol 180 mg/dl (140-200); HDL Cholesterol 51 mg/dl (40-60); Total Protein,Serum 6.9 g/dl (6.3-8.2); Triglycerides 129 mg/dl (30-150); VLDL Cholesterol 26 mg/dL (0-40)
[2021-11-26 14:07] LABS: Bilirubin,Indirect 0.1 mg/dL (0.0-0.9); Bilirubin,Total < 0.1 mg/dl (0.2-1.3)
[2021-11-26 14:28] LABS: Glucose 1 Hour 126 mg/dL (74-100)
[2021-11-26 15:35] LABS: Glucose 2 Hour 82 mg/dL (74-100)
[2021-11-27 09:57] LABS: Direct LDL Cholesterol 103 mg/dL (100-129)
== END ==
PROVIDERS: PCP Emergency Medicine; Visit Provider Nurse Practitioner Family
DX: R06.00 Dyspnea, unspecified (principal); I49.8 Other specified cardiac arrhythmias; I10 Essential (primary) hypertension; E78.5 Hyperlipidemia, unspecified; R73.9 Hyperglycemia, unspecified
CPT/HCPCS: 36415; 80061; 80076; 82306; 82951; 83036

== ENCOUNTER → 2021-12-02 08:14 | Outpatient (CLI) | payer OTHER, SELFPAY ==
--- NOTE | 2021-12-02 08:15 | CT_ITS ---
FINAL REPORT TECHNIQUE: Pre-and postcontrast images of the abdomen were performed by computed tomography. Extensive 3-D reconstruction images were performed. A CTA was performed. This study was performed with techniques to keep radiation doses as low as reasonably achievable (ALARA). Individualized dose reduction techniques using automated exposure control or adjustment of mA and/or kV according to the patient's size were employed. CLINICAL HISTORY: splenic aneurysm COMPARISON: November 10, 2020 FINDINGS: CTA ABDOMEN AND PELVIS CTA: There is no evidence of abdominal aortic aneurysm or dissection. There are mild vascular calcifications. The SMA, celiac axis, and RANDI are patent. There is no significant stenosis or calcification. The left renal artery stent appears patent. The right renal artery is patent. 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 The iliac arteries are patent with no significant stenosis or occlusion. ABDOMEN: There is mild left lung base atelectasis or scarring. Precontrast images demonstrate no evidence of nephrolithiasis. No adrenal masses are identified. There are postoperative changes from cholecystectomy. The liver, spleen and pancreas are unremarkable. There is a small umbilical hernia containing fat. PELVIS: The appendix is normal. There are postoperative changes in the pelvis. There is mild wall thickening of the splenic flexure of the colon of uncertain significance, mild colitis is not excluded. 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 Left renal artery stent appears patent. Mild wall thickening of the splenic flexure of the colon of uncertain significance, mild colitis is not excluded. Reviewed, Interpreted and Dictated by Gavino Amor III, MD Transcribed by Geneva Fuentes Authenticated and [facility]
--- NOTE | 2021-12-02 09:04 | CA_ITS ---
FINAL REPORT TECHNIQUE: Grayscale, color Doppler and duplex Doppler ultrasound of the kidneys, aorta and renal arteries was performed. Multiple velocities were measured. CLINICAL HISTORY: ADALI,PRIOR STENTING LT RENAL ARTERY,HTN FINDINGS: Aorta velocity: 137 cm/sec Right kidney: 12.2 cm. No evidence of hydronephrosis or mass. Right intrarenal RI: 0.57 Right renal artery velocity: 160 cm/sec. Right RAR (Renal artery-Aortic Ratio): 1.17 Left Kidney: 12.3 cm. No evidence of hydronephrosis or mass. Left intrarenal RI: 0.51 Left renal artery velocity: 173 cm/sec. Left RAR (Renal Artery-Aortic Ratio): 1.26 IMPRESSION: No evidence of significant renal artery stenosis. CT angiogram or postcontrast MR angiogram would be more sensitive for evaluation of possible renal artery stenosis. Reviewed, Interpreted and Dictated by Gavino Amor III, MD Transcribed by Mandie Enciso Authenticated and [facility]
== END ==
PROVIDERS: PCP Emergency Medicine; Visit Provider Nurse Practitioner Family
DX: I70.1 Atherosclerosis of renal artery (principal); I72.8 Aneurysm of other specified arteries; I10 Essential (primary) hypertension
CPT/HCPCS: 74174; 93976; Q9967

== ENCOUNTER → 2021-12-22 11:26 | Outpatient (CLI) | payer OTHER, SELFPAY ==
[2021-12-22 15:30] LABS: Urine Pregnancy, HCG Qual. Negative (Negative)
== END ==
PROVIDERS: PCP Emergency Medicine; Visit Provider Internal Medicine
DX: Z01.818 Encounter for other preprocedural examination (principal)
CPT/HCPCS: 81025

== ENCOUNTER 2021-12-23 07:56 | Day surgery (SDC) | payer OTHER, SELFPAY ==
[2021-12-22 11:13] VITALS: BMI 33.0
[2021-12-23] VITALS (8 sets, daily range): BP systolic 116–148; BP diastolic 68–78; PULSE 76–94; RESP 16–18; TEMP 36.2–36.6; O2SAT 97–100
--- NOTE | 2021-12-23 09:17 | P.PN_ITS ---
[facility] Medical History Adult hypothyroidism Anemia CAD (coronary artery disease) Carotid artery stenosis delivery delivered Chest pain Dyspnea Foraminal stenosis of cervical region History of stent insertion of renal artery HLD (hyperlipidemia) HTN (hypertension) (~12/17/21) Hyperglycemia Insulin resistance Migraine Migraine aura, persistent, intractable, with status migrainosus Near syncope Ovarian cyst Palpitations Pre-diabetes ADALI (renal artery stenosis) Splenic artery aneurysm Tobacco use Ventricular bigeminy Surgical History H/O exploratory laparotomy H/O hemorrhoidectomy History of left heart catheterization Hx laparoscopic cholecystectomy Family History Other FH: heart attack Family history of cancer Hypertension Social History Smoking Status: Former smoker second hand exposure: No alcohol intake: current counseling provided: none substance use type: denies use current occupational status: employed Travel in the last 8 weeks: Inside the [place] household members: spouse and family housing: house 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 occupational exposures/hazards: No caffeine: Yes [facility] Anesthesia Checklist Patient Identification Patient Identification: Arm Band Structural Data Admitted From: Home Planned Operative Procedure/s: egd/colonoscopy Consent for Planned Operative Procedure(s) Verified: Yes Verified Documents: Surgical Consent and History and Physical NPO Status Verified Time NPO: 00:00 Additional verifications Anesthesia Reactions: No Hx Blood Transfusions: No Blood Transfusion Reaction: No Airway Assessment C-Spine Mobility Assessed: Yes TMJ Mobility Assessed: Yes Dentition: Good Dentition Neurological Assessment Level of Consciousness: Awake and Alert Anesthesia Plan Anesthesia Risk discussed: Yes Anesthesia Plan: Verified ASA Class: III Anesthesia Type: MAC
--- NOTE | 2021-12-23 09:26 | HMH.SCOPE ---
Procedure: Date: 12/23/21 Patient Date of :: 1975 Procedure Performed:: EGD Indications:: Dysphagia Performing Provider:: Javi Diez MD Referring Provider:: Dipak Del Rosario MD Sedation:: See RN records Procedure:: The gastroscope was gently passed through the incisoral orifice into the oral cavity and under direct visualization the esophagus was intubated. The endoscope was passed down the esophagus, through the stomach, and into the duodenum. Color, texture, mucosa, and anatomy of the esophagus, stomach, and duodenum were carefully examined with the scope. Findings:: Oropharynx: normal Esophagus: normal. Biopsies obtained distal and mid esophagus. Dilatation performed sequentially with 18-20 mm tts balloon EG Junction: intact at 38 cm Cardia: Small hiatal hernia Fundus: normal Body: Mild gastritis. Biopsies obtained Antrum: Mild gastritis. Biopsies obtained Duodenal bulb: normal Duodenum (second and third portion): normal Recommendations:: Await pathology results Return for EGD as needed Complications:: none Estimated blood obtained (mL): 0
--- NOTE | 2021-12-23 09:29 | HMH.SCOPE ---
Procedure: Date: 12/23/21 Patient Date of :: 1975 Procedure Performed:: Colonoscopy Indications:: Abnormal CT of abdomen that demonstrated possible mild wall thickening of splenic flexure Performing Provider:: Javi Diez MD Referring Provider:: Dipak Del Rosario MD Sedation:: See RN records Procedure:: After placing the patient in the left lateral decubitus position, the colonoscopy was gently inserted into the rectum and under direct visualization advanced to the cecum which was identified by transillumination in the right lower quadrant, identification of the ileocecal valve, appendiceal orifice, and cecal strap. Color, texture, mucosa, and anatomy of the colon were carefully examined with the scope. Findings:: Anal canal: normal Rectum:internal hemorrhoids Sigmoid colon: normal without polyps or inflammatory changes Descending colon: normal without polyps or inflammatory changes Splenic flexure: normal Transverse colon: normal without polyps or inflammatory changes Hepatic flexure: normal Ascending colon: normal without polyps or inflammatory changes Cecum: normal Terminal ileum: not visualized Recommendations:: Reassuring examination Follow up with referring provider Complications:: none Estimated blood obtained (mL): 0
== END 2021-12-23 11:00 | disposition home or self-care (01) ==
PROVIDERS: PCP Emergency Medicine; Visit Provider Internal Medicine
PROC: 0DJ08ZZ Inspection of Upper Intestinal Tract, Via Natural or Artificial Opening Endoscopic (ICD-10-PCS; CPT 43235; principal; 2021-12-23 09:00)
DX: Z12.11 Encounter for screening for malignant neoplasm of colon; K64.8 Other hemorrhoids; R13.10 Dysphagia, unspecified; K44.9 Diaphragmatic hernia without obstruction or gangrene; Z79.899 Other long term (current) drug therapy; K21.00 Gastro-esophageal reflux disease with esophagitis, without bleeding
CPT/HCPCS: 45378; 43239; C1726

== ENCOUNTER 2022-01-20 04:28 | Emergency (ER) | payer OTHER, SELFPAY ==
[2022-01-20 04:37] VITALS: BP 145/77; PULSE 103; RESP 16; TEMP 36.9; O2SAT 100; BMI 31.9
--- NOTE | 2022-01-20 04:47 | HMH.EDHA ---
Discharge Plan Disposition Patient Disposition: Home, Self-Care Chief Complaint: Headache Prescriptions Prescriptions: No Action amlodipine 5 mg tablet 5 mg PO QHS Qty: 90 3RF aspirin 81 mg tablet,delayed release (DR/EC) 81 mg PO DAILY Qty: 90 3RF bisoprolol-hydrochlorothiazide 5-6.25 mg tablet 2 tab PO DAILY Qty: 90 3RF clopidogrel 75 mg tablet 75 mg PO DAILY Qty: 90 3RF Rx Instructions: TAKE ONE TABLET BY MOUTH EVERY DAY esomeprazole magnesium 20 mg capsule,delayed release(DR/EC) 20 mg PO BID Qty: 180 3RF alprazolam [Xanax] 1 mg tablet 1 mg PO BID Qty: 60 1RF famotidine 20 mg tablet 20 mg PO BID Qty: 120 4RF ondansetron 4 mg tablet,disintegrating See Rx Instructions .Route .COMPLEX Qty: 60 0RF Rx Instructions: DISSOLVE ONE TABLET in MOUTH EVERY 4 HOURS MAY CAUSE DROWSINESS oxycodone-acetaminophen 10-325 mg tablet 1 tab PO QID Qty: 120 0RF Ozempic 0.25 mg or 0.5 mg(2 mg/1.5 mL) pen injector 0.5 mg SQ WEEKLY 28 Days Qty: 1.6 0RF Rx Instructions: x 4 doses step 2 Ozempic 1 mg/dose (4 mg/3 mL) pen injector 1 mg SQ WEEKLY Qty: 3 0RF Rx Instructions: step 3 failed one hour glucose levothyroxine [Synthroid] 50 mcg tablet 50 mcg PO DAILY valsartan [Diovan] 320 mg tablet 320 mg PO DAILY rosuvastatin [Crestor] 10 mg tablet 10 mg PO HS Ozempic 0.25 mg or 0.5 mg(2 mg/1.5 mL) pen injector 0.25 mg SQ WEEKLY Rx Instructions: for 4 doses Step 1 bupropion HCl 300 MG tablet extended release 24 hr 300 mg PO DAILY Referrals Follow up/Referrals: Dipak Del Rosario MD [Primary Care Provider] - See instructions Clinical Impressions Clinical Impression: Headache Instructions Patient Instructions: DI for Headache Discharge ED Provider: Dipak Del Rosario Headache HPI General Chief Complaint: Headache Stated Complaint: Headache with vomiting Time Seen by Provider: 01/20/22 04:47 Mode of Arrival: Ambulatory Source of Information: Patient and Medical Record Limitations: No Limitations Description of Symptoms (Recalled from ER Triage Doc. by RN): Pt c/o headache with nausea and vomiting since 99 History of Present Illness HPI Narrative: acute mcmahon with n/v MD Complaint: headache Onset (ago): hour(s) Onset description: gradual Location: diffuse Severity: similar to previous episodes Quality: similar to previous headaches Context: occurred at rest Associated symptoms: nausea and vomiting Treatments prior to arrival: prescription analgesic Related Data Home Medications Medication Instructions Recorded Confirmed bupropion HCl 300 mg 24 hr tablet, 300 mg PO DAILY Depression 11/24/21 12/23/21 extended release levothyroxine 50 mcg tablet 50 mcg PO DAILY thyroid 12/22/21 12/23/21 (Synthroid) rosuvastatin 10 mg tablet (Crestor) 10 mg PO HS Cholesterol 12/22/21 12/23/21 semaglutide 0.25 mg or 0.5 mg (2 0.25 mg SQ WEEKLY failed 1 hr 12/22/21 12/23/21 mg/1.5 mL) subcutaneous pen blood glucose test injector (Ozempic) valsartan 320 mg tablet (Diovan) 320 mg PO DAILY bp 12/22/21 12/23/21 Previous Rx's Medication Instructions Recorded amlodipine 5 mg tablet 5 mg PO QHS HTN #90 tabs 11/26/21 aspirin 81 mg tablet,delayed 81 mg PO DAILY Blood thinner #90 11/26/21 release tabs bisoprolol 5 2 tab PO DAILY blood pressure #90 11/26/21 mg-hydrochlorothiazide 6.25 mg tabs tablet clopidogrel 75 mg tablet 75 mg PO DAILY Blood thinner #90 11/26/21 tabs esomeprazole magnesium 20 mg 20 mg PO BID GERD #180 caps 11/26/21 capsule,delayed release alprazolam 1 mg tablet (Xanax) 1 mg PO BID anxiety #60 tabs 11/27/21 famotidine 20 mg tablet 20 mg PO BID severe reflux #120 12/01/21 tabs ondansetron 4 mg disintegrating See Rx Instructions .Route 12/07/21 tablet .COMPLEX Nausea & vomiting #60 tabs oxycodone-acetaminophen 10 mg-325 1 tab PO QID pain #120 tabs 12/28/21 mg tablet semag
[2022-01-20 04:56] LABS: Basophils # 0.2 K/mm3 (0-0.2); Basophils % 1.3 % (0.1-2.0); Eosinophils # 0.2 K/mm3 (0.0-0.4); Eosinophils % 1.6 % (0.1-12.0); Hematocrit 40.6 % (37.0-47.0); Hemoglobin 13.6 g/dL (12.2-16.2); Lymphocytes # 3.8 K/mm3 (0.7-4.5); Lymphocytes % 26.8 % (10-50); Mean Corpuscular HGB Conc 33.6 g/dL (31.8-35.4); Mean Corpuscular Hemoglobin 31.6 pg (27.0-31.2); Mean Platelet Volume 7.6 fl (7.4-10.4); Monocytes # 0.6 K/mm3 (0.1-1.0); Monocytes % 4.4 % (1.7-9.3); Neutrophils # 9.2 K/mm3 (1.8-7.8); Neutrophils % 65.9 % (37.0-80.0); Platelet Count 418 K/mm3 (142-424); Red Blood Count 4.31 M/mm3 (4.20-5.40); Red Cell Distribution Width 13.6 % (11.5-17.5)
[2022-01-20 05:10] LABS: Chloride 105 mmol/L (98-107); Potassium 3.8 mmoL/L (3.5-5.1); Sodium 141 mmol/L (136-145)
[2022-01-20 05:12] LABS: Blood Urea Nitrogen 9 mg/dl (7-17); Creatinine Clearance Estimated 145 mL/min (50-200); Estimated Glomerular Filt Rate 91 ml/min (>60); GFR (African American) 110 ML/MIN (>60)
[2022-01-20 05:13] LABS: Alanine Aminotransferase 19 U/L (12-78); Albumin Level 4.7 g/dl (3.5-5.0); Albumin/Globulin Ratio 1.5 (1.1-1.8); Alkaline Phosphatase 82 U/L (38-126); Anion Gap 15.8 mEq/L (5-15); Aspartate Amino Transferase 25 U/L (14-36); Bilirubin,Total 0.3 mg/dl (0.2-1.3); Carbon Dioxide 24 mmol/L (22.0-30.0); Globulin 3.2 g/dL (1.3-3.2); Glucose 116 mg/dl (74-100); Total Protein,Serum 7.9 g/dl (6.3-8.2)
[2022-01-20 07:02] VITALS: BP 140/76; PULSE 89; RESP 18; TEMP 36.6; O2SAT 98
== END 2022-01-20 07:05 | disposition home or self-care (01) ==
PROVIDERS: Emergency Provider Emergency Medicine; PCP Emergency Medicine
DX: R51.9 Headache, unspecified (principal); R11.10 Vomiting, unspecified; Z79.899 Other long term (current) drug therapy; Z88.2 Allergy status to sulfonamides; Z88.8 Allergy status to other drugs, medicaments and biological substances; F32.A Depression, unspecified; E03.9 Hypothyroidism, unspecified; D64.9 Anemia, unspecified; I25.10 Atherosclerotic heart disease of native coronary artery without angina pectoris; Z95.828 Presence of other vascular implants and grafts; Z72.0 Tobacco use; I10 Essential (primary) hypertension; E78.5 Hyperlipidemia, unspecified
CPT/HCPCS: 80053; 85025; 96365; 96375; 99284

== ENCOUNTER 2022-02-15 11:42 | Outpatient (CLI) | payer OTHER, SELFPAY ==
[2022-02-15 11:56] VITALS: BP 138/70; PULSE 78; RESP 18; TEMP 36.6; O2SAT 98
[2022-02-15 13:30] VITALS: BP 146/81; PULSE 79; RESP 18; O2SAT 98
== END 2022-02-15 13:50 | disposition home or self-care (01) ==
LOC: INF 11:43
PROVIDERS: PCP Emergency Medicine; Visit Provider Emergency Medicine
DX: R51.9 Headache, unspecified (principal)
CPT/HCPCS: 96360; 96375

== ENCOUNTER 2022-03-19 10:33 | Outpatient (CLI) | payer OTHER, SELFPAY ==
[2022-03-19 10:46] VITALS: BMI 31.6
[2022-03-19 12:17] LABS: Basophils # 0.1 K/mm3 (0-0.2); Basophils % 0.7 % (0.1-2.0); Eosinophils # 0.3 K/mm3 (0.0-0.4); Hematocrit 39.1 % (37.0-47.0); Hemoglobin 13.2 g/dL (12.2-16.2); Lymphocytes % 32.3 % (10-50); Mean Corpuscular HGB Conc 33.7 g/dL (31.8-35.4); Mean Corpuscular Hemoglobin 30.8 pg (27.0-31.2); Mean Corpuscular Volume 91.5 fl (81-99); Mean Platelet Volume 7.6 fl (7.4-10.4); Monocytes # 0.5 K/mm3 (0.1-1.0); Monocytes % 4.1 % (1.7-9.3); Neutrophils # 7.6 K/mm3 (1.8-7.8); Neutrophils % 60.8 % (37.0-80.0); Platelet Count 400 K/mm3 (142-424); Red Blood Count 4.27 M/mm3 (4.20-5.40); Red Cell Distribution Width 12.9 % (11.5-17.5); White Blood Count 12.5 K/mm3 (4.8-10.8)
--- NOTE | 2022-03-19 12:20 | PC.NURSE ---
1211- Called MD Del Rosario regarding pts abdominal pain (rated a 10/10) and to report pt was vomitting bile and was dry heaving. 1211- repeat first order of 2mg IV Dilaudid and 12.5mg IV Phenergan. Call MD hernandez/ lab results. Orders received and carried out
[2022-03-19 12:47] LABS: Chloride 105 mmol/L (98-107)
[2022-03-19 12:48] LABS: Potassium 3.7 mmoL/L (3.5-5.1); Sodium 141 mmol/L (136-145)
[2022-03-19 12:50] LABS: Blood Urea Nitrogen 11 mg/dl (7-17); Creatinine Clearance Estimated 112 mL/min (50-200); Estimated Glomerular Filt Rate 68 ml/min (>60); GFR (African American) 82 ML/MIN (>60)
[2022-03-19 12:51] LABS: Albumin Level 4.3 g/dl (3.5-5.0); Albumin/Globulin Ratio 1.5 (1.1-1.8); Alkaline Phosphatase 80 U/L (38-126); Anion Gap 12.7 mEq/L (5-15); Bilirubin,Total 0.7 mg/dl (0.2-1.3); Calcium 9.2 mg/dl (8.4-10.2); Carbon Dioxide 27 mmol/L (22.0-30.0); Globulin 2.8 g/dL (1.3-3.2); Glucose 108 mg/dl (74-100); Total Protein,Serum 7.1 g/dl (6.3-8.2)
[2022-03-19 12:54] LABS: Alanine Aminotransferase 18 U/L (12-78); Aspartate Amino Transferase 50 U/L (14-36)
[2022-03-19 13:03] LABS: Amylase 75 U/L (30-110); Lipase 197 U/L (23-300)
[2022-03-19 15:14] VITALS: BP 117/71; PULSE 87; RESP 17; TEMP 36.7; O2SAT 98
[2022-03-19 15:20] VITALS: BP 117/71; PULSE 87; RESP 17; TEMP 36.7; O2SAT 98
== END 2022-03-19 15:20 | disposition home or self-care (01) ==
PROVIDERS: PCP Emergency Medicine; Visit Provider Emergency Medicine
DX: G43.909 Migraine, unspecified, not intractable, without status migrainosus (principal)
CPT/HCPCS: 36415; 80053; 82150; 83690; 85025; 96360; 96374; 96375; G0463

== ENCOUNTER 2022-04-15 11:08 | Outpatient (CLI) | payer OTHER, SELFPAY ==
[2022-04-15 11:35] VITALS: BP 131/95; PULSE 102; RESP 18; TEMP 36.6; O2SAT 99
[2022-04-15 13:40] VITALS: BP 130/95; PULSE 95; RESP 16; O2SAT 97
== END 2022-04-15 13:40 | disposition home or self-care (01) ==
PROVIDERS: PCP Emergency Medicine; Visit Provider Emergency Medicine
DX: R51.9 Headache, unspecified (principal)
CPT/HCPCS: 96360; 96375

== ENCOUNTER 2022-06-16 20:11 | Observation (INO) | payer OTHER, SELFPAY ==
[2022-06-16 20:13] VITALS: BP 135/93; PULSE 95; RESP 19; TEMP 36.7; O2SAT 99; BMI 29.0
[2022-06-16 20:36] VITALS: BP 135/93; PULSE 92; O2SAT 100
[2022-06-16 20:52] LABS: Basophils # 0.2 K/mm3 (0-0.2); Basophils % 1.3 % (0.1-2.0); Eosinophils # 0.1 K/mm3 (0.0-0.4); Eosinophils % 0.9 % (0.1-12.0); Hematocrit 40.5 % (37.0-47.0); Hemoglobin 13.8 g/dL (12.2-16.2); Lymphocytes # 3.6 K/mm3 (0.7-4.5); Lymphocytes % 26.4 % (10-50); Mean Corpuscular Volume 91.1 fl (81-99); Mean Platelet Volume 7.6 fl (7.4-10.4); Monocytes # 0.6 K/mm3 (0.1-1.0); Monocytes % 4.6 % (1.7-9.3); Neutrophils # 9.1 K/mm3 (1.8-7.8); Neutrophils % 66.8 % (37.0-80.0); Platelet Count 406 K/mm3 (142-424); Red Blood Count 4.45 M/mm3 (4.20-5.40); White Blood Count 13.7 K/mm3 (4.8-10.8)
[2022-06-16 20:54] LABS: Chloride 102 mmol/L (98-107); Potassium 3.7 mmoL/L (3.5-5.1); Sodium 139 mmol/L (136-145)
[2022-06-16 20:56] LABS: Alanine Aminotransferase 17 U/L (12-78); Amylase 128 U/L (30-110); Anion Gap 13.7 mEq/L (5-15); Aspartate Amino Transferase 23 U/L (14-36); Blood Urea Nitrogen 13 mg/dl (7-17); Carbon Dioxide 27 mmol/L (22.0-30.0); Creatinine Clearance Estimated 102 mL/min (50-200); Estimated Glomerular Filt Rate 68 ml/min (>60); GFR (African American) 82 ML/MIN (>60)
[2022-06-16 20:57] LABS: Albumin Level 4.8 g/dl (3.5-5.0); Albumin/Globulin Ratio 1.4 (1.1-1.8); Alkaline Phosphatase 82 U/L (38-126); Bilirubin,Total 0.8 mg/dl (0.2-1.3); Calcium 8.9 mg/dl (8.4-10.2); Globulin 3.5 g/dL (1.3-3.2); Glucose 98 mg/dl (74-100); Lipase 185 U/L (23-300); Total Protein,Serum 8.3 g/dl (6.3-8.2)
--- NOTE | 2022-06-16 20:58 | CT_ITS ---
PROCEDURE INFORMATION: Exam: CT Abdomen And Pelvis With Contrast Exam date and time: 06/16/2022 9:30 PM Age: 47 years old Clinical indication: Nausea and vomiting; Abdominal pain; Localized; Lower; Additional info: Abd pain, n/v/d, rectal bleeding TECHNIQUE: Imaging protocol: Computed tomography of the abdomen and pelvis with contrast. Radiation optimization: All CT scans at this facility use at least one of these dose optimization techniques: automated exposure control; mA and/or kV adjustment per patient size (includes targeted exams where dose is matched to clinical indication); or iterative reconstruction. Contrast material: ISOVUE; Contrast volume: 75 ml; Contrast route: IV; REPORTING DATA: Count of CT and Cardiac NM exams in prior 12 months: This patient has received [address] and 0 known cardiac nuclear medicine studies in the 12 months prior to the current study. COMPARISON: CT ANGIO ABDOMEN PELVIS 12/02/2021 8:55 AM FINDINGS: Liver: Normal. No mass. Gallbladder and bile ducts: Post cholecystectomy change. Pancreas: Normal enhancement. No ductal dilation. Spleen: No splenomegaly. Adrenal glands: No mass. Kidneys and ureters: No hydronephrosis. Stomach and bowel: Wall thickening of the transverse and descending colon. Appendix: No evidence of appendicitis. Intraperitoneal space: No significant fluid collection. No free air. Vasculature: Calcified atherosclerosis. Splenic artery aneurysms measuring 7 mm proximally and 9 mm distally. Left renal artery stent. Lymph nodes: No enlarged lymph nodes. Urinary bladder: No acute abnormality. Reproductive: No acute abnormality. Bones/joints: Mild scoliosis. No acute fracture. Soft tissues: 2.4 x 4.7 cm fat containing ventral hernia. IMPRESSION: Wall thickening of the transverse and descending colon most compatible with colitis.
--- NOTE | 2022-06-16 20:59 | PC.NURSE ---
Dr. magallon gave verbal order for CT scan of A/P with contrast and medication of Dilaudid 1mg IVP and Phenergan 25mg IV
[2022-06-16 21:00] VITALS: BP 132/91; PULSE 87; O2SAT 100
[2022-06-16 21:09] LABS: HCG Qualitative, Serum Negative (Negative)
--- NOTE | 2022-06-16 21:12 | HMH.EDABDPAI ---
Discharge Plan Disposition Patient Disposition: Admitted as Observation Chief Complaint: Abdominal Pain Prescriptions Prescriptions: No Action bisoprolol-hydrochlorothiazide 5-6.25 mg tablet 2 tab PO DAILY Qty: 90 3RF ciprofloxacin HCl [Cipro] 500 mg tablet 500 mg PO BID 5 Days Qty: 10 0RF ondansetron 4 mg tablet,disintegrating See Rx Instructions .Route .COMPLEX Qty: 60 1RF Rx Instructions: DISSOLVE ONE TABLET in MOUTH EVERY 4 HOURS MAY CAUSE DROWSINESS esomeprazole magnesium 20 mg capsule,delayed release(DR/EC) 20 mg PO BID Qty: 180 3RF clopidogrel 75 mg tablet 75 mg PO DAILY Qty: 90 3RF Rx Instructions: TAKE ONE TABLET BY MOUTH EVERY DAY bupropion HCl 150 mg tablet extended release 24 hr 150 mg PO DAILY Qty: 90 2RF rosuvastatin [Crestor] 10 mg tablet 10 mg PO HS Qty: 90 3RF Ozempic 1 mg/dose (4 mg/3 mL) pen injector 1 mg SQ WEEKLY Qty: 3 2RF aspirin 81 mg tablet,delayed release (DR/EC) 81 mg PO DAILY Qty: 90 3RF famotidine 20 mg tablet 20 mg PO BID Qty: 120 4RF amlodipine 5 mg tablet 5 mg PO QHS Qty: 90 3RF levothyroxine 50 mcg tablet See Rx Instructions .ROUTE .COMPLEX Qty: 90 0RF Dose Instruction: TAKE 1 TABLET BY MOUTH ONCE DAILY FOR THYROID Rx Instructions: TAKE 1 TABLET BY MOUTH ONCE DAILY FOR THYROID alprazolam [Xanax] 1 mg tablet 1 mg PO BID Qty: 60 1RF oxycodone-acetaminophen 10-325 mg tablet 1 tab PO QID Qty: 120 0RF valsartan [Diovan] 320 mg tablet 320 mg PO DAILY Referrals Follow up/Referrals: Dipak Del Rosario MD [Primary Care Provider] - See instructions Clinical Impressions Clinical Impression: Colitis, SIRS (systemic inflammatory response syndrome) Discharge ED Provider: Carin (ED)Dipak Abdominal Pain HPI General Chief Complaint: Abdominal Pain Stated Complaint: vomiting,abd pain,headache Time Seen by Provider: 06/16/22 21:00 Mode of Arrival: Family Vehicle Source of Information: Patient and Medical Record Limitations: No Limitations Description of Symptoms (Recalled from ER Triage Doc. by RN): Pt c/o ABD cramping, n/v/d, and headache. States ithe cramping and n/v began about 1pm today after eating some lettuce for lunch. She also report I just don't have anything left to come out but there is a little bright red blood with my diarrhea . History of Present Illness HPI narrative: pt with abd pain with crampy and had bldy diarrhea - progressive MD complaint: abdominal pain Onset (ago): hour(s) Consistency: colicky Location: diffuse Severity: moderate Associated symptoms: denies other symptoms Related Data Home Medications Medication Instructions Recorded Confirmed valsartan 320 mg tablet (Diovan) 320 mg PO DAILY bp 12/22/21 03/19/22 Previous Rx's Medication Instructions Recorded bisoprolol 5 2 tab PO DAILY blood pressure #90 11/26/21 mg-hydrochlorothiazide 6.25 mg tabs tablet ciprofloxacin HCl 500 mg tablet 500 mg PO BID 5 days #10 tabs 02/25/22 (Cipro) ondansetron 4 mg disintegrating See Rx Instructions .Route 03/08/22 tablet .COMPLEX Nausea & vomiting #60 tabs bupropion HCl 150 mg 24 hr tablet, 150 mg PO DAILY #90 tabs 03/16/22 extended release clopidogrel 75 mg tablet 75 mg PO DAILY Blood thinner #90 03/16/22 tabs esomeprazole magnesium 20 mg 20 mg PO BID GERD #180 caps 03/16/22 capsule,delayed release rosuvastatin 10 mg tablet (Crestor) 10 mg PO HS Cholesterol #90 tabs 04/23/22 semaglutide 1 mg/dose (4 mg/3 mL) 1 mg (0.75 mL) SQ WEEKLY #3 mL 04/27/22 subcutaneous pen injector (Ozempic) aspirin 81 mg tablet,delayed 81 mg PO DAILY Blood thinner #90 05/10/22 release tabs famotidine 20 mg tablet 20 mg PO BID severe reflux #120 05/10/22 tabs amlodipine 5 mg tablet 5 mg PO QHS HTN #90 tabs 05/14/22 levothyroxine 50 mcg tablet See Rx Instructions .Route 06/10/22 .COMPLEX #90 tabs alprazolam 1 mg tablet (Xanax) 1 mg PO BID anxiety #60 tab
--- NOTE | 2022-06-16 21:19 | PC.NURSE ---
Pt provided with warm blanket
--- NOTE | 2022-06-16 21:25 | PC.NURSE ---
PT gone to RAD via wheelchair
--- NOTE | 2022-06-16 21:39 | PC.NURSE ---
Pt back from RAD
[2022-06-16 22:00] VITALS: BP 146/87; PULSE 84; O2SAT 100
[2022-06-16 22:30] VITALS: BP 139/81; PULSE 83; O2SAT 100
--- NOTE | 2022-06-16 22:51 | PC.NURSE ---
Dr. Del Rosario at
--- NOTE | 2022-06-16 23:06 | PC.NURSE ---
Pt advised that she believed that her iv had blown. Pt iv checked by Esteban York, iv leonor back blood and flushed well.
--- NOTE | 2022-06-16 23:20 | PC.NURSE ---
hospitalist at bedside.
--- NOTE | 2022-06-16 23:35 | PC.NURSE ---
pt asking for more pain medication. Dr. Del Rosario notified and he stated it would be up to the hospitalist now. Jessica notified and she is placing orders for pt.
--- NOTE | 2022-06-16 23:56 | EXP.HP ---
History of Present Illness *Admission Date: 06/16/22 *Reason for visit:: abdominal pain *History of present illness: This is a 47-year-old female with past medical history of migraines, hypertension, coronary artery disease with 3 stents, splenic artery aneurysm, who presents emergency department today with complaints of abdominal pain. She reports sometimes after lunch she developed bloating and abdominal pain with mucousy diarrhea with small amount of blood noted. She reports vomiting that is also associated with this abdominal pain. She denies any sick contacts and reports that nobody that she has been around has had any gastric virus. She does state that she has been on Ozempic for approximately 4 months but has not had any issues with the medication. CT abdomen pelvis shows colitis as well as known splenic artery aneurysm. Amylase 128, lipase 185. She was medicated in the emergency department with parental medications for pain and nausea without relief. Due to this, she will be admitted to the hospital service for further evaluation and management. [facility] Disclaimer: The information contained in this section may have been updated after the patient was seen, as this information can be updated by other users. Medical History Adult hypothyroidism Anemia CAD (coronary artery disease) Carotid artery stenosis delivery delivered Chest pain Dyspnea Foraminal stenosis of cervical region History of stent insertion of renal artery HLD (hyperlipidemia) HTN (hypertension) (~12/17/21) Hyperglycemia Insulin resistance Migraine Migraine aura, persistent, intractable, with status migrainosus Near syncope Ovarian cyst Palpitations Pre-diabetes ADALI (renal artery stenosis) Splenic artery aneurysm Tobacco use Ventricular bigeminy Surgical History H/O exploratory laparotomy H/O hemorrhoidectomy History of left heart catheterization Hx laparoscopic cholecystectomy Family History Other FH: heart attack Family history of cancer Hypertension Social History Smoking Status: Never smoker second hand exposure: No alcohol intake: current counseling provided: none substance use type: denies use current occupational status: employed Travel in the last 8 weeks: [place] the [place] household members: spouse and family housing: house 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 occupational exposures/hazards: No caffeine: Yes Review of Systems Review of Systems Review of systems:: pertinent systems reviewed and negative unless documented below *Gastrointestinal Gastrointestinal: Reports abdominal pain, Reports belching, Reports bloating, Reports change in bowel habits, Reports change in stool character, Reports constipation, Reports cramping, Reports diarrhea, Reports dyspepsia and Reports vomiting Meds Home Medications and Allergies Home Medications Medication Instructions Recorded Confirmed Type bisoprolol 5 2 tab PO DAILY blood pressure #90 11/26/21 03/19/22 Rx mg-hydrochlorothiazide 6.25 mg tabs tablet valsartan 320 mg tablet (Diovan) 320 mg PO DAILY bp 12/22/21 03/19/22 History ciprofloxacin HCl 500 mg tablet 500 mg PO BID 5 days #10 tabs 02/25/22 03/19/22 Rx (Cipro) ondansetron 4 mg disintegrating See Rx Instructions .Route 03/08/22 03/19/22 Rx tablet .COMPLEX Nausea & vomiting #60 tabs bupropion HCl 150 mg 24 hr tablet, 150 mg PO DAILY #90 tabs 03/16/22 03/19/22 Rx extended release clopidogrel 75 mg tablet 75 mg PO DAILY Blood thinner #90 03/16/22 03/19/22 Rx tabs esomeprazole magnesium 20 mg 20 mg PO BID GERD #180 caps 03/16/22 03/19/22 Rx capsule,delayed release rosuvastatin 10 mg tablet (Crestor) 10 mg PO HS Cholesterol #90 tabs 04/23/22 Rx semaglutide 1 mg/dose (4
[2022-06-16 23:57] VITALS: BP 130/88; PULSE 87; RESP 22; TEMP 36.7; O2SAT 99
[2022-06-16 23:57] LABS: Coronavirus 19, PCR Not Detected (NotDetected); Influenza A, PCR Not Detected (NotDetected); Influenza B, PCR Not Detected (NotDetected)
--- NOTE | 2022-06-17 00:02 | PC.NURSE ---
Jorge called for bed assignment
--- NOTE | 2022-06-17 00:33 | PC.NURSE ---
Called report to Rachel Cm RN
[2022-06-17 00:35] LABS: Lactic Acid 0.6 mmol/L (0.7-2.1)
--- NOTE | 2022-06-17 00:56 | PC.NURSE ---
Pt arrived to floor via wheelchair @ 1308
[2022-06-17 01:04] VITALS: BP 148/109; PULSE 84; RESP 16; TEMP 36.7; O2SAT 100
[2022-06-17 01:05] VITALS: BMI 28.6
[2022-06-17 01:30] VITALS: O2SAT 100
[2022-06-17 04:00] VITALS: BP 138/79; PULSE 70; RESP 16; TEMP 36.7; O2SAT 100; BMI 28.6
[2022-06-17 04:55] LABS: Microscopic, Urine URINE MICROSCOPIC (MICROSCOPIC)
--- NOTE | 2022-06-17 05:31 | PC.NURSE ---
pt is alert and oriented x4, vss, pt complains of abdominal pain rates 3/10 after medication, and c/o nausea, pt without bm at this time to send sample, urine was collected and sent, no acute distress, no other issues or concerns at this time. abdomen soft with hyperactive bowel sounds.
[2022-06-17 06:05] LABS: Appearance,Urine CLEAR (Clear); Bilirubin,Urine Negative (Negative); Blood, Urine TRACE-I (Negative); Color,Urine YELLOW (Yellow); Glucose,Urine (UA) Negative (Negative); Ketones,Urine TRACE (Negative); Leukocyte Esterase,Urine Negative (Negative); Nitrate,Urine Negative (Negative); Protein,Urine Negative (Negative); Urobilinogen,Urine 0.2 EU/dl (0.2)
[2022-06-17 06:59] LABS: Mean Corpuscular Hemoglobin 31.1 pg (27.0-31.2); Monocytes # 0.5 K/mm3 (0.1-1.0)
[2022-06-17 07:06] VITALS: BP 130/75; PULSE 66; RESP 17; TEMP 36.7; O2SAT 97
[2022-06-17 07:06] LABS: Anion Gap 7.6 mEq/L (5-15); Blood Urea Nitrogen 10 mg/dl (7-17); Calcium 8.1 mg/dl (8.4-10.2); Carbon Dioxide 26 mmol/L (22.0-30.0); Chloride 106 mmol/L (98-107); Creatinine Clearance Estimated 113 mL/min (50-200); Estimated Glomerular Filt Rate 78 ml/min (>60); GFR (African American) 94 ML/MIN (>60); Glucose 86 mg/dl (74-100); Magnesium 2.1 mg/dl (1.6-2.3); Potassium 3.6 mmoL/L (3.5-5.1); Sodium 136 mmol/L (136-145)
[2022-06-17 07:10] LABS: Basophils # 0.1 K/mm3 (0-0.2); Basophils % 0.9 % (0.1-2.0); Eosinophils # 0.1 K/mm3 (0.0-0.4); Eosinophils % 1.5 % (0.1-12.0); Hematocrit 36.3 % (37.0-47.0); Lymphocytes # 2.5 K/mm3 (0.7-4.5); Lymphocytes % 32.6 % (10-50); Mean Corpuscular HGB Conc 32.5 g/dL (31.8-35.4); Mean Corpuscular Volume 95.7 fl (81-99); Mean Platelet Volume 7.6 fl (7.4-10.4); Monocytes % 6.8 % (1.7-9.3); Neutrophils # 4.5 K/mm3 (1.8-7.8); Neutrophils % 58.3 % (37.0-80.0); Platelet Count 278 K/mm3 (142-424); Red Cell Distribution Width 13.2 % (11.5-17.5); White Blood Count 7.7 K/mm3 (4.8-10.8)
[2022-06-17 07:14] LABS: Hemoglobin 11.8 g/dL (12.2-16.2)
[2022-06-17 07:14] LABS: WBC,Urine Occasional #/hpf (0-3)
--- NOTE | 2022-06-17 08:23 | HMH.PHAINT1 ---
Pharmacy Intervention Comments: Medication reconciliation completed using external fill history and patient interview
[2022-06-17 10:37] VITALS: BP 136/77; PULSE 67; RESP 17; TEMP 36.8; O2SAT 98
--- NOTE | 2022-06-17 11:16 | EXP.DC.SUM ---
General Admission date:: 06/17/22 Discharge date: 06/17/22 HPI HPI HPI: This is a 47-year-old female with past medical history of migraines, hypertension, coronary artery disease with 3 stents, splenic artery aneurysm, who presents emergency department today with complaints of abdominal pain. She reports sometimes after lunch she developed bloating and abdominal pain with mucousy diarrhea with small amount of blood noted. She reports vomiting that is also associated with this abdominal pain. She denies any sick contacts and reports that nobody that she has been around has had any gastric virus. She does state that she has been on Ozempic for approximately 4 months but has not had any issues with the medication. CT abdomen pelvis shows colitis as well as known splenic artery aneurysm. Amylase 128, lipase 185. She was medicated in the emergency department with parental medications for pain and nausea without relief. Due to this, she will be admitted to the hospital service for further evaluation and management. Hospital Course Hospital Course Hospital Course: The patient was admitted to the medical unit with routine vital assessments. She was maintained on IV fluid resuscitation, antiemetic therapy and IV antibiotic therapy. Her laboratory studies and inflammatory markers were trended and identified an improvement. She identified an improvement in her symptomatology and inquired about discharge home. We reviewed CT of her abdomen results and she reports a colonoscopy 2 years ago reported as normal. She reports recently starting GLP-1 agonist when her symptoms began. We have recommended holding her medication until follow-up with her PCP for further discussion. She will be discharged home with a short course of antibiotic therapy for identified colitis. She understands the importance of following up with her PCP next week. Exam Data for Last 24 hours Vital signs and Labs for Last 24 Hours: Temp Pulse Resp BP Pulse Ox 98.3 F 67 17 136/77 98 06/17/22 10:37 06/17/22 10:37 06/17/22 10:37 06/17/22 10:37 06/17/22 10:37 Laboratory Results - last 24 hr 06/16/22 20:35: WBC 13.7 H, RBC 4.45, Hgb 13.8, Hct 40.5, MCV 91.1, MCH 31.0, MCHC 34.0, RDW 13.0, Plt Count 406, MPV 7.6, Neut % (Auto) 66.8, Lymph % (Auto) 26.4, Cochran % (Auto) 4.6, Eos % (Auto) 0.9, Baso % (Auto) 1.3, Neut # (Auto) 9.1 H, Lymph # (Auto) 3.6, Cochran # (Auto) 0.6, Eos # (Auto) 0.1, Baso # (Auto) 0.2 06/16/22 20:35: Sodium 139, Potassium 3.7, Chloride 102, Carbon Dioxide 27, Anion Gap 13.7, BUN 13, Creatinine 0.90, Estimated Creat Clear 102, Estimated GFR 68, Est GFR ( Amer) 82, Glucose 98, Calcium 8.9, Total Bilirubin 0.8, AST 23, ALT 17, Alkaline Phosphatase 82, Total Protein 8.3 H, Albumin 4.8, Globulin 3.5 H, Albumin/Globulin Ratio 1.4, Amylase 128 H, Lipase 185 06/16/22 20:35: Serum HCG, Qual Negative 06/16/22 22:59: SARS-CoV-2 (PCR) Not detected, Influenza A Untype (PCR) Not detected, Influenza Type B (PCR) Not detected 06/17/22 00:21: Lactate 0.6 L 06/17/22 04:42: Urine Color Yellow, Urine Appearance Clear, Urine pH 6.0, Ur Specific Perkins 1.020, Urine Protein Negative, Urine Glucose (UA) Negative, Urine Ketones Trace, Urine Blood Trace-i, Urine Nitrate Negative, Urine Bilirubin Negative, Urine Urobilinogen 0.2, Ur Leukocyte Esterase Negative, Urine RBC None, Urine WBC Occasional, Ur Squamous Epith Cells 3-5, Urine Bacteria None 06/17/22 06:25: WBC 7.7 D, RBC 3.80 L, Hgb 11.8 L D, Hct 36.3 L, MCV 95.7, MCH 31.1, MCHC 32.5, RDW 13.2, Plt Count 278 D, MPV 7.6, Neut % (Auto) 58.3, Lymph % (Auto) 32.6, Cochran % (Auto) 6.8, Eos % (Auto) 1.5, Baso % (Auto) 0.9, Neut # (Auto) 4.5, Lymph # (Auto) 2.5, Cochran # (Auto) 0.5, Eos # (Auto) 0.1, Baso # (Auto) 0.1 03/02/23 06:25: Sodium 136, Potassium 3.6, Chloride 106, Carbon Dioxide 26, Anion Gap 7.6, BUN 10, Creatinine 0.80, Estimated Creat Clear 113, Estimated GFR 78, Est GFR ( Amer) 94, Glucose 86, Calcium 8.1 L, Magnes
--- NOTE | 2022-06-17 11:22 | HMH.PHAINT1 ---
Pharmacy Intervention Comments: Discussed discharge medications with patient. Patient verbalized understanding and had no questions at this time.
--- NOTE | 2022-06-18 14:05 | CARE MANAGER ---
Called and spoke with patient to discuss recent discharge. Patient states that she picked up medication prescribed at discharge and she is aware of f/u appointment with Dr. Del Rosario.
== END 2022-06-17 12:41 | disposition home or self-care (01) ==
LOC: ER 06-17 00:16 → 2ND 06-17 01:16
PROVIDERS: Nurse Practitioner Acute Care; Admitting Provider Family Medicine; Emergency Provider Emergency Medicine; PCP Emergency Medicine; Visit Provider Family Medicine
DX: K52.9 Noninfective gastroenteritis and colitis, unspecified (principal); Z95.5 Presence of coronary angioplasty implant and graft; Z95.828 Presence of other vascular implants and grafts; I10 Essential (primary) hypertension; I25.10 Atherosclerotic heart disease of native coronary artery without angina pectoris; Z79.01 Long term (current) use of anticoagulants; Z79.899 Other long term (current) drug therapy; E03.9 Hypothyroidism, unspecified; I65.22 Occlusion and stenosis of left carotid artery; G43.909 Migraine, unspecified, not intractable, without status migrainosus
CPT/HCPCS: 36415; 74177; 80048; 80053; 81001; 82150; 83605; 83690; 83735; 84703; 85025; 99285; C9803; G0378; J2405; J2543; Q9967; U0003; U0005

== ENCOUNTER 2022-11-26 09:06 | Outpatient (CLI) | payer OTHER, SELFPAY ==
[2022-11-26 09:40] VITALS: BP 156/87; PULSE 89; RESP 16; TEMP 36.9; O2SAT 100; BMI 29.0
[2022-11-26 10:13] LABS: Chloride 103 mmol/L (98-107)
[2022-11-26 10:14] LABS: Potassium 4.1 mmoL/L (3.5-5.1); Sodium 136 mmol/L (136-145)
[2022-11-26 10:16] LABS: Alanine Aminotransferase 40 U/L (12-78); Anion Gap 11.1 mEq/L (5-15); Aspartate Amino Transferase 36 U/L (14-36); Basophils % 0.5 % (0.1-2.0); Blood Urea Nitrogen 12 mg/dl (7-17); Carbon Dioxide 26 mmol/L (22.0-30.0); Creatinine Clearance Estimated 131 mL/min (50-200); Eosinophils # 0.2 K/mm3 (0.0-0.4); Eosinophils % 2.1 % (0.1-12.0); Estimated Glomerular Filt Rate 90 ml/min (>60); GFR (African American) 109 ML/MIN (>60); Hemoglobin 12.7 g/dL (12.2-16.2); Lymphocytes # 1.8 K/mm3 (0.7-4.5); Lymphocytes % 24.5 % (10-50); Mean Corpuscular HGB Conc 32.5 g/dL (31.8-35.4); Mean Corpuscular Hemoglobin 30.2 pg (27.0-31.2); Mean Corpuscular Volume 92.9 fl (81-99); Mean Platelet Volume 7.7 fl (7.4-10.4); Monocytes # 0.4 K/mm3 (0.1-1.0); Monocytes % 5.9 % (1.7-9.3); Neutrophils % 66.9 % (37.0-80.0); Platelet Count 249 K/mm3 (142-424); Red Cell Distribution Width 13.2 % (11.5-17.5); White Blood Count 7.5 K/mm3 (4.8-10.8)
[2022-11-26 10:17] LABS: Albumin Level 3.8 g/dl (3.5-5.0); Albumin/Globulin Ratio 1.1 (1.1-1.8); Alkaline Phosphatase 96 U/L (38-126); Bilirubin,Total 0.4 mg/dl (0.2-1.3); Calcium 9.2 mg/dl (8.4-10.2); Chol/HDL Ratio 3.2 (1-3.5); Cholesterol 161 mg/dl (140-200); Globulin 3.4 g/dL (1.3-3.2); Glucose 105 mg/dl (74-100); HDL Cholesterol 50 mg/dl (40-60); Total Protein,Serum 7.2 g/dl (6.3-8.2); Triglycerides 101 mg/dl (30-150); VLDL Cholesterol 20 mg/dL (0-40)
[2022-11-26 10:28] LABS: Direct LDL Cholesterol 75.39 mg/dL (100-129)
[2022-11-26 10:48] LABS: Thyroid Stimulating Hormone 4.24 uIU/mL (0.465-4.68)
[2022-11-26 11:50] VITALS: BP 136/89; PULSE 78; RESP 16; TEMP 36.6; O2SAT 99
[2022-11-26 11:51] LABS: 25-OH Vitamin D, Total 45.2 ng/mL (30-100)
== END 2022-11-26 11:50 | disposition home or self-care (01) ==
PROVIDERS: PCP Emergency Medicine; Visit Provider Emergency Medicine
DX: E86.0 Dehydration (principal); G43.909 Migraine, unspecified, not intractable, without status migrainosus; R11.2 Nausea with vomiting, unspecified; E66.9 Obesity, unspecified; Z68.29 Body mass index [BMI] 29.0-29.9, adult
CPT/HCPCS: 36415; 80053; 80061; 82306; 84436; 84443; 85025; 96360; 96365; 96374; 96375; G0463

== ENCOUNTER → 2022-12-06 15:01 | Outpatient (CLI) | payer OTHER, SELFPAY ==
[2022-12-06 15:37] LABS: Basophils # 0.1 K/mm3 (0-0.2); Basophils % 0.7 % (0.1-2.0); Eosinophils # 0.1 K/mm3 (0.0-0.4); Eosinophils % 1.2 % (0.1-12.0); Hematocrit 38.6 % (37.0-47.0); Hemoglobin 12.8 g/dL (12.2-16.2); Lymphocytes % 31.2 % (10-50); Mean Corpuscular HGB Conc 33.3 g/dL (31.8-35.4); Mean Corpuscular Hemoglobin 31.3 pg (27.0-31.2); Mean Platelet Volume 7.3 fl (7.4-10.4); Monocytes # 0.5 K/mm3 (0.1-1.0); Monocytes % 5.6 % (1.7-9.3); Neutrophils % 61.4 % (37.0-80.0); Platelet Count 415 K/mm3 (142-424); Red Cell Distribution Width 13.3 % (11.5-17.5); White Blood Count 9.8 K/mm3 (4.8-10.8)
[2022-12-06 16:00] LABS: Alanine Aminotransferase 25 U/L (12-78); Albumin Level 4.3 g/dl (3.5-5.0); Albumin/Globulin Ratio 1.4 (1.1-1.8); Alkaline Phosphatase 96 U/L (38-126); Anion Gap 11.7 mEq/L (5-15); Aspartate Amino Transferase 25 U/L (14-36); Bilirubin,Total 0.6 mg/dl (0.2-1.3); Blood Urea Nitrogen 14 mg/dl (7-17); Calcium 8.9 mg/dl (8.4-10.2); Carbon Dioxide 27 mmol/L (22.0-30.0); Chloride 105 mmol/L (98-107); Cholesterol 172 mg/dl (140-200); Estimated Glomerular Filt Rate 49 ml/min (>60); GFR (African American) 59 ML/MIN (>60); Globulin 3.1 g/dL (1.3-3.2); Glucose 100 mg/dl (74-100); HDL Cholesterol 57 mg/dl (40-60); Potassium 3.7 mmoL/L (3.5-5.1); Sodium 140 mmol/L (136-145); Total Protein,Serum 7.4 g/dl (6.3-8.2); Triglycerides 133 mg/dl (30-150); VLDL Cholesterol 27 mg/dL (0-40)
[2022-12-06 16:11] LABS: Direct LDL Cholesterol 79.94 mg/dL (100-129)
[2022-12-06 16:17] LABS: HCG,Quantitative < 2 mIU/ml (0-5.42)
[2022-12-06 16:18] LABS: 25-OH Vitamin D, Total 41.5 ng/mL (30-100)
[2022-12-06 16:19] LABS: Free T4 (Free Thyroxine) 0.94 ng/dl (0.78-2.19)
[2022-12-06 16:31] LABS: Thyroid Stimulating Hormone 2.13 uIU/mL (0.465-4.68)
[2022-12-08 10:20] LABS: FSH 22.2 mIU/mL (.); LH 24.8 mIU/mL (.)
== END ==
PROVIDERS: PCP Emergency Medicine; Visit Provider Nurse Practitioner Obstetrics & Gynecology
DX: N92.6 Irregular menstruation, unspecified (principal); E55.9 Vitamin D deficiency, unspecified; E66.9 Obesity, unspecified; Z79.899 Other long term (current) drug therapy
CPT/HCPCS: 36415; 80053; 80061; 82306; 83001; 83002; 84439; 84443; 84702; 85025

== ENCOUNTER → 2023-03-01 07:56 | Outpatient (CLI) | payer OTHER, SELFPAY ==
--- NOTE | 2023-03-01 07:57 | MM_ITS ---
PROCEDURE INFORMATION: Exam: MG Bilateral Screening 3D Mammography Exam date and time: 03/01/2023 7:47 AM Age: 47 years old Clinical indication: Screening examination TECHNIQUE: Imaging protocol: Bilateral Screening tomosynthesis and 2D mammography including computer-aided detection (CAD) when performed. COMPARISON: 1. MG MM DIG MAMM DX UNILAT RT CAD 05/18/2021 11:27 AM 2. MG MM DIG SCREENING MAMM BI W/CAD 05/07/2021 9:00 AM FINDINGS: MAMMOGRAPHY: Breast composition: The breasts are heterogeneously dense, which may obscure small masses. Mass: None. Architectural distortion: None. Calcifications: No suspicious calcifications. Asymmetric density: None. Skin thickening: None. Axillary adenopathy: None. IMPRESSION: No mammographic evidence of malignancy. Annual screening is recommended unless otherwise clinically indicated. ASSESSMENT: BI-RADS Category 1: Negative
== END ==
PROVIDERS: PCP Emergency Medicine; Visit Provider Nurse Practitioner Obstetrics & Gynecology
DX: Z12.31 Encounter for screening mammogram for malignant neoplasm of breast (principal)
CPT/HCPCS: 77063; 77067

== ENCOUNTER 2023-06-15 10:56 | Outpatient (CLI) | payer OTHER, SELFPAY ==
[2023-06-15 15:42] LABS: Hemoglobin A1C 5.6 % (4.0-6.0)
== END 2023-06-15 23:59 ==
PROVIDERS: Visit Provider Internal Medicine
DX: R73.03 Prediabetes (principal); E66.9 Obesity, unspecified; Z68.32 Body mass index [BMI] 32.0-32.9, adult
CPT/HCPCS: 36415; 83036

== ENCOUNTER 2023-06-29 15:45 | Outpatient (CLI) | payer OTHER, SELFPAY ==
--- NOTE | 2023-06-29 15:57 | CA_ITS ---
FINAL REPORT CLINICAL HISTORY: edema of BLE FINDINGS: Color Doppler, duplex Doppler and compression sonography of the bilateral lower extremities was performed. There is no evidence of deep venous thrombosis from the level of the groin to the calf. The deep veins are patent and compressible. IMPRESSION: No evidence of deep venous thrombosis bilateral lower extremities. Reviewed, Interpreted and Dictated by Gavino Amor III, MD Transcribed by Ellen Lim Authenticated and [facility]
--- NOTE | 2023-06-29 15:57 | CA_ITS ---
FINAL REPORT TECHNIQUE: Duplex color Doppler with spectral analysis performed of the lower extremities. CLINICAL HISTORY: edema of BLE FINDINGS: RIGHT LOWER EXTREMITY: Velocities cm/sec: PROCEDURE MANAGER: 143 Prof A: 122 SFA Prox: 93 SFA Mid: 99 SFA Dist: 99 LIFT SUPERVISOR: 69 MERYL: 77 Per A Prox: 65 Waveforms are triphasic and biphasic. LEFT LOWER EXTREMITY: Velocities cm/sec: PROCEDURE MANAGER: 165 Prof A: 104 SFA Prox: 137 SFA Mid: 127 SFA Dist: 98 LIFT SUPERVISOR: 75 MERYL: 73 Per A Prox: 81 Waveforms are triphasic and biphasic. IMPRESSION: No significant peripheral artery disease. Reviewed, Interpreted and Dictated by Gavino Amor III, MD Transcribed by Ellen Lim Authenticated and [facility]
== END 2023-06-29 23:59 ==
LOC: RT 15:46
PROVIDERS: PCP Family Medicine; Visit Provider Internal Medicine
DX: R60.0 Localized edema (principal)
CPT/HCPCS: 93925; 93970

== ENCOUNTER 2023-06-30 10:56 | Outpatient (CLI) | payer OTHER, SELFPAY ==
--- NOTE | 2023-06-30 10:57 | CA_ITS ---
APPROVED REPORT EXAM: Comprehensive 2D, Doppler, and color-flow Echocardiogram Hospice Volunteer Coordinator: Lois Stiles, RT(R) Ht: 5 ft 6 in Wt: 205lbs BSA: 2.02 BP: 132/74 mmHg Indications: ex smoker, JANEL, ADALI with stent, HTN 2D Dimensions LVEF (Connor's) 55.10 % F: 54 - 74 LV Volume 107.30 mL F: 46 - 106 LV Volume Index 53.1 mL/m2 F: 29 - 61 LA Volume 32.00 mL LA Volume Index 15.84 mL/m2 (M/F) 16-34 EF AP4 60.60 % EF AP2 43.1 % EF BP 55.1 % GL Strain -18.2 % M-Mode Dimensions RVDd 1.93 cm (0.9-2.6) LA Diam 3.23 cm (1.9-4.0) LVDd 4.75 cm (3.5-5.7) LVDs 3.54 cm (3.5-5.7) IVSd 0.85 cm (0.6-1.1) PWd 0.97 cm (0.6-1.1) EF (Teich) 50.10% FS 25.50% EDV (Teich) 104.90 mL ESV (Teich) 52.30 mL LV Diastology E Decel Time 150 (160-240 msec) E/A Ratio 1.5 Mitral Valve MV E Max Ramesh. 98.0 (40-130 cm/s) MV A Velocity 65.0 (40-130 cm/s) E/A Ratio 1.51 MV PHT 44.0 ms Tricuspid Valve TR P. Velocity 251.00 cm/s RAP Estimate 10.00 mmHg RVSP 35.20 mmHg Left Ventricle The left ventricle is normal size. The left ventricular systolic function is normal. The left ventricular ejection fraction is within the normal range. There is normal left ventricular wall thickness. There is normal LV segmental wall motion. The left ventricular diastolic function is normal. LVEF is 60%. Right Ventricle The right ventricle is normal size. The right ventricular systolic function is normal. Atria The left atrium size is normal. The right atrium size is normal. There is no Doppler evidence of interatrial shunt. Aortic Valve The aortic valve opens well. There is no aortic valvular stenosis. No aortic regurgitation is present. Mitral Valve The mitral valve is normal in structure. No evidence of mitral valve stenosis. Trace mitral regurgitation. Tricuspid Valve The tricuspid valve leaflets are thin and pliable. Mild tricuspid regurgitation. RVSP is 20-25 mmHg. Pulmonic Valve The pulmonary valve is normal in structure. Trace pulmonic regurgitation. Great Vessels The aortic root is normal in size. The ascending aorta is normal in size. IVC is normal in size and collapses >50% with inspiration. Pericardium There is no pericardial effusion. Other Information Study Quality: Adequate Conclusion Normal biventricular systolic function. Mild TR. Electronically signed by : Lay Cordova MD 06/30/2023 13:15:39
[2023-06-30 13:49] LABS: Basophils % 0.5 % (0.1-2.0); Eosinophils # 0.3 K/mm3 (0.0-0.4); Eosinophils % 4.2 % (0.1-12.0); Hematocrit 36.7 % (37.0-47.0); Hemoglobin 12.1 g/dL (12.2-16.2); Lymphocytes # 2.3 K/mm3 (0.7-4.5); Lymphocytes % 39.8 % (10-50); Mean Corpuscular HGB Conc 32.8 g/dL (31.8-35.4); Mean Corpuscular Hemoglobin 32.3 pg (27.0-31.2); Mean Corpuscular Volume 98.5 fl (81-99); Monocytes # 0.4 K/mm3 (0.1-1.0); Monocytes % 6.4 % (1.7-9.3); Neutrophils # 2.9 K/mm3 (1.8-7.8); Neutrophils % 49.1 % (37.0-80.0); Platelet Count 274 K/mm3 (142-424); Red Blood Count 3.73 M/mm3 (4.20-5.40); White Blood Count 5.9 K/mm3 (4.8-10.8)
[2023-06-30 14:50] LABS: Chloride 104 mmol/L (98-107); Potassium 3.8 mmoL/L (3.5-5.1); Sodium 137 mmol/L (136-145)
[2023-06-30 14:53] LABS: Anion Gap 6.8 mEq/L (5-15); Blood Urea Nitrogen 11 mg/dl (7-17); Carbon Dioxide 30 mmol/L (22.0-30.0); Estimated Glomerular Filt Rate 60 ml/min (>60); GFR (African American) 72 ML/MIN (>60)
[2023-06-30 14:54] LABS: Calcium 8.8 mg/dl (8.4-10.2); Glucose 82 mg/dl (74-100)
[2023-06-30 15:09] LABS: NT Pro Brain Natriuretic Pep. 69.2 pg/mL (0-125)
[2023-06-30 18:17] LABS: Creatinine,Urine Random 140 mg/dL (Not Estab.)
[2023-06-30 18:27] LABS: Microalbumin < 6.000 mg/L (0-16.7)
== END 2023-06-30 23:59 ==
LOC: RT 10:56
PROVIDERS: Visit Provider Internal Medicine
DX: R60.0 Localized edema (principal)
CPT/HCPCS: 36415; 80048; 82043; 82570; 83880; 85025; 93306

== ENCOUNTER 2023-09-07 13:51 | Outpatient (CLI) | payer OTHER, SELFPAY ==
--- NOTE | 2023-09-07 13:51 | US_ITS ---
PROCEDURE INFORMATION: Exam: US Left Breast, Complete US Right Breast, Complete Exam date and time: 09/07/2023 2:01 PM Age: 48 years old Clinical indication: Bilateral breast pain TECHNIQUE: Imaging protocol: Complete ultrasound of all four quadrants of the left breast and the retroareolar regions, including ultrasound of the axilla when performed. Complete ultrasound of all four quadrants of the right breast and the retroareolar regions, including ultrasound of the axilla when performed. COMPARISON: MG MM DIG SCREENING MAMM BI W/CAD 03/01/2023 7:47 AM FINDINGS: ULTRASOUND: Breast ultrasound findings: Sonographic images of both breasts including the retroareolar regions, all 4 quadrants and the axilla do not demonstrate any solid masses. Minimal subcentimeter cystic change is present bilaterally. No architectural distortion or acoustical shadowing. No skin thickening or axillary adenopathy. IMPRESSION: No sonographic evidence of malignancy. Annual mammographic screening is recommended unless otherwise clinically indicated. ASSESSMENT: BI-RADS Category 2: Benign.
== END 2023-09-07 23:59 | disposition home or self-care (01) ==
LOC: RAD 13:51
PROVIDERS: PCP Family Medicine; Visit Provider Nurse Practitioner Obstetrics & Gynecology
DX: N64.4 Mastodynia (principal)
CPT/HCPCS: 76641

== ENCOUNTER 2024-01-16 08:29 | Outpatient (CLI) | payer OTHER, SELFPAY ==
[2024-01-16 09:09] LABS: Basophils # 0.1 K/mm3 (0-0.2); Basophils % 0.7 % (0.1-2.0); Eosinophils # 0.1 K/mm3 (0.0-0.4); Eosinophils % 1.7 % (0.1-12.0); Hematocrit 42.8 % (37.0-47.0); Lymphocytes # 2.3 K/mm3 (0.7-4.5); Mean Corpuscular HGB Conc 32.6 g/dL (31.8-35.4); Mean Corpuscular Hemoglobin 31.7 pg (27.0-31.2); Mean Platelet Volume 6.9 fl (7.4-10.4); Monocytes # 0.5 K/mm3 (0.1-1.0); Monocytes % 6.1 % (1.7-9.3); Neutrophils # 5.1 K/mm3 (1.8-7.8); Neutrophils % 63.5 % (37.0-80.0); Platelet Count 333 K/mm3 (142-424); Red Blood Count 4.41 M/mm3 (4.20-5.40)
[2024-01-16 09:38] LABS: Hemoglobin A1C 5.2 % (4.0-6.0)
[2024-01-16 09:47] LABS: Albumin Level 4.4 g/dl (3.5-5.0); Chloride 103 mmol/L (98-107); Potassium 3.3 mmoL/L (3.5-5.1); Sodium 137 mmol/L (136-145)
[2024-01-16 09:50] LABS: Alanine Aminotransferase 31 U/L (12-78); Alkaline Phosphatase 71 U/L (38-126); Anion Gap 12.3 mEq/L (5-15); Aspartate Amino Transferase 30 U/L (14-36); Bilirubin,Direct 0.2 mg/dl (0.0-0.4); Bilirubin,Indirect 0.6 mg/dL (0.0-0.9); Bilirubin,Total 0.8 mg/dl (0.2-1.3); Bilirubin,Unconjugated 0.6 mg/dL (0.0-1.1); Blood Urea Nitrogen 7 mg/dl (7-17); Carbon Dioxide 25 mmol/L (22.0-30.0); Cholesterol 166 mg/dl (140-200); Estimated Glomerular Filt Rate 67 ml/min (>60); GFR (African American) 82 ML/MIN (>60); Total Protein,Serum 7.2 g/dl (6.3-8.2); Triglycerides 153 mg/dl (30-150); VLDL Cholesterol 31 mg/dL (0-40)
[2024-01-16 09:51] LABS: Calcium 9.3 mg/dl (8.4-10.2); Chol/HDL Ratio 3.4 (1-3.5); Glucose 114 mg/dl (74-100); HDL Cholesterol 49 mg/dl (40-60)
[2024-01-16 10:02] LABS: Direct LDL Cholesterol 72.15 mg/dL (100-129)
[2024-01-16 10:08] LABS: Free T4 (Free Thyroxine) 1.12 ng/dl (0.78-2.19)
== END 2024-01-16 23:59 | disposition home or self-care (01) ==
PROVIDERS: Physician Assistant; PCP Family Medicine; Visit Provider Internal Medicine
DX: I11.9 Hypertensive heart disease without heart failure (principal); E78.2 Mixed hyperlipidemia; I70.1 Atherosclerosis of renal artery; Z72.0 Tobacco use; I65.22 Occlusion and stenosis of left carotid artery; I25.10 Atherosclerotic heart disease of native coronary artery without angina pectoris; K21.9 Gastro-esophageal reflux disease without esophagitis; R06.00 Dyspnea, unspecified; E66.9 Obesity, unspecified; Z68.32 Body mass index [BMI] 32.0-32.9, adult; I10 Essential (primary) hypertension; E88.810 Metabolic syndrome
CPT/HCPCS: 36415; 80048; 80061; 80076; 83036; 84439; 84443; 85025

== ENCOUNTER 2024-11-23 10:43 | Outpatient (CLI) | payer OTHER, SELFPAY | END 2024-11-23 23:59 | disposition home or self-care (01) | LOC: LAB.DROPOF 11-26 10:43 | PROVIDERS: PCP Family Medicine; Visit Provider Family Medicine | DX: R10.9 Unspecified abdominal pain (principal); R31.9 Hematuria, unspecified | CPT/HCPCS: 87086 ==

== ENCOUNTER 2024-11-29 10:46 | Outpatient (CLI) | payer OTHER, SELFPAY ==
[2024-11-29 11:11] LABS: Blood Urea Nitrogen 12 mg/dl (7-17); Creatinine,Serum 0.80 mg/dl (0.52-1.04); Estimated Glomerular Filt Rate 77 ml/min (>60); GFR (African American) 93 ML/MIN (>60)
--- NOTE | 2024-11-29 11:30 | CT_ITS ---
FINAL REPORT TECHNIQUE: Thin section axial images were obtained through the abdomen and pelvis after contrast injection per CT angiogram protocol. Multiplanar reconstruction images were obtained from the axial data. This exam was performed with techniques to keep radiation dose as low as reasonably achievable. This includes automated exposure control, adjustment of the MA and KVP, and iterative reconstruction technique. CLINICAL HISTORY: Splenic artery aneurysm; RLQ pain COMPARISON: 06/16/2022 FINDINGS: CTA: No abdominal aortic aneurysm or aortic dissection. Mesenteric vessels are patent without stenosis. Left renal artery stent is present. The renal arteries are patent. There are 2 splenic artery aneurysms. More proximal measures 9 mm and was 9 mm on remeasurement. More distal aneurysm is partially thrombosed measuring 14 mm on axial imaging and was 13 mm on remeasurement. Findings are unchanged. Bilateral common iliac arteries, internal and external iliac arteries are patent without stenosis. NONVASCULAR: The gallbladder is absent. The solid abdominal organs are without acute abnormality. The GI tract is without acute abnormality, no evidence of obstruction or wall thickening. There may be endometrial thickening of the uterus. No lymphadenopathy or free fluid. No acute osseous abnormality. IMPRESSION: Stable splenic artery aneurysms. No acute abnormality. Possible endometrial thickening. Consider ultrasound if patient has abnormal bleeding. Reviewed, Interpreted and Dictated by Anuradha Wei MD Transcribed by Ellen Lim Authenticated and [facility]
[2024-11-29] MEDS: IOPAMIDOL-370 (76%);100ML BOTTLE 100 ML IV (11:37)
[2024-11-29] MEDS: SODIUM CHLORIDE 0.9% 10ML SYR (RAD ONLY) 10 ML IV (11:37)
[2024-11-29] MEDS: 0.9 % SODIUM CHLORIDE 50 ML VIAL IV (11:37)
== END 2024-11-29 23:59 | disposition home or self-care (01) ==
LOC: RAD 10:46
PROVIDERS: PCP Family Medicine; Visit Provider Family Medicine
DX: I72.8 Aneurysm of other specified arteries (principal); R10.31 Right lower quadrant pain; R93.5 Abnormal findings on diagnostic imaging of other abdominal regions, including retroperitoneum
CPT/HCPCS: 74174; 82565; 84520; Q9967

== ENCOUNTER 2025-03-13 08:22 | Outpatient (CLI) | payer OTHER, SELFPAY ==
--- NOTE | 2025-03-13 08:30 | MM_ITS ---
PROCEDURE INFORMATION: Exam: MG Bilateral Screening 3D Mammography Exam date and time: 03/13/2025 8:34 AM Age: 49 years old Clinical indication: Screen. Paternal aunt and paternal grandmother had breast cancer. TECHNIQUE: Imaging protocol: Bilateral Screening tomosynthesis and 2D mammography including computer-aided detection (CAD) when performed. COMPARISON: 1. MG MM DIG SCREENING MAMM BI W/CAD 03/01/2023 7:47 AM 2. MG MM DIG SCREENING MAMM BI W/CAD 05/07/2021 9:00 AM 3. MG DMSB DIG MAMM-SCREEN KELLY 02/10/2015 10:52 AM 4. MG DMDXUAVR DIG MAMM-DX UNI ADD VIEWS-RT 02/08/2014 1:52 PM FINDINGS: MAMMOGRAPHY: Breast composition: The breasts are heterogeneously dense, which may obscure small masses. Mass: None. Architectural distortion: None. Calcifications: No suspicious calcifications. Asymmetric density: No developing asymmetry. Skin thickening: None. Axillary adenopathy: None. IMPRESSION: No mammographic evidence of malignancy. Annual screening is recommended unless otherwise clinically indicated. ASSESSMENT: BI-RADS Category 1: Negative.
== END 2025-03-13 23:59 | disposition home or self-care (01) ==
LOC: RAD 08:22
PROVIDERS: PCP Family Medicine; Visit Provider Obstetrics & Gynecology
DX: Z12.31 Encounter for screening mammogram for malignant neoplasm of breast (principal); R92.333 Mammographic heterogeneous density, bilateral breasts; Z80.3 Family history of malignant neoplasm of breast
CPT/HCPCS: 77063; 77067